=== PATIENT | female | born 1950 | race Caucasian/White ===

== ENCOUNTER 2016-02-28 09:53 | Outpatient (RCR) | payer MEDICARE, OTHER ==
--- OUTSIDE RECORDS SUMMARY | 2015-12-10 14:38 | XMS REPORT | Continuity of Care Document ---
Author Author [facility] Organization [facility] Address Unknown Phone Unavailable Care Team Providers Care Director Of Medical Services Name Role Phone Emile Fleming III PCP [phone] Source Comments Some departments are not documenting in the electronic medical record. If you do not see the information that you expected, contact Release of Information in the Health Information Management department at [phone] for further assistance in locating additional records.[facility] Active Allergies and Adverse Reactions Allergen Noted Date Severity Reactions Comments Flagyl 10/05/2013 EDEMA Pcn 04/13/2012 RASH Sulfa (Sulfonamide 10/05/2013 RASH Antibiotics) Current Medications Prescription Sig. Disp. Refills Start End Date Status Date cyanocobalamin(DIL) Inject 100 mcg to area(s) Active (VITAMIN B-12) 100 mcg/mL as directed every 30 days. The of each month loperamide (IMODIUM) 2 mg Take 8 mg by mouth daily. Active capsule allopurinol (ZYLOPRIM) Take 300 mg by mouth Active 300 mg tablet daily. esomeprazole DR(+) Take 40 mg by mouth every Active (NEXIUM) 40 mg capsule morning. diphenoxylate/atropine Take 2 Tabs by mouth Active (LOMOTIL) 2.5/0.025 mg daily as needed. tablet potassium chloride (KDUR) Take 1 Tab by mouth 90 Cap 3 12/29/19 Active 10 mEq tablet daily. 14 albuterol (VENTOLIN HFA, Inhale 2 Puffs by mouth Active PROAIR HFA) 90 every 6 hours as needed. mcg/actuation inhaler Cholecalciferol (Vitamin Take 1 Cap by mouth Active D3) 5,000 unit cap daily. LACTOBACILLUS ACIDOPHILUS Take 1 Cap by mouth Active (PROBIOTIC PO) daily. cholecalciferol (vitamin Take 1 Tab by mouth every Active D3) 50,000 unit tab 7 days. Calcium-Cholecalciferol Take 1 Tab by mouth twice Active (D3) (CALCIUM 500+D) 500 daily. mg(1,250mg) -400 unit chew Active Problems Problem Noted Date Spinal cord tumor 06/01/2014 Lesion of lung 12/28/2013 Last Assessment & Plan: This needs to be followed with imaging studies. Fatigue 11/28/2013 Last Assessment & Plan: This is probably from the underlying disease and therapy. This has improved. Renal insufficiency 11/21/2013 Overview: Decreased oral intake, because it hurt to urinate. L ast Assessment & Plan: Pt refused to go to treatment for IVF. She said she would increase her oral water intake. will call tomorrow if she is not drinking and urinating more. 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 L ast Assessment & Plan: More pain. Encourage use of hydrocodone, khanh bottle for washing and snuff drier to keep area dry. Continue aquafore and lidocaine per radiation. No s/s of infection at this time. Diarrhea 11/10/2013 Last Assessment & Plan: This is better. She is getting used to her colostomy bag. Encounter for antineoplastic chemotherapy 10/27/2013 Overview: Radiation and Xeloda for neoadjuvant treatment for adenocarcinoma of rectum. L ast Assessment & Plan: Pt educated on chemotherapy agents: capecitabine. Side effects include but limited to: N/V, fatigue, cytopenias, hair thinning, mucositis, rash, PPE, diarrhea. Discussed with pt and spouse when to call the Cancer Center: fevers, diarrhea, constipation, N/V, pain, rash, mucositis or with any other questions or concerns. Pt and verbalized understanding and that all questions had been answered. Informed consent obtained for chemotherapy treatment. Addressed blood transfusions and obtained consent for any necessary blood transfusions. Pt given phone numbers for clinic and after hours contact. Rectal pain 10/27/2013 Overview: This appears to be postsurgical. L ast Assessment & Plan: She will continue her pain meds as needed. Rectal bleeding 10/27/2013 Overview: From large low rectal tumor. L ast Assessment & Plan: Very minimal, after BM. Improved with radiation. Crohn's disease (HCC) 10/27/2013 Overview: Diagnosed about 40 years ago. S/p bowel resection in 1968. Most recently on Sara for this. Last dose in September. L ast Assessment & Plan: She will continue her medications. Rectal cancer (HCC) 10/06/2013 Overview: Pt had a 45 year history of Crohn's diease with her first bowel resection at [facility] in 1968. She has had multiple abdominal surgeries since this time. For the past 6 months she has had intermittent rectal bleeding for which she thought was related to her Crohn's disease but the regular interventions were not helping. She then developed rectal discomfort and a bump in her rectum that was firm. Dr. Mckenna did a colonoscopy 09/08/13 which revealed a stricture and low rectal vs anal mass. Pathology reviewed adenocarcinoma. Her CEA in September was 33.6. She then has a CT scan 09/16/13 which showed soft tissue thickening along th anal canal, presumably related to provided history of anorectal cancer. No regional adenopathy, 2 short segments luminal narrowing in the sigmoid colon and no evidence of metastatic disease in the abdomen or pelvis. She then has a PET scan 09/20/13 and this showed marked hypermetabolic activity associated with thickening in the anal canal and distal rectum, nonspecific mild increased FDG uptake in the right hilum with no definitive underlying mass or lymph node enlargement. Pt was seen by Dr. Smith and Dr. Dickens, whom recommended alex-adjuvant chemo/radiation, but due to her history of Crohn's Disease, they were concerned with possible significant side effects from the radiation. She was referred to for evaluation. She started Xeloda and radiation therapy on 10/26/13. L ast Assessment & Plan: She has completed capecitabine and XRT and underwent APR on 01/16/14. The tumor stage was Stage I [id number]. She tolerated hte procedure fairly well. Discussed prognosis. I would recommend that she received 4-6 months of FOLFOX. Discussed modifiable factors and surveillance. We will continue all supportive measures. She will continue care with Dr. Gil. RTC prn. Renal calculi 11/10/2012 Urolithiasis 04/13/2012 Overview: Hx of Crohn's disease and small bowel resection x4. Hx of urolithiasis since early s. R laser lithotripsy in 07/2009. Lithotripsy 08/2010 stone analysis: calcium oxalate monohydrate and calcium phosphate. She is on allopurinol, calcium and urocit K. 24 hour urine in 2011, showed very low citrate and elevated uric acid and high oxalate prior to current treatment. Poor compliance 03/24/12 presented to ER with R flank pain. CT showed R hydronephrosis. R renal pelvis stone, 11mm. R distal ureter stone 9mm. Left UPJ stone 15mm, no hydro on left. R ureteral stent was placed on 03/25/12 after attempted lithotripsy but laser was not operational. 06/03/12: Cystoscopy, right ureteroscopy with laser lithotripsy and right ureteral stent exchange. Stent Removal 06/15/12. Patient did not follow up for her consult for left PCNL until 11/05/12 CT 11/05/12 - small right renal stones without hydro with large left UPJ stone and multiple lower, mid and upper pole stones. Largest at the UPJ. No hydro. Small intrarenal pelvis. Kidney lies high under 12th rib 11/10/12 Left PCNL. Second look 11/18/12. One persistent left renal stone could not be removed. 01/10/13 metabolic w/u initiated. She is already on Ca Citrate, HCTZ and kCitrate. She has small right renal stones. Stone Ca oxalate monohydrate 03/17/13 24 hour urine: low volume (1.2 L), low citrate, low pH, low calcium, increased oxalate 04/11/13 KUB no change in residual left stone (peripheral upper 1.5 cm) and small right renal stones (punctate-2mm). She did not see nephrology Ca/Mg/PO4 normal. PTH slightly elevated at 71. Low Vit D: 22.4 12/15/13: KUB stable. Still not desiring intervention. 12/21 - MRI of back - showed right hydro. 01/21 - CT - large 6+ mm right UVJ stone - severe hydroureteronephrosis. Right renal pelvis stone. Significant non obstructing left renal stone burden 04/24 - KUB no new right renal or ureteral stones. Left renal stone burden significant based on CT from 01/21 more than KUB today 1.6 x1.6cm 10/[address] 01/21 - looks similar stone burden on the left. More than after her PCNL. Assymtomatic, but she did have an EColi UTI recently. PVR zero. L ast Assessment & Plan: Stable. Patient is aware of her left stone burden and asymptomatic. REcent E Coli UTI - unlikely related to this stone. Her stone has ja calcium oxalate monohydrate and not urea splitting. E Coli can be urea splitting but not common. No change in stone since 04/24. At this time, continued monitoring. She is frail. No repeat PCNL Will see her back in 3 months with KUB. Hold off repeating 24 hour urine at this time. Most Recent Encounters Date Type Specialty Providers Description 10/22/2015 Office Visit Urology Milind Corona MBBS Calculus of kidney (Primary Dx) 10/22/2015 Hospital Radiology Milind Corona MBBS Encounter 09/26/2015 Office Visit Oncology Yuval Gaviria MD Rectal cancer (HCC) (Primary Dx) Social History Tobacco Use Types Packs/Day Years Used Date Never Smoker Smokeless Tobacco: Never Used Alcohol Use Drinks/Week oz/Week Comments Yes 0 Standard 0.0 rare drinks or equivalent Last Filed Vital Signs Vital Sign Reading Time Taken Blood Pressure 137/72 10/22/2015 10:20 AM CDT Pulse 76 10/22/2015 10:20 AM CDT Temperature 36.7 C (98.1 F) 09/26/2015 11:16 AM CDT Respiratory Rate 16 09/26/2015 11:16 AM CDT Height 1.575 m (5' 2") 10/22/2015 10:20 AM CDT Weight 44.271 kg (97 lb 9.6 oz) 10/22/2015 10:20 AM CDT Body Mass Index 17.85 10/22/2015 10:20 AM CDT Oxygen Saturation 98% 09/26/2015 11:16 AM CDT Plan of Care Date Type Specialty Providers Description 12/14/2015 Appointment Urology Milind Corona MBBS [address] [place] [address] [phone] (Fax) 03/26/2016 Appointment Oncology Yuval Gaviria MD [address] [place] [address] [phone] (Fax) 08/13/2016 Appointment Radiology Nick Mueller MD [address] [place] [address] [phone] (Fax) 08/13/2016 Appointment Neurosurgery Nick Mueller MD [address] [place] [address] [phone] (Fax) Health Maintenance Due Date Last Done Comments Hepatitis C Screening 1950 Physical (Comprehensive) 05/11/1955 Exam Pertussis Vaccine 05/11/1959 Tetanus Vaccine 1965 Breast Cancer Screening 1988 Shingles Vaccine 2008 Osteoporosis Screening 2013 Prevnar/Pneumovax (#1) 2013 Influenza Vaccine 11/08/2015 Colorectal Cancer 04/16/2025 04/16/2015, 04/16/2015 Screening Results from Last [address] ABD/PELV WO CONTRAST (10/22/2015 10:05 AM) Impressions 1. Resolution of right hydronephrosis since 01/15/2015 with nonvisualization of right renal pelvis and distal ureteral calculi. 2. Slight decrease in stone burden in both kidneys with persistent nonobstructive calculi, worse on the left. 3. Previous abdominoperineal resection with unchanged presacral soft tissue thickening and pelvic scarring, which are likely post therapeutic. 4. 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 5. Multiple right lung base subcentimeter pulmonary opacities, the majority of which have remained stable in size, likely representing scarring or noncalcified granulomas. Tiny 2 mm nodular opacity not definitively seen on prior exam, although likely additional scarring or noncalcified granuloma. Attention on follow-up recommended. 6. Slight increase in size of mildly enlarged mesenteric lymph nodes are indeterminant and could be reactive. Follow-up in 2-3 months is recommended to evaluate for stability or resolution. Approved by John Paul Marks MD on 10/22/2015 1:31 PM By my electronic signature, I attest that I have personally reviewed the images for this examination and formulated the interpretations and opinions expressed in this report Finalized by JUHI GROSS M.D. on 10/22/2015 1:37 PM. Dictated by John Paul Marks MD on 10/22/2015 11:[address] ABDOMEN AND PELVIS Clinical Indication:Female, 65 years old. Nephrolithiasis Technique: Multiple contiguous axial CT images were obtained through the abdomen and pelvis without IV contrast. Post processing coronal and sagittal reconstruction images were made from the axial images. IV contrast: None. Bowel contrast:None Comparison: MRI L-spine from August 15, [address] abdomen/pelvis from January. FINDINGS: Limited evaluation without the use of IV contrast which includes the viscera and vasculature. Lower Thorax: The heart is normal in size. Mitral annular calcification noted. Several subcentimeter nodular opacities in the right lung base are noted ( series 4, images 1, 7, 23, and 38). Several nodules are unchanged since at least 09/16/2013. An additional more cephalad lesion is unchanged since 2013. A tiny 2-3 mm opacity is not definitively seen on prior exam (series 4, image 7). Liver and Biliary system: Unremarkable. Spleen: Unremarkable. Adrenal Glands and Kidneys: Adrenal glands are unremarkable. Interval resolution of right hydronephrosis and nonvisualization of previously seen right UVJ calculus and a calculus in the right renal pelvis. Decreased stone burden in the right kidney with several residual punctate calculi. The dominant calculus measures 2 mm the right interpolar region. Slight improvement in stone burden in the left kidney with nonvisualization of several upper pole calculi. Multiple large stones persist with the largest up to 1.7 cm (series 3, image 30 ) in the left interpolar region. Scattered minute areas of renal cortical scarring are unchanged. No hydronephrosis or distal ureteral calculi identified. Pancreas and Retroperitoneum: Unremarkable. Aorta and Major Vessels: Abdominal aorta is normal in caliber with mild atherosclerotic calcification of the aortoiliac vessels. Bowel, Mesentery and Peritoneal space: Previous abdominoperineal resection noted with unchanged mild presacral soft tissue thickening, which is most likely post therapeutic. Left lower quadrant colostomy with parastomal hernia containing nonobstructed loops of small bowel. Mild retained stool throughout the colon. Large and small loops of bowel are otherwise normal in caliber. Slight increase in size of prominent mesenteric lymph nodes (series 3, images 40 , 42, and 44), with the largest measuring 1.5 x 1.1 cm (series 3, image 44). No ascites. Pelvis: Previous hysterectomy noted. Unchanged abnormal contour of urinary bladder with elongation of the AP dimension and associated bladder wall thickening. No pelvic lymphadenopathy or ascites identified. Abdominal wall and Osseous Structures: Previous ventral pelvic mass or hernia repair with unchanged soft tissue thickening and dystrophic calcification in the lower anterior abdominal wall. Unchanged appearance of chronic displaced nonunited fractures left anterior pubic bone fracture deformities. Persistent sclerosis of the sacral alae bilaterally, worse on the left compatible with old insufficiency fractures. Diffuse demineralization is noted. Mild thoracal lumbar spondylosis. The lower thoracic syrinx is incompletely characterized on CT, please see recent MRI L-spine 08/15/2015. Procedure Note Interface, Radiant Results - Mon Oct 22, 2015 1:[address] ABDOMEN AND PELVIS Clinical Indication: Female, 65 years old. Nephrolithiasis Technique: Multiple contiguous axial CT images were obtained through the abdomen and pelvis without IV contrast. Post processing coronal and sagittal reconstruction images were made from the axial images. IV contrast: None. Bowel contrast: None Comparison: MRI L-spine from August 15, [address] abdomen/pelvis from January. FINDINGS: Limited evaluation without the use of IV contrast which includes the viscera and vasculature. Lower Thorax: The heart is normal in size. Mitral annular calcification noted. Several subcentimeter nodular opacities in the right lung base are noted ( series 4, images 1, 7, 23, and 38). Several nodules are unchanged since at least 09/16/2013. An additional more cephalad lesion is unchanged since 2013. A tiny 2-3 mm opacity is not definitively seen on prior exam (series 4, image 7). Liver and Biliary system: Unremarkable. Spleen: Unremarkable. Adrenal Glands and Kidneys: Adrenal glands are unremarkable. Interval resolution of right hydronephrosis and nonvisualization of previously seen right UVJ calculus and a calculus in the right renal pelvis. Decreased stone burden in the right kidney with several residual punctate calculi. The dominant calculus measures 2 mm the right interpolar region. Slight improvement in stone burden in the left kidney with nonvisualization of several upper pole calculi. Multiple large stones persist with the largest up to 1.7 cm (series 3, image 30 ) in the left interpolar region. Scattered minute areas of renal cortical scarring are unchanged. No hydronephrosis or distal ureteral calculi identified. Pancreas and Retroperitoneum: Unremarkable. Aorta and Major Vessels: Abdominal aorta is normal in caliber with mild atherosclerotic calcification of the aortoiliac vessels. Bowel, Mesentery and Peritoneal space: Previous abdominoperineal resection noted with unchanged mild presacral soft tissue thickening, which is most likely post therapeutic. Left lower quadrant colostomy with parastomal hernia containing nonobstructed loops of small bowel. Mild retained stool throughout the colon. Large and small loops of bowel are otherwise normal in caliber. Slight increase in size of prominent mesenteric lymph nodes (series 3, images 40 , 42, and 44), with the largest measuring 1.5 x 1.1 cm (series 3, image 44). No ascites. Pelvis: Previous hysterectomy noted. Unchanged abnormal contour of urinary bladder with elongation of the AP dimension and associated bladder wall thickening. No pelvic lymphadenopathy or ascites identified. Abdominal wall and Osseous Structures: Previous ventral pelvic mass or hernia repair with unchanged soft tissue thickening and dystrophic calcification in the lower anterior abdominal wall. Unchanged appearance of chronic displaced nonunited fractures left anterior pubic bone fracture deformities. Persistent sclerosis of the sacral alae bilaterally, worse on the left compatible with old insufficiency fractures. Diffuse demineralization is noted. Mild thoracal lumbar spondylosis. The lower thoracic syrinx is incompletely characterized on CT, please see recent MRI L-spine 08/15/2015. IMPRESSION 1. Resolution of right hydronephrosis since 01/15/2015 with nonvisualization of right renal pelvis and distal ureteral calculi. 2. Slight decrease in stone burden in both kidneys with persistent nonobstructive calculi, worse on the left. 3. Previous abdominoperineal resection with unchanged presacral soft tissue thickening and pelvic scarring, which are likely post therapeutic. 4. 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 5. Multiple right lung base subcentimeter pulmonary opacities, the majority of which have remained stable in size, likely representing scarring or noncalcified granulomas. Tiny 2 mm nodular opacity not definitively seen on prior exam, although likely additional scarring or noncalcified granuloma. Attention on follow-up recommended. 6. Slight increase in size of mildly enlarged mesenteric lymph nodes are indeterminant and could be reactive. Follow-up in 2-3 months is recommended to evaluate for stability or resolution. Approved by John Paul Marks MD on 10/22/2015 1:31 PM By my electronic signature, I attest that I have personally reviewed the images for this examination and formulated the interpretations and opinions expressed in this report Finalized by JUHI GROSS M.D. on 10/22/2015 1:37 PM. Dictated by John Paul Marks MD on 10/22/2015 11:16 AM.
[2016-02-21 11:14] LABS: BASOPHILS % (AUTO) 0 % (0-10); EOSINOPHILS # (AUTO) 0.2 10^3/uL (0.0-0.3); EOSINOPHILS % (AUTO) 3 % (0-10); LYMPHOCYTES # (AUTO) 2.2 X 10^3 (1.0-4.0); LYMPHOCYTES % (AUTO) 29 % (12-44); MEAN CORPUSCULAR HEMOGLOBIN 30 PG (25-34); MEAN CORPUSCULAR HGB CONC 33 G/DL (32-36); MEAN CORPUSCULAR VOLUME 91 FL (80-99); MEAN PLATELET VOLUME 9.5 FL (7.4-10.4); MONOCYTES # (AUTO) 0.5 X 10^3 (0.0-1.0); MONOCYTES % (AUTO) 6 % (0-12); NEUTROPHILS # (AUTO) 4.6 X 10^3 (1.8-7.8); NEUTROPHILS % (AUTO) 62 % (42-75); PLATELET COUNT 150 10^3/uL (130-400); RED BLOOD COUNT 3.95 10^6/uL (4.35-5.85); RED CELL DISTRIBUTION WIDTH 15.8 % (10.0-14.5); WHITE BLOOD COUNT 7.5 10^3/uL (4.3-11.0)
[2016-02-21 11:45] LABS: ALBUMIN 3.7 G/DL (3.2-4.5); BILIRUBIN,TOTAL 0.4 MG/DL (0.1-1.0); CALCIUM 8.6 MG/DL (8.5-10.1); CREATININE SERUM 1.03 MG/DL (0.60-1.30); POTASSIUM 3.9 MMOL/L (3.6-5.0); TOTAL PROTEIN 6.5 G/DL (6.4-8.2)
[~2016-02-28 09:53] MED LIST: ALLO300T2 PO; ALLP300T PO; AZIT-21 PO; AZIT500T2 PO; CALC-787 PO; CHOL4PAC19 PO; CHOL4PAC2 PO; CPR500T PO; CYAN100021 IM; CYAN100053 IJ; CYCL10TA9 PO; DIPH1TAB25 PO; DIPH1TAB45 PO; FERR-57 PO; FERR27TA PO; HUMIRA SC; HYDR-3720 PO; HYDR1TAB66 PO; LACT1CAP62 PO; LEVO500T69 PO; LOPE2CAP PO; LOPE2CAP29 PO; MAGN400T26 PO; MAGN400T6 PO; MEGA D PO; MULT-264; Metronidazole PO; NF-ESOM40C PO; NF-URO10 PO; NITR50CA28 PO; ONDAN4ODT PO; POTA10TA17 PO; PRD20T PO; TMSL.4C PO; TRIA1CAP4 PO; TRIA1TAB3 PO; TRM50T PO; VANC125C2 PO
== END 2016-03-09 | disposition home or self-care (01) ==
LOC: ONC 09:53
PROVIDERS: ATTEND Internal Medicine Hematology & Oncology
DX: C21.8 Malignant neoplasm of overlapping sites of rectum, anus and anal canal (principal); M81.0 Age-related osteoporosis without current pathological fracture; G95.89 Other specified diseases of spinal cord; Z93.3 Colostomy status; Z79.899 Other long term (current) drug therapy; Z45.2 Encounter for adjustment and management of vascular access device
CPT/HCPCS: 36591; 80053; 82306; 82378; 85025; 99213

== ENCOUNTER 2016-04-12 09:43 | Inpatient (IN) | payer MEDICARE, OTHER ==
[~2016-04-12] VITALS: Ht 157.5 cm; Wt 41.8 kg
--- OUTSIDE RECORDS SUMMARY | 2016-04-12 09:49 | XMS REPORT | Continuity of Care Document ---
Author Author [facility] Organization [facility] Address Unknown Phone Unavailable Care Team Providers Care Hollow Core Door Frame Assembler Name Role Phone Emile Fleming III PCP [phone] Source Comments Some departments are not documenting in the electronic medical record. If you do not see the information that you expected, contact Release of Information in the Health Information Management department at [phone] for further assistance in locating additional records.[facility] Active Allergies and Adverse Reactions Allergen [...] mouth every 28 Cap 0 04/01/19 04/08/19 macrocrystal 6 hours for 7 days. Take [...] of hydrocodone, khanh bottle for washing and grain drier operator to keep area dry. Continue aquafore and [...] diease with her first bowel resection at [facility] in 1968. She has had multiple abdominal [...] 01/16/14. The tumor stage was Stage I [id number]. She tolerated hte procedure fairly well. 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 03/25 Left flank pain and urgency end of Feb. CT locally in [place] 03/06/16 - left ureteral stones. Known left [...] Radiologist Diagnosis unknown Orders (Primary Dx) 03/28/2016 [facility] Milind Corona MBBS Calculus of ureter Encounter 03/28/2016 [facility] Milind Corona MBBS Calculus of ureter Encounter 03/28/2016 Hospital Radiology Milind Corona MBBS Encounter 03/28/2016 Office Visit Urology Milind Corona MBBS Calculus of ureter (Primary Dx) 03/06/2016 Hospital Radiology Encounter Social History Tobacco Use Types Packs/Day Years Used Date Never Smoker Smokeless Tobacco: Never Used Alcohol Use Drinks/Week oz/Week Comments Yes 0 Standard 0.0 rare drinks or equivalent Last Filed Vital Signs Vital Sign Reading Time Taken Blood Pressure 138/65 04/02/2016 3:57 PM GLUE MOUNTER OPERATOR Pulse 87 04/02/2016 3:57 PM GLUE MOUNTER OPERATOR Temperature 36.6 C (97.9 F) 04/02/2016 3:57 PM GLUE MOUNTER OPERATOR Respiratory Rate 14 04/02/2016 3:57 PM GLUE MOUNTER OPERATOR Height 1.575 m (5' 2.01") 04/02/2016 3:57 PM GLUE MOUNTER OPERATOR Weight 45.088 kg (99 lb 6.4 oz) 04/02/2016 3:57 PM GLUE MOUNTER OPERATOR Body Mass Index 18.18 04/02/2016 3:57 PM GLUE MOUNTER OPERATOR Oxygen Saturation 100% 04/02/2016 3:57 PM GLUE MOUNTER OPERATOR Plan of Care Date Type Specialty Providers Description 04/14/2016 Appointment Urology Milind Corona MBBS [address] [place] [address] [phone] (Fax) 06/13/2016 Appointment Urology Milind Corona MBBS [address] [place] [address] [phone] (Fax) 08/13/2016 Appointment Radiology Nick Mueller MD [address] [place] [address] [phone] (Fax) 08/13/2016 Appointment Neurosurgery Nick Mueller MD [address] [place] [address] [phone] (Fax) 10/01/2016 Appointment Oncology Yuval Gaviria MD [address] [place] [address] [phone] (Fax) Health Maintenance Due Date Last Done [...] prior exam are not included on the [id number]. Approved by Susan Ascencio M.D. on 03/28/2016 5:05 PM By my electronic signature, I attest that I have personally reviewed the images for this examination and formulated the interpretations and opinions expressed in this report Finalized by JUHI GROSS M.D. on 03/28/2016 5:40 PM. Dictated by Susan Ascencio M.D. on 03/28/2016 4:[address] [...] view. No enlarging pulmonary nodule in the [id number]. Liver and Biliary system: Normal sized liver. [...] Results - ThuMar 28, 2016 5:43 PM GLUE MOUNTER OPERATOR CT ABDOMEN AND PELVIS Clinical Indication: Evaluate [...] view. No enlarging pulmonary nodule in the [id number]. Liver and Biliary system: Normal sized liver. [...] prior exam are not included on the [id number]. Approved by Susan Ascencio M.D. on 03/28/2016 [...]
[2016-04-12] MEDS ORDERED: IBUPROFEN 600 MG (MOTRIN) TAB PO ONE (10:00)
[2016-04-12] MEDS ORDERED: morphine INJ 5 MG/ML 1 ML VIAL IVP ONE (10:00)
[2016-04-12] MEDS ORDERED: ONDANSETRON 4 MG/2 ML (SDV) Z0FRAN IVP ONE (10:00)
--- NOTE | 2016-04-12 10:14 | ED Back Pain ---
General Chief Complaint: Back Problems Stated Complaint: KIDNEY STONE/NAUSEA/FEVER Source of Information: Patient History of Present Illness Time Seen by Provider: 10:04 Initial Comments 65 yo wf w left flank pain which began yesterday. She knows she has a left kidney stone and is scheduled Thursday to go to for it. She has been on Macrobid and Floxax. S/P colon cancer and has colostomy. Long standing Chron's disease. Allergies and Home Medications Allergies Coded Allergies: Penicillins (Unverified Allergy, Intermediate, HIVES, 05/01/14) metronidazole (Verified Allergy, Unknown, FACIAL EDEMA, 05/04/14) Sulfa (Sulfonamide Antibiotics) (Unverified Adverse Reaction, Unknown, ) Home Medications 1 TAB PO DAILY (Reported) Allopurinol 300 Mg Tablet 300 MG PO DAILY (Reported) Calcium Citrate/Vitamin D3 1 Each Tablet 1 TAB PO DAILY (Reported) Esomeprazole Mag Trihydrate 40 Mg Capsule.dr 40 MG PO DAILY (Reported) Lactobacillus Acidophilus 1 Each Capsule 1 CAP PO DAILY (Reported) Magnesium Oxide 400 Mg Tablet 400 MG PO TID (Reported) Nitrofurantoin Macrocrystals 50 Mg Capsule 7Days 1 EACH PO BID Prescribed by: ROBI ALLEN on 05/08/14 1646 Prednisone 20 Mg Tab #20 20 MG PO DAILY@0700 Prescribed by: ANNMARIE DE LA TORRE on 05/08/14 0801 Constitutional: fever EENTM: No blurred vision Respiratory: No cough Cardiovascular: No chest pain Gastrointestinal: No abdominal pain, No diarrhea, No vomiting Genitourinary: see HPI : No Musculoskeletal: back pain (left flank pain) Skin: rash Psychiatric/Neurological: No Symptoms Reported Past Bdmogne-Vdvptq-Slilns Hx Patient Social History Alcohol Use: Denies Use Recreational Drug Use: No Smoking Status: Never a Smoker Recent Foreign Travel: No Contact w/Someone Who Travel: No Recent Hopitalizations: Yes (MAR 2005 FOR DEHYDRATION) Immunizations Up To Date Date of Pneumonia Vaccine: Dec 08, 2011 Date of Influenza Vaccine: Dec 07, 2013 Seasonal Allergies Seasonal Allergies: Yes Surgeries HX Surgeries: Yes (CYSTOSCOPIES AND KIDNEY STONE REMOVALS. BOWEL RESECTION) Surgeries: Abdominal, Hysterectomy, Rectal Respiratory Hx Respiratory Disorders: Yes (asthma allergy induced) Respiratory Disorders: Asthma Cardiovascular Hx Cardiac Disorders: No Neurological Hx Neurological Disorders: No 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 System Hx 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 Disorders: No Sexually Transmitted Disease: No Genitourinary Hx Genitourinary Disorders: Yes Genitourinary Disorders: Kidney Stones, UTI-Chronic Gastrointestinal Hx Gastrointestinal Disorders: Yes Gastrointestinal Disorders: Crohns Disease Musculoskeletal Hx Musculoskeletal Disorders: Yes Musculoskeletal Disorders: Osteoporosis Endocrine Hx Endocrine Disorders: No HEENT HX ENT Disorders: No Loss of Vision: Denies Hearing Impairment: Denies Cancer Hx Cancer: Yes Cancer: Rectal, Colon Psychosocial Hx Psychiatric Problems: No Integumentary HX Skin/Integumentary Disorder: No Blood Transfusions Hx Blood Disorders: Yes (anemia) Adverse Reaction to a Blood Tr: No Reviewed Nursing Assessment Reviewed/Agree w Nursing PMH: Yes Family Medical History Family Medial History: Hypertension 19 MOTHER Prostate cancer G8 BROTHER Physical Exam Vital Signs Vital Sign - Last 12Hours 04/12/16 09:47 Temp 102.0 Pulse 131 Resp 20 B/P 136/76 Pulse Ox 94 O2 Delivery Room Air Capillary Refill : General Appearance: No Apparent Distress WD/WN HEENT: Normal ENT Inspection Neck: Normal Inspection Cardiovascular: Regular Rate, Rhythm No Murmur Respiratory: Lungs Clear Gastrointestinal: Normal Bowel Sounds Non Tender Soft Back: Normal InspectionNo CVA Tenderness (L) Extremity: Normal Range of Motion Neurologic/Psychiatric: Alert Oriented x3 No Motor/Sensory Deficits Skin: Normal Color Warm/Dry Progress/Results/Core Measures Results/Orders Lab Results Laboratory Tests Test 04/12/16 09:55 04/12/16 10:20 Range/Units Urine Bacteria MODERATE H /HPF Urine Bilirubin NEGATIVE NEGATIVE Urine Casts NONE /LPF Urine Clarity VERY CLOUDY H Urine Color YELLOW Urine Crystals NONE /LPF Urine Culture Indicated YES Urine Glucose (UA) NEGATIVE NEGATIVE Urine Ketones 1+ H NEGATIVE Urine Leukocyte Esterase 3+ H NEGATIVE Urine Mucus NEGATIVE /LPF Urine Nitrite POSITIVE H NEGATIVE Urine Protein 3+ H NEGATIVE Urine RBC >100 H /HPF Urine RBC (Auto) 4+ H NEGATIVE Urine Specific [place] 1.010 L 1.016-1.022 Urine Urobilinogen NORMAL NORMAL MG/DL Urine WBC TNTC H /HPF Urine pH 5 5-9 Alanine Aminotransferase (ALT/SGPT) 8 0-55 U/L Albumin 3.4 3.2-4.5 G/DL Alkaline Phosphatase 116 40-136 U/L Anion Gap 13 5-14 MMOL/L Aspartate Amino Transf (AST/SGOT) 18 5-34 U/L BUN/Creatinine Ratio 17 Band Neutrophils 11 % Basophils # (Auto) 0.0 0.0-0.1 10^3/uL Basophils (%) (Auto) 0 0-10 % Blood Morphology Comment NORMAL Blood Urea Nitrogen 21 H 7-18 MG/DL Calcium Level 8.2 L 8.5-10.1 MG/DL Carbon Dioxide Level 17 L 21-32 MMOL/L Chloride Level 107 98-107 MMOL/L Creatinine 1.22 0.60-1.30 MG/DL Eosinophils # (Auto) 0.0 0.0-0.3 10^3/uL Eosinophils (%) (Auto) 0 0-10 % Estimat Glomerular Filtration Rate 44 Glucose Level 84 70-105 MG/DL Hematocrit 39 35-52 % Hemoglobin 13.1 11.5-16.0 G/DL Lactic Acid Level 1.5 0.5-2.0 MMOL/L Lymphocytes # (Auto) 1.0 1.0-4.0 X 10^3 Lymphocytes % (Manual) 4 % Lymphocytes (%) (Auto) 5 L 12-44 % Mean Corpuscular Hemoglobin 30 25-34 PG Mean Corpuscular Hemoglobin Concent 34 32-36 G/DL Mean Corpuscular Volume 89 80-99 FL Mean Platelet Volume 9.5 7.4-10.4 FL Monocytes # (Auto) 0.7 0.0-1.0 X 10^3 Monocytes % (Manual) 1 % Monocytes (%) (Auto) 3 0-12 % Neutrophils # (Auto) 18.9 H 1.8-7.8 X 10^3 Neutrophils % (Manual) 84 % Neutrophils (%) (Auto) 92 H 42-75 % Platelet Count 143 130-400 10^3/uL Potassium Level 3.4 L 3.6-5.0 MMOL/L Red Blood Count 4.36 4.35-5.85 10^6/uL Red Cell Distribution Width 14.3 10.0-14.5 % Sodium Level 137 135-145 MMOL/L Total Bilirubin 1.1 H 0.1-1.0 MG/DL Total Protein 6.4 6.4-8.2 G/DL White Blood Count 20.7 H 4.3-11.0 10^3/uL My Orders Orders-ARTURO SAM MD Ct Abdomen/Pelvis Wo (04/12/16 09:59) Ua Culture If Indicated (04/12/16 09:59) Cbc With Automated Diff (04/12/16 09:59) Comprehensive Metabolic Panel (04/12/16 09:59) Blood Culture (04/12/16 09:59) Lactic Acid Analyzer (04/12/16 09:59) Ibuprofen Tablet (Motrin Tablet) (04/12/16 10:00) Ns Iv 1000 Ml (Sodium Chloride 0.9%) (04/12/16 10:00) Ondansetron Injection (Zofran Injectio (04/12/16 10:00) Morphine Injection (Morphine Injection (04/12/16 10:00) Morphine Injection (Morphine Injection (04/12/16 10:26) Manual Differential (04/12/16 10:20) Morphine Injection (Morphine Injection (04/12/16 10:45) Urine Culture (04/12/16 09:55) Ceftriaxone Injection (Rocephin Injectio (04/12/16 11:30) Levofloxacin 500 Mg/100 Ml Iv (Levaquin (04/12/16 11:45) Medications Given in ED Current Medications Medications Dose Ordered Sig/Abad Route Start Time Stop Time Status Last Admin Dose Admin Ceftriaxone Sodium/Sodium Chloride 50 ml @ 100 mls/hr ONCE ONCE IV 04/12/16 11:30 04/12/16 11:59 04/12/16 11:42 100 MLS/HR Ibuprofen 600 mg ONCE ONCE PO 04/12/16 10:00 04/12/16 10:04 DC 04/12/16 10:29 600 MG Morphine Sulfate 5 mg 5 mg ONCE ONCE IVP 04/12/16 10:45 04/12/16 10:46 DC 04/12/16 10:29 5 MG Ondansetron HCl 4 mg ONCE ONCE IVP 04/12/16 10:00 04/12/16 10:04 DC 04/12/16 10:29 4 MG Vital Signs/I&O Vital Sign - Last 12Hours 04/12/16 09:47 Temp 102.0 Pulse 131 Resp 20 B/P 136/76 Pulse Ox 94 O2 Delivery Room Air Progress Note : Time: 11:[address] of the abdomen and pelvis demonstrated a left high go but no evidence of stone. The patient's white count was elevated at 20,000. Blood cultures 2 and a urine culture were obtained. After telephone consultation with the patient's [facility] urologist, Dr. Milind Corona, ([phone]), the patient was treated with 2 g of Rocephin and 1 g of Levaquin IV. Total consultation was undertaken with Dr. Vela, who is kind enough to admit the patient. Departure Communication Time/Spoke to Admitting Phy: 11:[address] Vela Time/Spoke to Consulting Physi: 11:49 Communication/Consulting Dr. Milind Castellanos at [phone]. Impression Impression: Primary Impression: Hydronephrosis Qualified Code: N13.30 - Unspecified hydronephrosis Additional Impression: Pyelonephritis Disposition: ADMITTED INPATIENT Condition: Unchanged Departure-Patient Inst. Referrals: RIOS ELLER DO (PCP/Family) Primary Care Physician ARTURO SAM MD Apr 12, 2016 10:14
[2016-04-12] MEDS ORDERED: morphine INJ 10 MG/ML 1ML (SYR OR VIAL) ONE (10:26)
[2016-04-12] MEDS: NS IV 1000 ML 1,000 ML IV SCH ×5 (10:29→22:12)
[2016-04-12 10:33] LABS: BASOPHILS % (AUTO) 0 % (0-10); EOSINOPHILS % (AUTO) 0 % (0-10); LYMPHOCYTES % (AUTO) 5 % (12-44); MEAN CORPUSCULAR HEMOGLOBIN 30 PG (25-34); MEAN CORPUSCULAR HGB CONC 34 G/DL (32-36); MEAN CORPUSCULAR VOLUME 89 FL (80-99); MEAN PLATELET VOLUME 9.5 FL (7.4-10.4); MONOCYTES # (AUTO) 0.7 X 10^3 (0.0-1.0); MONOCYTES % (AUTO) 3 % (0-12); NEUTROPHILS # (AUTO) 18.9 X 10^3 (1.8-7.8); NEUTROPHILS % (AUTO) 92 % (42-75); PLATELET COUNT 143 10^3/uL (130-400); RED BLOOD COUNT 4.36 10^6/uL (4.35-5.85); RED CELL DISTRIBUTION WIDTH 14.3 % (10.0-14.5); WHITE BLOOD COUNT 20.7 10^3/uL (4.3-11.0)
[2016-04-12 10:43] LABS: BILIRUBIN,URINE NEGATIVE (NEGATIVE); KETONES,URINE 1+ (NEGATIVE); LEUKOCYTE ESTERASE ,URINE 3+ (NEGATIVE); NITRITE,URINE POSITIVE (NEGATIVE); PH,URINE 5 (5-9); PROTEIN,URINE 3+ (NEGATIVE); UROBILINOGEN,URINE NORMAL (NORMAL)
[2016-04-12] MEDS ORDERED: morphine INJ 10 MG/ML 1ML (SYR OR VIAL) IVP ONE (10:45)
[2016-04-12 10:52] LABS: ALBUMIN 3.4 G/DL (3.2-4.5); BILIRUBIN,TOTAL 1.1 MG/DL (0.1-1.0); CALCIUM 8.2 MG/DL (8.5-10.1); CREATININE SERUM 1.22 MG/DL (0.60-1.30); POTASSIUM 3.4 MMOL/L (3.6-5.0); TOTAL PROTEIN 6.4 G/DL (6.4-8.2)
--- NOTE | 2016-04-12 10:53 | Diagnostic Imaging Report ---
PROCEDURE: CT abdomen and pelvis without contrast. TECHNIQUE: Multiple contiguous axial images were obtained through the abdomen and pelvis without the use of intravenous contrast. INDICATION: History of kidney stones, left flank pain. COMPARISON: 03/06/2016. FINDINGS: New left-sided hydronephrosis and hydroureter is present. However, no calculi are seen within the course of the ureter or within the urinary bladder. It is conceivable the patient may have passed a kidney stone. Nonobstructive stones are seen in the left kidney. The largest measures approximately 17 mm. The right kidney is stable. The lung bases are clear. The remainder of the solid organs and bowel are unchanged. Left lower quadrant colostomy is present. There is some thickening of the urinary bladder which is nondistended. Prior anterior abdominal wall repair is noted. The rectum is surgically absent. Osseous structures stable. IMPRESSION: 1. Left-sided hydronephrosis and hydroureter without obvious obstructing stone. 2. Stable nonobstructive calculi left kidney. 3. Postoperative changes as described above. 4. No inflammatory process or abscess identified. Dictated by: Dictated on workstation # [id number]
[2016-04-12 10:55] LABS: WBC,URINE TNTC /HPF
[2016-04-12 10:56] LABS: BAND NEUTROPHILS 11 %; LYMPHOCYTES % (MANUAL) 4 %; NEUTROPHILS % (MANUAL) 84 %
[2016-04-12] MEDS ORDERED: cefTRIAXone INJECTION 2,000 MG in NS (IVPB) 50 ML IV ONE (11:30)
[2016-04-12] MEDS ORDERED: LEVOFLOXACIN 500 MG/100 ML (LEVAQUIN) BAG IV ONE (11:45)
[2016-04-12] MEDS ORDERED: LEVOFLOXACIN 750 MG/150 ML IV 150 ML IV ONE (12:15)
[2016-04-12 12:45] VITALS: BP 96/56
[2016-04-12] MEDS ORDERED: LOPE2CAP PO (13:15)
[2016-04-12] MEDS ORDERED: DIPH1TAB PO (13:15)
[2016-04-12] MEDS ORDERED: oxyCODONE/APAP 5/325MG (PERCOCET 5) TABLET PO PRN (13:15)
[2016-04-12] MEDS ORDERED: POTA10TA6 PO (13:15)
[2016-04-12] MEDS ORDERED: morphine INJ 10 MG/ML 1ML (SYR OR VIAL) IV PRN (13:15)
[2016-04-12] MEDS ORDERED: CHOL5000 PO (13:15)
[2016-04-12] MEDS ORDERED: L.AC1CAP6 PO (13:15)
[2016-04-12] MEDS ORDERED: CHOL500026 PO ×2 (13:15→13:19)
[2016-04-12] MEDS ORDERED: CA C1TAB75 PO (13:15)
[2016-04-12] MEDS ORDERED: NF-ESOM40C PO (13:15)
[2016-04-12] MEDS ORDERED: B 12 INJECTION IM (13:25)
[2016-04-12] MEDS ORDERED: RECLAST IVP (13:25)
[2016-04-12] MEDS ORDERED: CALC-308 PO (13:27)
[2016-04-12] MEDS: ONDANSETRON 4 MG/2 ML (SDV) Z0FRAN IV PRN (15:39)
[2016-04-12 16:00] VITALS: BP 103/62
[2016-04-12 19:30] VITALS: BP 96/55
[2016-04-13] VITALS: BP 94/50
[2016-04-13] MEDS: ACETAMINOPHEN 325 MG TABLET/CAPLET (TYLENOL) PO PRN ×2 (02:17→17:38)
[2016-04-13 04:51] VITALS: BP 92/53
[2016-04-13 05:14] LABS: BASOPHILS % (AUTO) 0 % (0-10); EOSINOPHILS % (AUTO) 0 % (0-10); LYMPHOCYTES # (AUTO) 0.6 X 10^3 (1.0-4.0); LYMPHOCYTES % (AUTO) 4 % (12-44); MEAN CORPUSCULAR HEMOGLOBIN 29 PG (25-34); MEAN CORPUSCULAR HGB CONC 33 G/DL (32-36); MEAN CORPUSCULAR VOLUME 90 FL (80-99); MEAN PLATELET VOLUME 9.8 FL (7.4-10.4); MONOCYTES # (AUTO) 0.5 X 10^3 (0.0-1.0); MONOCYTES % (AUTO) 3 % (0-12); NEUTROPHILS # (AUTO) 13.6 X 10^3 (1.8-7.8); NEUTROPHILS % (AUTO) 92 % (42-75); PLATELET COUNT 86 10^3/uL (130-400); RED BLOOD COUNT 3.48 10^6/uL (4.35-5.85); RED CELL DISTRIBUTION WIDTH 14.5 % (10.0-14.5); WHITE BLOOD COUNT 14.7 10^3/uL (4.3-11.0)
[2016-04-13 05:35] LABS: ALBUMIN 2.5 G/DL (3.2-4.5); ANISOCYTOSIS SLIGHT; BAND NEUTROPHILS 15 %; BASOPHILS % (MANUAL) 0 %; BILIRUBIN,TOTAL 0.4 MG/DL (0.1-1.0); CALCIUM 6.8 MG/DL (8.5-10.1); CREATININE SERUM 1.29 MG/DL (0.60-1.30); CRENATED RBC SLIGHT; EOSINOPHILS % (MANUAL) 0 %; LYMPHOCYTES % (MANUAL) 3 %; NEUTROPHILS % (MANUAL) 78 %; POTASSIUM 3.6 MMOL/L (3.6-5.0); TOTAL PROTEIN 4.7 G/DL (6.4-8.2)
[2016-04-13] MEDS: NS IV 1000 ML 1,000 ML IV SCH ×2 (05:42→05:43)
[2016-04-13 08:00] VITALS: BP 102/55
[2016-04-13] MEDS: cefTRIAXone 1 GM/NS 50 ML IVPB IV SCH ×2 (08:10)
[2016-04-13] MEDS: ONDANSETRON 4 MG/2 ML (SDV) Z0FRAN IV PRN ×2 (08:25→18:27)
[2016-04-13 09:42] LABS: BILIRUBIN,URINE NEGATIVE (NEGATIVE); KETONES,URINE 1+ (NEGATIVE); LEUKOCYTE ESTERASE ,URINE 3+ (NEGATIVE); NITRITE,URINE NEGATIVE (NEGATIVE); PH,URINE 5 (5-9); PROTEIN,URINE 3+ (NEGATIVE); UROBILINOGEN,URINE NORMAL (NORMAL)
[2016-04-13 09:49] LABS: WBC,URINE TNTC /HPF
--- NOTE | 2016-04-13 10:26 | History & Physical-Hospitalist ---
HPI History of Present Illness: HPI/Chief Complaint The patient is a 65-year-old white female admitted from the emergency room after she presented with a complaint of fever and generalized illness and malaise. She was found to have a temperature of 102. Her story begins in February when she had a follow-up CT scan at [facility] for colon cancer which was resected 2 years ago. No evidence of the carcinoma was seen however a stone in her distal ureter was noted. She saw her urologist there and was placed on antibiotics with the hopes that the stone would go ahead and passed. She did not continue to have any pain but had been on 2 rounds of Macrobid. She was to have seen her urologist on 04/14 at the [facility]. Workup in the ER showed a white count of 20,000. CT scan showed no evidence of stone however the ureter showed mild hydro-ureter. After discussion with the ER staff to her urologist at [facility] was elected to keep her here for IV antibiotics. Today it is reported that she is growing a gram-negative rods from both blood and urine. Source: patient Exam Limitations: no limitations Date Seen 04/13/16 Attending Physician Harjinder Lowe MD PCP Richard Fleming DO Referring Physician Date of Admission Apr 12, 2016 at 12:15 Home Medications & Allergies Home Medications Reviewed patient Home Medication Reconciliation Form Allergies Coded Allergies: Penicillins (Unverified Allergy, Intermediate, HIVES, 05/01/14) metronidazole (Verified Allergy, Unknown, FACIAL EDEMA, 05/04/14) Sulfa (Sulfonamide Antibiotics) (Unverified Adverse Reaction, Unknown, ) Past Wntjewg-Bathyq-Qjxjpz Hx Patient Social History Alcohol Use: Denies Use Recreational Drug Use: No Smoking Status: Never a Smoker Physical Abuse Screen: No Sexual Abuse: No Recent Foreign Travel: No Contact w/other who traveled: No Recent Hopitalizations: Yes (2014) Recent Infectious Disease Expo: No Immunizations Up To Date Date of Pneumonia Vaccine: Dec 08, 2011 Date of Influenza Vaccine: Mar 08, 2016 Seasonal Allergies Seasonal Allergies: Yes Surgeries HX Surgeries: Yes (CYSTOSCOPIES AND KIDNEY STONE REMOVALS. BOWEL RESECTION) Surgeries: Abdominal, Hysterectomy, Rectal Respiratory Hx Respiratory Disorders: Yes (asthma allergy induced) Cardiovascular Hx Cardiovascular Disorders: No Neurological Hx Neurological Disorders: No 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 System Hx 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 Disorders: No Sexually Transmitted Disease: No Genitourinary Hx Genitourinary Disorders: Yes Genitourinary Disorders: UTI-Chronic Gastrointestinal Hx Gastrointestinal Disorders: Yes Gastrointestinal Disorders: Crohns Disease Musculoskeletal Hx Musculoskeletal Disorders: Yes Musculoskeletal Disorders: Osteoporosis Endocrine Hx Endocrine Disorders: No HEENT HX ENT Disorders: No Loss of Vision: Denies Hearing Impairment: Denies Cancer Hx Cancer: Yes Cancer: Rectal, Colon Psychosocial Hx Psychiatric Problems: No Integumentary HX Skin/Integumentary Disorder: No Blood Transfusions Hx Blood Disorders: Yes (anemia) Adverse Reaction to a Blood Tr: No Reviewed Nursing Assessment Reviewed/Agree w Nursing PMH: Yes Family Medical History Family Hx: Hypertension 19 MOTHER Prostate cancer G8 BROTHER Review of Systems Constitutional: see HPI chills fever malaise EENTM: no symptoms reported Respiratory: no symptoms reported Cardiovascular: no symptoms reported Gastrointestinal: loss of appetite Genitourinary: see HPI Musculoskeletal: muscle pain Skin: no symptoms reported Psychiatric/Neurological: No Symptoms Reported Physical Exam Physical Exam Vital Signs Vital Sign - Last 12Hours 04/12/16 04/12/16 09:47 12:37 Temp 102.0 Pulse 131 Resp 20 B/P 136/76 Pulse Ox 94 O2 Delivery Room Air O2 Flow Rate 2 Capillary Refill : Less Than 3 Seconds General Appearance: No Apparent Distress WD/WN Other Eyes: Bilateral Eye Normal Inspection HEENT: Normal ENT Inspection Neck: Normal Inspection Respiratory: Chest Non Tender Lungs Clear Normal Breath Sounds No Accessory Muscle Use No Respiratory Distress Cardiovascular: Regular Rate, Rhythm No Edema No Gallop No JVD No Murmur Normal Peripheral Pulses Gastrointestinal: Normal Bowel Sounds No Organomegaly No Pulsatile Mass Non Tender Soft Back: Normal Inspection No CVA Tenderness No Vertebral Tenderness Extremity: Normal Capillary Refill Normal Inspection Normal Range of Motion Non Tender No Calf Tenderness No Pedal Edema Neurologic/Psychiatric: Alert Oriented x3 No Motor/Sensory Deficits Normal Mood/Affect Results Results/Procedures Lab Laboratory Tests 04/12/16 10:20 04/13/16 05:00 Assessment/Plan Admission Diagnosis 1.sepsis with apparent urinary tract origin. 2.recent distal ureteral stone now absent. 3.past history of adenocarcinoma of the colon with resection and colostomy; no evidence of recurrence. Assessment and Plan IV fluids and antibiotics as at present. Adjust depending on culture and sensitivity reports Clinical Quality Measures DVT/VTE Risk/Contraindication: Risk Factor Score Per Nursin RFS Level Per Nursing on Admit: 1=Low/No VTE PPX HARJINDER LOWE MD Apr 13, 2016 10:26
[2016-04-13 12:00] VITALS: BP 106/59
[2016-04-13] MEDS: PANTOPRAZOLE 40 MG (PROTONIX) TAB PO SCH (15:23)
[2016-04-13] MEDS: ALLOPURINOL 300 MG (ZYLOPRIM) TAB PO SCH (15:23)
[2016-04-13] MEDS: KCL 10 MEQ TAB (MICRO K) PO SCH (15:23)
[2016-04-13] MEDS: LACTOBACILLUS Acidoph/Bulgar (LACTINEX/FLORANEX) TAB PO SCH (15:23)
[2016-04-13] MEDS: DIPHENOXYLATE/ATROPINE 2.5MG/0.025MG (LOMOTIL) TAB PO SCH (15:23)
[2016-04-13] MEDS: LOPERAMIDE 2 MG (IMODIUM) CAP PO SCH (15:24)
[2016-04-13 16:00] VITALS: BP 121/58
[2016-04-13 20:06] VITALS: BP 102/56
[2016-04-14 00:10] VITALS: BP 105/56
[2016-04-14 04:00] VITALS: BP 126/59
[2016-04-14] MEDS: ACETAMINOPHEN 325 MG TABLET/CAPLET (TYLENOL) PO PRN (04:24)
[2016-04-14] MEDS: PANTOPRAZOLE 40 MG (PROTONIX) TAB PO SCH (07:49)
[2016-04-14] MEDS ORDERED: cefTRIAXone 1 GM (ROCEPHIN) VIAL ONE (07:59)
[2016-04-14 08:00] VITALS: BP 143/77
[2016-04-14] MEDS: DIPHENOXYLATE/ATROPINE 2.5MG/0.025MG (LOMOTIL) TAB PO SCH (08:05)
[2016-04-14] MEDS: KCL 10 MEQ TAB (MICRO K) PO SCH (08:05)
[2016-04-14] MEDS: LOPERAMIDE 2 MG (IMODIUM) CAP PO SCH (08:05)
[2016-04-14] MEDS: LACTOBACILLUS Acidoph/Bulgar (LACTINEX/FLORANEX) TAB PO SCH (08:05)
[2016-04-14] MEDS: cefTRIAXone 1 GM/NS 50 ML IVPB IV SCH ×2 (08:05)
[2016-04-14] MEDS: ALLOPURINOL 300 MG (ZYLOPRIM) TAB PO SCH (08:05)
--- NOTE | 2016-04-14 10:27 | Discharge Summary-Hospitalist ---
Diagnosis/Chief Complaint Date of Admission Apr 12, 2016 at 12:15 Date of Discharge Admission Diagnosis 1.sepsis with apparent urinary tract origin. 2.recent distal ureteral stone now absent. 3.past history of adenocarcinoma of the colon with resection and colostomy; no evidence of recurrence. Discharge Diagnosis 1.sepsis with apparent urinary tract origin with Escherichia coli 2.recent distal ureteral stone now absent. 3.past history of adenocarcinoma of the colon with resection and colostomy; no evidence of recurrence. Reason Hospital Visit/Course The patient is a 65-year-old white female admitted from the emergency room after she presented with a complaint of fever and generalized illness and malaise. She was found to have a temperature of 102. Her story begins in February when she had a follow-up CT scan at [facility] for colon cancer which was resected 2 years ago. No evidence of the carcinoma was seen however a stone in her distal ureter was noted. She saw her urologist there and was placed on antibiotics with the hopes that the stone would go ahead and passed. She did not continue to have any pain but had been on 2 rounds of Macrobid. She was to have seen her urologist on 04/14 at the [facility]. Workup in the ER showed a white count of 20,000. CT scan showed no evidence of stone however the ureter showed mild hydro-ureter. After discussion with the ER staff to her urologist at [facility] was elected to keep her here for IV antibiotics. Today it is reported that she is growing a gram-negative rods from both blood and urine. Notes from 04/14/2016: Chart Review: Remains febrile at 102.9 - vitals stable otherwise E. coli in urine and blood FQ-resistant but pt maintained on Rocephin since admission Patient Interview: Pt reports that she feels much better than she did prior to admission. Pt would like to DC soon. Dr. Lance discusses pt's current fever. Pt reports that she is starting to eat more, but still has less appetite than normal with occasional nausea. Physical exam was stable. Pt was schedule for a Ua at this morning, which was cancelled. Dr. Lance encourages pt to reschedule a follow-up with . Pt's PCP is Dr. Fleming. Pt uses [facility] pharmacy. Pt requests meds for pain and nausea. Max fever 102.9, pleasant, oriented 3, much improved, walking in halls briskly with Regular rate and rhythm, clear to auscultation bilaterally No edema Plan: DC with close follow-up at Send notes to Dr. Fleming. Scribed by Royce Almaraz under the direct supervision of Dr. Lance. Even given fever last night she looks remarkably well and much clinically improved and really was to go home and will have close follow-up with urology and primary care provider and she is a very reliable patient so will send home on a full 14 pills of Omnicef to take twice a day to complete 10 days of antibiotics. Discharge Summary Discharge Physical Examination Allergies: Coded Allergies: Penicillins (Unverified Allergy, Intermediate, HIVES, 05/01/14) metronidazole (Verified Allergy, Unknown, FACIAL EDEMA, 05/04/14) Sulfa (Sulfonamide Antibiotics) (Unverified Adverse Reaction, Unknown, ) Vitals & I&Os Vital Signs Date Time Temp Pulse Resp B/P Pulse Ox O2 Delivery O2 Flow Rate FiO2 04/14/16 08:00 98.8 99 20 143/77 100 Room Air 04/12/16 12:37 2 Hospital Course Labs (last 24 hrs) Microbiology 04/12/16 Blood Culture - Preliminary, Resulted Escherichia Coli 04/13/16 Urine Culture - Preliminary, Resulted NO GROWTH Discharge Home Medications: Active Scripts Active Cefdinir 300 Mg Capsule 300 Mg PO BID Zofran Odt (Ondansetron) 8 Mg Tab.rapdis 8 Mg PO Q6H Oxycodone-Acetaminophen 5-325 (Oxycodone HCl/Acetaminophen) 1 Each Tablet 1-2 Tab PO Q4H PRN Calcium (Calcium Carbonate) 500 Mg Tab.chew 500 Mg PO DAILY [Reclast] IVP RECLAST INJECTION ANNUALLY IN SEPTEMBER [B 12 Injection] 1 Each IM UD B12 INJECTION 1CC IM MONTHLY Dialyvite Vitamin D3 Max (Cholecalciferol (Vitamin D3)) 50,000 Unit Tablet 50, 000 Unit PO WEEK TAKES ON THURSDAY Vitamin D3 (Cholecalciferol (Vitamin D3)) 5,000 Unit Capsule 5,000 Unit PO DAILY ON THURSDAY Klor-Con 10 (Potassium Chloride) 10 Meq Tablet.er 10 Meq PO DAILY Nexium (Esomeprazole Magnesium) 40 Mg Cap 40 Mg PO DAILY Lomotil 2.5-0.025 mg Tablet (Diphenoxylate HCl/Atropine) 1 Each Tablet 1 Each PO DAILY Loperamide (Loperamide HCl) 2 Mg Capsule 8 Mg PO DAILY TAKES FOUR 2 MG TABLETS DAILY Reported Probiotic (Lactobacillus Acidophilus) 1 Each Capsule 1 Cap PO DAILY Allopurinol 300 Mg Tablet 300 Mg PO DAILY Instructions to patient/family Please see electonic discharge instructions given to patient. Clinical Quality Measures DVT/VTE Risk/Contraindication: Risk Factor Score Per Nursin RFS Level Per Nursing on Admit: 1=Low/No VTE PPX Contraindications-Mechi: Pt at low risk Other: AMBULATE TID ABDIAZIZ LANCE DO Apr 14, 2016 10:27
[2016-04-14] MEDS ORDERED: ONDA8TAB9 PO (11:12)
[2016-04-14] MEDS ORDERED: CEFD300C3 PO (11:12)
[2016-04-14] MEDS ORDERED: OXYC-471 PO (11:12)
--- NOTE | 2016-04-14 11:13 | Discharge Instructions ---
Discharge Instructions Discharge Medications New, Converted or Re-Newed RX: RX on Chart New Medications: Cefdinir (Cefdinir) 300 Mg Capsule 300 MG PO BID #14 CAP Ondansetron (Zofran Odt) 8 Mg Tab.rapdis 8 MG PO Q6H #30 TAB Oxycodone HCl/Acetaminophen (Oxycodone-Acetaminophen 5-325) 1 Each Tablet 1-2 TAB PO Q4H PRN PAIN #30 TAB Continued Medications: Allopurinol (Allopurinol) 300 Mg Tablet 300 MG PO DAILY Calcium Carbonate (Calcium) 500 Mg Tab.chew 500 MG PO DAILY #1 TAB Cholecalciferol (Vitamin D3) (Vitamin D3) 5,000 Unit Capsule 5000 UNIT PO DAILY ON THURSDAY #1 CAP Cholecalciferol (Vitamin D3) (Dialyvite Vitamin D3 Max) 50,000 Unit Tablet 07597 UNIT PO WEEK TAKES ON THURSDAY #1 TAB Diphenoxylate HCl/Atropine (Lomotil 2.5-0.025 mg Tablet) 1 Each Tablet 1 EACH PO DAILY #1 TAB Esomeprazole Magnesium (Nexium) 40 Mg Cap 40 MG PO DAILY #1 CAP Lactobacillus Acidophilus (Probiotic) 1 Each Capsule 1 CAP PO DAILY Loperamide HCl (Loperamide) 2 Mg Capsule 8 MG PO DAILY TAKES FOUR 2 MG TABLETS DAILY #1 CAP Potassium Chloride (Klor-Con 10) 10 Meq Tablet.er 10 MEQ PO DAILY #1 TAB ([B 12 Injection]) 1 EACH IM UD B12 INJECTION 1CC IM MONTHLY ([Reclast]) IVP RECLAST INJECTION ANNUALLY IN SEPTEMBER Patient Instructions Goal/Follow Up Appt: Dr Fleming in 1 week Urology at [facility] this week Activity & Diet Discharge Diet: No Restrictions Activity as Tolerated: Yes ABDIAZIZ SLATER DO Apr 14, 2016 11:13
[2016-04-14 11:45] VITALS: BP 143/77
[2016-04-14] MEDS ORDERED: LEVOFLOXACIN 750 MG/150 ML IV 150 ML IV SCH (12:00)
== END 2016-04-14 11:45 | disposition home or self-care (01) | DRG 872 ==
LOC: EDUNIT# 09:43 → ER 09:45 → 4TH 12:15
PROVIDERS: ADMIT Internal Medicine; ATTEND Internal Medicine
DX: A41.51 Sepsis due to Escherichia coli [E. coli] (principal); N12 Tubulo-interstitial nephritis, not specified as acute or chronic; N13.6 Pyonephrosis; K50.90 Crohn's disease, unspecified, without complications; J45.909 Unspecified asthma, uncomplicated; M81.0 Age-related osteoporosis without current pathological fracture; Z85.038 Personal history of other malignant neoplasm of large intestine; Z93.3 Colostomy status
CPT/HCPCS: 36415; 74176; 80053; 81000; 83605; 85007; 85027; 87040; 87077; 87088; 87186; 96361; 96365; 96375

== ENCOUNTER → 2016-05-01 | Outpatient (CLI) | payer MEDICARE, OTHER ==
[~2016-05-01] MED LIST changes: +B 12 INJECTION IM; +CA C1TAB75 PO; +CALC-308 PO; +CEFD300C3 PO; +CHOL5000 PO; +CHOL500026 PO; +DIPH1TAB PO; +L.AC1CAP6 PO; +ONDA8TAB9 PO; +OXYC-471 PO; +POTA10TA6 PO; +RECLAST IVP
--- OUTSIDE RECORDS SUMMARY | 2016-05-01 10:26 | XMS REPORT | Continuity of Care Document ---
Author Author [facility] Organization [facility] Address Unknown Phone Unavailable Care Team Providers Care Business Partner Name Role Phone Emile Fleming III PCP [phone] Source Comments Some departments are not documenting in the electronic medical record. If you do not see the information that you expected, contact Release of Information in the Health Information Management department at [phone] for further assistance in locating additional records.[facility] Active Allergies and Adverse Reactions Allergen [...] same meal. Do not cut/ crush/ chew. cefdinir (OMNICEF) 300 mg Take 300 mg by mouth Active capsule every 12 hours. cefdinir (OMNICEF) 300 mg Take 1 Cap by mouth every 14 Cap 0 04/18/19 Active capsule 12 hours. 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 Continue [...] diease with her first bowel resection at [facility] in 1968. She has had [...] 01/16/14. 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 She tolerated hte procedure fairly well. Discussed prognosis. I would recommend that she received 4-6 months of FOLFOX. Discussed modifiable factors and surveillance. We will continue all supportive measures. She will continue care with Dr. Gil. C prn. Renal calculi 11/10/2012 Urolithiasis 04/13/2012 Overview: Hx of Crohn's disease and small bowel resection x4. Hx of urolithiasis since early . R laser lithotripsy in 07/2009. 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 03/25 Left flank pain and urgency end of Feb. CT locally in [place] 03/06/16 - left ureteral stones. Known left renal stones. She has not passed anything and has new urgency. Repeat CT 03/28/16 shows 2 left distal ureteral stones at [facility]. Relatively asymptomatic. On macrobid for UTI. 04/25 - onset of left flank pain and fever. Went to local ER - left distal ureteral stone passed but still hydro. Admitted. Films reviewed. No notes on cultures. On cefdinir. L ast Assessment & Plan: Formatting of this note may be different from the original. Post left distal stone passage. F/u renal u/s to eval for hydro improvement. Urine culture Continue cefdinir for 1 more week Otherwise f/u in 3 months. Other renal stones on the left - needs a PCNL - held off due to other issues, but might need to address. Orders Placed This Encounter CULTURE-URINE W/SENSITIVITY US RENAL BLADDER LTD POC URINE DIPSTICK cefdinir (OMNICEF) 300 mg capsule Most Recent Encounters Date Type Specialty Providers Description 04/21/2016 Telephone Urology Milind Corona MBBS Imaging 04/18/2016 Hospital Radiology Milind Corona MBBS Encounter 04/18/2016 [facility] Milind Corona MBBS Calculus of kidney Encounter 04/18/2016 Office Visit Urology Milind Corona MBBS Renal calculi ( Primary Dx); Calculus of kidney 04/18/2016 Ancillary Radiology Outpatient, Radiologist Diagnosis unknown Orders (Primary Dx) 04/12/2016 Hospital Radiology Encounter 04/02/2016 Office Visit Oncology Yuval Gaviria MD Rectal cancer (HCC) (Primary Dx) 04/01/2016 Telephone Urology Milind Corona MBBS Results 04/01/2016 Orders Only Urology Milind Corona MBBS 03/29/2016 Ancillary Radiology Outpatient, Radiologist Diagnosis unknown Orders (Primary Dx) 03/28/2016 [facility] Milind Corona MBBS Calculus of ureter Encounter 03/28/2016 Hospital Milind Corona MBBS Calculus of ureter [...] Vital Sign Reading Time Taken Blood Pressure 153/61 04/18/2016 9:47 AM [employer] Pulse 79 04/18/2016 9:47 AM [employer] Temperature 36.6 C (97.9 F) 04/02/2016 3:57 PM [employer] Respiratory Rate 14 04/02/2016 3:57 PM [employer] Height 1.575 m (5' 2") 04/18/2016 9:47 AM [employer]ING [employer] Weight 45.36 kg (100 lb) 04/18/2016 9:47 AM [employer] Body Mass Index 18.29 04/18/2016 9:47 AM [employer] Oxygen Saturation 100% 04/02/2016 3:57 PM [employer] Plan of Care Date Type Specialty Providers Description 08/13/2016 Appointment Radiology Nick Mueller MD [address] [place] [address] [phone] (Fax) 08/13/2016 Appointment Neurosurgery Nick Mueller MD [address] [place] [address] [phone] (Fax) 10/01/2016 Appointment Oncology Yuval Gaviria MD [address] [place] [address] [phone]) Health Maintenance Due Date Last Done Comments Hepatitis C Screening 1950 Physical (Comprehensive) 05/11/1955 Exam Pertussis Vaccine 05/11/1959 Tetanus Vaccine 1965 Breast Cancer Screening 1988 Shingles Vaccine 2008 Osteoporosis Screening 2013 Prevnar/Pneumovax (#1) 2013 Influenza Vaccine 11/08/2015 Colorectal Cancer 04/16/2025 04/16/2015, 04/16/2015 Screening Results from Last 3 Months US RENAL BLADDER LTD (04/18/2016 11:06 AM) Impressions Continued findings of extensive left and minimal right renal calculi Somewhat small kidneys bilaterally Decreased dilatation of the left renal collecting system with persistent mild pelviectasis and upper pole caliectasis Small bilateral renal cysts Finalized by Aldair Hammond M.D. on 04/18/2016 11:55 AM. Dictated by Aldair Hammond M.D. on 04/18/2016 11:42 AM. Narrative No sonogram Clinical indication: Renal calculi. Possible resolution of hydronephrosis Technique: Ultrasound images were performed over the kidneys and bladder Findings: Comparison is made with a CT scan of the abdomen dated 03/28/2016. The right kidney is small with no evidence of hydronephrosis or masses. The right kidney measures 6.9 x 4.1 cm. A minute nonobstructing calculus is identified in the midportion of the right kidney. There is a simple cyst in the upper pole of the right kidney measuring 0.7 x 0.5 x 0 0.9 cm. No blood flow seen within the cyst. Left kidney is slightly small measuring 8.8 x 4.5 cm. There is mild residual dilatation of the left renal pelvis and upper pole collecting system but resolution of generalized hydronephrosis. Multiple left renal calculi, the largest measuring up to 2 cm in the midportion of the left kidney are again noted. There is a cyst in the mid to lower pole of the left kidney measuring 1.0 x 0.8 cm. The bladder is decompressed following recent voiding. Procedure Note Interface, Radiant Results - ThuApr 18, 2016 11:58 AM [employer]PERING KILN T[employer] No sonogram Clinical indication: Renal calculi. Possible resolution of hydronephrosis Technique: Ultrasound images were performed over the kidneys and bladder Findings: Comparison is made with a CT scan of the abdomen dated 03/28/2016. The right kidney is small with no evidence of hydronephrosis or masses. The right kidney measures 6.9 x 4.1 cm. A minute nonobstructing calculus is identified in the midportion of the right kidney. There is a simple cyst in the upper pole of the right kidney measuring 0.7 x 0.5 x 0 0.9 cm. No blood flow seen within the cyst. Left kidney is slightly small measuring 8.8 x 4.5 cm. There is mild residual dilatation of the left renal pelvis and upper pole collecting system but resolution of generalized hydronephrosis. Multiple left renal calculi, the largest measuring up to 2 cm in the midportion of the left kidney are again noted. There is a cyst in the mid to lower pole of the left kidney measuring 1.0 x 0.8 cm. The bladder is decompressed following recent voiding. IMPRESSION Continued findings of extensive left and minimal right renal calculi Somewhat small kidneys bilaterally Decreased dilatation of the left renal collecting system with persistent mild pelviectasis and upper pole caliectasis Small bilateral renal cysts Finalized by Aldair Hammond M.D. on 04/18/2016 11:55 AM. Dictated by Aldair Hammond M.D. on 04/18/2016 11:42 AM. CULTURE-URINE W/SENSITIVITY (04/18/2016 10:00 AM)Only the most recent of 2 results within the time period is included. Component Value Range Battery Name URINE CULTURE Specimen Description URINE, CLEAN CATCH Special Requests NONE Culture NO GROWTH Report Status FINAL 04/19/2016 Specimen Urine - Urine,Clean Catch POC URINE DIPSTICK MANUAL READ (04/18/2016) Component Value Range Urine Glucose POC neg Urine Bilirubin POC neg Urine Ketone POC neg Urine Specific Marcus 1.015 POC Urine Blood POC mod Urine PH POC 6.0 Urine Protein POC trace Urine Urobilinogen POC 0.2 Urine Nitrite POC neg Urine Leukocytes POC neg Color,UA yellow Turbidity,UA clear Specimen Urine CT ABD/PEL EXTERNAL IMAGING (04/12/2016) Narrative This order has been auto finalized and does not contain a result. CT ABD/PELV WO CONTRAST (03/28/2016 3:27 PM) [...] prior exam are not included on the [id number]. Approved by Susan Ascencio M.D. on 03/28/2016 [...] view. No enlarging pulmonary nodule in the [id number]. Liver and Biliary system: Normal sized liver. [...] Results - ThuMar 28, 2016 5:[address] [address] ABDOMEN AND PELVIS Clinical Indication: Evaluate [...] view. No enlarging pulmonary nodule in the [id number]. Liver and Biliary system: Normal sized liver. [...] prior exam are not included on the [id number]. Approved by Susan Ascencio M.D. on 03/28/2016 [...]
--- NOTE | 2016-05-01 19:25 | Diagnostic Imaging Report ---
Digital mammogram bilateral screening This study was compared to the prior exams of 04/30/15, 04/19/2014, 04/19/2013 and 05/19/12. At this time, there are no current complaints. The current study was also evaluated with a Computer Aided Detection (CAD) system. FINDINGS: The fibroglandular tissue in both breasts is dense. This does limit the sensitivity of this exam. Overall, there does not appear to have been any significant change when compared to the prior study. No primary or secondary sign of malignancy is noted. The metallic density overlying the pectoralis muscle on the left seen previously is again evident and no different IMPRESSION: There is no radiographic evidence for malignancy. ACR BI-RADS Category 1: Negative. Result letter will be mailed to the patient. Note: At least 10% of breast cancer is not imaged by mammography. Dictated by: Dictated on workstation # [id number]
== END ==
LOC: RAD 10:22
PROVIDERS: ATTEND Nurse Practitioner Adult Health
DX: Z12.31 Encounter for screening mammogram for malignant neoplasm of breast (principal)
CPT/HCPCS: 77067

== ENCOUNTER 2016-06-26 09:32 | Outpatient (RCR) | payer MEDICARE, OTHER ==
--- OUTSIDE RECORDS SUMMARY | 2016-04-03 11:26 | XMS REPORT | Continuity of Care Document ---
Author Author [facility] Organization [facility] Address Unknown Phone Unavailable Care Team Providers Care Assistant Winemaker Name Role Phone Emile Fleming III PCP [phone] Source Comments Some departments are not documenting in the electronic medical record. If you do not see the information that you expected, contact Release of Information in the Health Information Management department at [phone] for further assistance in locating additional records.[facility] Active Allergies and Adverse Reactions Allergen [...] 500+D) 500 daily. mg(1,250mg) -400 unit chew tamsulosin (FLOMAX) 0.4 Take 1 Cap by mouth 14 Cap 0 03/28/19 Active mg capsule daily. Take 30 min after 17 same meal. Do not cut/ crush/ chew. nitrofurantoin Take 1 Cap by mouth every 28 Cap 0 04/01/19 04/08/19 Active macrocrystal 6 hours for 7 days. Take 17 17 (MACRODANTIN) 100 mg with food. capsule Active Problems Problem Noted Date Spinal cord [...] of hydrocodone, khanh bottle for washing and glue bone drier to keep area dry. Continue aquafore [...] diease with her first bowel resection at [facility] in 1968. She has had multiple abdominal [...] 01/16/14. The tumor stage was Stage I [id number]. She tolerated hte procedure fairly well. Discussed [...] have an EColi UTI recently. PVR zero. 12/22 - Left renal stones no change. No further UTI. 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 03/25 Left flank pain and urgency end of Feb. CT locally in [place] 03/06/16 - left ureteral stones. Known left renal stones. She has not passed anything and has new urgency. Repeat CT 03/28/16 shows 2 left distal ureteral stones at [facility]J. Relatively asymptomatic. On macrobid for UTI. L ast Assessment & Plan: Formatting of this note may be different from the original. Asymptomatic Will try to have pt pass ureteral stones - start flomax and given strainer. If not passed by next week - role of urteroscopy. No hydro on current CT. Await urine culture. Question of left renal stones - role of extensive ureteroscopy if OR for distal stone. Renal stone is 1.8cm Await to see if ureteral stone passed. Orders Placed This Encounter CULTURE-URINE W/SENSITIVITY (Clinic Collect) CT ABD/PELV WO CONTRAST (Stone Protocol) tamsulosin (FLOMAX) 0.4 mg capsule Most Recent Encounters Date Type Specialty Providers Description 04/02/2016 Office Visit Oncology Micah-Yuval Schrader MD Rectal cancer (HCC) (Primary Dx) 04/01/2016 Telephone Urology Milind Corona MBBS Results 04/01/2016 Orders Only Urology Milind Corona MBBS 03/29/2016 Ancillary Radiology Outpatient, Radiologist Diagnosis unknown Orders (Primary Dx) 03/28/2016 [facility] Milind Corona MBBS Calculus of ureter Encounter 03/28/2016 [facility] Milind Corona MBBS Calculus of ureter Encounter 03/28/2016 Hospital Radiology Milind Corona MBBS Arrived Encounter 03/28/2016 Office Visit Urology Milind Corona MBBS Calculus of ureter (Primary Dx) 03/06/2016 Hospital Radiology Encounter Social History Tobacco Use Types Packs/Day Years Used Date Never Smoker Smokeless Tobacco: Never Used Alcohol Use Drinks/Week oz/Week Comments Yes 0 Standard 0.0 rare drinks or equivalent Last Filed Vital Signs Vital Sign Reading Time Taken Blood Pressure 138/65 04/02/2016 3:57 PM DISTRIBUTION SYSTEMS SUPERINTENDENT Pulse 87 04/02/2016 3:57 PM DISTRIBUTION SYSTEMS SUPERINTENDENT Temperature 36.6 C (97.9 F) 04/02/2016 3:57 PM DISTRIBUTION SYSTEMS SUPERINTENDENT Respiratory Rate 14 04/02/2016 3:57 PM DISTRIBUTION SYSTEMS SUPERINTENDENT Height 1.575 m (5' 2.01") 04/02/2016 3:57 PM DISTRIBUTION SYSTEMS SUPERINTENDENT Weight 45.088 kg (99 lb 6.4 oz) 04/02/2016 3:57 PM DISTRIBUTION SYSTEMS SUPERINTENDENT Body Mass Index 18.18 04/02/2016 3:57 PM DISTRIBUTION SYSTEMS SUPERINTENDENT Oxygen Saturation 100% 04/02/2016 3:57 PM DISTRIBUTION SYSTEMS SUPERINTENDENT Plan of Care Date Type Specialty Providers Description 04/14/2016 Appointment Urology Milind Corona MBBS [address] [place] [address] [phone] (Fax) 06/13/2016 Appointment Urology Milind Corona MBBS [address] [place] [address] [phone] (Fax) 08/13/2016 Appointment Radiology Nick Mueller MD [address] [place] [address] [phone] (Fax) 08/13/2016 Appointment Neurosurgery Nick Mueller MD [address] [place] [address] [phone] (Fax) 10/01/2016 Appointment Oncology Yuval Gaviria MD [address] [place] [address] [phone] (Fax) Health Maintenance Due Date Last Done Comments Hepatitis C Screening 1950 Physical (Comprehensive) 05/11/1955 Exam Pertussis Vaccine 05/11/1959 Tetanus Vaccine 1965 Breast Cancer Screening 1988 Shingles Vaccine 2008 Osteoporosis Screening 2013 Prevnar/Pneumovax (#1) 2013 Influenza Vaccine 11/08/2015 Colorectal Cancer 04/16/2025 04/16/2015, 04/16/2015 Screening Results from Last 3 Months CULTURE-URINE W/SENSITIVITY (03/28/2016 3:30 PM) Component Value Range Battery Name URINE CULTURE Specimen Description URINE Special Requests NONE Culture >100,000 organisms/ml ESCHERICHIA COLI (A) Report Status FINAL 04/01/2016 Organism ID >100,000 organisms/ml ESCHERICHIA COLI Specimen Urine, Outpatient Organism Antibiotic Method Susceptibility >100,000 organisms/ml escherichia coli Ertapenem BEJARANO SUSCEPTIBLE: Susceptible HEREDIA >100,000 organisms/ml escherichia coli Gentamicin BEJARANO SUSCEPTIBLE: Susceptible HEREDIA >100,000 organisms/ml escherichia coli Ampicillin BEJARANO INTERMEDIATE: HEREDIA Intermediate >100,000 organisms/ml escherichia coli Cefazolin BEJARANO INTERMEDIATE: HEREDIA Intermediate >100,000 organisms/ml escherichia coli Nitrofurantoin BEJARANO SUSCEPTIBLE : Susceptible HEREDIA >100,000 organisms/ml escherichia coli Trimethsulfa BEJARANO SUSCEPTIBLE: Susceptible HEREDIA >100,000 organisms/ml escherichia coli Piperacil/Tazobactam BEJARANO SUSCEPTIBLE: Susceptible HEREDIA >100,000 organisms/ml escherichia coli Tetracycline BEJARANO SUSCEPTIBLE: Susceptible HEREDIA >100,000 organisms/ml escherichia coli Cefepime BEJARANO SUSCEPTIBLE: Susceptible HEREDIA >100,000 organisms/ml escherichia coli Ceftriaxone BEJARANO SUSCEPTIBLE: Susceptible HEREDIA >100,000 organisms/ml escherichia coli Amoxicil/Clav Acid BEJARANO SUSCEPTIBLE: Susceptible HEREDIA >100,000 organisms/ml escherichia coli Method BEJARANO BEJARANO HEREDIA HEREDIA CT ABD/PELV WO CONTRAST (03/28/2016 3:27 PM) Impressions 1. Left renal and distal ureteral calculi at the left UVJ with mild hydronephrosis. 2. Punctate nonobstructing right renal calculus. 3. Moderate bladder wall thickening with perivesical and periureteral stranding may be infectious or inflammatory. Please correlate with urinalysis. 4. Improvement in previously noted mesenteric lymphadenopathy. 5. Tiny 2 to 3 mm pulmonary nodules are stable. Several nodules seen on prior exam are not included on the [id number]. Approved by Susan Ascencio M.D. on 03/28/2016 5:05 PM By my electronic signature, I attest that I have personally reviewed the images for this examination and formulated the interpretations and opinions expressed in this report Finalized by JUHI GROSS M.D. on 03/28/2016 5:40 PM. Dictated by Susan Asecncio M.D. on 03/28/2016 4:[address] ABDOMEN AND PELVIS Clinical Indication: Evaluate left ureteral stone Technique: Multiple contiguous axial CT images were obtained through the abdomen and pelvis without IV contrast. Post processing coronal and sagittal reconstruction images were made from the axial images. IV contrast: None. Bowel contrast:None Comparison: CT abdomen/pelvis 10/22/2015 FINDINGS: Limited evaluation of the viscera and vasculature in the absence of IV contrast. Lower Thorax: Linear scarring or atelectasis in the lingula. Mitral annular calcification again noted. Several tiny 2 to 3 mm pulmonary nodules are stable. Several additional right lower lobe nodules are not included on the field-of- view. No enlarging pulmonary nodule in the [id number]. Liver and Biliary system: Normal sized liver. No radiopaque gallbladder calculi. Spleen: Unremarkable. Adrenal Glands and Kidneys: Numerous left renal calculi. The largest cluster of calculi in the mid left kidney measures 1.8 cm. There is another small cluster of calcifications at the left ureterovesical junction. The largest single ureteral calculus in this cluster measures 0.6 cm. Mild left hydronephrosis. A punctate right renal calculus is unchanged. No right hydronephrosis. The ureters are nondilated. There is moderate right and mild left periureteral stranding. Moderate circumferential mural thickening of the urinary bladder and mild perivesical stranding. Pancreas and Retroperitoneum: The pancreas is mildly atrophic. No retroperitoneal lymphadenopathy or fluid collection. Aorta and Major Vessels: Mild aortoiliac atherosclerotic calcification without aneurysm. There is mild focal soft tissue stranding surrounding the AJITH adjacent to surgical clips. Bowel, Mesentery, and Peritoneal space: Previous abdominoperineal resection and left lower quadrant ostomy. Moderate-sized parastomal hernia containing mesentery and nonobstructed bowel. Bowel loops are normal caliber. No ascites or intraperitoneal fluid collection. Mesenteric lymph nodes have decreased in size. A cluster of small lymph nodes in the central mesentery measures 1 x 0.7 cm (series 3 image 40), previously 1.5 x 1.1 cm. Pelvis: Previous hysterectomy. Urinary bladder wall thickening and calculi as above. Stable presacral scarring. Abdominal wall and Osseous Structures: Previous mesh repair of the ventral abdominal wall. Diffuse osteopenia. 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 Stable subtle sclerosis in the bilateral sacral ala compatible with old insufficiency fractures. Lower thoracic syrinx seen on prior MRI is incompletely characterized by CT. Procedure Note Interface, Radiant Results - ThuMar 28, 2016 5:43 PM DISTRIBUTION SYSTEMS SUPERINTENDENT CT ABDOMEN AND PELVIS Clinical Indication: Evaluate left ureteral stone Technique: Multiple contiguous axial CT images were obtained through the abdomen and pelvis without IV contrast. Post processing coronal and sagittal reconstruction images were made from the axial images. IV contrast: None. Bowel contrast: None Comparison: CT abdomen/pelvis 10/22/2015 FINDINGS: Limited evaluation of the viscera and vasculature in the absence of IV contrast. Lower Thorax: Linear scarring or atelectasis in the lingula. Mitral annular calcification again noted. Several tiny 2 to 3 mm pulmonary nodules are stable. Several additional right lower lobe nodules are not included on the field-of- view. No enlarging pulmonary nodule in the [id number]-[id number]. Liver and Biliary system: Normal sized liver. No radiopaque gallbladder calculi. Spleen: Unremarkable. Adrenal Glands and Kidneys: Numerous left renal calculi. The largest cluster of calculi in the mid left kidney measures 1.8 cm. There is another small cluster of calcifications at the left ureterovesical junction. The largest single ureteral calculus in this cluster measures 0.6 cm. Mild left hydronephrosis. A punctate right renal calculus is unchanged. No right hydronephrosis. The ureters are nondilated. There is moderate right and mild left periureteral stranding. Moderate circumferential mural thickening of the urinary bladder and mild perivesical stranding. Pancreas and Retroperitoneum: The pancreas is mildly atrophic. No retroperitoneal lymphadenopathy or fluid collection. Aorta and Major Vessels: Mild aortoiliac atherosclerotic calcification without aneurysm. There is mild focal soft tissue stranding surrounding the AJITH adjacent to surgical clips. Bowel, Mesentery, and Peritoneal space: Previous abdominoperineal resection and left lower quadrant ostomy. Moderate-sized parastomal hernia containing mesentery and nonobstructed bowel. Bowel loops are normal caliber. No ascites or intraperitoneal fluid collection. Mesenteric lymph nodes have decreased in size. A cluster of small lymph nodes in the central mesentery measures 1 x 0.7 cm (series 3 image 40), previously 1.5 x 1.1 cm. Pelvis: Previous hysterectomy. Urinary bladder wall thickening and calculi as above. Stable presacral scarring. Abdominal wall and Osseous Structures: Previous mesh repair of the ventral abdominal wall. Diffuse osteopenia. 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 Stable subtle sclerosis in the bilateral sacral ala compatible with old insufficiency fractures. Lower thoracic syrinx seen on prior MRI is incompletely characterized by CT. IMPRESSION 1. Left renal and distal ureteral calculi at the left UVJ with mild hydronephrosis. 2. Punctate nonobstructing right renal calculus. 3. Moderate bladder wall thickening with perivesical and periureteral stranding may be infectious or inflammatory. Please correlate with urinalysis. 4. Improvement in previously noted mesenteric lymphadenopathy. 5. Tiny 2 to 3 mm pulmonary nodules are stable. Several nodules seen on prior exam are not included on the [id number]. Approved by Susan Ascencio M.D. on 03/28/2016 5:05 PM By my electronic signature, I attest that I have personally reviewed the images for this examination and formulated the interpretations and opinions expressed in this report Finalized by JUHI GROSS M.D. on 03/28/2016 5:40 PM. Dictated by Susan Ascencio M.D. on 03/28/2016 4:[address] CHEST/ABD/PEL EXTERNAL IMAGING (03/06/2016 11:05 AM) Narrative This order has been auto finalized and does not contain a result.
[2016-05-15 11:26] LABS: BASOPHILS # (AUTO) 0.1 10^3/uL (0.0-0.1); BASOPHILS % (AUTO) 1 % (0-10); EOSINOPHILS # (AUTO) 0.2 10^3/uL (0.0-0.3); EOSINOPHILS % (AUTO) 2 % (0-10); LYMPHOCYTES # (AUTO) 2.6 X 10^3 (1.0-4.0); LYMPHOCYTES % (AUTO) 28 % (12-44); MEAN CORPUSCULAR HEMOGLOBIN 29 PG (25-34); MEAN CORPUSCULAR HGB CONC 33 G/DL (32-36); MEAN CORPUSCULAR VOLUME 89 FL (80-99); MEAN PLATELET VOLUME 9.1 FL (7.4-10.4); MONOCYTES # (AUTO) 0.6 X 10^3 (0.0-1.0); MONOCYTES % (AUTO) 6 % (0-12); NEUTROPHILS # (AUTO) 6.1 X 10^3 (1.8-7.8); NEUTROPHILS % (AUTO) 64 % (42-75); PLATELET COUNT 220 10^3/uL (130-400); RED BLOOD COUNT 4.42 10^6/uL (4.35-5.85); WHITE BLOOD COUNT 9.6 10^3/uL (4.3-11.0)
[2016-05-15 12:12] LABS: ALBUMIN 3.6 G/DL (3.2-4.5); BILIRUBIN,TOTAL 0.4 MG/DL (0.1-1.0); CALCIUM 8.8 MG/DL (8.5-10.1); CREATININE SERUM 1.29 MG/DL (0.60-1.30); TOTAL PROTEIN 7.2 G/DL (6.4-8.2)
== END 2016-07-02 | disposition home or self-care (01) ==
LOC: ONC 09:32
PROVIDERS: ATTEND Internal Medicine Hematology & Oncology
DX: C21.8 Malignant neoplasm of overlapping sites of rectum, anus and anal canal (principal); M81.0 Age-related osteoporosis without current pathological fracture; G95.89 Other specified diseases of spinal cord; Z93.3 Colostomy status; Z79.899 Other long term (current) drug therapy; Z45.2 Encounter for adjustment and management of vascular access device
CPT/HCPCS: 36591; 80053; 82306; 82378; 85025; 96523; 99213

== ENCOUNTER 2016-09-23 13:54 | Outpatient (CLI) | payer MEDICARE, OTHER ==
[~2016-09-23] VITALS: Ht 157.5 cm; Wt 41.8 kg
[2016-09-23] MEDS ORDERED: ZOLEDRONATE 5 MG/100 ML (RECLAST) BTL IV ONE (14:15)
[2016-09-23 16:29] VITALS: BP 137/66
== END 2016-09-23 15:00 | disposition home or self-care (01) ==
LOC: SDC 13:54
PROVIDERS: ATTEND Internal Medicine
DX: M81.0 Age-related osteoporosis without current pathological fracture (principal)
CPT/HCPCS: 96365

== ENCOUNTER 2016-10-30 10:43 | Outpatient (RCR) | payer MEDICARE, OTHER ==
[2016-08-07 10:43] LABS: BASOPHILS % (AUTO) 1 % (0-10); EOSINOPHILS # (AUTO) 0.2 10^3/uL (0.0-0.3); EOSINOPHILS % (AUTO) 3 % (0-10); LYMPHOCYTES # (AUTO) 2.4 X 10^3 (1.0-4.0); LYMPHOCYTES % (AUTO) 32 % (12-44); MEAN CORPUSCULAR HGB CONC 32 G/DL (32-36); MEAN CORPUSCULAR VOLUME 92 FL (80-99); MEAN PLATELET VOLUME 9.5 FL (7.4-10.4); MONOCYTES # (AUTO) 0.4 X 10^3 (0.0-1.0); MONOCYTES % (AUTO) 5 % (0-12); NEUTROPHILS # (AUTO) 4.6 X 10^3 (1.8-7.8); NEUTROPHILS % (AUTO) 60 % (42-75); PLATELET COUNT 174 10^3/uL (130-400); RED CELL DISTRIBUTION WIDTH 15.9 % (10.0-14.5); WHITE BLOOD COUNT 7.6 10^3/uL (4.3-11.0)
[2016-08-07 10:46] LABS: MEAN CORPUSCULAR HEMOGLOBIN 29 PG (25-34)
[2016-08-07 11:09] LABS: ALBUMIN 3.1 G/DL (3.2-4.5); BILIRUBIN,TOTAL 0.3 MG/DL (0.1-1.0); CALCIUM 8.4 MG/DL (8.5-10.1); CREATININE SERUM 1.01 MG/DL (0.60-1.30); POTASSIUM 3.9 MMOL/L (3.6-5.0); TOTAL PROTEIN 6.3 G/DL (6.4-8.2)
[2016-10-30 11:02] LABS: BASOPHILS # (AUTO) 0.1 10^3/uL (0.0-0.1); BASOPHILS % (AUTO) 1 % (0-10); EOSINOPHILS # (AUTO) 0.3 10^3/uL (0.0-0.3); EOSINOPHILS % (AUTO) 4 % (0-10); LYMPHOCYTES # (AUTO) 2.4 X 10^3 (1.0-4.0); LYMPHOCYTES % (AUTO) 30 % (12-44); MEAN CORPUSCULAR HEMOGLOBIN 30 PG (25-34); MEAN CORPUSCULAR HGB CONC 33 G/DL (32-36); MEAN CORPUSCULAR VOLUME 91 FL (80-99); MEAN PLATELET VOLUME 9.3 FL (7.4-10.4); MONOCYTES # (AUTO) 0.4 X 10^3 (0.0-1.0); MONOCYTES % (AUTO) 5 % (0-12); NEUTROPHILS # (AUTO) 4.7 X 10^3 (1.8-7.8); NEUTROPHILS % (AUTO) 60 % (42-75); PLATELET COUNT 173 10^3/uL (130-400); RED BLOOD COUNT 4.09 10^6/uL (4.35-5.85); RED CELL DISTRIBUTION WIDTH 15.3 % (10.0-14.5); WHITE BLOOD COUNT 7.8 10^3/uL (4.3-11.0)
[2016-10-30 11:38] LABS: ALANINE AMINOTRANSFERASE 16 U/L (0-55); ALBUMIN 3.6 GM/DL (3.2-4.5); ANION GAP 8 MMOL/L (5-14); ASPARTATE AMINO TRANSFERASE 30 U/L (5-34); BILIRUBIN,TOTAL 0.4 MG/DL (0.1-1.0); BLOOD UREA NITROGEN 17 MG/DL (7-18); BUN/CREATININE RATIO 19; CARBON DIOXIDE 22 MMOL/L (21-32); CHLORIDE 110 MMOL/L (98-107); GFR ESTIMATED > 60; GLUCOSE 96 MG/DL (70-105); SODIUM 140 MMOL/L (135-145); TOTAL PROTEIN 6.8 GM/DL (6.4-8.2)
== END 2016-11-05 | disposition home or self-care (01) ==
LOC: ONC 10:43
PROVIDERS: ATTEND Internal Medicine Hematology & Oncology
DX: C21.8 Malignant neoplasm of overlapping sites of rectum, anus and anal canal (principal); M81.0 Age-related osteoporosis without current pathological fracture; G95.89 Other specified diseases of spinal cord; Z93.3 Colostomy status; Z79.899 Other long term (current) drug therapy
CPT/HCPCS: 36591; 80053; 82306; 82378; 85025; 96523

== ENCOUNTER → 2016-11-07 | Outpatient (CLI) | payer MEDICARE, OTHER ==
[~2016-11-07] VITALS: Ht 157.5 cm; Wt 45.4 kg
[~2016-11-07] MED LIST changes: +CATHETER FLUSH 10 ML SYR IV PRN
[2016-11-07 09:08] VITALS: BP 155/66
== END ==
LOC: CARD 08:14
PROVIDERS: ATTEND Internal Medicine
DX: R07.9 Chest pain, unspecified (principal)
CPT/HCPCS: 78452; 93017

== ENCOUNTER 2016-12-04 11:06 | Outpatient (RCR) | payer MEDICARE, OTHER ==
[2016-11-06 11:16] LABS: BILIRUBIN,URINE NEGATIVE (NEGATIVE); KETONES,URINE NEGATIVE (NEGATIVE); LEUKOCYTE ESTERASE ,URINE 2+ (NEGATIVE); NITRITE,URINE NEGATIVE (NEGATIVE); PH,URINE 5 (5-9); PROTEIN,URINE NEGATIVE (NEGATIVE); UROBILINOGEN,URINE NORMAL (NORMAL)
[2016-11-06 11:23] LABS: SQUAMOUS EPITHELIAL CELL,UR 0-2 /HPF
[~2016-12-04 11:06] MED LIST changes: -CATHETER FLUSH 10 ML SYR IV PRN
== END 2016-12-06 | disposition home or self-care (01) ==
LOC: ONC 11:06
PROVIDERS: ATTEND Internal Medicine Hematology & Oncology
DX: C21.8 Malignant neoplasm of overlapping sites of rectum, anus and anal canal (principal); M81.0 Age-related osteoporosis without current pathological fracture; G95.89 Other specified diseases of spinal cord; R82.99 Other abnormal findings in urine; Z93.3 Colostomy status; Z79.899 Other long term (current) drug therapy; Z45.2 Encounter for adjustment and management of vascular access device
CPT/HCPCS: 81000; 87077; 87088; 87186; 96523; 99213

== ENCOUNTER 2017-01-09 09:08 | Outpatient (RCR) | payer MEDICARE, OTHER ==
[2017-01-09 09:18] LABS: BASOPHILS % (AUTO) 1 % (0-10); EOSINOPHILS # (AUTO) 0.3 10^3/uL (0.0-0.3); EOSINOPHILS % (AUTO) 4 % (0-10); LYMPHOCYTES # (AUTO) 2.9 X 10^3 (1.0-4.0); LYMPHOCYTES % (AUTO) 36 % (12-44); MEAN CORPUSCULAR HEMOGLOBIN 30 PG (25-34); MEAN CORPUSCULAR HGB CONC 33 G/DL (32-36); MEAN CORPUSCULAR VOLUME 89 FL (80-99); MEAN PLATELET VOLUME 9.6 FL (7.4-10.4); MONOCYTES # (AUTO) 0.4 X 10^3 (0.0-1.0); MONOCYTES % (AUTO) 5 % (0-12); NEUTROPHILS # (AUTO) 4.4 X 10^3 (1.8-7.8); NEUTROPHILS % (AUTO) 55 % (42-75); PLATELET COUNT 156 10^3/uL (130-400); RED BLOOD COUNT 4.24 10^6/uL (4.35-5.85); RED CELL DISTRIBUTION WIDTH 15.4 % (10.0-14.5); WHITE BLOOD COUNT 8.1 10^3/uL (4.3-11.0)
[2017-01-09 09:35] LABS: ALBUMIN 3.7 GM/DL (3.2-4.5); BILIRUBIN,TOTAL 0.4 MG/DL (0.1-1.0); CALCIUM 8.9 MG/DL (8.5-10.1); CREATININE SERUM 1.11 MG/DL (0.60-1.30); POTASSIUM 3.5 MMOL/L (3.6-5.0)
[2017-01-30] MEDS ORDERED: LEVO500T80 PO (12:20)
[2017-01-30] MEDS ORDERED: CEFD300C3 PO (12:20)
[2017-01-30] MEDS ORDERED: PHEN-640 PO (12:20)
[2017-01-30] MEDS ORDERED: HYDR-3812 PO (12:40)
[2017-01-30] MEDS ORDERED: ONDA4TAB11 PO (12:40)
== END 2017-02-04 11:24 | disposition home or self-care (01) ==
LOC: ONC 09:08
PROVIDERS: ATTEND Internal Medicine Hematology & Oncology
DX: C21.8 Malignant neoplasm of overlapping sites of rectum, anus and anal canal (principal); M81.0 Age-related osteoporosis without current pathological fracture; G95.89 Other specified diseases of spinal cord; Z93.3 Colostomy status; Z79.899 Other long term (current) drug therapy
CPT/HCPCS: 80053; 82306; 82378; 85025

== ENCOUNTER 2017-01-30 10:01 | Emergency (ER) | payer MEDICARE, OTHER ==
[~2017-01-30] VITALS: Ht 157.5 cm; Wt 44.9 kg
[2017-01-30] MEDS ORDERED: KETOROLAC 30 MG/ML VIAL IVP STA (11:29)
[2017-01-30] MEDS ORDERED: ONDANSETRON 4 MG/2 ML (SDV) Z0FRAN IVP ONE (11:30)
[2017-01-30] MEDS ORDERED: ACETAMINOPHEN 500 MG TAB (TYLENOL) PO PRN (11:30)
[2017-01-30] MEDS ORDERED: LEVOFLOXACIN IV 750 MG/150 ML (LEVAQUIN) BAG IV ONE (11:30)
[2017-01-30] MEDS ORDERED: NS IV PRN (11:30)
[2017-01-30 11:31] LABS: BASOPHILS % (AUTO) 0 % (0-10); EOSINOPHILS % (AUTO) 0 % (0-10); LYMPHOCYTES # (AUTO) 2.9 X 10^3 (1.0-4.0); LYMPHOCYTES % (AUTO) 27 % (12-44); MEAN CORPUSCULAR HEMOGLOBIN 30 PG (25-34); MEAN CORPUSCULAR HGB CONC 33 G/DL (32-36); MEAN CORPUSCULAR VOLUME 89 FL (80-99); MEAN PLATELET VOLUME 9.7 FL (7.4-10.4); MONOCYTES % (AUTO) 10 % (0-12); NEUTROPHILS # (AUTO) 6.7 X 10^3 (1.8-7.8); NEUTROPHILS % (AUTO) 63 % (42-75); PLATELET COUNT 148 10^3/uL (130-400); RED BLOOD COUNT 4.19 10^6/uL (4.35-5.85); RED CELL DISTRIBUTION WIDTH 14.8 % (10.0-14.5); WHITE BLOOD COUNT 10.7 10^3/uL (4.3-11.0)
[2017-01-30 11:37] LABS: INR 1.2 (0.8-1.4); PROTHROMBIN TIME PATIENT 14.9 SEC (12.2-14.7)
--- NOTE | 2017-01-30 11:37 | ED GU-Female ---
General Chief Complaint: Back Problems Stated Complaint: KIDNEY PAIN,POSS STONE Nursing Triage Note: pt reports hx of kidney stones. she reports left flank pain starting 2 weeks ago. passed a stone last week, but pain returned this week. pt reports fever et nausea x 1 week. she reports she took antibiotic originally. Nursing Sepsis Screen: Possible Sepsis Risk Source: patient, spouse Exam Limitations: no limitations History of Present Illness Time seen by provider: 11:20 Initial Comments 66-year-old female patient presents to the emergency department for complaints of left flank pain beginning 2 weeks ago. Patient was started on Macrobid by Dr. Fleming and had mild improvement in symptoms. Reports passing the stone approximately one week after starting the antibiotics. States over the last 4- 5 days after finishing the antibiotics she has noted increased left flank discomfort, dark urine, urgency, frequency, and fevers. Does have a history of sepsis secondary to kidney stones one year ago. Patient does have a history of colorectal cancer with resection and colostomy placement [address] Patient sees Dr[address] Smith for follow-up care. Timing/Duration: getting worse, other (2 weeks onset) Severity/Quality: aching Location: left flank Radiation: LLQ, back (left back) Activities at Onset: none Prior Genitourinary Problems: similar symptoms Modifying Factors: Worsens With Movement, Worsens With Palpation Allergies and Home Medications Allergies Coded Allergies: Penicillins (Unverified Allergy, Intermediate, HIVES, 05/01/14) metronidazole (Verified Allergy, Unknown, FACIAL EDEMA, 05/04/14) Sulfa (Sulfonamide Antibiotics) (Unverified Adverse Reaction, Unknown, ) Home Medications Allopurinol 300 Mg Tablet, 300 MG PO DAILY, (Reported) Calcium Carbonate 500 Mg Tab.chew, 500 MG PO DAILY, #1 Prescribed by: TEA NAIDU on 04/12/16 1327 Cefdinir 300 Mg Capsule, 300 MG PO BID, #14 Prescribed by: ABDIAZIZ SLATER on 04/14/16 1112 Cefdinir 300 Mg Capsule, 300 MG PO BID, #14 Ref 0 Prescribed by: ASH ALBRECHT on 01/30/17 1220 Cholecalciferol (Vitamin D3) 5,000 Unit Capsule, 5,000 UNIT PO DAILY, #1 ON THURSDAY Prescribed by: TEA NAIDU on 04/12/16 1315 Cholecalciferol (Vitamin D3) 50,000 Unit Tablet, 50,000 UNIT PO WEEK, #1 TAKES ON THURSDAY Prescribed by: TEA NAIDU on 04/12/16 1319 Diphenoxylate HCl/Atropine 1 Each Tablet, 1 EACH PO DAILY, #1 Prescribed by: TEA NAIDU on 04/12/16 1315 Esomeprazole Magnesium 40 Mg Cap, 40 MG PO DAILY, #1 Prescribed by: TEA NAIDU on 04/12/16 1315 Hydrocodone/Acetaminophen 1 Each Tablet, 1 EACH PO Q4H PRN for PAIN, #14 Ref 0 Prescribed by: ASH ALBRECHT on 01/30/17 1240 Lactobacillus Acidophilus 1 Each Capsule, 1 CAP PO DAILY, (Reported) Levofloxacin 500 Mg Tablet, 500 MG PO DAILY, #6 Ref 0 Prescribed by: ASH ALBRECHT on 01/30/17 1220 Loperamide HCl 2 Mg Capsule, 8 MG PO DAILY, #1 TAKES FOUR 2 MG TABLETS DAILY Prescribed by: TEA NAIDU on 04/12/16 1315 Ondansetron 8 Mg Tab.rapdis, 8 MG PO Q6H, #30 Prescribed by: ABDIAZIZ SLATER on 04/14/16 1112 Ondansetron 4 Mg Tab.rapdis, 4 MG PO Q6H PRN for NAUSEA/VOMITING-1ST LINE, #10 Ref 0 Prescribed by: ASH ALBRECHT on 01/30/17 1240 Oxycodone HCl/Acetaminophen 1 Each Tablet, 1-2 TAB PO Q4H PRN for PAIN, #30 Prescribed by: ABDIAZIZ SLATER on 04/14/16 1112 Phenazopyridine HCl 200 Mg Tablet, 1 TAB PO Q8H PRN for SPASMS, #30 Ref 0 Prescribed by: ASH ALBRECHT on 01/30/17 1220 Potassium Chloride 10 Meq Tablet.er, 10 MEQ PO DAILY, #1 Prescribed by: TEA NAIDU on 04/12/16 131 [B 12 Injection] , 1 EACH IM UD B12 INJECTION 1CC IM MONTHLY Prescribed by: TEA NAIDU on 04/12/161324 [Reclast] , IVP RECLAST INJECTION ANNUALLY IN SEPTEMBER Prescribed by: TEA NAIDU on 04/12/165 Constitutional: chills, No dizziness, fever, malaise, weakness EENTM: no symptoms reported Respiratory: No cough, No dyspnea on exertion, No phlegm, No short of breath Cardiovascular: No chest pain, No palpitations, No syncope Gastrointestinal: see HPI, abdominal pain, No constipation, No diarrhea, loss of appetite, No melena, nausea, No vomiting Genitourinary: denies burning, denies dysuria, frequency, flank pain, denies hematuria, pain, urgency Musculoskeletal: see HPI, back pain (left low back pain.) Skin: no symptoms reported Psychiatric/Neurological: No Symptoms Reported All Other Systemes Reviewed Negative Unless Noted: Yes (Negative excepted noted.) Past Eljkvpl-Sxqezl-Wptpif Hx Patient Social History Recent Foreign Travel: No Contact w/Someone Who Travel: No Recent Infectious Disease Expo: No Recent Hopitalizations: Yes (2014) Immunizations Up To Date Date of Pneumonia Vaccine: Dec 08, 2011 Date of Influenza Vaccine: Mar 08, 2016 Seasonal Allergies Seasonal Allergies: Yes Surgeries History of Surgeries: Yes (CYSTOSCOPIES AND KIDNEY STONE REMOVALS. BOWEL RESECTION, colostomy. groshong placement.) Surgeries: Abdominal, Hysterectomy, Rectal Respiratory History of Respiratory Disorde: Yes (asthma allergy induced) Respiratory Disorders: Asthma Currently Using CPAP: No Currently Using BIPAP: No Cardiovascular History of Cardiac Disorders: No Neurological History of Neurological Disord: No 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 System Hx 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 Disorders: No Sexually Transmitted Disease: No Genitourinary Genitourinary Disorders: UTI-Chronic Gastrointestinal History of Gastrointestinal Di: Yes Gastrointestinal Disorders: Crohns Disease Musculoskeletal History of Musculoskeletal Dis: Yes Musculoskeletal Disorders: Osteoporosis Endocrine History of Endocrine Disorders: No HEENT History of HEENT Disorders: No Loss of Vision: Denies Hearing Impairment: Denies Cancer History of Cancer: Yes Cancer: Rectal, Colon Did You Recieve Any Treatments: Yes Type of Tx Receive: Chemotherapy Psychosocial History of Psychiatric Problem: No Integumentary History of Skin or Integumenta: No Blood Transfusions History of Blood Disorders: Yes (anemia) Adverse Reaction to a Blood Tr: No Reviewed Nursing Assessment Reviewed/Agree w Nursing PMH: Yes Family Medical History Significant Family History: No Pertinent Family Hx Family Medial History: Hypertension 19 MOTHER Prostate cancer G8 BROTHER Physical Exam Vital Signs Vital Sign - Last 12Hours 01/30/17 01/30/17 10:45 13:43 Temp 100.5 Pulse 105 Resp 18 B/P (MAP) 173/81 Pulse Ox 100 Capillary Refill : Less Than 3 Seconds General Appearance: WD/WN, no apparent distress HEENT: PERRL/EOMI, pharynx normal Neck: supple, normal inspection Cardiovascular: normal peripheral pulses, no edema, no murmur, tachycardia Respiratory: lungs clear, normal breath sounds, no respiratory distress, no accessory muscle use Gastrointestinal: normal bowel sounds, soft, no organomegaly, No guarding, No rebound, tenderness (mild left flank tenderness.), other (colostomy noted in the left lower abdomen with stool and flatus noted in the bag. stoma pink.) Back: normal inspection, No CVA tenderness (R), CVA tenderness (L) Extremities: no pedal edema, normal capillary refill Neurologic/Psychiatric: alert, normal mood/affect, oriented x 3 Skin: normal color, warm/dry Focused Exam Evaluation Lactate Level Laboratory Tests 01/30/17 11:10: Lactic Acid Level 0.81 Lactic Acid Level Progress/Results/Core Measures Suspected Sepsis Recent Fever Within 48 Hours: Yes Infection Criteria Present: Suspected New Infection New/Unexplained Altered Menta: No Sepsis Screen: Possible Sepsis Risk Sepsis Diagnosis: SIRS Temperature:100.5 Pulse: 105 Respiratory Rate: 18 Laboratory Tests 01/30/17 11:10: White Blood Count 10.7 Blood Pressure 173 /81 Mean: 111 Laboratory Tests 01/30/17 11:10: Lactic Acid Level 0.81 Laboratory Tests 01/30/17 11:10: Creatinine 1.14, INR Comment 1.2, Platelet Count 148, Total Bilirubin 0.6 Results/Orders Lab Results Laboratory Tests Test 01/30/17 11:00 01/30/17 11:10 Range/Units Urine Color YELLOW Urine Clarity VERY CLOUDY H Urine pH 6 5-9 Urine Specific [place] 1.010 L 1.016-1.022 Urine Protein 2+ H NEGATIVE Urine Glucose (UA) NEGATIVE NEGATIVE Urine Ketones NEGATIVE NEGATIVE Urine Nitrite POSITIVE H NEGATIVE Urine Bilirubin NEGATIVE NEGATIVE Urine Urobilinogen NORMAL NORMAL MG/DL Urine Leukocyte Esterase 3+ H NEGATIVE Urine RBC (Auto) 4+ H NEGATIVE Urine RBC RARE /HPF Urine WBC TNTC H /HPF Urine Squamous Epithelial Cells 2-5 /HPF Urine Renal Epithelial Cells NONE /HPF Urine Crystals NONE /LPF Urine Bacteria FEW H /HPF Urine Casts NONE /LPF Urine Mucus NEGATIVE /LPF Urine Culture Indicated YES White Blood Count 10.7 4.3-11.0 10^3/uL Red Blood Count 4.19 L 4.35-5.85 10^6/uL Hemoglobin 12.4 11.5-16.0 G/DL Hematocrit 37 35-52 % Mean Corpuscular Volume 89 80-99 FL Mean Corpuscular Hemoglobin 30 25-34 PG Mean Corpuscular Hemoglobin Concent 33 32-36 G/DL Red Cell Distribution Width 14.8 H 10.0-14.5 % Platelet Count 148 130-400 10^3/uL Mean Platelet Volume 9.7 7.4-10.4 FL Neutrophils (%) (Auto) 63 42-75 % Lymphocytes (%) (Auto) 27 12-44 % Monocytes (%) (Auto) 10 0-12 % Eosinophils (%) (Auto) 0 0-10 % Basophils (%) (Auto) 0 0-10 % Neutrophils # (Auto) 6.7 1.8-7.8 X 10^3 Lymphocytes # (Auto) 2.9 1.0-4.0 X 10^3 Monocytes # (Auto) 1.0 0.0-1.0 X 10^3 Eosinophils # (Auto) 0.0 0.0-0.3 10^3/uL Basophils # (Auto) 0.0 0.0-0.1 10^3/uL Prothrombin Time 14.9 H 12.2-14.7 SEC INR Comment 1.2 0.8-1.4 Activated Partial Thromboplast Time 41 H 24-35 SEC Sodium Level 137 135-145 MMOL/L Potassium Level 3.4 L 3.6-5.0 MMOL/L Chloride Level 104 98-107 MMOL/L Carbon Dioxide Level 22 21-32 MMOL/L Anion Gap 11 5-14 MMOL/L Blood Urea Nitrogen 19 H 7-18 MG/DL Creatinine 1.14 0.60-1.30 MG/DL Estimat Glomerular Filtration Rate 47 BUN/Creatinine Ratio 17 Glucose Level 93 70-105 MG/DL Lactic Acid Level 0.81 0.50-2.00 MMOL/L Calcium Level 8.4 L 8.5-10.1 MG/DL Total Bilirubin 0.6 0.1-1.0 MG/DL Aspartate Amino Transf (AST/SGOT) 17 5-34 U/L Alanine Aminotransferase (ALT/SGPT) 10 0-55 U/L Alkaline Phosphatase 119 40-136 U/L Total Protein 7.3 6.4-8.2 GM/DL Albumin 3.4 3.2-4.5 GM/DL Micro Results Microbiology 01/30/17 Blood Culture - Preliminary, Resulted No growth 01/30/17 Urine Culture - Preliminary, Resulted Gram Negative Gilberto My Orders Orders - ASH ALBRECHT PA Cbc With Automated Diff (01/30/17 11:18) Comprehensive Metabolic Panel (01/30/17 11:18) Lactic Acid Analyzer (01/30/17 11:18) Blood Culture (01/30/17 11:18) Ua Culture If Indicated (01/30/17 11:18) Protime With Inr (01/30/17 11:18) Partial Thromboplastin Time (01/30/17 11:18) O2 (01/30/17 11:18) Acetaminophen Tablet (Tylenol Tablet) (01/30/17 11:30) Saline Lock/Iv-Start (01/30/17 11:18) Saline Lock/Iv-Start (01/30/17 11:18) Ns Iv 1000 Ml (Sodium Chloride 0.9%) (01/30/17 11:30) Levofloxacin 750 Mg/150 Ml Iv (Levaquin (01/30/17 11:30) Vital Signs Adult Sepsis Patie Q1H (01/30/17 11:18) Remove Rings In Anticipation O (01/30/17 11:18) Ondansetron Injection (Zofran Injectio (01/30/17 11:30) Ketorolac Injection (Toradol Injection) (01/30/17 11:29) Urine Culture (01/30/17 11:00) Ns Iv 1000 Ml (Sodium Chloride 0.9%) (01/30/17 12:04) Acute Abd Series (01/30/17 11:32) Medications Given in ED Vital Signs/I&O Capillary Refill : Less Than 3 Seconds Blood Pressure Mean: 111 Diagnostic Imaging Diagonstic Imaging: Xray Plain Films/CT/US/NM/MRI: abdomen Comments ACUTE ABD SERIES INDICATION: Vomiting, fever. EXAMINATION: PA chest, supine and upright abdominal images were obtained. FINDINGS: There are calcifications projecting over the left kidney which are likely renal calculi. There are multiple sutures and scarlet in the abdomen from previous surgeries. Bowel gas pattern is normal. There is no free air. Lungs are clear. IMPRESSION: Postsurgical changes in the abdomen. Left nephrolithiasis. Dictated by: Dictated on workstation # [id number] Reviewed: Reviewed by Me (radiology report reviewed by me) Departure Communication (Admissions) Progress Notes Patient seen and evaluated. Baseline labs drawn. I discussed having a CT scan with the patient to rule out kidney stone; however, patient states she was told by her physicians at [facility] that she should think twice before having another CAT scan. She is only to have CT scans if extremely necessary due to her history of having numerous CT scans for the colon cancer. Patient refuses CT scan at this time and to have an x-ray of the abdomen instead. Will proceed with abdominal x-ray and chest x-ray at this time. 1210 all laboratory and diagnostic findings discussed with the patient. Patient reports feeling much better with medications and IV fluids given. Patient is noted to have nitrite positive and to numerous to count white cells in her urine. We'll plan for treatment of the urinary tract infection as an outpatient with follow-up in Dr. Fleming's office Thursday or Thursday. I Have instructed patient to return immediately to the emergency department if symptoms worsen for further evaluation and possible need for CT scan. Patient verbalizes understanding and agrees with the treatment plan. Impression Impression: Primary Impression: Urinary tract infection Qualified Codes: N30.00 - Acute cystitis without hematuria Disposition: HOME, SELF-CARE Condition: Improved Departure-Patient Inst. Decision time for Depature: 12:16 Referrals: RIOS FLEMING DO (PCP/Family) Primary Care Physician Patient Instructions: Urinary Tract Infections in Adults Add. Discharge Instructions: All discharge instructions reviewed with patient and/or family. Voiced understanding. Medications as instructed. Usual medications. Tylenol extra strength [id number] as directed for pain or fever. Ibuprofen 800 mg by mouth every 8 hours as needed for pain or fever. Push fluids. Follow-up with Dr. Fleming as an outpatient for recheck Thursday or Thursday. Call Thursday for appointment time. Return to the emergency department for worsened pain, fever, vomiting, blood in the urine, inability to urinate, or any other concerns. Scripts Ondansetron (Ondansetron Odt) 4 Mg Tab.rapdis 4 MG PO Q6H Y for NAUSEA/VOMITING-1ST LINE, #10 TAB 0 Refills Prov: ASH ALBRECHT 01/30/17 Hydrocodone/Acetaminophen (Hydrocodon -Acetaminophen 5-325) 1 Each Tablet 1 EACH PO Q4H Y for PAIN, #14 TAB 0 Refills Prov: ASH ALBRECHT 01/30/17 Cefdinir (Cefdinir) 300 Mg Capsule 300 MG PO BID, #14 CAP 0 Refills Prov: ASH ALBRECHT 01/30/17 Levofloxacin (Levofloxacin) 500 Mg Tablet 500 MG PO DAILY, #6 TAB 0 Refills Prov: ASH ALBRECHT 01/30/17 Phenazopyridine HCl (Pyridium) 200 Mg Tablet 1 TAB PO Q8H Y for SPASMS, #30 TAB 0 Refills Prov: ASH ALBRECHT 01/30/17 ASH ALBRECHT Jan 30, 2017 11:37
[2017-01-30 11:39] LABS: BILIRUBIN,URINE NEGATIVE (NEGATIVE); KETONES,URINE NEGATIVE (NEGATIVE); LEUKOCYTE ESTERASE ,URINE 3+ (NEGATIVE); NITRITE,URINE POSITIVE (NEGATIVE); PH,URINE 6 (5-9); PROTEIN,URINE 2+ (NEGATIVE); UROBILINOGEN,URINE NORMAL (NORMAL)
[2017-01-30 11:48] LABS: ALBUMIN 3.4 GM/DL (3.2-4.5); BILIRUBIN,TOTAL 0.6 MG/DL (0.1-1.0); CALCIUM 8.4 MG/DL (8.5-10.1); CREATININE SERUM 1.14 MG/DL (0.60-1.30); POTASSIUM 3.4 MMOL/L (3.6-5.0); TOTAL PROTEIN 7.3 GM/DL (6.4-8.2)
[2017-01-30 11:54] LABS: WBC,URINE TNTC /HPF
[2017-01-30] MEDS ORDERED: NS IV 1000 ML 1,000 ML IV ONE (12:04)
[2017-01-30] MEDS ORDERED: CEFD300C3 PO (12:20)
[2017-01-30] MEDS ORDERED: LEVO500T80 PO (12:20)
[2017-01-30] MEDS ORDERED: PHEN-640 PO (12:20)
--- NOTE | 2017-01-30 12:28 | Diagnostic Imaging Report ---
INDICATION: Vomiting, fever. EXAMINATION: PA chest, supine and upright abdominal images were obtained. FINDINGS: There are calcifications projecting over the left kidney which are likely renal calculi. There are multiple sutures and scarlet in the abdomen from previous surgeries. Bowel gas pattern is normal. There is no free air. Lungs are clear. IMPRESSION: Postsurgical changes in the abdomen. Left nephrolithiasis. Dictated by: Dictated on workstation # [id number]
[2017-01-30] MEDS ORDERED: HYDR-3812 PO (12:40)
[2017-01-30] MEDS ORDERED: ONDA4TAB11 PO (12:40)
[2017-01-30 13:43] VITALS: BP 128/59
== END 2017-01-30 13:47 | disposition home or self-care (01) ==
LOC: EDUNIT# 10:01 → ER 10:03
DX: N39.0 Urinary tract infection, site not specified (principal); J45.909 Unspecified asthma, uncomplicated; M81.0 Age-related osteoporosis without current pathological fracture; Z90.710 Acquired absence of both cervix and uterus; Z87.19 Personal history of other diseases of the digestive system; Z87.442 Personal history of urinary calculi; Z85.038 Personal history of other malignant neoplasm of large intestine; Z92.21 Personal history of antineoplastic chemotherapy
CPT/HCPCS: 36415; 74022; 80053; 81000; 83605; 85025; 85610; 85730; 87040; 87077; 87088; 87186; 99284

== ENCOUNTER → 2017-02-05 | Outpatient (CLI) | payer MEDICARE, OTHER ==
[~2017-02-05] MED LIST changes: +HYDR-3812 PO; +LEVO500T80 PO; +ONDA4TAB11 PO; +PHEN-640 PO
== END ==
LOC: LAB 08:26
PROVIDERS: ATTEND Internal Medicine
DX: R19.7 Diarrhea, unspecified (principal)
CPT/HCPCS: 87324; 87449

== ENCOUNTER 2017-04-21 15:39 | Outpatient (RCR) | payer MEDICARE, OTHER ==
[2017-04-29] MEDS ORDERED: CALC-654 PO (15:42)
[2017-04-29] MEDS ORDERED: CHOL5000 PO (15:42)
[2017-04-29] MEDS ORDERED: B-12 INJECTION INJ (15:42)
[2017-04-29] MEDS ORDERED: ONDA8TAB6 PO (15:42)
[2017-04-29] MEDS ORDERED: NF-ESOM40C PO (15:42)
[2017-04-29] MEDS ORDERED: CHOL500049 PO (15:42)
[2017-04-29] MEDS ORDERED: ALLO300T2 PO (15:42)
[2017-04-29] MEDS ORDERED: RT-ALBUINH IH (15:42)
[2017-04-29] MEDS ORDERED: DIPH1TAB PO (15:42)
[2017-04-29] MEDS ORDERED: ACET325T38 PO (15:42)
[2017-04-29] MEDS ORDERED: LACT1CAP74 PO (15:42)
[2017-04-29] MEDS ORDERED: HYOS-19 SL (15:46)
== END 2017-05-06 | disposition home or self-care (01) ==
LOC: ONC 15:39
PROVIDERS: ATTEND Internal Medicine Hematology & Oncology
DX: C21.8 Malignant neoplasm of overlapping sites of rectum, anus and anal canal (principal); M81.0 Age-related osteoporosis without current pathological fracture; G95.89 Other specified diseases of spinal cord; Z93.3 Colostomy status; Z79.899 Other long term (current) drug therapy
CPT/HCPCS: 36591; 99213

== ENCOUNTER → 2017-04-21 | Outpatient (CLI) | payer MEDICARE, OTHER ==
[~2017-04-21] MED LIST changes: +ACHD5005 PO; -HYDR-3812 PO
[2017-04-21 12:06] LABS: BASOPHILS # (AUTO) 0.1 10^3/uL (0.0-0.1); BASOPHILS % (AUTO) 1 % (0-10); EOSINOPHILS # (AUTO) 0.3 10^3/uL (0.0-0.3); EOSINOPHILS % (AUTO) 3 % (0-10); HEMATOCRIT 37 % (35-52); HEMOGLOBIN 12.1 G/DL (11.5-16.0); LYMPHOCYTES # (AUTO) 3.3 X 10^3 (1.0-4.0); LYMPHOCYTES % (AUTO) 40 % (12-44); MEAN CORPUSCULAR HEMOGLOBIN 30 PG (25-34); MEAN CORPUSCULAR HGB CONC 33 G/DL (32-36); MEAN CORPUSCULAR VOLUME 90 FL (80-99); MEAN PLATELET VOLUME 9.6 FL (7.4-10.4); MONOCYTES # (AUTO) 0.5 X 10^3 (0.0-1.0); MONOCYTES % (AUTO) 6 % (0-12); NEUTROPHILS # (AUTO) 4.1 X 10^3 (1.8-7.8); NEUTROPHILS % (AUTO) 51 % (42-75); PLATELET COUNT 197 10^3/uL (130-400); RED CELL DISTRIBUTION WIDTH 15.2 % (10.0-14.5); WHITE BLOOD COUNT 8.2 10^3/uL (4.3-11.0)
[2017-04-21 12:30] LABS: ALBUMIN 3.4 GM/DL (3.2-4.5); BILIRUBIN,TOTAL 0.3 MG/DL (0.1-1.0); CALCIUM 8.7 MG/DL (8.5-10.1); CREATININE SERUM 1.06 MG/DL (0.60-1.30); MAGNESIUM 1.6 MG/DL (1.8-2.4); TOTAL PROTEIN 7.2 GM/DL (6.4-8.2)
== END ==
LOC: LAB 11:39
PROVIDERS: ATTEND Internal Medicine
DX: R53.83 Other fatigue (principal)
CPT/HCPCS: 36415; 80053; 83735; 85025

== ENCOUNTER 2017-04-29 10:41 | Inpatient (IN) | payer MEDICARE, OTHER ==
[~2017-04-29] VITALS: Ht 157.5 cm; Wt 40.9 kg
[2017-04-29 14:05] VITALS: BP 163/86
[2017-04-29 14:09] VITALS: BP 170/84
--- OUTSIDE RECORDS SUMMARY | 2017-04-29 14:16 | XMS REPORT | Continuity of Care Document ---
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 Phone [employer] Unavailable Unavailable Problems Medications Allergies, Adverse Reactions, Alerts Immunizations Results Vital Signs Encounters Location Location Details Encounter Type Encounter Number Reason For Visit Attending Provider ADM Date DC Date Status Source OUTPATIENT [id number] [facility] 10/27/2016 10/27/2016 Active [facility] EMERGENCY [id number] 02/16/2017 Active [facility] SPECIMEN [id number] [place] [place] 03/13/2017 03/13/2017 Active [facility] CA SERIES [id number] BENITA FRANKLIN 04/01/20172017 Active [facility] INPATIENT [id number] CHICO T[place]LORFIELD 04/24/20172017 Active [facility] O 05/15/2017 Active [facility] OP SURGERY [id number] OFELIA MUNGUIA Active [facility] Procedures Plan of Care Social History Assessment and Plan Family History Advance Directives Functional Status
--- OUTSIDE RECORDS SUMMARY | 2017-04-29 14:17 | XMS REPORT | Encounter Summary ---
Author Author [facility] Organization [facility] Address Unknown Phone Unavailable Care Team Providers Care Credit Risk Review Officer Name Role Phone Nick Levine MD Unavailable Milind Corona MD Unavailable Latonia Pink RN Unavailable Unavailable Michelle Pablo RN Unavailable Unavailable Efrain Roberson RN Unavailable Unavailable Homa Ward RN Unavailable Unavailable Key Alejo RN Unavailable Unavailable Yuval Gaviria MD Unavailable Robin Kirk MD Unavailable Sanjuanita Cordoba MD Unavailable Geovanna Mann APRN Unavailable Sherley Diamond RD Unavailable Ang Tam RN Unavailable Unavailable Nick Mueller MD Unavailable Timothy Jacobs MD Unavailable Patt Davidson FIELD ADVISOR-NIGHT CUSTODIAN Unavailable Enedelia Rebolledo Unavailable Unavailable Fide Leung MD Unavailable Alec Cordon MD Unavailable George Jordan MD Unavailable Francy Soriano RN Unavailable Unavailable Ama Diallo RN Unavailable Unavailable Kasandra Chacon RN Unavailable Unavailable Scottie Nunez MD Unavailable Unavailable Bharat Love CRNA Unavailable Sharita Padilla MD Unavailable Richard Fleming MD PCP Encounter Details Date Type Department Care Team Description 04/27/2017 Procedure Pass [facility] - Urology [address]ND FLOOR POD [address] [facility] [place] [address] Social History Tobacco Use Types Packs/Day Years Used Date Never Smoker Smokeless Tobacco: Never Used Alcohol Use Drinks/Week oz/Week Comments Yes 0 Standard 0.0 rare drinks or equivalent Sex Assigned at Date Recorded Not on file as of this encounter Functional Status Functional Status Response Date of Assessment Does the patient have a hearing impairment: No 04/24/2017 Does the patient have a visual impairment: Yes 03/14/2015 Does the patient have impaired ambulation: No 03/14/2015 Does the patient have an activity of daily living No 03/14/2015 (ADL) impairment: Does the patient have an instrumental activity of No 03/14/2015 daily living (IADL) impairment: Cognitive Status Response Date of Assessment Does the patient have a cognitive impairment: No 03/14/2015 as of this encounter Plan of Treatment Date Type Specialty Care Team Description 04/27/2017 Procedure Pass Urology as of this encounter Visit Diagnoses Not on filein this encounter
--- OUTSIDE RECORDS SUMMARY | 2017-04-29 14:17 | XMS REPORT | Clinical Summary ---
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 chest same day. FINDINGS: Single portable supine AP chest radiograph was obtained. Left subclavian chest port with tip overlying the low SVC. Cardiac silhouette is normal in size without pulmonary vascular congestion. No pneumothorax or pleural effusion. IMPRESSION No acute cardiopulmonary abnormality. Approved by Miguel A Garcia M.D. on 04/24/2017 2:12 PM By my electronic signature, I attest that I have personally reviewed the images for this examination and formulated the interpretations and opinions expressed in this report Finalized by GARRETT RODRIGUEZ M.D. on 04/24/2017 4:01 PM. Dictated by Miguel A Garcia M.D. on 04/24/2017 1:41 PM. * ECG-SCAN (04/18/2017 11:28 AM) Narrative Ordered by an unspecified provider. * FLUORO MOBILE IN OR (04/10/2017 8:30 AM) Specimen Performing Laboratory [facility] Narrative This order has been auto finalized and does not contain a result. * ECG-SCAN (02/25/2017 8:46 AM) Narrative Ordered by an unspecified provider. * CT ABD/PELV WO CONTRAST (02/16/2017 12:35 PM) Specimen Performing Laboratory [facility] RESULTS Impressions 1. INTERVAL DEVELOPMENT OF MODERATE SEVERE LEFT HYDRONEPHROSIS AND PROXIMAL LEFT HYDROURETER UP TO THE LEVEL OF THE LEFT ILIAC VESSELS, WITH IMPROVEMENT IN STONE BURDEN ABOUT THE INFERIOR POLE OF THE LEFT KIDNEY, LIKELY REPRESENT SEQUELAE OF RECENT PASSAGE OF STONE. 2. PERSISTENT LEFT NEPHROLITHIASIS. 3. PRIOR ABDOMINAL PERINEAL RESECTION AND LEFT LOWER QUADRANT COLOSTOMY WITH STABLE PARASTOMAL HERNIA CONTAINING NONOBSTRUCTED SMALL BOWEL LOOPS. 4. NO ABDOMINAL/PELVIC METASTATIC DISEASE. Finalized by Julio César Gamino M.D. on 02/16/2017 1:06 PM. Dictated by Julio César Gamino M.D. on 02/16/2017 12:[address] Abdomen and Pelvis Clinical Indication: L flank pain, hydro on bedside ultrasound. Technique: Multiple contiguous axial CT images were obtained through the abdomen and pelvis without IV contrast. Post processing coronal and sagittal reconstruction images were made from the axial images. IV contrast: None. Bowel contrast:None Comparison: Prior CT of the abdomen and pelvis dated 10/27/2016. FINDINGS: Limited evaluation without the use of IV contrast which includes the viscera and vasculature. Lower Thorax: There is mild hypodensity of the blood pool in relation to the myocardium, reflective of anemia. Liver and Biliary system: Unremarkable. Spleen: Unremarkable. Adrenal Glands and Kidneys: The unopacified bilateral adrenal glands appear unremarkable. Previously noted right renal cyst not well demonstrated on this study. Multiple left renal calculi are again noted with decrease in stone burden of the lower pole renal calculus (series 2 image 30) when compared to prior examination. There is development of moderate to severe left hydronephrosis and proximal hydroureter up to the level of the iliac vessels which comes normal in caliber distally. No evidence of ureterolithiasis is identified. Stable areas of cortical scarring are noted most pronounced about the left lower pole. Pancreas and Retroperitoneum: Pancreatic atrophy again identified. There is stable mild soft tissue thickening and nodularity adjacent to the AJITH and the area of adjacent linear radiopaque material (series 2 image 42), which has been stable since multiple prior examinations likely postprocedural. No significant retroperitoneal adenopathy. Aorta and Major Vessels: The abdominal aorta remains to be of normal caliber with mild calcified atherosclerotic plaques. Bowel: Prior abdominal perineal resection and left lower quadrant colostomy again identified. Unchanged long segment of mural thickening involving the distal: The pelvis is seen likely posterior pubic in nature. The small large bowel loops are normal in caliber. Mesentery and Peritoneal space: Small central mesenteric nodes are again identified which are stable over multiple prior examinations. No significant mesenteric adenopathy is noted. No abdominal ascites. Pelvis: No free pelvic fluid. Unchanged postoperative appearance of the urinary bladder in the pelvis with adjacent soft tissue stranding. No urinary bladder calculi are identified. No significant iliac or inguinal adenopathy. There is unchanged presacral soft tissue thickening and stranding. Abdominal wall and Osseous Structures: Stable chronic ununited fracture deformity of the symphysis pubis is noted. Chronic appearing bilateral sacral insufficiency fractures are also unchanged. No new osseous lesions are noted. Mild lumbar spondylosis. Prior ventral abdominal incision and hernia repair with adjacent soft tissue thickening and stranding. Left lower quadrant parastomal hernia containing nonobstructed loops of small bowel again noted. 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 Technique: Multiple contiguous axial CT images were obtained through the abdomen and pelvis without IV contrast. Post processing coronal and sagittal reconstruction images were made from the axial images. IV contrast: None. Bowel contrast: None Comparison: Prior CT of the abdomen and pelvis dated 10/27/2016. FINDINGS: Limited evaluation without the use of IV contrast which includes the viscera and vasculature. Lower Thorax: There is mild hypodensity of the blood pool in relation to the myocardium, reflective of anemia. Liver and Biliary system: Unremarkable. Spleen: Unremarkable. Adrenal Glands and Kidneys: The unopacified bilateral adrenal glands appear unremarkable. Previously noted right renal cyst not well demonstrated on this study. Multiple left renal calculi are again noted with decrease in stone burden of the lower pole renal calculus (series 2 image 30) when compared to prior examination. There is development of moderate to severe left hydronephrosis and proximal hydroureter up to the level of the iliac vessels which comes normal in caliber distally. No evidence of ureterolithiasis is identified. Stable areas of cortical scarring are noted most pronounced about the left lower pole. Pancreas and Retroperitoneum: Pancreatic atrophy again identified. There is stable mild soft tissue thickening and nodularity adjacent to the AJITH and the area of adjacent linear radiopaque material (series 2 image 42), which has been stable since multiple prior examinations likely postprocedural. No significant retroperitoneal adenopathy. Aorta and Major Vessels: The abdominal aorta remains to be of normal caliber with mild calcified atherosclerotic plaques. Bowel: Prior abdominal perineal resection and left lower quadrant colostomy again identified. Unchanged long segment of mural thickening involving the distal: The pelvis is seen likely posterior pubic in nature. The small large bowel loops are normal in caliber. Mesentery and Peritoneal space: Small central mesenteric nodes are again identified which are stable over multiple prior examinations. No significant mesenteric adenopathy is noted. No abdominal ascites. Pelvis: No free pelvic fluid. Unchanged postoperative appearance of the urinary bladder in the pelvis with adjacent soft tissue stranding. No urinary bladder calculi are identified. No significant iliac or inguinal adenopathy. There is unchanged presacral soft tissue thickening and stranding. Abdominal wall and Osseous Structures: Stable chronic ununited fracture deformity of the symphysis pubis is noted. Chronic appearing bilateral sacral insufficiency fractures are also unchanged. No new osseous lesions are noted. Mild lumbar spondylosis. Prior ventral abdominal incision and hernia repair with adjacent soft tissue thickening and stranding. Left lower quadrant parastomal hernia containing nonobstructed loops of small bowel again noted. IMPRESSION 1. INTERVAL DEVELOPMENT OF MODERATE SEVERE LEFT HYDRONEPHROSIS AND PROXIMAL LEFT HYDROURETER UP TO THE LEVEL OF THE LEFT ILIAC VESSELS, WITH IMPROVEMENT IN STONE BURDEN ABOUT THE INFERIOR POLE OF THE LEFT KIDNEY, LIKELY REPRESENT SEQUELAE OF RECENT PASSAGE OF STONE. 2. PERSISTENT LEFT NEPHROLITHIASIS. 3. PRIOR ABDOMINAL PERINEAL RESECTION AND LEFT LOWER QUADRANT COLOSTOMY WITH STABLE PARASTOMAL HERNIA CONTAINING NONOBSTRUCTED SMALL BOWEL LOOPS. 4. NO ABDOMINAL/PELVIC METASTATIC DISEASE. Finalized by Julio César Gamino M.D. on 02/16/2017 1:06 PM. Dictated by Julio César Gamino M.D. on 02/16/2017 12:41 PM. * URINALYSIS, MICROSCOPIC (02/16/2017 12:14 PM) Component Value Ref Range WBCs,UA PACKED 0 - 2 /HPF RBCs,UA 20-50 0 - 3 /HPF Bacteria,UA MANY (A) NEG-NEG WBC Clumps PRESENT Squamous Epithelial Cells 0-2 0 - 5 Specimen Performing Laboratory [facility] [address] [place] [address] * URINALYSIS DIPSTICK (02/16/2017 12:14 PM) Component Value Ref Range Color,UA LUKE Turbidity,UA 2+ (A) CLEAR-CLEAR Specific [place]-Urine 1.011 1.003 - 1.035 pH,UA 6.0 5.0 - 8.0 Protein,UA 1+ (A) NEG-NEG Glucose,UA NEG NEG-NEG Ketones,UA 1+ (A) NEG-NEG Bilirubin,UA NEG NEG-NEG Blood,UA 1+ (A) NEG-NEG Urobilinogen,UA NORMAL NORM-NORMAL Nitrite,UA POS (A) NEG-NEG Leukocytes,UA 3+ (A) NEG-NEG Urine Ascorbic Acid, UA NEG NEG-NEG Specimen Performing Laboratory U[facility] [address] [place] [address] * POC ED US RENAL/BLADDER (02/16/2017 11:24 AM) Specimen Performing Laboratory [facility] RESULTS Impressions [id number] Ul[facility] Exam Date: 02/16/2017 Exam Type: POC ED US RENAL/BLADDER [employer]: Derik Cote Attending: Marielos Hines Worksheet: ED-Renal & Bladder Clinical Indication(s) for Exam: Flank Pain Other: L Views: Right Kidney Long [place]: Adequate Right Kidney [place]: Adequate Left Kidney [place]: Adequate Left Kidney [place]: Adequate Bladder [place]: Not obtained Bladder Short [place]: Adequate Findings: Right Kidney Hydronephrosis: Absent Left Kidney Hydronephrosis: Severe Interpretation: Hydronephrosis: Left, Severe Bladder Size: Normal Physician Approval: Resident/Fellow Signature: Not signed Credentialed Physician: Signed by Marielos Hines on Thursday, February 16, 2017 at 11:57:29 AM Procedure Note Interface, Radiant Results - 02/16/2017 11:58 AM 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 IMPRESSION [id number] Ultrasound Exam Date: 02/16/2017 Exam Type: POC ED US RENAL/BLADDER [employer]: Derik Cote Attending: Marielos Hines Worksheet: ED-Renal & Bladder Clinical Indication(s) for Exam: Flank Pain Other: L Views: Right Kidney Long [place]: Adequate Right Kidney [place]: Adequate Left Kidney Long [place]: Adequate Left Kidney [place]: Adequate Bladder Long [place]: Not obtained Bladder Short [place]: Adequate Findings: Right Kidney Hydronephrosis: Absent Left Kidney Hydronephrosis: Severe Interpretation: Hydronephrosis: Left, Severe Bladder Size: Normal Physician Approval: Resident/Fellow Signature: Not signed Credentialed Physician: Signed by Marielos Hines on Thursday, February 16, 2017 at 11:57:29 AM * POC LACTATE (02/16/2017 11:04 AM) Component Value Ref Range LACTIC ACID POC 0.8 0.5 - 2.0 MMOL/L Specimen Performing Laboratory [facility] [address] [place] [id number] * CULTURE-BLOOD W/SENSITIVITY (02/16/2017 10:50 AM) Component Value Ref Range Battery Name BLOOD CULTURE Specimen Description BLOOD LEFT CHEST Special Requests NONE Culture NO GROWTH 5 DAYS Report Status FINAL 02/22/2017 Specimen Performing Laboratory [facility] [address] [place] [id number] * CBC AND DIFF (02/16/2017 10:50 AM) Component Value Ref Range White Blood Cells 11.5 (H) 4.5 - 11.0 K/UL RBC 3.92 (L) 4.0 - 5.0 M/UL Hemoglobin 11.6 (L) 12.0 - 15.0 GM/DL Hematocrit 35.1 (L) 36 - 45 % MCV 89.5 80 - 100 FL MCH 29.7 26 - 34 PG MCHC 33.2 32.0 - 36.0 G/DL RDW 15.8 (H) 11 - 15 % Platelet Count 156 150 - 400 K/UL MPV 8.1 7 - 11 FL Neutrophils 67 41 - 77 % Lymphocytes 24 24 - 44 % Monocytes 8 4 - 12 % Eosinophils 0 0 - 5 % Basophils 1 0 - 2 % Absolute Neutrophil Count 7.70 (H) 1.8 - 7.0 K/UL Absolute Lymph Count 2.80 1.0 - 4.8 K/UL Absolute Monocyte Count 0.90 (H) 0 - 0.80 K/UL Absolute Eosinophil Count 0.00 0 - 0.45 K/UL Absolute Basophil Count 0.10 0 - 0.20 K/UL Specimen Performing Laboratory [facility] [address] [place] [id number] * LIPASE (02/16/2017 10:50 AM) Component Value Ref Range Lipase 7 (L) 11 - 82 U/L Specimen Performing Laboratory [facility] [address] [place] [id number] * COMPREHENSIVE METABOLIC PANEL (02/16/2017 10:50 AM) Component Value Ref Range Sodium 135 (L) 137 - 147 MMOL/L Potassium 3.9 3.5 - 5.1 MMOL/L Chloride 99 98 - 110 MMOL/L Glucose 66 (L) 70 - 100 MG/DL Blood Urea Nitrogen 18 7 - 25 MG/DL Creatinine 1.28 (H) 0.4 - 1.00 MG/DL Calcium 8.6 8.5 - 10.6 MG/DL Total Protein 7.4 6.0 - 8.0 G/DL Total Bilirubin 0.8 0.3 - 1.2 MG/DL Albumin 3.3 (L) 3.5 - 5.0 G/DL Alk Phosphatase 101 25 - 110 U/L AST (SGOT) 15 7 - 40 U/L CO2 22 21 - 30 MMOL/L ALT (SGPT) <3 (L) 7 - 56 U/L Anion Gap 14 (H) 3 - 12 eGFR Non 41 (L) >60 mL/min Comment: The eGFR is not validated for use in drug dosing adjustments. Continue to use estimated creatinine clearance per dosing reference text. Please contact the Clinical Pharmacist for questions. eGFR 50 (L) >60 mL/min Comment: The eGFR is not validated for use in drug dosing adjustments. Continue to use estimated creatinine clearance per dosing reference text. Please contact the Clinical Pharmacist for questions. Specimen Performing Laboratory [facility] [address] [place] [address] from Last 3 Months
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
--- OUTSIDE RECORDS SUMMARY | 2017-04-29 14:19 | XMS REPORT | Encounter Summary ---
Author Author [facility] Organization [facility] Address Unknown Phone Unavailable Care Team Providers Care Gold Reclaimer Name Role Phone Nick Levine MD Unavailable [...] Unavailable Timothy Jacobs MD Unavailable Patt Davidson LINK TRAINER TEACHER-MANAGEMENT ASSOCIATE Unavailable Enedelia Rebolledo Unavailable Unavailable Fide Leung MD Unavailable Alec Cordon MD Unavailable George Jordan MD Unavailable Francy Soriano RN Unavailable Unavailable Ama Diallo RN Unavailable Unavailable Kasandra Chacon RN Unavailable Unavailable Scottie Nunez MD Unavailable Unavailable Bharat Love CRNA Unavailable Sharita Padilla MD Unavailable Richard Fleming MD PCP Reason for Referral * Radiology Services Status Reason Specialty Diagnoses / Referred By Referred To Procedures Contact Contact New Request Radiology Diagnoses Milind Corona Other MD hydronephrosis [address] rocedures [place] [address] [place] RENAL [place], [place] FUNCTION [place] [address] Encounter Details Date Type Department Care Team Description 04/27/2017 Orders Only [facility] Parul Akins MD Other hydronephrosis Physicians - Urology [address] (Primary Dx) 2ND [place] [address] MED [phone] [place] [address] Social History Tobacco Use Types [...] Procedure Pass Urology Name Priority Associated Diagnoses Order Schedule NM RENAL FUNCTION W LASIX Routine Other hydronephrosis Expected: 2017 (Approximate), Expires: 04/27/2018 as of this encounter Visit Diagnoses Diagnosis Other hydronephrosis - Primary
--- OUTSIDE RECORDS SUMMARY | 2017-04-29 14:19 | XMS REPORT | Encounter Summary ---
Author Author [facility] Organization [facility] Address Unknown Phone Unavailable Care Team Providers Care Toll Settlement Clerk Name Role Phone Nick Levine MD Unavailable [...] RN Unavailable Unavailable Nick Mueller MD Unavailable Timohty Jacobs MD Unavailable Patt Davidson DIAMOND FINISHING SUPERVISOR-AGRICULTURAL RESEARCH TECHNOLOGIST Unavailable Enedelia Rebolledo Unavailable Unavailable Fide Leung MD Unavailable Alec Cordon MD Unavailable George Jordan MD Unavailable Francy Soriano RN Unavailable Unavailable Ama Diallo RN Unavailable Unavailable Kasandra Chacon RN Unavailable Unavailable Scottie Nunez MD Unavailable Unavailable Bharat Love CRNA Unavailable Sharita Padilla MD Unavailable Richard Fleming MD PCP Encounter Details Date Type Department Care Team Description 04/24/2017 Procedure Pass Gen/Vasc/Plst/Trm [address] [place] [address] Social History Tobacco Use Types Packs/Day Years [...]
--- OUTSIDE RECORDS SUMMARY | 2017-04-29 14:19 | XMS REPORT | Encounter Summary ---
Author Author [facility] Organization [facility] Address Unknown Phone Unavailable Care Team Providers Care Gas Prover Name Role Phone Nick Levine MD Unavailable [...] Unavailable Timothy Jacobs MD Unavailable Patt Davidson BUILDING SPECIALIST-MANUFACTURERS REPRESENTATIVE Unavailable Enedelia Rebolledo Unavailable Unavailable Fide Leung MD Unavailable Alec Cordon MD Unavailable George Jordan MD Unavailable Francy Soriano RN Unavailable Unavailable Ama Diallo RN Unavailable Unavailable Kasandra Chacon RN Unavailable Unavailable Scottie Nunez MD Unavailable Unavailable Bharat Love CRNA Unavailable Sharita Padilla MD Unavailable Richard Fleming MD PCP Encounter Details Date Type Department Care Team Description 04/24/2017 Procedure Pass Gen/Vasc/Plst/Trm [address] [place] [address] Social History Tobacco Use Types Packs/Day Years [...]
--- OUTSIDE RECORDS SUMMARY | 2017-04-29 14:19 | XMS REPORT | Encounter Summary ---
Author Author [facility] Organization [facility] Address Unknown Phone Unavailable Care Team Providers Care Shuttle Hand Name Role Phone Nick Levine MD Unavailable [...] Unavailable Timothy Jacobs MD Unavailable Patt Davidson CHIEF INNOVATION OFFICER-GASOLINE ENGINE ASSEMBLER Unavailable Enedelia Rebolledo Unavailable Unavailable Fide Leung MD Unavailable Alec Cordon MD Unavailable George Jordan MD Unavailable Francy Soriano RN Unavailable Unavailable Ama Diallo RN Unavailable Unavailable Kasandra Chacon RN Unavailable Unavailable Scottie Nunez MD Unavailable Unavailable Bharat Love CRNA Unavailable Sharita Padilla MD Unavailable Richard Fleming MD PCP Encounter Details Date Type Department Care Team Description 04/10/2017 Procedure Pass Main Operating Room [address] [place] [id number] Social History Tobacco Use Types Packs/Day Years Used Date Never Smoker Smokeless Tobacco: Never Used Alcohol Use Drinks/Week oz/Week Comments Yes 0 Standard 0.0 rare drinks or equivalent Sex Assigned at Date Recorded Not on file as of this encounter Functional Status Functional Status Response Date of Assessment Does the patient have a hearing impairment: No 02/16/2017 Does the patient have a visual impairment: [...]
--- OUTSIDE RECORDS SUMMARY | 2017-04-29 14:19 | XMS REPORT | Encounter Summary ---
Author Author [facility] Organization [facility] Address Unknown Phone Unavailable Care Team Providers Care University Internship Name Role Phone Nick Levine MD Unavailable [...] Unavailable Timothy Jacobs MD Unavailable Patt Davidson SENIOR SUSTAINABILITY ADVISOR-SHIP PURSER Unavailable Enedelia Rebolledo Unavailable Unavailable Fide Leung MD Unavailable Alec Cordon MD Unavailable George Jordan MD Unavailable Francy Soriano RN Unavailable Unavailable Ama Diallo RN Unavailable Unavailable Kasandra Chacon RN Unavailable Unavailable Scottie Nunez MD Unavailable Unavailable Bharat Love CRNA Unavailable Sharita Padilla MD Unavailable Richard Fleming MD PCP Encounter Details Date Type Department Care Team Description 04/24/2017 Procedure Pass Gen/Vasc/Plst/Trm [address] [place] [address] Social History Tobacco Use Types Packs/Day Years [...]
--- OUTSIDE RECORDS SUMMARY | 2017-04-29 14:19 | XMS REPORT | Encounter Summary ---
Author Author [facility] Organization [facility] Address Unknown Phone Unavailable Care Team Providers Care Gem Setter Name Role Phone Nick Levine MD Unavailable [...] Unavailable Timothy Jacobs MD Unavailable Patt Davidson POLE MAKER-MATTRESS SPECIALIST Unavailable Enedelia Rebolledo Unavailable Unavailable Fide Leung MD Unavailable Alec Cordon MD Unavailable George Jordan MD Unavailable Francy Soriano RN Unavailable Unavailable Ama Diallo RN Unavailable Unavailable Kasandra Chacon RN Unavailable Unavailable Scottie Nunez MD Unavailable Unavailable Bharat Love CRNA Unavailable Sharita Padilla MD Unavailable Richard Fleming MD PCP Encounter Details Date Type Department Care Team Description 04/24/2017 Procedure Pass Gen/Vasc/Plst/Trm [address] [place] [address] Social History Tobacco Use Types Packs/Day Years [...]
--- OUTSIDE RECORDS SUMMARY | 2017-04-29 14:19 | XMS REPORT | Encounter Summary ---
Author Author [facility] Organization [facility] Address Unknown Phone Unavailable Care Team Providers Care Insurance Loss Control Surveyor Name Role Phone Nick Levine MD Unavailable [...] Unavailable Timothy Jacobs MD Unavailable Patt Davidson JUDGE'S CLERK-STOCK BROKER Unavailable Enedelia Rebolledo Unavailable Unavailable Fide Leung MD Unavailable Alec Cordon MD Unavailable George Jordan MD Unavailable Francy Soriano RN Unavailable Unavailable Ama Diallo RN Unavailable Unavailable Kasandra Chacon RN Unavailable Unavailable Scottie Nunez MD Unavailable Unavailable Bharat Love CRNA Unavailable Sharita Padilla MD Unavailable Richard Fleming MD PCP Encounter Details Date Type Department Care Team Description 04/25/2017 Procedure Pass Gen/Vasc/Plst/Trm [address] [place] [address] Social History Tobacco Use Types Packs/Day Years [...]
--- OUTSIDE RECORDS SUMMARY | 2017-04-29 14:19 | XMS REPORT | Encounter Summary ---
Author Author [facility] Organization [facility] Address Unknown Phone Unavailable Care Team Providers Care Climbing Guide Name Role Phone Nick Levine MD Unavailable [...] Unavailable Timothy Jacobs MD Unavailable Patt Davidson KEELER POLYGRAPH OPERATOR-INDUSTRIAL ECONOMIST Unavailable Enedelia Rebolledo Unavailable Unavailable Fide Leung [...] By Referred To Procedures Contact Contact Diagnoses Kidney stone UNKNOWN P rocedures URETEROSCOPY Encounter Details Date Type Department Care Team Description 04/10/2017 Surgery Main Operating Room Milind Corona MD cystoscopy diagnostic [address] [place] [address] [address] exchange [phone] [place], [place] [id number] Social History Tobacco Use Types Packs/Day Years Used Date Never Smoker Smokeless Tobacco: Never Used Alcohol Use Drinks/Week oz/Week Comments Yes 0 Standard 0.0 rare drinks or equivalent Sex Assigned at Date Recorded Not on file as of this encounter Last Filed Vital Signs Vital Sign Reading Time Taken Blood Pressure 131/64 04/10/2017 9:30 AM HEALTH AND WELLNESS MANAGER Pulse 87 04/10/2017 9:30 AM HEALTH AND WELLNESS MANAGER Temperature 36.4 C (97.5 F) 04/10/2017 9:30 AM HEALTH AND WELLNESS MANAGER Respiratory Rate - - Oxygen Saturation 97% 04/10/2017 9:30 AM HEALTH AND WELLNESS MANAGER Inhaled Oxygen - - Concentration Weight 44.8 kg (98 lb 12.3 oz) 04/10/2017 6:31 AM HEALTH AND WELLNESS MANAGER Height 157.5 cm (5' 2") 04/10/2017 6:31 AM HEALTH AND WELLNESS MANAGER Body Mass Index 18.06 04/10/2017 6:31 AM HEALTH AND WELLNESS MANAGER in this encounter Functional Status Functional Status [...] impairment: No 03/14/2015 as of this encounter Medications at Time of Discharge Medication Sig. Disp. Refills Start Date End Date acetaminophen (TYLENOL) Take 650 mg by mouth 325 mg tablet every 4 hours as needed for Pain. albuterol (VENTOLIN HFA, Inhale 2 Puffs by mouth PROAIR HFA) 90 every 6 hours as needed. mcg/actuation inhaler allopurinol (ZYLOPRIM) Take 300 mg by mouth 300 mg tablet daily. Calcium-Cholecalciferol Take 1 Tab by mouth twice [...] 1 Cap by mouth (PROBIOTIC PO) daily. ondansetron (ZOFRAN) 8 mg Take 8 mg by mouth every tablet 8 hours as needed for Nausea or Vomiting. hyoscyamine sulfate Take 1 tablet by mouth 30 tablet 0 04/10/2017 (LEVSIN) 0.125 mg tablet every 4 hours as needed for Cramps. loperamide (IMODIUM) 2 mg Take 8 mg by mouth daily. 04/29/2017 capsule nitrofurantoin Take 1 capsule by mouth 32 capsule 0 04/10/201704/29 monohyd/m-cryst every 12 hours. Take with (MACROBID) 100 mg capsule food. oxyCODONE (ROXICODONE, Take 1-2 tablets by mouth 20 tablet 0 201704/29/2017 OXY-IR) 5 mg tablet every 4 hours as needed for Pain as of this encounter Progress Notes * Homa Mayberry RN - 04/10/2017 9:59 AM HEALTH AND WELLNESS MANAGER Discharge instructions given to pt and : verbalized understanding. Pt VSS , denies any pain. Voided 2x. All questions answered at this time. in this encounter H&P Notes * Heron Dumont MD - 04/10/2017 6:02 AM HEALTH AND WELLNESS MANAGER History and Physical Update Note Allergies: Flagyl [metronidazole]; Pcn [penicillins]; and Sulfa (sulfonamide antibiotics) Lab/Radiology/Other Diagnostic Tests: 24-hour labs: No results found for this visit on 04/10/17 (from the past 24 hour(s)). Point of Care Testing: (Last 24 hours): I have examined the patient, and the following changes are noted from the previous H&P performed on 03/13/17. She has had two urine cultures positive for E. Coli. She is currently on Macrobid for this. Heron Dumont MD Pager [phone] Associated attestation - Milind Corona MD - 04/10/2017 5:10 PM HEALTH AND WELLNESS MANAGER Formatting of this note may be different from the original. ATTESTATION I personally observed the resident performing the E/M, discussed case with resident, and concur with resident documentation of history, physical assessment and treatment plan unless otherwise noted. Staff name: Milind Corona MD Date: 04/10/2017 * Milind Corona MD - 03/13/2017 1:30 PM HEALTH AND WELLNESS MANAGER Formatting of this note may be different from the original. Date of Service: 03/13/2017 Subjective: Gayle Camejo is a 66 y.o. female here in f/u for left flank pain, hydro and left renal stones. History of Present Illness 02/22 Left flank pain and fever. CT showed left hydronephrosis and hydroureter to mid ureter but no ureteral stone. Left renal stones no obstructing. Question of 1-2 weeks of recent flank pain and passed stone. Stent placed. Urine culture + for EColi Blood culture neg Sent home on Levaquin. Everett better. 03/26 - urine cloudy again. No pain. Review of Systems Constitutional: Negative for activity change, appetite change, chills, diaphoresis, fatigue, fever and unexpected weight change. HENT: Negative for congestion, hearing loss, mouth sores and sinus pressure. Eyes: Negative for visual disturbance. Respiratory: Negative for apnea, cough, chest tightness and shortness of breath. Cardiovascular: Negative for chest pain, palpitations and leg swelling. Gastrointestinal: Negative for abdominal pain, blood in stool, constipation, diarrhea, nausea, rectal pain and vomiting. Genitourinary: Negative for decreased urine volume, difficulty urinating, discharge, + dysuria, enuresis, +flank pain, frequency, genital sores, + hematuria and urgency. Musculoskeletal: Negative for arthralgias, back pain, gait problem and myalgias. Skin: Negative for rash and wound. Neurological: Negative for dizziness, tremors, seizures, syncope, weakness, light-headedness, numbness and headaches. Hematological: Negative for adenopathy. Does not bruise/bleed easily. Psychiatric/Behavioral: Negative for decreased concentration and dysphoric mood. The patient is not nervous/anxious. Objective: acetaminophen (TYLENOL) 325 mg tablet Take 650 mg by mouth every 4 hours as needed for Pain. albuterol (VENTOLIN HFA, PROAIR HFA) 90 mcg/actuation inhaler Inhale 2 Puffs by mouth every 6 hours as needed. allopurinol (ZYLOPRIM) 300 mg tablet Take 300 mg by mouth daily. Calcium-Cholecalciferol (D3) (CALCIUM 500+D) 500 mg(1,250mg) -400 unit chew Take 1 Tab by mouth twice daily. Cholecalciferol (Vitamin D3) 5,000 unit cap Take 1 Cap by mouth daily. cholecalciferol (vitamin D3) 50,000 unit tab Take 1 Tab by mouth every 7 days. cyanocobalamin(DIL) (VITAMIN B-12) 100 mcg/mL Inject 100 mcg to area(s) as directed every 30 days. The 10th of each month diphenoxylate/atropine (LOMOTIL) 2.5/0.025 mg tablet Take 1 tablet by mouth daily as needed. esomeprazole DR(+) (NEXIUM) 40 mg capsule Take 40 mg by mouth every morning. hyoscyamine sulfate (LEVSIN/SL) 0.[address] 1 tablet under tongue every 4 hours as needed for Cramps. Stent pain LACTOBACILLUS ACIDOPHILUS (PROBIOTIC PO) Take 1 Cap by mouth daily. loperamide (IMODIUM) 2 mg capsule Take 8 mg by mouth daily. ondansetron (ZOFRAN) 8 mg tablet Take 8 mg by mouth every 8 hours as needed for Nausea or Vomiting. oxyCODONE (ROXICODONE, OXY-IR) 5 mg tablet Take 1-3 tablets by mouth every 4 hours as needed (severe pain (8-10)) Indications: PAIN Earliest Fill Date: potassium chloride (KDUR) 10 mEq tablet Take 1 Tab by mouth daily. Vitals: 03/13/17 1337 BP: 143/59 Pulse: 89 Weight: 45.4 kg (100 lb) Height: 157.5 cm (62") Body mass index is 18.29 kg/(m^2). Physical Exam Constitutional: He is oriented to person, place, and time. He appears well- developed and well-nourished. HENT: Head: Normocephalic and atraumatic. Eyes: Conjunctivae and EOM are normal. Neck: Normal range of motion. Neck supple. Cardiovascular: Normal rate and regular rhythm. Pulmonary/Chest: Effort normal. No stridor. No respiratory distress. Abdominal: Soft. He exhibits no distension. Musculoskeletal: Normal range of motion. Neurological: He is alert and oriented to person, place, and time. Skin: Skin is warm. Psychiatric: He has a normal mood and affect. His behavior is normal. Judgment and thought content normal. Assessment and Plan: Problem Urolithiasis Hx of Crohn's disease and small bowel [...] the premarin cream previously prescribed by her ice cream man. 03/25 Left flank pain and urgency end of Feb. CT locally in [place] 03/06/16 - left ureteral stones. Known left [...] Blood culture neg Sent home on Levaquin. Everett better. 03/26 - urine cloudy again. No pain. Urolithiasis Await repeat urine culture today and plan for ureteroscopy over PCNL in this frail lady for 1.8cm stone and smaller left renal stones. 120W laser in view of monohydrate stone Orders Placed This Encounter CULTURE-URINE W/SENSITIVITY in this encounter Miscellaneous Notes * Procedures (Immed Post or Bedside) - Dmitriy Craig MD - 04/10/2017 8:44 AM HEALTH AND WELLNESS MANAGER Brief Operative Note Name: Gayle Camejo is a 66 y.o. female : 1950 DATE OF OPERATION: 04/10/2017 Date: 04/10/2017 Preoperative Dx: Kidney stone [N20.0] Post-op Diagnosis * Kidney stone [N20.0] Procedure(s) (LRB): cystoscopy diagnostic procedure and stent exchange (Left) Anesthesia Type: General Surgeon(s) and Role: * Milind Corona MD - Primary * Dmitriy Craig MD - Resident - Assisting Findings: - Left distal ureteral stricture vs narrowing ~1 cm in length preventing passage of ureteroscope - Small distal ureteral perforation - Placement of 6x24 double J ureteral stent on left Estimated Blood Loss: No blood loss documented. Specimen(s) Removed/Disposition: * No specimens in log * Complications: Ureteral perforation Implants: 6 x 24 double J ureteral stent on LEFT Drains: None Disposition: PACU - stable Dmitriy Craig MD Pager [phone] Associated attestation - Milind Corona MD - 04/10/2017 5:09 PM HEALTH AND WELLNESS MANAGER Formatting of this note may be different from the original. ATTESTATION I performed this procedure with a resident. Staff name: Milind Corona MD Date: 04/10/2017 * Operative Report (Direct Entry) - Milind Corona MD - 04/10/2017 8:04 AM HEALTH AND WELLNESS MANAGER Formatting of this note may be different from the original. OPERATIVE REPORT Name: Gayle Camejo is a 66 y.o. female : 1950 DATE OF OPERATION: 04/10/2017 Surgeon(s) and Role: * Milind Corona MD - Primary * Dmitriy Craig MD - Resident - Assisting Preoperative Diagnosis: Kidney stone [N20.0] Post-op Diagnosis * Kidney stone [N20.0] Procedure(s) (LRB): cystoscopy diagnostic procedure and stent exchange (Left) Diagnostic ureteroscopy Fluoroscopy Anesthesia Type: General Indications: 66 yo F with history of Crohn's disease with recurrent urolithiasis recently admitted with concern for urinary infection and hydronephrosis in setting of large left sided renal stone burden, underwent left ureteral stent placement on 02/22/17 and now returns today for definitive stone treatment. Description and Findings of Operative Procedure: The patient was identified in the preoperative holding area where informed consent was reviewed and signed. She was transported the operating suite per anesthesia and placed in the operating table in the supine position where general anesthesia and intubation were performed without issue. A brief timeout was performed identifying correct patient procedure and laterality. She was placed in the dorsolithotomy position were genitals were prepped and draped in usual sterile fashion. A 22 Latvian cystoscope was used to cannulate the patient's urethra and enter into the bladder burleson cystoscopy was performed demonstrating left ureteral stent emanating from the left ureteral orifice with moderate encrustation. A stent grasper was used to pulled a stent back to the urethral orifice, due to encrustation a sensor wire was unable to be placed through this. The stent was then removed by hand. The cystoscope was reinserted and sensor wire was advanced into the left renal pelvis on fluoroscopy. This would serve as our safety wire. A dual-lumen catheter was advanced over the safety wire and to the level of the UPJ on fluoroscopy and a second sensor wire was advanced into the renal pelvis on fluoroscopy which served of the working wire. The semirigid ureteroscope was then advanced over the working wire and up into the distal portion of the ureter which demonstrated a fairly significant narrowing versus ureteral stricture, attempts to pass this obstruction were very difficult, during these attempts it was noted the patient had a small ureteral perforation with mild bleeding a 6 x 24 double-J ureteral stent was advanced over the working wire and fluoroscopy. Due to stricture and presence of Mucosal tear, decision was made to abort the case in place a left ureteral stent. In the wire was removed demonstrating a good proximal and distal curl, urine was seen emanating through the stent. Moderate hematuria and clot burden in the bladder were evacuated with a catheter syringe. Lidocaine jelly was then inserted into the patient's urethra for analgesia. This concluded the procedure, the patient was awoken from anesthesia and transported to the postoperative suite in stable condition. Dr. Corona was scrubbed and present for the entirety of the procedure. Estimated Blood Loss: 10 cc Specimen(s) Removed/Disposition: * No specimens in log * Implants: 6 x 24 double J ureteral stent on LEFT Drains: NONE Attestation: . Dmitriy Craig MD Pager [phone] ATTESTATION I performed this procedure with a resident. Staff name: Milind Corona MD Date: 04/12/2017 in this encounter Plan of Treatment Date Type Specialty Care Team Description 04/27/2017 Procedure Pass Urology as of this encounter Procedures Procedure Name Priority Date/Time Associated Diagnosis Comments ECG-SCAN 04/18/2017 Results for this 11:28 AM HEALTH AND WELLNESS MANAGER procedure are in the results section. cystoscopy diagnostic 04/10/2017 Kidney stone procedure and stent 7:45 AM HEALTH AND WELLNESS MANAGER exchange Special Needs 04/07 BOZENA'Noel ANGEL NOTIFYING HER THAT THE 120 WATT LASER IS BEING USED BY DR. GEORGINA SIMMONS ([id number]) in this encounter Results * ECG-SCAN (04/18/2017 11:28 AM) Narrative Ordered by an unspecified provider. * FLUORO MOBILE IN OR (04/10/2017 8:30 AM) Specimen Performing Laboratory [facility] Narrative This order has been auto finalized and does not contain a result. in this encounter Visit Diagnoses Diagnosis Kidney stone Calculus of kidney Admitting Diagnoses Diagnosis Kidney stone - UNKNOWN Calculus of kidney Administered Medications Medication Order MAR Action Action Date Dose Rate Site heparin lock flush PF syringe 500 Units Given 04/10/2017 500 Units 500 Units, Intra-catheter, ONCE PRN, 1 09:39 HEALTH AND WELLNESS MANAGER dose, Starting Thu04/10/17 at 0939, Until Thu04/10/17 at 0939, Catheter flush, When de-accessing a port-a-cath pack with 5 mL heparin (100 units/mL) unless contraindicated. NOTE: This is a HIGH ALERT Medication. HEPARIN, PORCINE (PF) 100 UNIT/ML IV SYRG (Cabinet Override) NOW, 1 dose, Thu04/10/17 at 0945, Created by cabinet override NOTE: This is a HIGH ALERT Medication. lidocaine (XYLOCAINE) 2 % jelly Given 04/10/2017 20 mL INTRA-PROCEDURE MED, Starting Thu04/10/17 08:39 HEALTH AND WELLNESS MANAGER at 0839, Until Thu04/10/17 at 1204, Intra-op sodium chloride 0.9 % infusion Given - New 04/10/2017 1,000 mL 20 mL/ hr 1,000 mL, 1,000 mL, Intravenous, at 20 Bag 06:56 HEALTH AND WELLNESS MANAGER mL/hr, CONTINUOUS, Starting Thu04/10/17 at 0630, Until Thu04/10/17 at 1204, Pre-Op Given - New Bag 04/10/2017 07:49 HEALTH AND WELLNESS MANAGER SODIUM CHLORIDE 0.9 % IV SOLP (Cabinet Override) NOW, 1 dose, Thu04/10/17 at 0545, Created by cabinet override
--- OUTSIDE RECORDS SUMMARY | 2017-04-29 14:20 | XMS REPORT | Encounter Summary ---
Author Author [facility] Address Unknown Phone Unavailable Care Team Providers Care Siebel Administrator Name Role Phone Nick Levine MD Unavailable [...] Unavailable Timothy Jacobs MD Unavailable Patt Davidson FOXING CUTTING MACHINE OPERATOR-JERSEY KNITTER Unavailable Enedelia Rebolledo Unavailable Unavailable Fide Leung MD Unavailable Alec Cordon MD Unavailable George Jordan MD Unavailable Francy Soriano RN Unavailable Unavailable Ama Diallo RN Unavailable Unavailable Kasandra Chacon RN Unavailable Unavailable Scottie Nunez MD Unavailable Unavailable Bharat Love CRNA Unavailable Sharita Padilla MD Unavailable Richard Fleming MD PCP Reason for Visit * Reason Comments Heme/Onc Care rectal cancer Encounter Details Date Type Department Care Team Description 04/01/2017 Office Visit [facility] Yuval Gaviria MD Rectal cancer (HCC) [facility] Exam [address] (Primary Dx) [address] [place] [address] [place] [address] [phone] Social History Tobacco Use Types Packs/Day Years Used Date Never Smoker Smokeless Tobacco: Never Used Alcohol Use Drinks/Week oz/Week Comments Yes 0 Standard 0.0 rare drinks or equivalent Sex Assigned at Date Recorded Not on file as of this encounter Last Filed Vital Signs Vital Sign Reading Time Taken Blood Pressure 154/68 04/01/2017 10:12 AM SUPERVISOR FURNACE PROCESS Pulse 79 04/01/2017 10:12 AM SUPERVISOR FURNACE PROCESS Temperature 36.7 C (98 F) 04/01/2017 10:12 AM SUPERVISOR FURNACE PROCESS Respiratory Rate 14 04/01/2017 10:12 AM SUPERVISOR FURNACE PROCESS Oxygen Saturation 94% 04/01/2017 10:12 AM SUPERVISOR FURNACE PROCESS Inhaled Oxygen - - Concentration Weight 45.4 kg (100 lb) 04/01/2017 10:12 AM SUPERVISOR FURNACE PROCESS Height 157.5 cm (5' 2.01") 04/01/2017 10:12 AM SUPERVISOR FURNACE PROCESS Body Mass Index 18.29 04/01/2017 10:12 AM SUPERVISOR FURNACE PROCESS in this encounter Functional Status Functional Status [...] impairment: No 03/14/2015 as of this encounter Progress Notes * Yuval Gaviria MD - 04/01/2017 10:00 AM SUPERVISOR FURNACE PROCESS Formatting of this note may be different from the original. Date of Service: 04/01/2017 Subjective Reason for Visit: Heme/Onc Care Gayle Camejo is a 66 y.o. female. HPI Comments: Ms. Camejo is a 66 year old female with rectal cancer status post abdominoperineal resection with posterior vaginectomy on 01/16/2014, combined case with Dr. Sanjeev Davidson. Pathology consistent with residual invasive well differentiated adenocarcinoma, invading muscularis propria, associated with mucosal ulcer and a background of treatment effect. No evidence of malignancy in thirteen lymph nodes. Vaginal wall negative for malignancy. She has been following with Dr. Brownlee, Medical Oncologist, who stopped her chemotherapy, after 4 cycles of FOLFOX due to inability to tolerate it. Last chemotherapy treatment was in May 2014. She continues to follow with Dr. 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 Patient has history of Crohns. Her baseline CEA tends to stay elevated. Most recent CEA was 5.3, which is down from 7 and previously 8.3. She is struggling with a left sided kidney stone and is following with urology. Otherwise is feels well without concerns. Review of Systems Constitutional: Negative. Negative for chills and fever. HENT: Negative. Eyes: Negative. Respiratory: Negative. Negative for shortness of breath. Cardiovascular: Negative. Negative for chest pain, palpitations and leg swelling. Gastrointestinal: Negative. Negative for abdominal pain, constipation, diarrhea , nausea and vomiting. Genitourinary: Negative. Musculoskeletal: Negative. Skin: Negative. Negative for rash. Neurological: Negative. Negative for headaches. Hematological: Negative. Negative for adenopathy. Psychiatric/Behavioral: Negative. Negative for confusion. All other systems reviewed and are negative. The remainder of the complete 12-point comprehensive ROS is otherwise entirely negative. Past Medical History: Diagnosis Date Anal cancer (HCC) Asthma Inflammatory bowel disease Kidney stones Unspecified deficiency anemia Urinary tract infection Urolithiasis Past Surgical History: Procedure Laterality Date LITHOTRIPSY 07/10/2009 right HX BOWEL RESECTION 2013 with colostomy IN COLONOSCOPY FLX DX W/COLLJ SPEC WHEN PFRMD N/A 04/16/2015 COLONOSCOPY performed by Alec Cordon MD at [facility]/GI URETER STENT PLACEMENT Left 02/16/2017 CYSTOSCOPY, INSERTION STENT LEFT URETER, LEFT RETROGRADE PYELOGRAM performed by Milind Corona MD at [facility] CYSTOURETHROSCOPY HERNIA REPAIR umbilical HX BOWEL RESECTION 1968, 1978?, 1988? HX HYSTERECTOMY HX SMALL BOWEL RESECTION x4 HX TONSILLECTOMY Family History Problem Relation Age of Onset Hypertension Mother Cancer-Prostate Brother Cancer-Breast Paternal Aunt Hypertension Paternal Aunt Stroke Paternal Aunt Stroke Paternal Grandmother Social History Social History Marital status: Spouse name: N/A Number of children: N/A Years of education: N/A Social History Main Topics Smoking status: Never Smoker Smokeless tobacco: Never Used Alcohol use 0.0 oz/week 0 Standard drinks or equivalent per week Comment: rare Drug use: No Sexual activity: Not Currently Partners: Male Other Topics Concern None Social History Narrative Objective: acetaminophen (TYLENOL) 325 mg tablet Take [...] 30 days. The of each month diphenoxylate/atropine (LOMOTIL) 2.5/0.025 mg [...] capsule Take 8 mg by mouth daily. nitrofurantoin monohyd/m-cryst (MACROBID) 100 mg capsule Take 1 capsule by mouth every 12 hours. Take with food. Indications: BACTERIAL URINARY TRACT INFECTION ondansetron (ZOFRAN) 8 mg tablet Take 8 mg by mouth every 8 hours as needed for Nausea or Vomiting. oxyCODONE (ROXICODONE, OXY-IR) 5 mg tablet Take 1-3 tablets by mouth every 4 hours as needed (severe pain (8-10)) Indications: PAIN Earliest Fill Date: potassium chloride (KDUR) 10 mEq tablet Take 1 Tab by mouth daily. Vitals: 04/01/17 1012 BP: 154/68 Pulse: 79 Resp: 14 Temp: 36.7 C (98 F) TempSrc: Oral SpO2: 94% Weight: 45.4 kg (100 lb) Height: 157.5 cm (62.01") Body mass index is 18.29 kg/(m^2). Pain Score: Zero Pain Ratin Pain Addressed: N/A Patient Evaluated for a Clinical Trial: No treatment clinical trial available for this patient. Eastern Cooperative Oncology Group performance status is 0, Fully active, able to carry on all pre-disease performance without restriction.. Physical Exam Constitutional: She is oriented to person, place, and time. She appears well- developed and well-nourished. No distress. HENT: Head: Normocephalic and atraumatic. Mouth/Throat: Oropharynx is clear and moist. No oropharyngeal exudate. Eyes: Conjunctivae and EOM are normal. Pupils are equal, round, and reactive to light. Right eye exhibits no discharge. Left eye exhibits no discharge. No scleral icterus. Neck: Normal range of motion. Neck supple. No JVD present. No tracheal deviation present. No thyromegaly present. Cardiovascular: Normal rate and regular rhythm. Exam reveals no gallop and no friction rub. No murmur heard. Pulmonary/Chest: Effort normal and breath sounds normal. No stridor. No respiratory distress. She has no wheezes. She has no rales. Abdominal: Soft. Bowel sounds are normal. She exhibits no distension and no mass. There is no tenderness. There is no rebound and no guarding. No hernia. Musculoskeletal: Normal range of motion. She exhibits no edema (no bilateral lower extremity edema) or tenderness (no calf tenderness). Lymphadenopathy: She has no cervical adenopathy. Neurological: She is alert and oriented to person, place, and time. Skin: Skin is warm and dry. No rash noted. She is not diaphoretic. No erythema. No pallor. Psychiatric: She has a normal mood and affect. Her behavior is normal. Judgment and thought content normal. Nursing note and vitals reviewed. Assessment and Plan: HPI Comments: Ms. Camejo is a 66 year old female with rectal cancer status post abdominoperineal resection with posterior vaginectomy on 01/16/2014, combined case with Dr. Sanjeev Davidson. Pathology consistent with residual invasive well differentiated adenocarcinoma, invading muscularis propria, associated with mucosal ulcer and a background of treatment effect. No evidence of malignancy in thirteen lymph nodes. Vaginal wall negative for malignancy. She has been following with Dr. Brownlee, Medical Oncologist, who stopped her chemotherapy, after 4 cycles of FOLFOX due to inability to tolerate it. Last chemotherapy treatment was in May 2014. She continues to follow with Dr. 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 Patient has history of Crohns. Her baseline CEA tends to stay elevated. Most recent CEA was 5.3, which is down from 7 and previously 8.3. She is struggling with a left sided kidney stone and is following with urology. Otherwise is feels well without concerns. - No evidence of recurrent or metastatic disease on exam or imaging - Continue care with urology - Pt prefers to return in 3 months for surveillance - Medical oncology in [place], [place] - Pt was evaluated and plan developed in conjunction with Dr. Yuval Schrader. Lacy Oden PA-C ATTESTATION I personally interviewed and examined the patient. I have reviewed the history , physical, impression and plan outlined by the Physician Hands Assembler. The patient presents with (HPI) a history of rectal cancer s/p APR in January 2014. She continues to do well except for a kidney stone. Her CEA is elevated as well. HPI otherwise reviewed with the patient and the PA, who made the documentation in their note after our discussion and expresses my exact observations and interpretations. On examination there are no findings suggestive of distant metastatic disease. Exam otherwise repeated and reviewed with the PA, who made the documentation in their note after our discussion and expresses my exact findings. My impression is that there is no clear clinical evidence of cancer recurrence. My plan is to have the patient RTC in 3 months for continued surveillance. A/P: Assessment and plan otherwise reviewed with the patient and the PA, who made the documentation in their note after our discussion and expresses my exact impression and plan. Staff name: Yuval Gaviria MD Date: 04/06/2017 in this encounter Plan of Treatment Date Type Specialty Care Team Description 04/27/2017 Procedure Pass Urology as of this encounter Visit Diagnoses Diagnosis Rectal cancer (HCC) - Primary Malignant neoplasm of rectum
--- OUTSIDE RECORDS SUMMARY | 2017-04-29 14:20 | XMS REPORT | Encounter Summary ---
Author Author [facility] Organization [facility] Address Unknown Phone Unavailable Care Team Providers Care Dealmaker Name Role Phone Nick Levine MD Unavailable [...] Unavailable Timothy Jacobs MD Unavailable Patt Davidson BAKERY WORKER CONVEYOR LINE-BOAT HAND Unavailable Enedelia Rebolledo Unavailable Unavailable Fide Leung MD Unavailable Alec Cordon MD Unavailable George Jordan MD Unavailable Francy Soriano RN Unavailable Unavailable Ama Diallo RN Unavailable Unavailable Kasandra Chacon RN Unavailable Unavailable Scottie Nunez MD Unavailable Unavailable Bharat Love CRNA Unavailable Sharita Padilla MD Unavailable Richard Fleming MD PCP Reason for Visit * Reason Comments Other Encounter Details Date Type Department Care Team Description 03/13/[address] [facility] Milind Corona MD Renal calculi (Primary Physicians - Urology [address] [facility] [address]); [address] [facility] [place] [address] OFFICE BLDG [phone] [place] [address] Social History Tobacco Use Types Packs/Day Years Used Date Never Smoker Smokeless Tobacco: Never Used Alcohol Use Drinks/Week oz/Week Comments Yes 0 Standard 0.0 rare drinks or equivalent Sex Assigned at Date Recorded Not on file as of this encounter Last Filed Vital Signs Vital Sign Reading Time Taken Blood Pressure 143/59 03/13/2017 1:37 PM ASSEMBLER CLIP ON SUNGLASSES Pulse 89 03/13/2017 1:37 PM ASSEMBLER CLIP ON SUNGLASSES Temperature - - Respiratory Rate - - Oxygen Saturation - - Inhaled Oxygen - - Concentration Weight 45.4 kg (100 lb) 03/13/2017 1:37 PM ASSEMBLER CLIP ON SUNGLASSES Height 157.5 cm (5' 2") 03/13/2017 1:37 PM ASSEMBLER CLIP ON SUNGLASSES Body Mass Index 18.29 03/13/2017 1:37 PM ASSEMBLER CLIP ON SUNGLASSES in this encounter Functional Status Functional Status [...] as of this encounter Progress Notes * Milind Corona MD - 03/13/2017 1:30 PM ASSEMBLER CLIP ON SUNGLASSES Formatting of this note may be different [...] Blood culture neg Sent home on Levaquin. [place] better. 03/26 - urine cloudy again. No [...] the premarin cream previously prescribed by her testing specialist. 03/25 Left flank pain and urgency end of Feb. CT locally in [place] 03/06/16 - left ureteral stones. Known left [...] Blood culture neg Sent home on Levaquin. [place] better. 03/26 - urine cloudy again. No pain. Urolithiasis Await repeat urine culture today and plan for ureteroscopy over PCNL in this frail lady for 1.8cm stone and smaller left renal stones. 120W laser in view of monohydrate stone Orders Placed This Encounter CULTURE-URINE W/SENSITIVITY in this encounter Miscellaneous Notes * Assessment & Plan Note - Milind Corona MD - 03/15/2017 8:35 AM ASSEMBLER CLIP ON SUNGLASSES Associated Problem(s): Urolithiasis Formatting of this note may be different from the original. Await repeat urine culture today and plan for ureteroscopy over PCNL in this frail lady for 1.8cm stone and smaller left renal stones. 120W laser in view of monohydrate stone Orders Placed This Encounter CULTURE-URINE W/SENSITIVITY in this encounter Plan of Treatment Date Type Specialty Care Team Description 04/27/2017 Procedure Pass Urology Name Priority Associated Diagnoses Order Schedule CULTURE-URINE W/SENSITIVITY Routine Renal calculi Ordered: 03/13/2017 as of this encounter Visit Diagnoses Diagnosis Renal calculi - Primary Calculus of kidney Calculus of kidney
--- OUTSIDE RECORDS SUMMARY | 2017-04-29 14:20 | XMS REPORT | Encounter Summary ---
Author Author [facility] Organization [facility] Address Unknown Phone Unavailable Care Team Providers Care Customer Success Manager Name Role Phone Nick Levine MD Unavailable [...] Unavailable Timothy Jacobs MD Unavailable Patt Davidson ART MUSEUM DOCENT-MAT PACKER Unavailable Enedelia Rebolledo Unavailable Unavailable Fide Leung MD Unavailable Alec Cordon MD Unavailable George Jordan MD Unavailable Francy Soriano RN Unavailable Unavailable Ama Diallo RN Unavailable Unavailable Kasandra Chacon RN Unavailable Unavailable Scottie Nunez MD Unavailable Unavailable Bharat Love FERRULER Unavailable Sharita Padilla MD Unavailable Richard Fleming MD PCP Reason for Visit * Auth/Cert Status Reason Specialty Diagnoses / Referred By Referred To Procedures Contact Contact Diagnoses Kidney stone UNKNOWN P rocedures URETEROSCOPY Encounter Details Date Type Department Care Team Description 04/10/2017 Anesthesia Main Operating Room Miroslava MesaFELICIA [address] [facility] [address] [place] [address] [place] [address] [phone] Anesthesia Record Procedure Name Responsible Anesthesia Start Time Anesthesia Stop Time Anesthesiologist cystoscopy diagnostic Scottie Rosales MD 04/10/17 0741 04/10/17 0846 procedure and stent exchange (Left Ureter) Date Time Event Comment 702 AN Equip Check 2017 0741 Anes Start 0741 An Start Data 0749 An Induction The patient was reevaluated immediately before moderate or deep sedation use and before anesthesia induction. 0752 An Intubation 0758 Anesthesia Ready 0759 Antibiotic Given 0804 Proc Start 0839 An Extubation 0842 an stop data 0846 Handoff to RN I completed my SBAR handoff to the receiving nurse. 0846 An Stop Meds Name Total midazolam (VERSED) 1 mg/mL injection 2 mg fentaNYL PF (SUBLIMAZE) injection 50 mcg propofol (DIPRIVAN) 200 mg/ 20 mL 100 mg injection (VIAL) rocuronium (ZEMURON) injection 30 mg ondansetron (ZOFRAN) injection 4 mg dexamethasone (DECADRON) 4 mg/mL 4 mg injection sugammadex (BRIDION) 100 mg/mL iv soln 90 mg cefepime in (MAXIPIME) 1 g/50 ml 1 g iso-osmotic IVPB gentamicin 112 mg in sodium chloride 112 mg 0.9% (NS) 100 mL IVPB sodium chloride 0.9 % infusion 300 mL * Name O2 N2O Inspired N2O Air Sevoflurane Inspired Sevoflurane * No blood administrations on file. Type Details Placement Removal Mynor 01/16/14; 1106; Lower, Right; Abdomen; 01/16/14 1106 by Ryan Ann #1 Violetta Drain Colostomy 01/16/14; 1106; Left, Upper 01/16/14 1106 by Violetta Ann Wounds 01/16/14; 1230; M; Abdomen; Surgical 01/16/14 1230 by Marissa, (NOT for Incision Violetta Pressure Injuries) Wounds 01/17/14; 0800; Perineum 01/17/14 0800 by Verenice, (NOT for Wilda Cohen RN Pressure Injuries) Wounds 04/10/17; 0839; Left; Vagina; Surgical 04/10/17 0839 by Shira, (NOT for Incision; NO DRESSINGS. MORE Stanton Pressure Injuries) Peripheral 04/16/15; 0955; Prehospital IV; L; Other 04/16/15 0955 by Galindo, 04/24/17 1853 by JAYDA Smith (Comment) (subclavian); 04/24/17; 185 MORE Matthew, MORE Portacath Prehospital IV; 04/26/17; 0635 08/13/16 1236 by 04/26/17 0635 by Sumi Singer, MORE ETT 04/10/17; 0752; Ventilated by mask (1); 04/10/17 0752 by Meas, 04/26 0839 by Moshe, Direct laryngoscopy, Stylet; Cuffed, Miroslava, FERRULER Miroslava, FERRULER Single-Lumen; 7mm; Mac; 3; Oral; 1-Full view of the glottis; 1 insertion attempt; Auscultation, ETCO2 Detector; 21 centimeters; lips and teeth intact; atraumatic; 04/10/17; 0839 in this encounter Social History Tobacco Use Types Packs/Day Years [...] impairment: No 03/14/2015 as of this encounter OR Notes * Anesthesia Postprocedure Evaluation - Marquita Bermudez MD - 04/10/2017 9:44 AM ROLLOFF DRIVER Post-Anesthesia Evaluation Name: Gayle Camejo : 1950 Age: 66 y.o. Sex : female Procedure Date: 04/10/2017 Procedure: Procedure(s) with comments: cystoscopy diagnostic procedure and stent exchange - CASE LENGTH 2 HOURS, REQUEST 120 WATT LASER, REQUEST C-ARM Surgeon: Surgeon(s): MD Dmitriy Ramirez MD Post-Anesthesia Vitals BP: 131/64 (04/10 929) Temp: 36.4 C (97.5 F) (04/10 929) Pulse: 87 (04/10 929) Respirations: 19 PER MINUTE (04/10 929) SpO2: 97 % (04/10 929) O2 Delivery: None (Room Air) (04/10 929) SpO2 Pulse: 86 (04/10 929) Height: 157.5 cm (62") (04/10 630) Post Anesthesia Evaluation Note Evaluation location: Pre/Post Patient participation: recovered; patient participated in evaluation Level of consciousness: alert Pain score: 0 Pain management: adequate Hydration: normovolemia Temperature: 36.0C - 38.4C Airway patency: adequate Perioperative Events Perioperative events: no Post-op nausea and vomiting: no PONV Postoperative Status Cardiovascular status: hemodynamically stable Respiratory status: spontaneous ventilation Additional comments: is driving patient home and staying with her. Perioperative Events Perioperative Event: No Emergency Case Activation: No Associated attestation - Wai Fraga MD - 04/14/2017 12:40 PM ROLLOFF DRIVER Formatting of this note may be different from the original. ATTESTATION Post-Anesthesia Evaluation Attestation: I reviewed and agree the indicated post- anethesia care was provided. Staff name: Wai Fraga MD Date: 04/14/2017 * Anesthesia Preprocedure Evaluation - Scottie Rosales MD - 04/10/2017 6:57 AM ROLLOFF DRIVER Formatting of this note may be different from the original. Anesthesia Pre-Procedure Evaluation Name: Gayle Camejo : 1950 Age: 66 y.o. Sex : female Procedure Date: 04/10/2017 Procedure: Procedure(s) with comments: URETEROSCOPY - CASE LENGTH 2 HOURS, REQUEST 120 WATT LASER, REQUEST C-ARM Physical Assessment Vital Signs (last filed in past 24 hours): BP: 141/64 (04/10 630) Temp: 36.4 C (97.5 F) (04/10 630) Pulse: 90 (04/10 630) Respirations: 12 PER MINUTE (04/10 630) SpO2: 98 % (04/10 630) O2 Delivery: None (Room Air) (04/10 630) Height: 157.5 cm (62") (04/10 630) Weight: 44.8 kg (98 lb 12.3 oz) (04/10 630) Patient History Allergies Allergen Reactions Flagyl [Metronidazole] EDEMA Pcn [Penicillins] RASH Sulfa (Sulfonamide Antibiotics) RASH Current Medications Medication Directions acetaminophen (TYLENOL) 325 mg tablet Take 650 [...] mouth every 12 hours. Take with food. ondansetron (ZOFRAN) 8 mg tablet Take 8 mg by mouth every 8 hours as needed for Nausea or Vomiting. oxyCODONE (ROXICODONE, OXY-IR) 5 mg tablet Take 1-3 tablets by mouth every 4 hours as needed (severe pain (8-10)) Indications: PAIN Earliest Fill Date: 02/18 potassium chloride (KDUR) 10 mEq tablet Take 1 Tab by mouth daily. Review of Systems/Medical History Patient summary reviewed Nursing notes reviewed No history of anesthetic complications Pulmonary Asthma Cardiovascular Exercise tolerance: >4 METS Beta Anabell therapy: No Beta blockers within 24 hours: n/a Hypertension, well controlled No hx of coronary artery disease Gout GI/Hepatic/Renal Inflammatory bowel disease (Crohn's disease) GERD, Renal disease (acute hydronephrosis with leukocytosis concerning for pyelo, urology planning cysto and stent placement) Nausea No vomiting Crohns disease with multiple surgeries Neuro/Psych - negative No seizures No CVA Musculoskeletal - negative Endocrine/Other Anemia Malignancy: rectal cancer, radiation, chemotherapy. Physical Exam Airway Findings Mallampati: II TM distance: >3 FB Neck ROM: full Mouth opening: good Airway patency: adequate Cardiovascular Findings: Rhythm: regular Rate: normal Pulmonary Findings: Breath sounds clear to auscultation. Abdominal Findings: Not obese Comments: deferred Neurological Findings: Normal mental status Comments: A/O Diagnostic Tests Hematology: Lab Results Component Value Date HGB 11.2 02/17/2017 HCT 33.9 02/17/2017 PLTCT 150 02/17/2017 WBC 4.3 02/17/2017 NEUT 67 02/16/2017 ANC 7.70 02/16/2017 ALC 2.80 02/16/2017 TAVARES 8 02/16/2017 AMC 0.90 02/16/2017 EOSA 0 02/16/2017 ABC 0.10 02/16/2017 MCV 89.4 02/17/2017 MCH 29.6 02/17/2017 MCHC 33.1 02/17/2017 MPV 8.3 02/17/2017 RDW 15.8 02/17/2017 General Chemistry: Lab Results Component Value Date NA 137 02/17/2017 K 4.2 02/17/2017 CL 104 02/17/2017 CO2 21 02/17/2017 GAP 12 02/17/2017 BUN 24 02/17/2017 CR 1.13 02/17/2017 GLU 110 02/17/2017 CA 7.9 02/17/2017 ALBUMIN 3.3 02/16/2017 LACTIC 0.7 01/17/2014 OBSCA 1.01 01/16/2014 MG 1.1 06/21/2014 TOTBILI 0.8 02/16/2017 PO4 3.4 01/23/2014 Coagulation: Lab Results Component Value Date PTT 32.1 04/20/2012 INR 1.3 06/21/2014 Anesthesia Plan ASA score: 3 emergent Plan: general Induction method: intravenous NPO status: acceptable Comments: (Risks of GA/GETA explained; AQA; pt wishes to proceed) Informed Consent Anesthetic plan and risks discussed with patient. Use of blood products discussed with patient; consented to blood products. Plan discussed with: FERRULER. in this encounter Plan of Treatment Date Type Specialty Care Team Description 04/27/2017 Procedure Pass Urology as of this encounter Visit Diagnoses Not on filein this encounter Administered Medications Medication Order MAR Action Action Date Dose Rate Site cefepime in (MAXIPIME) 1 g/50 ml Given 04/10/2017 1 g iso-osmotic IVPB 07:59 ROLLOFF DRIVER 1 g, Intravenous, 50 mL, Administer over 30 Minutes, ONCE, 1 dose, Thu04/10/17 at 0700, intra operative dexamethasone (DECADRON) injection Given 04/10/2017 4 mg Intravenous, INTRA-PROCEDURE MED, 07:49 ROLLOFF DRIVER Starting Thu04/10/17 at 0749, Until Thu04/10/17 at 0849, Nausea/Vomiting Injectable, Anesthesia Intra-op fentaNYL citrate PF (SUBLIMAZE) Given 04/10/2017 25 mcg injection 07:48 ROLLOFF DRIVER INTRA-PROCEDURE MED, Starting Thu04/10/17 at 0748, Until Thu04/10/17 at 0849, Pain Injectable, Anesthesia Intra-op Given 04/10/2017 25 mcg 08:19 ROLLOFF DRIVER gentamicin 112 mg in sodium chloride Given - New 04/10/2017 112 mg 0.9% (NS) 100 mL IVPB Bag 07:59 ROLLOFF DRIVER 112 mg (2.5 mg/kg 44.8 kg), Intravenous, 100 mL, Administer over 60 Minutes, ONCE, 1 dose, Thu04/10/17 at 0700, intra operative midazolam (VERSED) injection Given 04/10/2017 2 mg Intravenous, INTRA-PROCEDURE MED, 07:41 ROLLOFF DRIVER Starting Thu04/10/17 at 0741, Until Thu04/10/17 at 0849, Agitation Injectable, Anxiety Injectable, Anesthesia Intra-op ondansetron (ZOFRAN) injection Given 04/10/2017 4 mg Intravenous, INTRA-PROCEDURE MED, 07:49 ROLLOFF DRIVER Starting Thu04/10/17 at 0749, Until Thu04/10/17 at 0849, Nausea/Vomiting Injectable, Anesthesia Intra-op propofol (DIPRIVAN) injection Given 04/10/2017 100 mg INTRA-PROCEDURE MED, Starting Thu04/10/17 07:49 ROLLOFF DRIVER at 0749, Until Thu04/10/17 at 0849, Anesthesia Intra-op rocuronium (ZEMURON) injection Given 04/10/2017 30 mg Intravenous, INTRA-PROCEDURE MED, 07:49 ROLLOFF DRIVER Starting Thu04/10/17 at 0749, Until Thu04/10/17 at 0849, Anesthesia Intra-op sodium chloride 0.9 % infusion Given - New 04/10/2017 1,000 mL 20 mL/ hr 1,000 mL, 1,000 mL, Intravenous, at 20 Bag 06:56 ROLLOFF DRIVER mL/hr, CONTINUOUS, Starting Thu04/10/17 at 0630, Until Thu04/10/17 at 1204, Pre-Op Given - New Bag 04/10/2017 07:49 ROLLOFF DRIVER sugammadex (BRIDION) injection Given 04/10/2017 90 mg Intravenous, INTRA-PROCEDURE MED, 08:34 ROLLOFF DRIVER Starting Thu04/10/17 at 0834, Until Thu04/10/17 at 0849, Anesthesia Intra-op in this encounter
--- OUTSIDE RECORDS SUMMARY | 2017-04-29 14:20 | XMS REPORT | Encounter Summary ---
Author Author [facility] Organization [facility] Address Unknown Phone Unavailable Care Team Providers Care Diabetes Territory Manager Name Role Phone Nick Levine MD [...] Mueller MD Unavailable Timothy Jacobs MD Unavailable Ptat Davidson BUSPERSON-MOTION PICTURE CAMERA LENS TECHNICIAN Unavailable Enedelia Rebolledo Unavailable Unavailable Fide Leung MD Unavailable Alec Cordon MD Unavailable George Jordan MD Unavailable Francy Soriano RN Unavailable Unavailable Ama Diallo RN Unavailable Unavailable Kasandra Chacon RN Unavailable Unavailable Scottie Nunez MD Unavailable Unavailable Bharat Love FELICIA Unavailable Sharita Padilla MD Unavailable Richard Fleming MD PCP Encounter Details Date Type Department Care Team Description 04/07/2017 Orders Only [facility] Milind Corona MD Physicians - Urology [address] [facility] [address] FLOOR POD [address] [place] [address] [facility] [place] [address] OFFICE [address] [phone] [place] [address] Social History Tobacco Use Types [...]
--- OUTSIDE RECORDS SUMMARY | 2017-04-29 14:20 | XMS REPORT | Encounter Summary ---
Author Author [facility] Organization [facility] Address Unknown Phone Unavailable Care Team Providers Care Rotary Soil Stabilizer Operator Name Role Phone Nick Levine MD Unavailable [...] Unavailable Timothy Jacobs MD Unavailable Patt Davidson JOURNEYMAN GLAZIER-MARKETING EDUCATION TEACHER Unavailable Enedelia Rebolledo Unavailable Unavailable Fide Leung [...] Date Type Department Care Team Description 04/10/2017 Hospital Main Operating Room Milind Corona MD Kidney stone Encounter [address] [facility] [address] [place] [address] [place] [address] [place], [place] [id number] Social History Tobacco Use Types Packs/Day Years Used Date Never Smoker Smokeless Tobacco: Never Used Alcohol Use Drinks/Week oz/Week Comments Yes 0 Standard 0.0 rare drinks or equivalent Sex Assigned at Date Recorded Not on file as of this encounter Last Filed Vital Signs Vital Sign Reading Time Taken Blood Pressure 131/64 04/10/2017 9:30 AM CONTINUOUS MINING [employer]ACHINE [employer] MINER Pulse 87 04/10/2017 9:30 AM [employer] MIN[employer] Temperature 36.4 C (97.5 F) 04/10/2017 9:30 AM [employer] MINER Respiratory Rate - - Oxygen Saturation 97% 04/10/2017 9:30 AM [employer] MIN[employer] Inhaled Oxygen - - Concentration Weight 44.8 kg (98 lb 12.3 oz) 04/10/2017 6:31 AM [employer] MIN[employer] Height 157.5 cm (5' 2") 04/10/2017 6:31 AM [employer] MIN[employer] Body Mass Index 18.06 04/10/2017 6:31 AM CONT[employer]UOUS [employer] MINER in this encounter Functional Status Functional Status [...] mcg/mL as directed every 30 days. The 10th of each month diphenoxylate/atropine Take 1 tablet [...] Homa Mayberry RN - 04/10/2017 9:59 AM [employer] MIN[employer] Discharge instructions given to pt and : verbalized understanding. Pt VSS , denies any pain. Voided 2x. All questions answered at this time. in this encounter H&P Notes * Heron Dumont MD - 04/10/2017 6:02 AM [employer] MIN[employer] History and Physical Update Note Allergies: Flagyl [...] Macrobid for this. Heron Dumont MD Pager [phone] Associated attestation - Milind Corona MD - 04/10/2017 5:10 PM [employer] MIN[employer] Formatting of this note may be different from the original. ATTESTATION I personally observed the resident performing the E/M, discussed case with resident, and concur with resident documentation of history, physical assessment and treatment plan unless otherwise noted. Staff name: Milind Corona MD Date: 04/10/2017 * Milind Corona MD - 03/13/2017 1:30 PM [employer] MINER Formatting of this note may be different [...] Blood culture neg Sent home on Levaquin. [place] better. 03/26 - urine cloudy again. No [...] premarin cream previously prescribed by her research subject. 03/25 Left flank pain and urgency end of Feb. CT locally in [place] 03/06/16 - left ureteral stones. Known left [...] Blood culture neg Sent home on Levaquin. [place] better. 03/26 - urine cloudy again. No [...] Dmitriy Craig MD - 04/10/2017 8:44 AM CONT[employer] MINER Brief Operative Note Name: Gayle Camejo is [...] PACU - stable Dmitriy Craig MD Pager [phone] Associated attestation - Milind Corona MD - 04/10/2017 5:09 PM [employer] MIN[employer] Formatting of this note may be different from the original. ATTESTATION I performed this procedure with a resident. Staff name: Milind Corona MD Date: 04/10/2017 * Operative Report (Direct Entry) - Milind Corona MD - 04/10/2017 8:04 AM [employer] MIN[employer] Formatting of this note may be different [...] draped in usual sterile fashion. A 22 German cystoscope was used to cannulate the patient's [...] NONE Attestation: . Dmitriy Craig MD Pager [phone] ATTESTATION I performed this procedure with a resident. Staff name: Milind Corona MD Date: 04/12/2017 in this encounter Plan of Treatment Date Type Specialty Care Team Description 04/27/2017 Procedure Pass Urology as of this encounter Procedures Procedure Name Priority Date/Time Associated Diagnosis Comments ECG-SCAN 04/18/2017 Results for this 11:28 AM [employer] MINER procedure are in the results section. cystoscopy diagnostic 04/10/2017 Kidney stone procedure and stent 7:45 AM [employer] MINER exchange Special Needs 04/07 BOZENA'Noel ANGEL NOTIFYING HER THAT THE 120 WATT LASER IS BEING USED BY DR. GEORGINA SIMMONS ([id number]) in this encounter Results * ECG-SCAN (04/18/2017 11:28 AM) Narrative Ordered by an unspecified provider. * FLUORO MOBILE IN OR (04/10/2017 8:30 AM) Specimen Performing Laboratory [facility] Narrative This order has been auto finalized and does not contain a result. in this encounter Visit Diagnoses Diagnosis Calculus of kidney - Primary Kidney stone Calculus of kidney Admitting Diagnoses Diagnosis Kidney stone - UNKNOWN Calculus of kidney Administered Medications Medication Order MAR Action Action Date Dose Rate Site heparin lock flush PF syringe 500 Units Given 04/10/2017 500 Units 500 Units, Intra-catheter, ONCE PRN, 1 09:39 [employer] MIN[employer] dose, Starting Thu04/10/17 at 0939, Until Thu04/10/17 at 0939, Catheter flush, When de-accessing a port-a-cath pack with 5 mL heparin (100 units/mL) unless contraindicated. NOTE: This is a HIGH ALERT Medication. HEPARIN, PORCINE (PF) 100 UNIT/ML IV SYRG (Cabinet Override) NOW, 1 dose, Thu04/10/17 at 0945, Created by cabinet override NOTE: This is a HIGH ALERT Medication. sodium chloride 0.9 % infusion Given - New 04/10/2017 1,000 mL 20 mL/ hr 1,000 mL, 1,000 mL, Intravenous, at 20 Bag 06:56 CONT[employer] MIN[employer] mL/hr, CONTINUOUS, Starting Thu04/10/17 at 0630, Until Thu04/10/17 at 1204, Pre-Op Given - New Bag 04/10/2017 07:49 CONTINUOUS [employer] MINER SODIUM CHLORIDE 0.9 % IV SOLP (Cabinet Override) NOW, 1 dose, Thu04/10/17 at 0545, Created by cabinet override
--- OUTSIDE RECORDS SUMMARY | 2017-04-29 14:20 | XMS REPORT | Encounter Summary ---
Author Author [facility] Organization [facility] Address Unknown Phone Unavailable Care Team Providers Care Director Of Customer Service Name Role Phone Nick Levine MD Unavailable [...] Unavailable Timothy Jacobs MD Unavailable Patt Davidson LIFE SKILLS COORDINATOR-STEAM DISTRIBUTION SUPERVISOR Unavailable Enedelia Rebolledo Unavailable Unavailable Fide Leung MD Unavailable Alec Cordon MD Unavailable George Jordan MD Unavailable Francy Soriano RN Unavailable Unavailable Ama Diallo RN Unavailable Unavailable Kasandra Chacon RN Unavailable Unavailable Scottie Nunez MD Unavailable Unavailable Bharat Love CRNA Unavailable Sharita Padilla MD Unavailable Richard Fleming MD PCP Encounter Details Date Type Department Care Team Description 04/07/2017 Prep for Case [facility] Milind Corona MD Physicians - Urology [address] [facility] [address] FLOOR [address]OD [address] [place] [address] OFFICE BLDG [phone] [place] [address] Social History Tobacco Use Types [...]
--- OUTSIDE RECORDS SUMMARY | 2017-04-29 14:20 | XMS REPORT | Encounter Summary ---
Author Author [facility] Organization [facility] Address Unknown Phone Unavailable Care Team Providers Care Return Agent Airport Name Role Phone Nick Levine MD Unavailable [...] Unavailable Timothy Jacobs MD Unavailable Patt Davidson WEIGHT ENGINEER-MASON TENDER RESTORATION LABOR Unavailable Enedelia Rebolledo Unavailable Unavailable Fide Leung MD Unavailable Alec Cordon MD Unavailable George Jordan MD Unavailable Francy Soriano RN Unavailable Unavailable Ama Diallo RN Unavailable Unavailable Kasandra Chacon RN Unavailable Unavailable Scottie Nunez MD Unavailable Unavailable Bharat Love CRNA Unavailable Sharita Padilla MD Unavailable Richard Fleming MD PCP Encounter Details Date Type Department Care Team Description 03/13/2017 Hospital Clinlab Milind Corona MD Calculus of kidney Encounter [address] [facility]. [address] [place] [address] [address] [place] [address] [phone] Social History Tobacco Use Types Packs/Day Years [...] hours as needed for Nausea or Vomiting. loperamide (IMODIUM) 2 mg Take 8 mg by mouth daily. 04/29/2017 capsule nitrofurantoin Take 1 capsule by mouth 28 capsule 0 03/15/201704/07 monohyd/m-cryst every 12 hours. Take with (MACROBID) 100 mg food. Indications: capsuleIndications: BACTERIAL URINARY TRACT BACTERIAL URINARY TRACT INFECTION INFECTION oxyCODONE (ROXICODONE, Take 1-3 tablets by mouth 10 tablet 0 201604/10/2017 OXY-IR) 5 mg every 4 hours as needed tabletIndications: PAIN (severe pain (8-10)) Indications: PAIN Earliest Fill Date: 02/18/17 potassium chloride (KDUR) Take 1 Tab by mouth 90 Cap 3 12/28/2013 10 mEq tablet daily. as of this encounter Plan of Treatment Date Type Specialty Care Team Description 04/27/2017 Procedure Pass Urology as of this encounter Results * CULTURE-URINE W/SENSITIVITY (03/13/2017 1:42 PM) Component Value Ref Range Battery Name URINE CULTURE Specimen Description URINE Special Requests NONE Culture >100,000 organisms/ml ESCHERICHIA COLI (A) Report Status FINAL 03/16/2017 Organism ID >100,000 organisms/ml ESCHERICHIA COLI Specimen Performing Laboratory Urine MAIN LAB [address] [place] [address] Organism Antibiotic Method Susceptibility >100,000 organisms/ml Ertapenem BEJARANO HEREDIA SUSCEPTIBLE: Susceptible escherichia coli >100,000 organisms/ml Gentamicin BEJARANO HEREDIA SUSCEPTIBLE: Susceptible escherichia coli >100,000 organisms/ml Ampicillin BEJARANO HEREDIA RESISTANT: Resistant escherichia coli >100,000 organisms/ml Cefazolin BEJARANO HEREDIA INTERMEDIATE: escherichia coli Intermediate >100,000 organisms/ml Nitrofurantoin DARCI HEREDIA SUSCEPTIBLE: Susceptible escherichia coli >100,000 organisms/ml Trimethsulfa DARCI HEREDIA RESISTANT: Resistant escherichia coli >100,000 organisms/ml Piperacil/Tazobactam DARCI HEREDIA SUSCEPTIBLE: Susceptible escherichia coli >100,000 organisms/ml Tetracycline DARCI HEREDIA RESISTANT: Resistant escherichia coli >100,000 organisms/ml Cefepime DARCI HEREDIA SUSCEPTIBLE: Susceptible escherichia coli >100,000 organisms/ml Ceftriaxone DARCI HEREDIA SUSCEPTIBLE: Susceptible escherichia coli >100,000 organisms/ml Amoxicil/Clav Acid DARCI HEREDIA SUSCEPTIBLE: Susceptible escherichia coli >100,000 organisms/ml Method DARCI HEREDIA escherichia coli in this encounter Visit Diagnoses Not on filein this encounter Admitting Diagnoses Diagnosis Calculus of kidney
--- OUTSIDE RECORDS SUMMARY | 2017-04-29 14:21 | XMS REPORT | Encounter Summary ---
Author Author [facility] Address Unknown Phone Unavailable Care Team Providers Care Detective Chief Name Role Phone Nick Levine MD Unavailable Loan Corona MD Unavailable Latonia Pink RN Unavailable Unavailable Michelle Pablo RN Unavailable Unavailable Efrain Roberson RN Unavailable Unavailable Homa Ward RN Unavailable Unavailable Key Alejo RN Unavailable Unavailable Yuval Gaviria MD Unavailable Robin Kirk MD Unavailable Sanjuanita Cordoba MD Unavailable Geovanna Mann APRN Unavailable Sherley Diamond RD Unavailable Ang Tam RN Unavailable Unavailable Nick Mueller MD Unavailable Timothy Jacobs MD Unavailable Patt Davidson BROKE BEATER OPERATOR-APPLICATION ADMINISTRATOR Unavailable Enedelia Rebolledo Unavailable Unavailable Fide Leung MD Unavailable Alec Cordon MD Unavailable George Jordan MD Unavailable Francy Soriano RN Unavailable Unavailable Ama Diallo RN Unavailable Unavailable Kasandra Chacon RN Unavailable Unavailable Scottie Nunez MD Unavailable Unavailable Bharat Love CRNA Unavailable Sharita Padilla MD Unavailable Richard Fleming MD PCP Reason for Visit * Reason Comments Fever Pt states hx of kidney stones. Recently treated with antibiotics around gi. Continues to have fevers and pain. * Auth/Cert Status Reason Specialty Diagnoses / Referred By Referred To Procedures Contact Contact Diagnoses Hydronephrosis Hydronephrosis Encounter Details Date Type Department Care Team Description 02/16/2017 Hospital 8 Marielos Hines MD Hydronephrosis - Encounter [id number] 02/18/2017 [place] [address] [address] [place] [address] [phone] Loan Ying MD [id number] [place] [address] [phone] Social History Tobacco Use Types Packs/Day Years Used Date Never Smoker Smokeless Tobacco: Never Used Alcohol Use Drinks/Week oz/Week Comments Yes 0 Standard 0.0 rare drinks or equivalent Sex Assigned at Date Recorded Not on file as of this encounter Last Filed Vital Signs Vital Sign Reading Time Taken Blood Pressure 133/60 02/18/2017 6:22 AM WOOD HEEL FLAP TRIMMER Pulse 74 02/18/2017 6:22 AM WOOD HEEL FLAP TRIMMER Temperature 36.2 C (97.2 F) 02/18/2017 6:22 AM WOOD HEEL FLAP TRIMMER Respiratory Rate - - Oxygen Saturation 98% 02/18/2017 6:22 AM WOOD HEEL FLAP TRIMMER Inhaled Oxygen - - Concentration Weight 44.5 kg (98 lb) 02/16/2017 4:42 PM WOOD HEEL FLAP TRIMMER Height 157.5 cm (5' 2") 02/16/2017 4:42 PM WOOD HEEL FLAP TRIMMER Body Mass Index 17.92 02/16/2017 4:42 PM WOOD HEEL FLAP TRIMMER in this encounter Functional Status Functional Status [...] impairment: No 03/14/2015 as of this encounter Discharge Summaries * Meseret Ch APRN-NP - 02/18/2017 12:19 PM WOOD HEEL FLAP TRIMMER Formatting of this note may be different from the original. Physician Discharge Summary Name: Henrik Camejo Date Of : 1950 Age: 66 years Admit date: 02/16/2017 Discharge date: 02/18/2017 Attending Physician: Dr. Corona Service: Surgery-Urology Physician Summary completed by: NATHANAEL Lee Reason for hospitalization: Left hydronephrosis and nephrolithiasis, Acute pyelonephritis Significant PMH: Past Medical History: Diagnosis Date Anal cancer (HCC) Asthma Inflammatory bowel disease Kidney stones Unspecified deficiency anemia Urinary tract infection Urolithiasis Allergies: Flagyl [metronidazole]; Pcn [penicillins]; and Sulfa (sulfonamide antibiotics) Admission Physical Exam notable for: Per H&P General: Alert, oriented, cooperative, no distress Head: Normocephalic, without obvious abnormality, atraumatic Eyes: EOMI, no scleral icterus Lungs: Unlabored on RA Heart: Regular rate Abdomen: Soft, non-tender, non-distended. Normoactive bowel sounds : Mild left CVA tenderness Extremity: No clubbing, cyanosis, or edema Neurologic: Grossly intact. Admission Lab/Radiology studies notable for: CT abd/pelv w/o contrast: IMPRESSION 1. INTERVAL DEVELOPMENT OF MODERATE SEVERE [...] BOWEL LOOPS. 4. NO ABDOMINAL/PELVIC METASTATIC DISEASE. Brief Hospital Course: The patient was admitted and the following issues were addressed during this hospitalization: (with pertinent details). Patient was admitted after presenting to the ED with symptoms concerning for UTI/ pyelonephritis, including fevers of 103 at home, and CT with moderate to severe left hydronephrosis and nephrolithiasis. Cultures were obtained, IV antibiotics were initiated. Patient was taken to the OR for the surgery listed below. Patient tolerated the procedure well. Patient began to improve. Initial cultures were positive for E. Coli in the urine, blood cultures showed no growth. Pain was controlled, tolerated a diet, had return of bowel function and all discharge criteria were met. Patient was transitioned to oral Levaquin for discharge until 03/02/2017. Condition at Discharge: Stable Discharge Diagnoses: Hospital Problems Active Problems * (Principal)Hydronephrosis Pyelonephritis E Coli UTI nephrolithiasis Surgical Procedures: Cystoscopy, left retrograde pyelogram, insertion of left ureteral stent Significant Diagnostic Studies and Procedures: noted in brief hospital course Consults: None Patient Disposition: Home Patient instructions/medications: Activity as Tolerated It is important to keep increasing your activity level after you leave the hospital. Moving around can help prevent blood clots, lung infection (pneumonia ) and other problems. Gradually increasing the number of times you are up moving around will help you return to your normal activity level more quickly. Continue to increase the number of times you are up to the chair and walking daily to return to your normal activity level. Begin to work toward your normal activity level at discharge Report These Signs and Symptoms Please notify physician if experiencing any chest pain, shortness of breath, calf tenderness or unilateral leg swelling, uncontrolled pain, incision redness or foul smelling drainage from wound, fevers >101.5, or any other worsening signs/symptoms. Questions About Your Stay For questions or concerns regarding your hospital stay. Call [phone] You may have questions about your hospital stay after you get home. From 8 AM to 4 PM Thursday through Thursday, please call Dr. Corona's litigation legal secretary to have the nurse practitioner paged at . Dr. Corona's litigation legal secretary can also assist with questions regarding your follow up appointment. If calling after hours or with urgent questions, please call and ask for the urology resident wildfire prevention specialist. In case of an emergency, please report to your nearest emergency department and contact us on the way. Discharging attending physician: LOAN CORONA [[id number]] Regular Diet You have no dietary restriction. Please continue with a healthy balanced diet. Return Appointment Provider LOAN CORONA [[id number]] Location Urology Clinic Appointment date: 03/13/2017 Appointment time: 1:30 PM Opioid (Narcotic) Safety Information OPIOID (NARCOTIC) PAIN MEDICATION SAFETY We care about your comfort, and believe you need opioid medications at this time to treat your pain. An opioid is a strong pain medication. It is only available by prescription for moderate to severe pain. Usually these medications are used for only a short time to treat pain, but sometimes will be prescribed for longer. Talk with your doctor or nurse about how long they expect you to need this medication. When used the right way, opioids are safe and effective medications to treat your pain, even when used for a long time. Yet, when used in the wrong way, opioids can be dangerous for you or others. Opioids do not work for everyone. Most patients do not get full relief of their pain from opioid medication; full relief of your pain may not be possible. For your safety, we ask you to follow these instructions: *Only take your opioid medication as prescribed. If your pain is not controlled with the prescribed dose, or the medication is not lasting long enough, call your doctor. *Do not break or crush your opioid medication unless your doctor or pharmacist says you can. With certain medications, this can be dangerous, and may cause . *Never share your medications with others, even if they appear to have a good reason. Never take someone else's pain medication-this is dangerous, and illegal (a crime). Overdoses and deaths have occurred. *Keep your opioid medications safe, as you would with kevni, in a lock box or similar container. *Make sure your opioids are going to be secure, especially if you are around children or teens. *Talk with your doctor or pharmacist before you take other medications. *Avoid driving, operating machinery, or drinking alcohol while taking opioid pain medication. This may be unsafe. Pain medications can cause constipation. Constipation is bowel movements that are less often than normal. Stools often become very hard and difficult to pass. This may lead to stomach pain and bloating. It may also cause pain when trying to use the bathroom. Constipation may be treated with suppositories, laxatives or stool softeners. A diet high in fiber with plenty of fluids helps to maintain regular, soft bowel movements. Current Discharge Medication List START taking these medications Details hyoscyamine sulfate (LEVSIN/SL) 0.[address] 1 tablet under tongue every 4 hours as needed for Cramps. Stent pain Qty: 30 tablet, Refills: 1 PRESCRIPTION TYPE: Print levoFLOXacin (LEVAQUIN) 250 mg tablet Take 1 tablet by mouth daily for 12 days. Start AM 02/19. Take one hour before breakfast. Qty: 12 tablet, Refills: 0 PRESCRIPTION TYPE: Print oxyCODONE (ROXICODONE, OXY-IR) 5 mg tablet Take 1-3 tablets by mouth every 4 hours as needed (severe pain (8-10)) Indications: PAIN Earliest Fill Date: 02/18 Qty: 10 tablet, Refills: 0 PRESCRIPTION TYPE: Print CONTINUE these medications which have NOT CHANGED Details acetaminophen (TYLENOL) 325 mg tablet Take 650 mg by mouth every 4 hours as needed for Pain. PRESCRIPTION TYPE: Historical Med albuterol (VENTOLIN HFA, PROAIR HFA) 90 mcg/actuation inhaler Inhale 2 Puffs by mouth every 6 hours as needed. PRESCRIPTION TYPE: Historical Med allopurinol (ZYLOPRIM) 300 mg tablet Take 300 mg by mouth daily. PRESCRIPTION TYPE: Historical Med Calcium-Cholecalciferol (D3) (CALCIUM 500+D) 500 mg(1,250mg) -400 unit chew Take 1 Tab by mouth twice daily. PRESCRIPTION TYPE: Historical Med Cholecalciferol (Vitamin D3) 5,000 unit cap Take 1 Cap by mouth daily. PRESCRIPTION TYPE: Historical Med cholecalciferol (vitamin D3) 50,000 unit tab Take 1 Tab by mouth every 7 days. PRESCRIPTION TYPE: Historical Med cyanocobalamin(DIL) (VITAMIN B-12) 100 mcg/mL Inject 100 mcg to area(s) as directed every 30 days. The 10th of each month PRESCRIPTION TYPE: Historical Med diphenoxylate/atropine (LOMOTIL) 2.5/0.025 mg tablet Take 1 tablet by mouth daily as needed. PRESCRIPTION TYPE: Historical Med esomeprazole DR(+) (NEXIUM) 40 mg capsule Take 40 mg by mouth every morning. PRESCRIPTION TYPE: Historical Med LACTOBACILLUS ACIDOPHILUS (PROBIOTIC PO) Take 1 Cap by mouth daily. PRESCRIPTION TYPE: Historical Med loperamide (IMODIUM) 2 mg capsule Take 8 mg by mouth daily. PRESCRIPTION TYPE: Historical Med ondansetron (ZOFRAN) 8 mg tablet Take 8 mg by mouth every 8 hours as needed for Nausea or Vomiting. PRESCRIPTION TYPE: Historical Med potassium chloride (KDUR) 10 mEq tablet Take 1 Tab by mouth daily. Qty: 90 Cap, Refills: 3 PRESCRIPTION TYPE: Normal Scheduled appointments: Mar 13, 2017 1:30 PM WOOD HEEL FLAP TRIMMER Post - Op with Loan Corona MD [facility] ([facility] Urology) 2nd Floor Pod [address] [facility] [address] Apr 01, 2017 10:00 AM WOOD HEEL FLAP TRIMMER (Arrive by 9:45 AM) Return Visit with Yuval Gaviria MD The [facility] Exam ([facility] Exam) [address] [facility] [address] Aug 12, 2017 12:30 PM CDT MRI T & L-SPINE (SCHED ONLY) with [facility] The [facility] Radiology ([facility]) [address] [facility] [address] Aug 12, 2017 2:45 PM CDT Return Patient with Nick Mueller MD [facility] - Neurosurgery ([facility] NeuroSurgery) 2nd Floor Pod [address] [facility] [address] Oct 26, 2017 10:15 AM CDT Return Patient with Loan Corona MD [facility] Urology ([facility] Urology) 2nd Floor [address] [facility] [address] Pending items needing follow up: Follow up on susceptibilities, follow up in [address] Corona Signed: NATHANAEL Lee 02/19/2017 cc: Primary Care Physician: Richard Fleming Iii Verified Referring physicians: No ref. provider found Additional provider(s): in this encounter Medications at Time of Discharge [...] hours as needed for Nausea or Vomiting. levoFLOXacin (LEVAQUIN) Take 1 tablet by mouth 12 tablet 0 02/19/2017 03/03/2017 250 mg tablet daily for 12 days. Start AM 02/19. Take one hour before breakfast. loperamide (IMODIUM) 2 mg Take 8 mg by mouth daily. 04/29/2017 capsule oxyCODONE (ROXICODONE, Take 1-3 tablets by mouth 10 tablet 0 201604/10/2017 OXY-IR) 5 mg every 4 hours as needed tabletIndications: PAIN (severe pain (8-10)) Indications: PAIN Earliest Fill Date: 02/18/17 potassium chloride (KDUR) Take 1 Tab by mouth 90 Cap 3 12/28/2013 10 mEq tablet daily. as of this encounter Progress Notes * Opal Quintero - 02/18/2017 12:19 PM WOOD HEEL FLAP TRIMMER D/c paperwork reviewed with pt. Education regarding activity restrictions, diet , S/SX of infection, S/SX to report, opioid narcotic safety, and medications addressed. Pt verbalizes understanding. Hard copy scripts given to pt. Port packed with heparin and deaccessed without complications. Pt ambulated off unit with pt belongings. * Abdiaziz Flood MD - 02/18/2017 5:52 AM WOOD HEEL FLAP TRIMMER Formatting of this note may be different from the original. Urology Progress Note 02/18/2017 ASSESSMENT: Henrik Camejo is a 66 y.o. Female with Crohn's disease s/p SBR x 4 and recurrent nephrolithiasis and rectal adenocarcinoma s/p APR and chemo with left hydronephrosis POD#1 s/p left ureteral stent placement, LOS: 2 days PLAN: will discuss plan with staff surgeon - Dr. Corona - Pain control: PO pain control - Diet/FEN: Regular diet - Wean supplemental oxygen - Heme/ID: afebrile, urine growing GNRs, f/u cultures, continue levaquin - : voiding spontaneously - OOB/Amb - Dispo: Possible discharge today pending susceptibilities Prophylaxis Review: - DVT: Heparin - GI: Yes - Catheter: Yes - Abx: Yes Abdiaziz Flood M.D. Please page urology wildfire prevention specialist with questions SUBJECTIVE: Overnight events: No acute events. Pain controlled. Tolerating regular diet without nausea or emesis. Some ambulation. + flatus, + BM. OBJECTIVE: Vital Signs: Most Recent Vital Signs: Past 24 Hours BP: 118/52 (02/18 2156) Temp: 36.5 C (97.7 F) (02/18 2156) Pulse: 68 (02/18 2156) Respirations: 16 PER MINUTE (02/18 2156) SpO2: 98 % (02/18 2156) O2 Delivery: None (Room Air) (02/18 2156) BP: (118-145)/(52-67) Temp: [36.2 C (97.2 F)-36.7 C (98 F)] Pulse: [68-99] Respirations: [16 PER MINUTE] SpO2: [94 %-98 %] O2 Delivery: None (Room Air) UOP: 1050 mL Colostomy: 1350 mL General: alert, oriented, no acute distress. Pulm: non-labored, equal chest rise CV: regular rate and rhythm Abd: soft, non-distended Extremities: No edema, SCD's in place : no CVA tenderness Labs: Hematology Chemistry Recent Labs 02/17/17 0543 WBC 4.3* HGB 11.2* PLTCT 150 Recent Labs 02/17/17 0543 NA 137 K 4.2 CL 104 CO2 21 BUN 24 CR 1.13* GFR 48* GLU 110* CA 7.9* Associated attestation - Loan Corona MD - 02/18/2017 8:39 AM WOOD HEEL FLAP TRIMMER Formatting of this note may be different from the original. ATTESTATION I personally observed the resident performing the E/M, discussed case with resident, and concur with resident documentation of history, physical assessment and treatment plan unless otherwise noted. Staff name: Loan Corona MD Date: 02/18/2017 * Abdiaziz Flood MD - 02/17/2017 5:29 AM WOOD HEEL FLAP TRIMMER Formatting of this note may be different from the original. Urology Progress Note 02/17/2017 ASSESSMENT: Henrik Camejo is a 66 y.o. Female with Crohn's disease s/p SBR x 4 and recurrent nephrolithiasis and rectal adenocarcinoma s/p APR and chemo with left hydronephrosis POD#1 s/p left ureteral stent placement, LOS: 1 day PLAN: will discuss plan with staff surgeon - Dr. Corona - Pain control: PO pain control - Diet/FEN: Advance to regular diet - Wean supplemental oxygen - Heme/ID: afebrile, WBC 11.5, continue levaquin, f/u cultures - : remove lugo catheter this morning - OOB/Amb - Dispo: Continue inpatient care Prophylaxis Review: - DVT: Heparin - GI: No - Catheter: Yes - Abx: Yes Abdiaziz Flood M.D. Please page urology wildfire prevention specialist with questions SUBJECTIVE: Overnight events: No acute events. Pain controlled. Tolerating NPO without nausea or emesis. Some ambulation. + flatus, - BM. OBJECTIVE: Vital Signs: Most Recent Vital Signs: Past 24 Hours BP: 114/50 (02/17 327) Temp: 36.4 C (97.5 F) (02/17 327) Pulse: 67 (02/17 327) Respirations: 16 PER MINUTE (02/17 327) SpO2: 97 % (02/17 327) O2 Delivery: Nasal Cannula (02/17 327) Height: 157.5 cm (62") (02/16 1642) Weight: 44.5 kg (98 lb) (02/16 1642) BP: (114-150)/(49-96) Temp: [36.4 C (97.5 F)-36.7 C (98.1 F)] Pulse: [67-99] Respirations: [12 PER MINUTE-22 PER MINUTE] SpO2: [91 %-97 %] O2 Delivery: Nasal Cannula UOP: 1175 mL General: alert, oriented, no acute distress. Pulm: non-labored, equal chest rise CV: regular rate and rhythm Abd: soft, non-distended Extremities: No edema, SCD's in place : lugo catheter draining clear yellow urine with sediment Labs: Hematology Chemistry Recent Labs 02/16/17 1050 WBC 11.5* HGB 11.6* PLTCT 156 Recent Labs 02/16/17 1050 NA 135* K 3.9 CL 99 CO2 22 BUN 18 CR 1.28* GFR 41* GLU 66* CA 8.6 * Sanam Grider, RT - 02/16/2017 10:11 PM WOOD HEEL FLAP TRIMMER Formatting of this note may be different from the original. RESPIRATORY THERAPY ADULT PROTOCOL EVALUATION RESPIRATORY PROTOCOL PLAN Medications Albuterol: MDI PRN Note: If indicated by protocol, medication orders will be placed by therapist. Procedures Oxygen/Humidity: O2 to keep SpO2 > 92% Monitoring: Pulse oximetry BID & PRN PATIENT EVALUATION RESULTS Chart Review * Pulmonary Hx: Hx pulmonary disease, hx reactive or obstructive airway disease (PEFR & AM) OR regular home use of bronchodilators (AM) OR inhaled or systemic steroid use for lungs < or equal to 4 times/yr (AM) (allergy induced asthma, PRN alb at home) * Surgical Hx: General surgery (cough & sigh not affected) * Chest X-Ray: Clear OR not available [...] Status: Alert, oriented, cooperative * Activity Level: Ambulatory with assistance Priority Index Total Points: 7 Points * Priority Index: 1+ PRIORITY INDEX GUIDELINES* Priority Points 1 0-9 points 2 9-18 points 3 > 18 points + Pulm Dx or Home Rx *Higher points indicate higher acuity. Therapist: Sanam Grider, RT Date: 02/16/2017 [place] AC=Airway clearance AM=Aerosolized medication BA=[place] aerosol DB&C=Deep breathe & cough FEV1=Forced expiratory volume in first second) IC=Inspiratory capacity LE=Lung expansion MDI=Metered dose inhaler Neb=Nebulizer O2=Oxygen Oxim=Oximetry PEFR=Peak expiratory flow rate HOGSHEAD STRIPPER=Rapid Response Team * Yajaira Malik RN - 02/16/2017 8:00 PM WOOD HEEL FLAP TRIMMER Patient arrived on unit via cart accompanied by transport. Patient transferred to the bed with assistance. Assessment completed, refer to flowsheet for details. Orders released, reviewed, and implemented as appropriate. Oriented to surroundings, call light within reach. Plan of care reviewed. Will continue to monitor and assess. in this encounter H&P Notes * Laon Corona MD - 02/16/2017 5:06 PM WOOD HEEL FLAP TRIMMER No change from ER Consult earlier today. in this encounter Consult Notes * Kervin Yee MD - 02/16/2017 2:55 PM WOOD HEEL FLAP TRIMMER Associated Order(s): CONSULT UROLOGY PHYSICIAN Formatting of this note may be different from the original. [facility] Consult 02/16/2017 Patient: Henrik Camejo Admission Date: 02/16/2017, LOS: 0 days Admission Diagnosis: Hydronephrosis [N13.30] Date of Service: February 16, 2017 Reason for Consult: "[place]/nephrolithiasis Referring Provider: Marielos Hines MD;Loan * Attending Surgeon: Loan Corona MD Consult Performed by: Kervin Yee MD ASSESSMENT: 66 y.o. female with history of Crohn's disease status post small bowel resection 4 and recurrent nephrolithiasis as well as rectal adenocarcinoma status post abdominal perineal resection with posterior vaginectomy 01/16/14 followed by 4 cycles of FOLFOX who presents with symptoms as well as CT scan suggestive of recently passed stone on the left. Her fevers and urinalysis are concerning for a concurrent infection. Given hydronephrosis and infection, we will proceed with left ureteral stent placement. PLAN: - Admit to urology service - To OR this afternoon for left ureteral stent placement - consented/boarded - NPO, IVF prior to procedure - UA/UCx done in ED - IV antibiotics - Ceftriaxone started in ED - Zofran PRN - Oxycodone PRN Will discuss with staff. Thank you for consulting Urology. Kervin Yee MD Urology PGY-1 Please page Urology wildfire prevention specialist with any questions __ HPI: Henrik Camejo is a 66 y.o. female with history of Crohn's disease status post small bowel resection 4 and recurrent nephrolithiasis as well as rectal adenocarcinoma status post abdominal perineal resection with posterior vaginectomy 01/16/14 followed by 4 cycles of FOLFOX who presents for evaluation of fever, left flank pain, and nausea. She reports that prior to she developed fever and decreased energy and a few days later presented to a local ER. She was told that she likely just passed a stone and was treated with Cedinir and Levaquin for urinary tract infection. She reports she felt better for 2-3 days, but then had return of her symptoms. Last 2 days she has had decreased energy, fever to 103, chills, urinary frequency, and nausea with dry heaving. She denies dysuria. She has had some dull flank pain on the left. She endorses mild shortness of breath along with occasional headaches. She is a non-smoker, socially drinks alcohol, denies illicit drug use. Past Medical History: Diagnosis Date Anal cancer (HCC) Asthma Inflammatory bowel disease Kidney stones Unspecified deficiency anemia Urinary tract infection Urolithiasis Past Surgical History: Procedure Laterality Date LITHOTRIPSY 07/10/2009 right HX BOWEL RESECTION 2013 with colostomy [place] COLONOSCOPY FLX DX W/COLLJ SPEC WHEN PFRMD N/A 04/16/2015 COLONOSCOPY performed by Alec Cordon MD at [facility] ENDO/GI CYSTOURETHROSCOPY HERNIA REPAIR umbilical HX BOWEL RESECTION 1968, 1978?, 1988? HX HYSTERECTOMY HX SMALL BOWEL RESECTION x4 HX TONSILLECTOMY Medications: Scheduled Meds: Continuous Infusions: PRN and Respiratory Meds:ondansetron (ZOFRAN) IV Q6H PRN Allergies: Flagyl [metronidazole]; Pcn [penicillins]; and Sulfa (sulfonamide antibiotics) Social History Social History Marital status: Spouse [...] Concern Not on file Social History Narrative Family History Problem Relation Age of Onset Hypertension Mother Cancer-Prostate Brother Cancer-Breast Paternal Aunt Hypertension Paternal Aunt Stroke Paternal Aunt Stroke Paternal Grandmother Vitals: Vital Signs: Last Filed In 24 Hours Vital Signs: 24 Hour Range BP: 134/66 (02/16 1400) Temp: 36.6 C (97.9 F) (02/16 1040) Pulse: 88 (02/16 1400) Respirations: 16 PER MINUTE (12/11 1400) SpO2: 92 % (02/16 1400) O2 Delivery: None (Room Air) (02/16 1040) SpO2 Pulse: 89 (02/16 1400) BP: (123-134)/(62-96) Temp: [36.6 C (97.9 F)] Pulse: [86-95] Respirations: [14 PER MINUTE-20 PER MINUTE] SpO2: [91 %-97 %] O2 Delivery: None (Room Air) Intake/Output: No intake or output data in the 24 hours ending 02/16/17 1456 Physical Exam: General: Alert, oriented, cooperative, no distress Head: Normocephalic, without obvious abnormality, atraumatic Eyes: EOMI, no scleral icterus Lungs: Unlabored on RA Heart: Regular rate Abdomen: Soft, non-tender, non-distended. Normoactive bowel sounds : Mild left CVA tenderness Extremity: No clubbing, cyanosis, or edema Neurologic: Grossly intact. ROS: A complete review of systems was obtained and was negative except for the symptoms reviewed above. Lab/Radiology/Other Diagnostic Tests: Recent Labs 02/16/17 1050 HGB 11.6* HCT 35.1* WBC 11.5* PLTCT 156 NA 135* K 3.9 CL 99 CO2 22 BUN 18 CR 1.28* GLU 66* CA 8.6 ALBUMIN 3.3* TOTPROT 7.4 TOTBILI 0.8 AST 15 ALT <3* ALKPHOS 101 LIPASE 7* Glucose: (!) 66 (02/16/17 1050) UA: Results for HENRIK CAMEJO ( ) as of 02/16/2017 15:16 Ref. Range 02/16/2017 12:14 Color,UA Unknown LUKE Turbidity,UA Latest Ref Range: CLEAR-CLEAR 2+ (A) Specific [place]-Urine Latest Ref Range: 1.003 - 1.035 1.011 pH,UA Latest Ref Range: 5.0 - 8.0 6.0 Glucose,UA Latest Ref Range: NEG-NEG NEG Ketones,UA Latest Ref Range: NEG-NEG 1+ (A) Bilirubin,UA Latest Ref Range: NEG-NEG NEG Protein,UA Latest Ref Range: NEG-NEG 1+ (A) Urobilinogen,UA Latest Ref Range: NORM-NORMAL NORMAL Blood,UA Latest Ref Range: NEG-NEG 1+ (A) Nitrite,UA Latest Ref Range: NEG-NEG POS (A) Leukocytes,UA Latest Ref Range: NEG-NEG 3+ (A) Urine Ascorbic Acid, UA Latest Ref Range: NEG-NEG NEG WBCs,UA Latest Ref Range: 0 - 2 /HPF PACKED RBCs,UA Latest Ref Range: 0 - 3 /HPF 20-50 Bacteria,UA Latest Ref Range: NEG-NEG MANY (A) WBC Clumps Unknown PRESENT Squamous Epithelial Cells Latest Ref Range: 0 - 5 0-2 CT abd/pelv w/o contrast: IMPRESSION 1. INTERVAL DEVELOPMENT OF MODERATE SEVERE [...] BOWEL LOOPS. 4. NO ABDOMINAL/PELVIC METASTATIC DISEASE. Associated attestation - Loan Corona MD - 02/16/2017 3:38 PM WOOD HEEL FLAP TRIMMER Formatting of this note may be different from the original. ATTESTATION I personally observed the resident performing the E/M, discussed case with resident, and concur with resident documentation of history, physical assessment and treatment plan unless otherwise noted. Staff name: Loan Corona MD Date: 02/16/2017 in this encounter Miscellaneous Notes * Care Plan - Opal Quintero - 02/18/2017 11:01 AM WOOD HEEL FLAP TRIMMER Problem: Infection, Risk of, Central Venous Catheter-Associated Bloodstream Infection Goal: Absence of CVC Associated Bloodstream infection Outcome: Goal Achieved Date Met: 02/18/17 Pt absent of CVC associated bloodstream infection this hospital stay. * Care Plan - Yajaira Malik RN - 02/17/2017 11:56 PM WOOD HEEL FLAP TRIMMER Problem: Infection, Risk of, Central Venous Catheter-Associated Bloodstream Infection Goal: Absence of CVC Associated Bloodstream infection Outcome: Goal Ongoing Patient received CHG care on port today * Anesthesia Post Op Day 1 - Marianne Henson SRNA - 02/17/2017 10:08 AM WOOD HEEL FLAP TRIMMER Formatting of this note may be different from the original. Anesthesia Follow-Up Evaluation: Post-Procedure Day One Name: Henrik Camejo : 1950 Age: 66 y.o. Sex : female Procedure Date: 02/16/2017 Procedure: Procedure(s): CYSTOSCOPY, INSERTION STENT LEFT URETER, LEFT RETROGRADE PYELOGRAM Physical Assessment Height: 157.5 cm (62") Weight: 44.5 kg (98 lb) Vital Signs (Last Filed in 24 hours) BP: 145/65 (02/18 828) Temp: 36.3 C (97.3 F) (02/18 828) Pulse: 85 (02/18 828) Respirations: 16 PER MINUTE (02/18 828) SpO2: 97 % (02/18 828) O2 Delivery: None (Room Air) (02/18 828) SpO2 Pulse: 74 (02/16 1845) Height: 157.5 cm (62") (02/16 1642) Patient History Allergies Allergies Allergen Reactions Flagyl [Metronidazole] EDEMA Pcn [Penicillins] RASH Sulfa (Sulfonamide Antibiotics) RASH Medications Scheduled Meds: heparin (porcine) PF syringe 5,000 Units 5,000 Units Subcutaneous Q8H [START ON 02/18/2017] levofloxacin (LEVAQUIN) 500 mg/100 mL IVPB 500 mg Intravenous Q48H* pantoprazole DR (PROTONIX) tablet 40 mg 40 mg Oral QDAY(21) polyethylene glycol 3350 (MIRALAX) packet 17 g 1 packet Oral BID Continuous Infusions: PRN and Respiratory Meds:acetaminophen Q6H PRN, albuterol Q4H PRN, ondansetron ( ZOFRAN) IV Q6H PRN, ondansetron (ZOFRAN) IV Q6H PRN, oxyCODONE Q4H PRN Diagnostic Tests Hematology: Lab Results Component Value [...] Date PTT 32.1 04/20/2012 INR 1.3 06/21/2014 Follow-Up Assessment Patient location during evaluation: floor Anesthetic Complications: Anesthetic complications: The patient did not experience any anesthestic complications. Pain: Management:adequate Level of Consciousness: awake and alert Hydration:acceptable Airway Patency: patent Respiratory Status: acceptable, spontaneous ventilation and room air Cardiovascular Status:acceptable and hemodynamically stable Regional/Neuroaxial: * Case Mgmt DC Plan - Chey Redding - 02/17/2017 9:10 AM WOOD HEEL FLAP TRIMMER Formatting of this note may be different from the original. Case Management Admission Assessment NAME:Henrik Camejo :1950 AGE: 66 y.o. ADMISSION DATE: 02/16/2017 DAYS ADMITTED: LOS: 1 day Todays Date: 02/17/2017 Source of Information: patient NCM reviewed EMR and discussed in interdisciplinary huddle. NCM met with patient at bedside to discuss discharge planning. Pt is POD#1 from ureteral stent placement. Anticipate discharge home later today. No CM needs anticiapted Plan Plan: CM Assessment, No Further Intervention Required, Discharge Planning for Home Anticipated Emergency Contact Extended Emergency Contact Information Primary Emergency Contact: Ozzie Camejo Address: [address] [place] [address] [facility] Relation: Spouse DPOA no Transportation Does the patient need discharge transport arranged?: No Transportation Name, Phone and Availability #1: at bedside Does the patient use Medicaid Transportation?: No Expected Discharge Expected Discharge Date: 02/17/17 Living Situation Prior to Admission ? Living Arrangements Type of Residence: Home, independent Living Arrangements: Spouse/significant other Support Systems: Spouse/Partner Assistance Needed: No Home Care Services: No ? Level of Function Prior level of function: Independent ? Cognitive Abilities Cognitive Abilities: Alert and Oriented, Engages in problem solving and planning , Participates in decision making Financial Resources ? Coverage Primary Insurance: Medicare Secondary Insurance: Commercial insurance Additional Coverage: RX ? Source of Income Source Of Income: Other fdc income ? Financial Assistance Needed? no Current/Previous Services ? PCP Richard Fleming Iii ? DME DME at home: None ? Home Health Receiving home health: In the past Agency name: [facility] Would patient use this agency again?: Yes ? HD or PD Undergoing hemodialysis or peritoneal dialysis: No ? Tube/Enteral Feeds Receive tube/enteral feeds: No ? Infusion Receive infusions: No ? Private Duty Private duty help used: No ? HCBS Home and community based services: No ? Adarsh Marie: N/A ? Hospice Hospice: No ? Outpatient Therapy PT: No OT: No DISABILITY SPECIALIST: No ? SNF/NH SNF: No NH: No ? IPR IPR: No ? LTACH LTACH: No ? Acute Hospital Stay Acute Hospital Stay: In the past Was patient's stay within the last 30 days?: No Psychosocial Needs ? Mental Health Mental Health History: No ? Substance History History Smoking Status Never Smoker Smokeless Tobacco Never Used History Alcohol Use 0.0 oz/week 0 Standard drinks or equivalent per week Comment: rare History Drug Use No ? Abuse/Sexual Assault Are You Alone With The Patient?: No Have You Ever Been Hit, Hurt Or Threatened In Any Way In The Past 5 Years?: No Nurse Suspected Abuse?: No Chey Redding RN, BSN, [facility] [phone] * Operative Report (DICTATED ONLY) - Loan Corona MD - 02/16/2017 6:34 PM WOOD HEEL FLAP TRIMMER Formatting of this note may be different from the original. [facility] [address] [place], [place] [address] PATIENT NAME: HENRIK CAMEJO MR#/PT#: [id number] Page 3 OPERATIVE REPORT DATE OF OPERATION: 02/16/2017 SURGEON: Loan Corona MD ALTERATION WORKROOM SUPERVISOR(S): Willie Baez MD PREOPERATIVE DIAGNOSIS: Left-sided hydronephrosis. POSTOPERATIVE DIAGNOSIS: Same. OPERATIVE PROCEDURE: 1. Cystoscopy. 2. Left retrograde pyelogram. 3. Insertion of left ureteral stent. ANESTHESIA: General. INDICATIONS FOR OPERATIVE PROCEDURE: This is a 66-year-old female with a complex medical history, who presented with fevers, left-sided flank pain, and urinalysis concerning for infection. CT scan indicated some gas in the collecting system concerning for severe infection. The patient was taken back to the operating room for placement of a left ureteral stent. DESCRIPTION AND FINDINGS OF OPERATIVE PROCEDURE: Findings: Left hydronephrosis. Placement of double-J left-sided ureteral stent, 6 x 24 with purulent drainage of urine. A 16-Djiboutian Lugo catheter placement. The patient was identified and informed was obtained. She was brought to the operating room and placed on the table in supine position. She was given 500 mg of IV Levaquin prior to the induction of general anesthesia. She was then moved to the dorsal lithotomy position, prepped and draped in usual sterile fashion. We began the case by inserting a 22-Djiboutian rigid cystoscope into the patient's urethra and advanced towards the bladder. Once inside the bladder, we immediately identified the left ureteral orifice. This was cannulated with a 5-Djiboutian open-ended Victor and this Victor catheter was then advanced to the level of the renal pelvis and gentle retrograde pyelogram was performed to identify anatomy. Once this was performed, we passed a 0.53 tip Sensor wire through the 5-Djiboutian open-ended Victor into the level of the renal pelvis. We then off-loaded the Victor catheter and placed a 6 x 24 double-J left-sided ureteral stent in standard fashion with good curl noted in the renal pelvis as well as in the bladder. Cloudy urine was seen effluxing from the stent, so we elected to place a 16-Djiboutian Lugo catheter in a standard fashion with 10 mL of sterile water in the balloon. The patient tolerated the procedure well. There were no immediate complications. All scopes were in good working order at the end of the case. ESTIMATED BLOOD LOSS: None. SPECIMENS REMOVED: None. COMPLICATIONS: None. IMPLANTS: A 6 x 24 left double-J ureteral stent. DRAINS: Lugo catheter. DISPOSITION: PACU, stable. Loan Corona MD Dictated by: Willie Baez MD / [facility] /[id number] cc: - Loan Corona MD ATTESTATION I performed this procedure with a resident. Staff name: Loan Corona MD Date: 02/18/2017 * Procedures (Immed Post or Bedside) - Willie Baez MD - 02/16/2017 6:07 PM WOOD HEEL FLAP TRIMMER Brief Operative Note Name: Henrik Camejo is a 66 y.o. female : 1950 DATE OF OPERATION: 02/16/2017 Date: 02/16/2017 Preoperative Dx: Hydronephrosis [N13.30] Post-op Diagnosis * Hydronephrosis [N13.30] Procedure(s) (LRB): CYSTOSCOPY, INSERTION STENT LEFT URETER, LEFT RETROGRADE PYELOGRAM (Left) Anesthesia Type: Defer to Anesthesia Surgeon(s) and Role: * Loan Corona MD - Primary * Willie Baez MD - Resident - Assisting Findings: L hydronephrosis. Placement of L JJ ureteral stent (6x24) with purulent urine drainage. 16F lugo catheter Estimated Blood Loss: None Specimen(s) Removed/Disposition: None Complications: None Implants: L JJ ureteral stent (6x24) Drains: Lugo catheter Disposition: PACU - stable Willie Baez MD Pager [phone] Associated attestation - Loan Corona MD - 02/18/2017 8:39 AM WOOD HEEL FLAP TRIMMER Formatting of this note may be different from the original. ATTESTATION I performed this procedure with a resident. Staff name: Loan Croona MD Date: 02/18/2017 * ED Notes - Morgan Lam RN - 02/16/2017 4:12 PM WOOD HEEL FLAP TRIMMER Report to Pre/Post RN. Awaiting transport to get pt * ED Notes - Gretel Hackett RN - 02/16/2017 3:53 PM WOOD HEEL FLAP TRIMMER 1552: Room [id number] (Dirty). Please call MORE Mora @ [phone] for report. * ED Notes - Morgan Lam RN - 02/16/2017 3:25 PM WOOD HEEL FLAP TRIMMER Report received from MORE Mcdaniels. Pt resting comfortably, denies needs at this time. Awaiting room assignment * ED Notes - Meseret Marie RN - 02/16/2017 3:11 PM WOOD HEEL FLAP TRIMMER Report given to MORE Mora. * ED Notes - Meseret Marie RN - 02/16/2017 3:07 PM WOOD HEEL FLAP TRIMMER Pt able to ambulate independently to restroom. Mouth swabs provided. Pt denies nausea. Sitting up in bed. * ED Notes - Morgan Lam RN - 02/16/2017 2:02 PM WOOD HEEL FLAP TRIMMER Urology at bedside * ED Provider Notes - Marielos Hines MD - 02/16/2017 1:28 PM WOOD HEEL FLAP TRIMMER Formatting of this note may be different from the original. Henrik Camejo is a 66 y.o. female. Chief Complaint: Chief Complaint Patient presents with Fever Pt states hx of kidney stones. Recently treated with antibiotics around . Continues to have fevers and pain. History of Present Illness: HPI Comments: Patient is a 66-year-old female with PMH of anal cancer, IBD, nephrolithiasis, UTI, urolithiasis, bowel resection S/P ileostomy presents with fever. The patient has had intermittent fevers since January 30. She presents at this time because the fever has increased over the last 3 days with a high of 103 yesterday. She endorses chills, urinary frequency, cloudy urine , and nausea with dry heaving. She endorses flank pain consistent with her prior nephrolithiasis. She states she has required both lithotripsy and surgical extraction of stones in the past. She states she had previously presented to [facility] but did not want to have a CT for evaluation at that time. She was treated with an antibiotic for possible UTI at that time. She does have a history of rectal adenocarcinoma with history of perineal resection with posterior vaginectomy. She denies any chest pain, shortness of breath, abdominal pain, or any other symptoms not mention at this time. History provided by: Patient Review of Systems: Review of Systems Constitutional: Positive for chills, fatigue and fever. Negative for diaphoresis. HENT: Negative for congestion and sinus pressure. Eyes: Negative for visual disturbance. Respiratory: Negative for chest tightness, shortness of breath and wheezing. Cardiovascular: Negative for chest pain. Gastrointestinal: Positive for nausea. Negative for abdominal distention, abdominal pain, constipation, diarrhea and vomiting. Genitourinary: Positive for dysuria, flank pain, frequency and urgency. Negative for difficulty urinating and hematuria. Musculoskeletal: Negative for back pain, neck pain and neck stiffness. Skin: Negative for rash and wound. Neurological: Negative for dizziness, weakness, light-headedness, numbness and headaches. Psychiatric/Behavioral: Negative for agitation and confusion. All other systems reviewed and are negative. Allergies: Flagyl [metronidazole]; Pcn [penicillins]; and Sulfa (sulfonamide antibiotics) Past Medical History: Past Medical History: Diagnosis Date Anal cancer (HCC) Asthma Inflammatory bowel disease Kidney stones Unspecified deficiency anemia Urinary tract infection Urolithiasis Past Surgical History: Past Surgical History: Procedure Laterality Date LITHOTRIPSY 07/10/2009 right HX BOWEL RESECTION 2013 with colostomy [place] COLONOSCOPY FLX DX W/COLLJ SPEC WHEN PFRMD N/A 04/16/2015 COLONOSCOPY performed by Alec Cordon MD at [facility] ENDO/GI CYSTOURETHROSCOPY HERNIA REPAIR umbilical HX BOWEL RESECTION 1968, 1978?, 1988? HX HYSTERECTOMY HX SMALL BOWEL RESECTION x4 HX TONSILLECTOMY Pertinent medical/surgical history reviewed Social History: Social History Substance Use Topics Smoking status: Never Smoker Smokeless tobacco: Never Used Alcohol use 0.0 oz/week 0 Standard drinks or equivalent per week Comment: rare History Drug Use No Family History: Family History Problem Relation Age of Onset Hypertension Mother Cancer-Prostate Brother Cancer-Breast Paternal Aunt Hypertension Paternal Aunt Stroke Paternal Aunt Stroke Paternal Grandmother Vitals: ED Vitals Date and Time T BP P RR SPO2P SPO2 [facility] 02/16/17 1642 36.5 C (97.7 F) 140/71 99 21 PER MINUTE -- 95 % [place] 02/16/17 1530 -- 117/62 95 22 PER MINUTE 99 93 % SR 02/16/17 1528 -- 115/67 92 19 PER MINUTE 91 93 % SR 02/16/17 1430 -- 134/57 92 18 PER MINUTE 92 92 % KW 02/16/17 1400 -- 134/66 88 16 PER MINUTE 89 92 % SB 02/16/17 1330 -- 117/57 89 19 PER MINUTE 89 95 % KW 02/16/17 1240 -- 123/80 -- -- -- -- KW 02/16/17 1220 -- -- 85 16 PER MINUTE 84 93 % KW 02/16/17 1130 -- 123/62 86 14 PER MINUTE 84 (!) 91 % KW 02/16/17 1040 36.6 C (97.9 F) (!) 129/96 95 20 PER MINUTE -- 97 % KW Physical Exam: Physical Exam Constitutional: She is oriented to person, place, and time. She appears well- developed and well-nourished. HENT: Head: Normocephalic and atraumatic. Mouth/Throat: Oropharynx is clear and moist and mucous membranes are normal. Eyes: EOM are normal. Pupils are equal, round, and reactive to light. Neck: Normal range of motion. Neck supple. Cardiovascular: Normal rate, regular rhythm, normal heart sounds, intact distal pulses and normal pulses. Pulses: Radial pulses are 2+ on the right side, and 2+ on the left side. Dorsalis pedis pulses are 2+ on the right side, and 2+ on the left side. Pulmonary/Chest: Effort normal and breath sounds normal. Abdominal: Soft. She exhibits no distension. There is no tenderness. There is CVA tenderness. There is no rigidity, no rebound and no guarding. Ileosomy appears normal with no skin breakdown or redness. Musculoskeletal: Normal range of motion. Neurological: She is alert and oriented to person, place, and time. Skin: Skin is warm and dry. Psychiatric: She has a normal mood and affect. Nursing note and vitals reviewed. Laboratory Results: Results for orders placed or performed during the hospital encounter of (from the past 24 hour(s)) CBC AND DIFF Result Value Ref Range White Blood Cells 11.5 [...] Basophil Count 0.10 0 - 0.20 K/UL COMPREHENSIVE METABOLIC PANEL Result Value Ref Range Sodium 135 (L) 137 [...] 12 eGFR Non 41 (L) >60 mL/min eGFR 50 (L) >60 mL/min LIPASE Result Value Ref Range Lipase 7 (L) 11 - 82 U/L POC LACTATE Result Value Ref Range LACTIC ACID POC 0.8 0.5 - 2.0 MMOL/L URINALYSIS DIPSTICK Result Value Ref Range Color,UA LUKE Turbidity,UA 2+ (A) CLEAR-CLEAR Specific [place]-Urine 1.011 1.003 - 1.035 pH,UA 6.0 5.0 - 8.0 Protein,UA 1+ (A) NEG-NEG Glucose,UA NEG NEG-NEG Ketones,UA 1+ (A) NEG-NEG Bilirubin,UA NEG NEG-NEG Blood,UA 1+ (A) NEG-NEG Urobilinogen,UA NORMAL NORM-NORMAL Nitrite,UA POS (A) NEG-NEG Leukocytes,UA 3+ (A) NEG-NEG Urine Ascorbic Acid, UA NEG NEG-NEG URINALYSIS, MICROSCOPIC Result Value Ref Range WBCs,UA PACKED 0 - 2 /HPF RBCs,UA 20-50 0 - 3 /HPF Bacteria,UA MANY (A) NEG-NEG WBC Clumps PRESENT Squamous Epithelial Cells 0-2 0 - 5 Radiology Interpretation: CT ABD/PELV WO CONTRAST Final Result 1. INTERVAL DEVELOPMENT OF MODERATE SEVERE LEFT [...] César Gamino M.D. on 02/16/2017 12:41 PM. POC ED US RENAL/BLADDER Final Result [facility] Ultrasound Exam Date: 02/16/2017 Exam Type: POC ED US RENAL/BLADDER Telecasting Engineer: Derik Cote Attending: Marielos Hines Worksheet: ED-Renal & Bladder Clinical Indication(s) for Exam: Flank Pain Other: L Views: Right Kidney Long Peyton: Adequate Right Kidney Short Peyton: Adequate Left Kidney Long Peyton: Adequate Left Kidney Short Peyton: Adequate Bladder Long Peyton: Not obtained Bladder Short Peyton: Adequate Findings: Right Kidney Hydronephrosis: Absent Left Kidney Hydronephrosis: Severe Interpretation: Hydronephrosis: Left, Severe Bladder Size: Normal Physician Approval: Resident/Fellow Signature: Not signed Credentialed Physician: Signed by Marielos Hines on Thursday, February 16, 2017 at 11:57:29 AM EKG: ED Course: Patient is a 66-year-old female with PMH of anal cancer, IBD, nephrolithiasis , UTI, urolithiasis, bowel risk section S/P ileostomy presents with fever. Patient seen and evaluated by resident and attending. Pt presents with BP 129/96, Temp 36.6, 97% oxygenation, Pulse 95. Physical exam significant for 58-year-old female in mild distress, lungs CTA bilaterally, abdomen nontender to palpation with an ostomy in the left lower quadrant, moist mucous membranes, peripheral pulses intact, left flank tenderness. Differential diagnosis includes hydronephrosis, nephrolithiasis, urolithiasis , UTI, gastroenteritis, bacteremia. Labwork significant for CBC with Hgb 11.6, WBC 8.5. CMP sodium 135, potassium 3.9, anion gap 14, creatinine elevated 1.28. LFTs WNL. Lipase 7. Lactic acid 0.8. Blood cultures pending. UA positive for nitrites, 3+ leuks, packed WBCs, 20-50 RBCs. Imaging shows [id number] ultrasound with severe left kidney hydronephrosis. CT demonstrates severe left hydronephrosis and proximal left hydroureter. Improvement of stone burden of the left kidney with persistent nephrolithiasis. Meds given: Rocephin, lactated Ringer's, fentanyl, Zofran. Patient presents with fever, left flank pain, and dysuria. Concern for repeat obstructive nephrolithiasis with pyelonephritis. UA positive with CT showing severe hydronephrosis. Patient treated with Rocephin. Patient given lactated Ringer's, fentanyl, and Zofran for symptoms in the ED. Urology consulted and recommends admission for operative management and left ureteral stent placement. Recommends Zofran and oxycodone as needed. Patient accepted to urology for admission. MDM Reviewed: previous chart, nursing note and vitals Reviewed previous: labs and CT scan Interpretation: labs, ultrasound and CT scan Consults: urology Facility Administered Meds: Facility-Administered Medications as of 02/16/2017 Medication Last Dose ceFAZolin (ANCEF) IVP 2 g [COMPLETED] cefTRIAXone (ROCEPHIN) IVP 1 g 1 g at 02/16/17 1403 [DISCONTINUED] cefTRIAXone (ROCEPHIN) IVP 1 g dexamethasone (DECADRON) injection 4 mg at 02/16/17 1723 dextran 70/hypromellose (NATURAL BALANCE TEARS) 0.1/0.3 % ophthalmic solution 2 drop at 02/16/17 1720 fentaNYL citrate PF (SUBLIMAZE) injection 25 mcg at 02/16/17 1732 lactated ringers infusion 1,000 mL at 02/16/17 1647 levofloxacin (LEVAQUIN) 500 mg/100 mL IVPB 500 mg at 02/16/17 1722 lidocaine (PF) injection 40 mg at 02/16/17 1719 midazolam (VERSED) injection 0.5 mg at 02/16/17 1717 [MAR Hold] ondansetron (ZOFRAN) injection 4 mg Stopped at 02/16/17 1517 phenylephrine in NS Injection 100 mcg at 02/16/17 1734 propofol (DIPRIVAN) injection 100 mg at 02/16/17 1719 sodium chloride 0.9 % irrigation bag 3,000 mL at 02/16/17 1729 succinylcholine (ANECTINE) injection 50 mg at 02/16/17 1719 Clinical Impression: Final diagnoses: Nephrolithiasis Hydronephrosis, unspecified hydronephrosis type Acute pyelonephritis (Primary) Disposition/Follow up Admit No follow-up provider specified. Medications: Current Discharge Medication List Procedure Notes: Procedures Attestation / Supervision: Attestation / Supervision Note concerning Henrik Camejo: I personally performed the mcclain portions of the E/M visit, discussed case with resident and concur with resident documentation of history, physical exam, assessment, and treatment plan unless otherwise noted. MD Derik NGUYEN MD * ED Notes - Meseret Marie RN - 02/16/2017 12:35 PM WOOD HEEL FLAP TRIMMER Pt to CT scan. * ED Notes - Meseret Marie RN - 02/16/2017 12:03 PM WOOD HEEL FLAP TRIMMER Pt able to ambulate to bathroom independently. * ED Notes - Meseret Marie RN - 02/16/2017 11:03 AM WOOD HEEL FLAP TRIMMER Pt presents to the ED with her spouse. Reports hx of kidney stones and flank pain since before . Was seen in [place], [place] and started on antibiotics around that time. Reports finished course of antibiotics. Continues to have flank pain and fevers at home. As high as 102-103 at home. Pt states she just feels "terrible and so crummy". Reports generalized weakness. States nausea and dry heaves. Pt alert and oriented. Able to ambulate back to room. Connected to monitor. Call light within reach. * ED Notes - Meseret Marie RN - 02/16/2017 11:00 AM WOOD HEEL FLAP TRIMMER Pt belongings include: Red purse [place] w/ ID 4 credit cards Cell phone w/ spouse Black pants Longsleeve shirt Alves purse Glasses Belongings in pt belonging bag at bedside with spouse. in this encounter Plan of Treatment Date Type Specialty Care Team Description 04/27/2017 Procedure Pass Urology as of this encounter Procedures Procedure Name Priority Date/Time Associated Diagnosis Comments ECG-SCAN 02/25/2017 Results for this 8:46 AM WOOD HEEL FLAP TRIMMER procedure are in the results section. CYSTOSCOPY, INSERTION 02/16/2017 Hydronephrosis STENT LEFT URETER, LEFT 5:00 PM WOOD HEEL FLAP TRIMMER RETROGRADE PYELOGRAM in this encounter Results * ECG-SCAN (02/25/2017 8:46 AM) Narrative Ordered by an unspecified provider. * BASIC METABOLIC PANEL (02/17/2017 5:43 AM) Component Value Ref Range Sodium 137 137 - 147 MMOL/L Potassium 4.2 3.5 - 5.1 MMOL/L Chloride 104 98 - 110 MMOL/L CO2 21 21 - 30 MMOL/L Anion Gap 12 3 - 12 Glucose 110 (H) 70 - 100 MG/DL Blood Urea Nitrogen 24 7 - 25 MG/DL Creatinine 1.13 (H) 0.4 - 1.00 MG/DL Calcium 7.9 (L) 8.5 - 10.6 MG/DL eGFR Non 48 (L) >60 mL/min Comment: The eGFR is not validated for use in drug dosing adjustments. Continue to use estimated creatinine clearance per dosing reference text. Please contact the Clinical Pharmacist for questions. eGFR 58 (L) >60 mL/min Comment: The eGFR is not validated for use in drug dosing adjustments. Continue to use estimated creatinine clearance per dosing reference text. Please contact the Clinical Pharmacist for questions. Specimen Performing Laboratory [facility] [address] [place] [address] * CBC (02/17/2017 5:43 AM) Component Value Ref Range White Blood Cells 4.3 (L) 4.5 - 11.0 K/UL RBC 3.79 (L) 4.0 - 5.0 M/UL Hemoglobin 11.2 (L) 12.0 - 15.0 GM/DL Hematocrit 33.9 (L) 36 - 45 % MCV 89.4 80 - 100 FL MCH 29.6 26 - 34 PG MCHC 33.1 32.0 - 36.0 G/DL RDW 15.8 (H) 11 - 15 % Platelet Count 150 150 - 400 K/UL MPV 8.3 7 - 11 FL Specimen Performing Laboratory [facility] [address] [place] [address] * CT ABD/PELV WO CONTRAST (02/16/2017 12:35 [...] Interface, Radiant Results - 02/16/2017 1:09 PM WOOD HEEL FLAP TRIMMER CT Abdomen and Pelvis Clinical Indication: L [...] Gamino M.D. on 02/16/2017 12:41 PM. * CULTURE-URINE W/SENSITIVITY (02/16/2017 12:14 PM) Component Value Ref Range Battery Name URINE CULTURE Specimen Description URINE, CLEAN CATCH Special Requests NONE Culture >100,000 organisms/ml ESCHERICHIA COLI (A) Report Status FINAL 02/20/2017 Organism ID >100,000 organisms/ml ESCHERICHIA COLI Specimen Performing Laboratory Urine - Urine,Clean Catch [facility] [address] [place] [address] Organism Antibiotic Method Susceptibility >100,000 organisms/ml Ertapenem BEJARANO HEREDIA SUSCEPTIBLE: Susceptible escherichia coli >100,000 organisms/ml Gentamicin BEJARANO HEREDIA SUSCEPTIBLE: Susceptible escherichia coli >100,000 organisms/ml Ampicillin BEJARANO HEREDIA RESISTANT: Resistant escherichia coli >100,000 organisms/ml Cefazolin BEJARANO HEREDIA RESISTANT: Resistant escherichia coli >100,000 organisms/ml Nitrofurantoin BEJARANO HEREDIA SUSCEPTIBLE: Susceptible escherichia coli >100,000 organisms/ml Trimethsulfa BEJARANO HEREDIA RESISTANT: Resistant escherichia coli >100,000 organisms/ml Piperacil/Tazobactam BEJARANO HEREDIA RESISTANT: Resistant escherichia coli >100,000 organisms/ml Tetracycline BEJARANO HEREDIA RESISTANT: Resistant escherichia coli >100,000 organisms/ml Cefepime BEJARANO HEREDIA SUSCEPTIBLE, DOSE escherichia coli DEPENDENT: Intermediate >100,000 organisms/ml Ceftriaxone BEJARANO HEREDIA SUSCEPTIBLE: Susceptible escherichia coli >100,000 organisms/ml Amoxicil/Clav Acid BEJARANO HEREDIA SUSCEPTIBLE: Susceptible escherichia coli >100,000 organisms/ml Method BEJARANO HEREDIA BEJARANO HEREDIA escherichia coli * URINALYSIS, MICROSCOPIC (02/16/2017 12:14 PM) Component Value Ref Range WBCs,UA PACKED 0 - 2 /HPF RBCs,UA 20-50 0 - 3 /HPF Bacteria,UA MANY (A) NEG-NEG WBC Clumps PRESENT Squamous Epithelial Cells 0-2 0 - 5 Specimen Performing Laboratory U[facility] [address] [place] [address] * URINALYSIS DIPSTICK (02/16/2017 12:14 PM) Component Value Ref Range Color,UA LUKE Turbidity,UA 2+ (A) CLEAR-CLEAR Specific [place]-Urine 1.011 1.003 - 1.035 pH,UA 6.0 5.0 - 8.0 Protein,UA 1+ (A) NEG-NEG Glucose,UA NEG NEG-NEG Ketones,UA 1+ (A) NEG-NEG Bilirubin,UA NEG NEG-NEG Blood,UA 1+ (A) NEG-NEG Urobilinogen,UA NORMAL NORM-NORMAL Nitrite,UA POS (A) NEG-NEG Leukocytes,UA 3+ (A) NEG-NEG Urine Ascorbic Acid, UA NEG NEG-NEG Specimen Performing Laboratory Urine [facility] [address] [place] [address] * POC ED US RENAL/BLADDER (02/16/2017 11:24 AM) Specimen Performing Laboratory [facility] RAD RESULTS Impressions [facility] - Clzmr-gd-[id number] Ultrasound Exam Date: 02/16/2017 Exam Type: POC ED US RENAL/BLADDER Telecasting Engineer: Derik Cote Attending: Marielos Hines Worksheet: ED-Renal & Bladder Clinical Indication(s) for Exam: Flank Pain Other: L Views: Right Kidney Long Peyton: Adequate Right Kidney Short Peyton: Adequate Left Kidney Long Peyton: Adequate Left Kidney Short Peyton: Adequate Bladder Long Peyton: Not obtained Bladder Short Peyton: Adequate Findings: Right Kidney Hydronephrosis: Absent Left Kidney Hydronephrosis: Severe Interpretation: Hydronephrosis: Left, Severe Bladder Size: Normal Physician Approval: Resident/Fellow Signature: Not signed Credentialed Physician: Signed by Marielos Hines on Thursday, February 16, 2017 at 11:57:29 AM Procedure Note Interface, Radiant Results - 02/16/2017 11:58 AM WOOD HEEL FLAP TRIMMER IMPRESSION [facility] - Zbrfh-ca-Qwen Ultrasound Exam Date: 02/16/2017 Exam Type: POC ED US RENAL/BLADDER Telecasting Engineer: Derik Cote Attending: Marielos Hines Worksheet: ED-Renal & Bladder Clinical Indication(s) for Exam: Flank Pain Other: L Views: Right Kidney Long Peyton: Adequate Right Kidney Short Peyton: Adequate Left Kidney Long Peyton: Adequate Left Kidney Short Peyton: Adequate Bladder Long Peyton: Not obtained Bladder Short Peyton: Adequate Findings: Right Kidney Hydronephrosis: Absent Left Kidney Hydronephrosis: Severe Interpretation: Hydronephrosis: Left, Severe Bladder Size: Normal Physician Approval: Resident/Fellow Signature: Not signed Credentialed Physician: Signed by Marielos Hines on Thursday, February 16, 2017 at 11:57:29 AM * POC LACTATE (02/16/2017 11:04 AM) Component Value Ref Range LACTIC ACID POC 0.8 0.5 - 2.0 MMOL/L Specimen Performing Laboratory [facility] [address] [place] [address] * CULTURE-BLOOD W/SENSITIVITY (02/16/2017 10:50 AM) Component Value Ref Range Battery Name BLOOD CULTURE Specimen Description BLOOD LEFT CHEST Special Requests NONE Culture NO GROWTH 5 DAYS Report Status FINAL 02/22/2017 Specimen Performing Laboratory [facility] [address] [place] [address] * LIPASE (02/16/2017 10:50 AM) Component Value Ref Range Lipase 7 (L) 11 - 82 U/L Specimen Performing Laboratory [facility] [address] [place] [address] * COMPREHENSIVE METABOLIC PANEL (02/16/2017 10:50 AM) [...] Performing Laboratory [facility] [address] [place] [address] * CBC AND DIFF (02/16/2017 10:50 AM) [...] - 0.20 K/UL Specimen Performing Laboratory Blood [facility] [address] [place] [address] in this encounter Visit Diagnoses Diagnosis Hydronephrosis, unspecified hydronephrosis type Nephrolithiasis Calculus of kidney Acute pyelonephritis Acute pyelonephritis without lesion of renal medullary necrosis Renal calculi Calculus of kidney Admitting Diagnoses Diagnosis Hydronephrosis - Hydronephrosis Administered Medications Medication Order MAR Action Action Date Dose Rate Site allopurinol (ZYLOPRIM) tablet 300 mg Given 02/18/2017 300 mg 300 mg, Oral, DAILY, First dose on Thu 09:09 WOOD HEEL FLAP TRIMMER 02/18/17 at 0900, Until Discontinued calcium carbonate/vitamin D-3 Given 02/18/2017 1 tablet (OSCAL-500+D) 1250 mg/200 unit tablet 1 09:09 WOOD HEEL FLAP TRIMMER tablet 1 tablet, Oral, DAILY, First dose on Thu02/18/17 at 0900, Until Discontinued cefTRIAXone (ROCEPHIN) IVP 1 g Given 02/16/2017 1 g 1 g, Intravenous, ONCE, 1 dose, Thu 14:03 WOOD HEEL FLAP TRIMMER 02/16/17 at 1400, INSTR: IV PUSH -- RECONSTITUTE EACH 1 GM WITH 10 MLS 0.9% NACL cholecalciferol (VITAMIN D-3) tablet Given 02/18/2017 1,000 Units 1,000 Units 09:09 WOOD HEEL FLAP TRIMMER 1,000 Units, Oral, DAILY, First dose on Thu02/18/17 at 0900, Until Discontinued diphenoxylate/atropine (LOMOTIL) Given 02/17/2017 1 tablet 2.5/0.025 mg tablet 1 tablet 16:28 WOOD HEEL FLAP TRIMMER 1 tablet, Oral, DAILY PRN, Starting Thu02/17/17 at 1446, Until Thu02/18/17 at 1419, Diarrhea, Note: Max 8 tabs/day (20 mg diphenoxylate) heparin (porcine) PF syringe 5,000 Units Given 02/16/2017 5,000 Units Abdominal 5,000 Units, Subcutaneous, EVERY 8 21:16 WOOD HEEL FLAP TRIMMER Tissue HOURS, First dose on Thu02/16/17 at 2200, Until Discontinued, NOTE: This is a HIGH ALERT Medication. Given 02/17/2017 5,000 Units Arm, Left 06:34 WOOD HEEL FLAP TRIMMER heparin lock flush PF syringe 500 Units Given 02/18/2017 500 Units 500 Units, Intra-catheter, ONCE PRN, 1 11:56 WOOD HEEL FLAP TRIMMER dose, Starting Thu02/18/17 at 1029, Until Thu02/18/17 at 2359, Catheter flush, When de-accessing a port-a-cath pack with 5 mL heparin (100 units/mL) unless contraindicated. NOTE: This is a HIGH ALERT Medication. lactated ringers infusion Given - New 02/16/2017 1,000 mL 20 mL/hr 1,000 mL, 1,000 mL, Intravenous, at 20 Bag 16:47 WOOD HEEL FLAP TRIMMER mL/hr, CONTINUOUS, Starting Thu02/16/17 at 1615, Until Thu02/17/17 at 0600 levofloxacin (LEVAQUIN) 500 mg/100 mL Given - New 02/18/2017 500 mg IVPB Bag 09:09 WOOD HEEL FLAP TRIMMER 500 mg, 100 mL, Administer over 60 Minutes, Intravenous, EVERY 48 HOURS, First dose on Thu02/18/17 at 0900, Until Discontinued, Admission/Obs/Extended Recovery loperamide (IMODIUM A-D) capsule 8 mg Given 02/17/2017 8 mg 8 mg, Oral, DAILY, First dose on Thu 16:28 WOOD HEEL FLAP TRIMMER 02/17/17 at 1730, Until Discontinued, GIVE WITH EACH LOOSE STOOL; NOT TO EXCEED 16MG/24HRS pantoprazole DR (PROTONIX) tablet 40 mg Given 02/17/2017 40 mg 40 mg, Oral, DAILY, First dose on Thu 20:33 WOOD HEEL FLAP TRIMMER 02/17/17 at 2100, Until Discontinued, Do not crush or chew tablet. polyethylene glycol 3350 (MIRALAX) Given 02/16/2017 17 g packet 17 g 21:16 WOOD HEEL FLAP TRIMMER 17 g (1 packet), Oral, TWICE DAILY, First dose on Thu02/16/17 at 2100, Until Discontinued, Admission/Obs/Extended Recovery promethazine (PHENERGAN) injection 6.25 Given 02/16/2017 6.25 mg mg 18:17 WOOD HEEL FLAP TRIMMER 6.25 mg, Intravenous, EVERY 10 MIN PRN, Starting Thu02/16/17 at 1747, Until Thu02/16/17 at 1946, Other..., nausea/vomiting, Second line agent, give if first line agent ineffective. Give in freely running IV and dilute in 10mL 0.9% sodium chloride. May repeat to total dose of 25 mg from all routes ordered PRN, if no relief in 15 minutes then notify anesthesia physician. PROTECT FROM LIGHT For IV Administration: a. Admin. each dose slowly over at least 5 min. Use lowest effective dose. b. Admin. through a large-bore vein (central venous site preferably). AVOID HAND OR WRIST VEINS UNLESS NO OTHER ALTERNATIVES ARE AVAILABLE. Do NOT administer intra-arterially. c. Check patency of site before admin. Inspect site around catheter tip and extremity for swelling, blanching, bleb formation, stretched and firm skin or coolness. d. Remain in continual contact with the patient during admin. and for 5 minutes following to observe for adverse reactions and monitor injection site. e. Ask patient to report any burning or discomfort during infusion. If extravasation is suspected, stop infusion immediately, implement Extravasation Management Protocol, and notify physician. sodium chloride 0.9 % infusion Given - New 02/16/2017 100 mL/hr 1,000 mL, Intravenous, at 100 mL/hr, Bag 18:54 WOOD HEEL FLAP TRIMMER CONTINUOUS, Starting Thu02/16/17 at 1900, Until Thu02/17/17 at 0600, Admission/Obs/Extended Recovery SODIUM CHLORIDE 0.9 % IV SOLP (Cabinet Override) NOW, 1 dose, Thu02/16/17 at 1900, Created by cabinet override
--- OUTSIDE RECORDS SUMMARY | 2017-04-29 14:21 | XMS REPORT | Encounter Summary ---
Author Author [facility] Organization [facility] Address Unknown Phone Unavailable Care Team Providers Care Machine Lay Out Worker Name Role Phone Nick Levine MD Unavailable [...] Unavailable Timothy Jacobs MD Unavailable Patt Davidson GAME DESIGNER/CREATIVE DIRECTOR-ICU REGISTERED NURSE Unavailable Enedelia Rebolledo Unavailable Unavailable Fide Leung MD Unavailable Alec Cordon MD Unavailable George Jordan MD Unavailable Francy Soriano RN Unavailable Unavailable Ama Diallo RN Unavailable Unavailable Kasandra Chacon RN Unavailable Unavailable Scottie Nunez MD Unavailable Unavailable Bharat Love CRNA Unavailable Sharita Padilla MD Unavailable Richard Fleming MD PCP Encounter Details Date Type Department Care Team Description 02/16/2017 Procedure Pass Main Operating Room [address] [place] [id number] Social History Tobacco Use Types Packs/Day Years [...]
--- OUTSIDE RECORDS SUMMARY | 2017-04-29 14:21 | XMS REPORT | Encounter Summary ---
Author Author [facility] Organization [facility] Address Unknown Phone Unavailable Care Team Providers Care Pack Worker Supervisor Name Role Phone Nick Levine MD Unavailable [...] Unavailable Timothy Jacobs MD Unavailable Patt Davidson LAP LAYER-HOTEL HOUSEMAN Unavailable Enedelia Rebolledo Unavailable Unavailable Fide Leung MD Unavailable Alec Cordon MD Unavailable George Jordan MD Unavailable Francy Soriano RN Unavailable Unavailable Ama Diallo RN Unavailable Unavailable Kasandra Chacon RN Unavailable Unavailable Scottie Nunez MD Unavailable Unavailable Bharat Love RING PACKER Unavailable Sharita Padilla MD Unavailable Richard Fleming MD PCP Reason for Visit * Auth/Cert Status Reason Specialty Diagnoses / Referred By Referred To Procedures Contact Contact Diagnoses Hydronephrosis Hydronephrosis Encounter Details Date Type Department Care Team Description 02/16/2017 Anesthesia Main Operating Room Adarsh Whiting CRNA [address] [facility] [address] [place] [address] [address] [place], [place] [id number] Anesthesia Record Procedure Name Responsible Anesthesia Start Time Anesthesia Stop Time Anesthesiologist CYSTOSCOPY, INSERTION Valerie Cullen, 02/16/17 1717 02/16/17 1751 STENT LEFT URETER, LEFT RETROGRADE PYELOGRAM (Left Ureter) Date Time Event Comment 1655 AN Equip Check 2016 171 Anes Start 1717 An Start Data 1719 An Induction The patient was reevaluated immediately before moderate or deep sedation use and before anesthesia induction. 1720 An Intubation 1722 Anesthesia Ready 1722 Antibiotic Given 172 Proc Start 1747 An Extubation 1747 an stop data 175 Handoff to RN I completed my SBAR handoff to the receiving nurse. 175 An Stop Meds Name Total midazolam (VERSED) 1 mg/mL injection 0.5 mg fentaNYL PF (SUBLIMAZE) injection 50 mcg lidocaine (2%) 200 mg/10mL Injection 40 mg syringe propofol (DIPRIVAN) 200 mg/ 20 mL 100 mg injection (VIAL) succinylcholine (ANECTINE) injection 50 mg (VIAL) dexamethasone (DECADRON) 4 mg/mL 4 mg injection phenylephrine (GANESH-SYNEPHRINE) 0.1 mg/mL 200 mcg injection (SYRINGE) dextran 70/hypromellose (NATURAL BALANCE 2 drop TEARS) 0.1-0.3% ophthalmic solution levofloxacin (LEVAQUIN) 500 mg/100 mL 500 mg IVPB ondansetron (ZOFRAN) injection 4 mg 4 mg lactated ringers infusion 450 mL * Name O2 N2O Inspired N2O [...] (NOT for Wilda Cohen RN Pressure Injuries) Peripheral 04/16/15; 0955; Prehospital IV; L; Other 04/16/15 0955 by Galindo, 04/24/17 1853 by JAYDA Smith (Comment) (subclavian); 04/24/17; 185 MORE Matthew, RN Portacath Prehospital IV; 04/26/17; 0635 08/13/16 1236 by 04/26/17 0635 by Sumi Singer RN ETT 02/16/17; 1722; Mask ventilation not 02/16/17 1722 by 02/16/17 1747 by attempted (0); Direct laryngoscopy, Walker Carter, Walker Mann SRNA Stylet, Rapid sequence; Single-Lumen, Cuffed; 7mm; Mac; 3; Oral; 2a-Partial view of the glottis; 1 insertion attempt; Auscultation, ETCO2 Detector; 21 centimeters; Atraumatic insertion; 02/16/17; 1747 Indwelling 02/16/17; 1740; Unit (Comment); Urology; 02/16/17 1740 by 02/22 0620 by Urinary 16 FR; Regular (Two-way); 02/17/17; 0620 Opal Zambrano, Yajaira Michel RN Catheter Wounds 02/16/17; 1745; Left; Other (Comment); 02/16/17 1745 by 02/18/17 1219 by Leon, (NOT for Surgical Incision; 02/18/17; 1219; NO Opal Zambrano RN Karen Pressure DRESSINGS Injuries) in this encounter Social History Tobacco Use [...] Postprocedure Evaluation - Marquita Bermudez MD - 02/16/2017 6:45 PM VEST TAILOR Post-Anesthesia Evaluation Name: Gayle Camejo : 1950 Age: 66 y.o. Sex : female Procedure Date: 02/16/2017 Procedure: Procedure(s): CYSTOSCOPY, INSERTION STENT LEFT URETER, LEFT RETROGRADE PYELOGRAM Surgeon: Surgeon(s): MD Willie Ramirez MD Post-Anesthesia Vitals BP: 124/57 (02/16 1830) Temp: 36.6 C (97.9 F) (02/16 1830) Pulse: 74 (02/16 1830) Respirations: 14 PER MINUTE (02/16 1830) SpO2: 97 % (02/16 1830) O2 Delivery: Nasal Cannula (02/16 1830) SpO2 Pulse: 74 (02/16 1830) Height: 157.5 cm (62") (02/16 1642) Post Anesthesia Evaluation Note Evaluation location: Pre/Post Patient participation: recovered; patient participated in evaluation Level of consciousness: alert Pain score: 0 Pain management: adequate Hydration: normovolemia Temperature: 36.0C - 38.4C Airway patency: adequate Perioperative Events Perioperative events: no Post-op nausea and vomiting: nausea; resolved Postoperative Status Cardiovascular status: hemodynamically stable Respiratory status: spontaneous ventilation Additional comments: Patient going to floor. Perioperative Events Perioperative Event: No Emergency Case Activation: No Associated attestation - Alec Hamm MD - 02/17/2017 11:42 AM VEST TAILOR Formatting of this note may be different from the original. ATTESTATION Post-Anesthesia Evaluation Attestation: I reviewed and agree the indicated post- anethesia care was provided. Staff name: Alec Hamm MD Date: 02/17/2017 * Anesthesia Preprocedure Evaluation - Valerie Cullen MD - 02/16/2017 4:25 PM VEST TAILOR Formatting of this note may be different from the original. Anesthesia Pre-Procedure Evaluation Name: Gayle Camejo : 1950 Age: 66 y.o. Sex : female Procedure Date: 02/16/2017 Procedure: Procedure(s): CYSTOSCOPY INSERTION STENT URETER - LEFT Physical Assessment Vital Signs (last filed in past 24 hours): BP: 117/62 (02/16 1530) Temp: 36.6 C (97.9 F) (02/17 1040) Pulse: 95 (02/16 1530) Respirations: 22 PER MINUTE (02/16 1530) SpO2: 93 % (02/16 1530) O2 Delivery: None (Room Air) (02/17 1040) Patient History Allergies Allergen Reactions Flagyl [Metronidazole] [...] Take 40 mg by mouth every morning. LACTOBACILLUS ACIDOPHILUS (PROBIOTIC PO) Take 1 Cap by mouth daily. loperamide (IMODIUM) 2 mg capsule Take 8 mg by mouth daily. ondansetron (ZOFRAN) 8 mg tablet Take 8 mg by mouth every 8 hours as needed for Nausea or Vomiting. potassium chloride (KDUR) 10 mEq tablet Take [...] Findings: Rhythm: regular Rate: normal Pulmonary Findings: Negative Abdominal Findings: Not obese Neurological Findings: Normal mental status Diagnostic Tests Hematology: Lab Results Component Value Date HGB 11.6 02/16/2017 HCT 35.1 02/16/2017 PLTCT 156 02/16/2017 WBC 11.5 02/16/2017 NEUT 67 02/16/2017 ANC 7.70 02/16/2017 ALC 2.80 02/16/2017 TAVARES 8 02/16/2017 AMC 0.90 02/16/2017 EOSA 0 02/16/2017 ABC 0.10 02/16/2017 MCV 89.5 02/16/2017 MCH 29.7 02/16/2017 MCHC 33.2 02/16/2017 MPV 8.1 02/16/2017 RDW 15.8 02/16/2017 General Chemistry: Lab Results Component Value Date NA 135 02/16/2017 K 3.9 02/16/2017 CL 99 02/16/2017 CO2 22 02/16/2017 GAP 14 02/16/2017 BUN 18 02/16/2017 CR 1.28 02/16/2017 GLU 66 02/16/2017 CA 8.6 02/16/2017 ALBUMIN 3.3 02/16/2017 LACTIC 0.7 01/17/2014 OBSCA 1.01 01/16/2014 MG 1.1 06/21/2014 TOTBILI 0.8 02/16/2017 PO4 3.4 01/23/2014 Coagulation: Lab Results Component Value Date PTT 32.1 04/20/2012 INR 1.3 06/21/2014 Anesthesia Plan ASA score: 2 emergent Plan: general Induction method: intravenous NPO status: acceptable Informed Consent Anesthetic plan and risks discussed with patient. Use of blood products discussed with patient; consented to blood products. in this encounter Plan of Treatment Date Type Specialty Care Team Description 04/27/2017 Procedure Pass Urology as of this encounter Visit Diagnoses Not on filein this encounter Administered Medications Medication Order MAR Action Action Date Dose Rate Site dexamethasone (DECADRON) injection Given 02/16/2017 4 mg Intravenous, INTRA-PROCEDURE MED, 17:23 VEST TAILOR Starting Thu02/16/17 at 1723, Until Thu02/16/17 at 1753, Nausea/Vomiting Injectable, Anesthesia Intra-op dextran 70/hypromellose (NATURAL BALANCE Given 02/16/2017 2 drops TEARS) 0.1/0.3 % ophthalmic solution 17:20 VEST TAILOR INTRA-PROCEDURE MED, Starting Thu02/16/17 at 1720, Until Thu02/16/17 at 1753, Dry Eyes, Irritated Eyes, Anesthesia Intra-op fentaNYL citrate PF (SUBLIMAZE) Given 02/16/2017 25 mcg injection 17:18 VEST TAILOR INTRA-PROCEDURE MED, Starting Thu02/16/17 at 1718, Until Thu02/16/17 at 1753, Pain Injectable, Anesthesia Intra-op Given 02/16/2017 25 mcg 17:32 VEST TAILOR levofloxacin (LEVAQUIN) 500 mg/100 mL Given 02/16/2017 500 mg IVPB 17:22 VEST TAILOR Administer over 60 Minutes, INTRA-PROCEDURE MED, Starting Thu02/16/17 at 1722, Until Thu02/16/17 at 1753, Anesthesia Intra-op lidocaine (PF) injection Given 02/16/2017 40 mg INTRA-PROCEDURE MED, Starting Thu 17:19 VEST TAILOR 02/16/17 at 1719, Until Thu02/16/17 at 1753, Anesthesia Intra-op midazolam (VERSED) injection Given 02/16/2017 0.5 mg Intravenous, INTRA-PROCEDURE MED, 17:17 VEST TAILOR Starting Thu02/16/17 at 1717, Until Thu02/16/17 at 1753, Agitation Injectable, Anxiety Injectable, Anesthesia Intra-op ondansetron (ZOFRAN) injection 4 mg Given 02/16/2017 4 mg 4 mg, Intravenous, EVERY 6 HOURS PRN, 17:39 VEST TAILOR Starting Thu02/16/17 at 1207, Until Thu02/18/17 at 1419, Nausea/Vomiting Injectable phenylephrine in NS Injection Given 02/16/2017 100 mcg Intravenous, INTRA-PROCEDURE MED, 17:26 VEST TAILOR Starting Thu02/16/17 at 1726, Until Thu02/16/17 at 1753, Symptomatic Hypotension, Anesthesia Intra-op Given 02/16/2017 100 mcg 17:34 VEST TAILOR propofol (DIPRIVAN) injection Given 02/16/2017 100 mg INTRA-PROCEDURE MED, Starting Thu 17:19 VEST TAILOR 02/16/17 at 1719, Until Thu02/16/17 at 1753, Anesthesia Intra-op succinylcholine (ANECTINE) injection Given 02/16/2017 50 mg Intravenous, INTRA-PROCEDURE MED, 17:19 VEST TAILOR Starting Thu02/16/17 at 1719, Until Thu02/16/17 at 1753, Anesthesia Intra-op in this encounter
--- OUTSIDE RECORDS SUMMARY | 2017-04-29 14:22 | XMS REPORT | Encounter Summary ---
Author Author [facility] Organization [facility] Address Unknown Phone Unavailable Care Team Providers Care Stave Log Ripsaw Operator Name Role Phone Nick Levine MD [...] Unavailable Timothy Jacobs MD Unavailable Patt Davidson SHIP'S SURVEYOR-MEDICAL COLLECTOR Unavailable Enedelia Rebolledo Unavailable Unavailable Fide Leung [...] Date Type Department Care Team Description 02/16/2017 Surgery Main Operating Room Loan Corona MD CYSTOSCOPY, INSERTION [address] STENT LEFT U[place]TER, [place] [address] [address] RETROGRADE PYELOGRAM [phone] [place], [place] [id number] Social History Tobacco Use Types Packs/Day Years Used Date Never Smoker Smokeless Tobacco: Never Used Alcohol Use Drinks/Week oz/Week Comments Yes 0 Standard 0.0 rare drinks or equivalent Sex Assigned at Date Recorded Not on file as of this encounter Last Filed Vital Signs Vital Sign Reading Time Taken Blood Pressure 133/60 02/18/2017 6:22 AM PATTERN KEEPER Pulse 74 02/18/2017 6:22 AM PATTERN KEEPER Temperature 36.2 C (97.2 F) 02/18/2017 6:22 AM PATTERN KEEPER Respiratory Rate - - Oxygen Saturation 98% 02/18/2017 6:22 AM PATTERN KEEPER Inhaled Oxygen - - Concentration Weight 44.5 kg (98 lb) 02/16/2017 4:42 PM PATTERN KEEPER Height 157.5 cm (5' 2") 02/16/2017 4:42 PM PATTERN KEEPER Body Mass Index 17.92 02/16/2017 4:42 PM PATTERN KEEPER in this encounter Functional Status Functional Status [...] Meseret Ch APRN-NP - 02/18/2017 12:19 PM PATTERN KEEPER Formatting of this note may be different [...] or concerns regarding your hospital stay. Call [phone] You may have questions about your hospital stay after you get home. From 8 AM to 4 PM Thursday through Thursday, please call Dr. Corona's office secretary to have the nurse practitioner paged at . Dr. Corona's office secretary can also assist with questions regarding your follow up appointment. If calling after hours or with urgent questions, please call and ask for the urology resident confidential secretary. In case of an emergency, please report to your nearest emergency department and contact us on the way. Discharging attending physician: LOAN CORONA [[id number]] Regular Diet You have no dietary restriction. Please continue with a healthy balanced diet. Return Appointment Provider LOAN CORONA [[id number]] Location Urology Clinic Appointment date: 03/13/2017 Appointment [...] opioid medications safe, as you would with kevin, in a lock box or similar container. [...] every 30 days. The of each month PRESCRIPTION TYPE: Historical Med [...] Scheduled appointments: Mar 13, 2017 1:30 PM PATTERN KEEPER Post - Op with Loan Corona MD [facility] Urology ([facility] Urology) 2nd Floor Pod A [address] [facility] Med Office [facility] [address] Apr 01, 2017 10:00 AM PATTERN KEEPER (Arrive by 9:45 AM) Return Visit with Yuval Gaviria MD [facility] - [facility] Exam ([facility] Exam) [address] [facility] [address] Aug 12, 2017 12:30 PM CDT MRI T & L-SPINE (SCHED ONLY) with [facility] Radiology ([facility]) [address] [facility] [address] Aug 12, 2017 2:45 PM CDT Return Patient with Nick Mueller MD [facility] - Neurosurgery ([facility] NeuroSurgery) 2nd Floor Pod B [address] [facility] Med Office [facility] [address] Oct 26, 2017 10:15 AM CDT Return Patient with Loan Corona MD [facility] Urology ([facility] Urology) 2nd Floor Pod A [address] [facility] Med Office [facility] [phone] Pending items needing follow up: Follow up [...] * Opal Quintero - 02/18/2017 12:19 PM PATTERN KEEPER D/c paperwork reviewed with pt. Education regarding activity restrictions, diet , S/SX of infection, S/SX to report, opioid narcotic safety, and medications addressed. Pt verbalizes understanding. Hard copy scripts given to pt. Port packed with heparin and deaccessed without complications. Pt ambulated off unit with pt belongings. * Abdiaziz Flood MD - 02/18/2017 5:52 AM PATTERN KEEPER Formatting of this note may be different [...] Yes Abdiaziz Flood M.D. Please page urology confidential secretary with questions SUBJECTIVE: Overnight events: No acute [...] Loan Corona MD - 02/18/2017 8:39 AM PATTERN KEEPER Formatting of this note may be different from the original. ATTESTATION I personally observed the resident performing the E/M, discussed case with resident, and concur with resident documentation of history, physical assessment and treatment plan unless otherwise noted. Staff name: Loan Corona MD Date: 02/18/2017 * Abdiaziz Flood MD - 02/17/2017 5:29 AM PATTERN KEEPER Formatting of this note may be different [...] Yes Abdiaziz Flood M.D. Please page urology confidential secretary with questions SUBJECTIVE: Overnight events: No acute [...] Sanam Grider, RT - 02/16/2017 10:11 PM PATTERN KEEPER Formatting of this note may be different [...] Date: 02/16/2017 [place] AC=Airway clearance AM=Aerosolized medication BA=[place] aerosol DB&C=Deep breathe & cough FEV1=Forced expiratory volume in first second) IC=Inspiratory capacity LE=Lung expansion MDI=Metered dose inhaler Neb=Nebulizer O2=Oxygen Oxim=Oximetry PEFR=Peak expiratory flow rate LEGAL MANAGER=Rapid Response Team * Yajaira Malik RN - 02/16/2017 8:00 PM PATTERN KEEPER Patient arrived on unit via cart accompanied by transport. Patient transferred to the bed with assistance. Assessment completed, refer to flowsheet for details. Orders released, reviewed, and implemented as appropriate. Oriented to surroundings, call light within reach. Plan of care reviewed. Will continue to monitor and assess. in this encounter H&P Notes * Loan Corona MD - 02/16/2017 5:06 PM PATTERN KEEPER No change from ER Consult earlier today. in this encounter Consult Notes * Kervin Yee MD - 02/16/2017 2:55 PM PATTERN KEEPER Associated Order(s): CONSULT UROLOGY PHYSICIAN Formatting of this note may be different from the original. Urology Consult 02/16/2017 Patient: Henrik Camejo Admission Date: 02/16/2017, LOS: 0 days Admission Diagnosis: Hydronephrosis [N13.30] Date of Service: February 16, 2017 Reason for Consult: "Ward/nephrolithiasis Referring Provider: Marielos Hines MD;Loan * Attending [...] Yee MD Urology PGY-1 Please page Urology confidential secretary with any questions __ HPI: Henrik Camejo is a 66 y.o. female with history of Crohn's disease status post small bowel resection 4 and recurrent nephrolithiasis as well as rectal adenocarcinoma status post abdominal perineal resection with posterior vaginectomy 01/16/14 followed by 4 cycles of FOLFOX who presents for evaluation of fever, left flank pain, and nausea. She reports that prior to Thanksgiving she developed fever and decreased energy and [...] COLONOSCOPY performed by Alec Cordon MD at [facility] ENDO/GI CYSTOURETHROSCOPY HERNIA REPAIR umbilical HX [...] 88 (02/16 1400) Respirations: 16 PER MINUTE (02/16 1400) SpO2: 92 % (02/16 1400) O2 [...] Latest Ref Range: CLEAR-CLEAR 2+ (A) Specific Burgess-Urine Latest Ref Range: 1.003 - 1.035 1.011 [...] Loan Corona MD - 02/16/2017 3:38 PM PATTERN KEEPER Formatting of this note may be different from the original. ATTESTATION I personally observed the resident performing the E/M, discussed case with resident, and concur with resident documentation of history, physical assessment and treatment plan unless otherwise noted. Staff name: Loan Corona MD Date: 02/16/2017 in this encounter Miscellaneous Notes * Care Plan - Opal Quintero - 02/18/2017 11:01 AM PATTERN KEEPER Problem: Infection, Risk of, Central Venous Catheter-Associated Bloodstream Infection Goal: Absence of CVC Associated Bloodstream infection Outcome: Goal Achieved Date Met: 02/18/17 Pt absent of CVC associated bloodstream infection this hospital stay. * Care Plan - Yajaira Malik RN - 02/17/2017 11:56 PM PATTERN KEEPER Problem: Infection, Risk of, Central Venous Catheter-Associated Bloodstream Infection Goal: Absence of CVC Associated Bloodstream infection Outcome: Goal Ongoing Patient received CHG care on port today * Anesthesia Post Op Day 1 - Marianne Henson SRNA - 02/17/2017 10:08 AM PATTERN KEEPER Formatting of this note may be different [...] - Chey Redding - 02/17/2017 9:10 AM PATTERN KEEPER Formatting of this note may be different [...] Primary Emergency Contact: Ozzie Camejo Address: [address] [place] [address] [facility] [place] Relation: Spouse DPOA no [...] Source of Income 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 Financial Assistance Needed? no Current/Previous Services ? PCP Richard Felming Iii ? DME DME at home: None ? Home Health Receiving home health: In the past Agency name: [facility] Would patient use this agency again?: Yes ? HD or PD Undergoing hemodialysis or peritoneal dialysis: No ? Tube/Enteral Feeds Receive tube/enteral feeds: No ? Infusion Receive infusions: No ? Private Duty Private duty help used: No ? HCBS Home and community based services: No ? Adarsh White Adarsh White: N/A ? Hospice Hospice: No ? Outpatient Therapy PT: No OT: No PRODUCTION CLERKS SUPERVISOR: No ? SNF/NH SNF: No NH: No [...] Suspected Abuse?: No Chey Redding RN, BSN, [facility] [phone] * Operative Report (DICTATED ONLY) - Loan Corona MD - 02/16/2017 6:34 PM PATTERN KEEPER Formatting of this note may be different from the original. [address] [place], [place] [address] PATIENT NAME: HENRIK CAMEJO MR#/PT#: [id number] Page 3 OPERATIVE REPORT DATE OF OPERATION: 02/16/2017 SURGEON: Loan Corona MD BOILERMAKER PIPE FITTER(S): Willie Baez MD PREOPERATIVE DIAGNOSIS: Left-sided hydronephrosis. [...] 24 with purulent drainage of urine. A 16-Syrian Lugo catheter placement. The patient was identified [...] We began the case by inserting a 22-Syrian rigid cystoscope into the patient's urethra and advanced towards the bladder. Once inside the bladder, we immediately identified the left ureteral orifice. This was cannulated with a 5-Syrian open-ended [place] and this [place] catheter was then advanced to the level of the renal pelvis and gentle retrograde pyelogram was performed to identify anatomy. Once this was performed, we passed a 0.53 tip Sensor wire through the 5-Syrian open-ended [place] into the level of the renal pelvis. We then off-loaded the [place] catheter and placed a 6 x 24 double-J left-sided ureteral stent in standard fashion with good curl noted in the renal pelvis as well as in the bladder. Cloudy urine was seen effluxing from the stent, so we elected to place a 16-Syrian Lugo catheter in a standard fashion with [...] MD Dictated by: Willie Baez MD / MED /[id number] cc: - Loan Corona MD ATTESTATION I performed this procedure with a resident. Staff name: Loan Corona MD Date: 02/18/2017 * Procedures (Immed Post or Bedside) - Willie Baez MD - 02/16/2017 6:07 PM PATTERN KEEPER Brief Operative Note Name: Henrik Camejo is [...] PACU - stable Willie Baez MD Pager [phone] Associated attestation - Loan Corona MD - 02/18/2017 8:39 AM PATTERN KEEPER Formatting of this note may be different from the original. ATTESTATION I performed this procedure with a resident. Staff name: Loan Corona MD Date: 02/18/2017 * ED Notes - Morgan Lam RN - 02/16/2017 4:12 PM PATTERN KEEPER Report to Pre/Post RN. Awaiting transport to get pt * ED Notes - Gretel Hackett RN - 02/16/2017 3:53 PM PATTERN KEEPER 1552: Room [place] [address] (Dirty). Please call MORE Mora @ [phone] for report. * ED Notes - Morgan Lam RN - 02/16/2017 3:25 PM PATTERN KEEPER Report received from MORE Mcdaniels. Pt resting comfortably, denies needs at this time. Awaiting room assignment * ED Notes - Meseret Marie RN - 02/16/2017 3:11 PM PATTERN KEEPER Report given to MORE Mora. * ED Notes - Meseret Marie RN - 02/16/2017 3:07 PM PATTERN KEEPER Pt able to ambulate independently to restroom. Mouth swabs provided. Pt denies nausea. Sitting up in bed. * ED Notes - Morgan Lam RN - 02/16/2017 2:02 PM PATTERN KEEPER Urology at bedside * ED Provider Notes - Marielos Hines MD - 02/16/2017 1:28 PM PATTERN KEEPER Formatting of this note may be different [...] She states she had previously presented to [facility] but did not want to have a [...] COLONOSCOPY performed by Alec Cordon MD at [facility] ENDO/GI CYSTOURETHROSCOPY HERNIA REPAIR umbilical HX [...] Time T BP P RR SPO2P SPO2 [facility] 02/16/17 1642 36.5 C (97.7 F) [...] Color,UA LUKE Turbidity,UA 2+ (A) CLEAR-CLEAR Specific Burgess-Urine 1.011 1.003 - 1.035 pH,UA 6.0 5.0 [...] PM. POC ED US RENAL/BLADDER Final Result [facility] - Jopuj-bq-Yrec Ultrasound Exam Date: 02/16/2017 Exam Type: POC ED US RENAL/BLADDER Transmission Rebuilder: Derik Cote Attending: Marielos Hines Worksheet: ED-Renal & Bladder Clinical Indication(s) for Exam: Flank Pain Other: L Views: Right Kidney Long [place]: Adequate Right Kidney Short [place]: Adequate Left Kidney Long [place]: Adequate Left Kidney Short [place]: Adequate Bladder Long [place]: Not obtained Bladder Short Lebanon: Adequate Findings: Right Kidney Hydronephrosis: Absent Left [...] leuks, packed WBCs, 20-50 RBCs. Imaging shows [id number]-[id number] ultrasound with severe left kidney hydronephrosis. CT [...] Meseret Marie RN - 02/16/2017 12:35 PM PATTERN KEEPER Pt to CT scan. * ED Notes - Meseret Marie RN - 02/16/2017 12:03 PM PATTERN KEEPER Pt able to ambulate to bathroom independently. * ED Notes - Meseret Marie RN - 02/16/2017 11:03 AM PATTERN KEEPER Pt presents to the ED with her spouse. Reports hx of kidney stones and flank pain since before . Was seen in [place], [place] and started on antibiotics around that [...] Meseret Marie RN - 02/16/2017 11:00 AM PATTERN KEEPER Pt belongings include: Red purse [place] w/ [...] ECG-SCAN 02/25/2017 Results for this 8:46 AM PATTERN KEEPER procedure are in the results section. CYSTOSCOPY, INSERTION 02/16/2017 Hydronephrosis STENT LEFT URETER, LEFT 5:00 PM PATTERN KEEPER RETROGRADE PYELOGRAM in this encounter Results * [...] Specimen Performing Laboratory [facility] [address] [place] [address] * CBC (02/17/2017 5:43 AM) Component Value [...] Specimen Performing Laboratory [facility] [address] [place] [address] * CT ABD/PELV WO CONTRAST (02/16/2017 12:35 [...] Interface, Radiant Results - 02/16/2017 1:[address] Abdomen and Pelvis Clinical Indication: L [...] Specimen Performing Laboratory Urine - Urine,Clean Catch [facility] [address] [place] [address] Organism Antibiotic Method Susceptibility >100,000 organisms/ml Ertapenem [...] 5 Specimen Performing Laboratory U[facility] [address] [place] [address] * URINALYSIS DIPSTICK (02/16/2017 12:14 PM) Component Value Ref Range Color,UA LUKE Turbidity,UA 2+ (A) CLEAR-CLEAR Specific Burgess-Urine 1.011 1.003 - 1.035 pH,UA 6.0 5.0 - 8.0 Protein,UA 1+ (A) NEG-NEG Glucose,UA NEG NEG-NEG Ketones,UA 1+ (A) NEG-NEG Bilirubin,UA NEG NEG-NEG Blood,UA 1+ (A) NEG-NEG Urobilinogen,UA NORMAL NORM-NORMAL Nitrite,UA POS (A) NEG-NEG Leukocytes,UA 3+ (A) NEG-NEG Urine Ascorbic Acid, UA NEG NEG-NEG Specimen Performing Laboratory Urine [facility] [address] [place] [address] * POC ED US RENAL/BLADDER (02/16/2017 11:24 AM) Specimen Performing Laboratory [facility] RAD RESULTS Impressions [facility] - Aecsy-wy-Oxzf Ultrasound Exam Date: 02/16/2017 Exam Type: POC ED US RENAL/BLADDER Transmission Rebuilder: Derik Cote Attending: Marielos Hines Worksheet: ED-Renal & Bladder Clinical Indication(s) for Exam: Flank Pain Other: L Views: Right Kidney Long [place]: Adequate Right Kidney Short [place]: Adequate Left Kidney Long [place]: Adequate Left Kidney Short [place]: Adequate Bladder Long [place]: Not obtained Bladder Short [place]: Adequate Findings: Right Kidney Hydronephrosis: Absent Left Kidney Hydronephrosis: Severe Interpretation: Hydronephrosis: Left, Severe Bladder Size: Normal Physician Approval: Resident/Fellow Signature: Not signed Credentialed Physician: Signed by Marielos Hines on Thursday, February 16, 2017 at 11:57:29 AM Procedure Note Interface, Radiant Results - 02/16/2017 11:58 AM PATTERN KEEPER IMPRESSION [facility] - Lczzl-me-Zxnd Ultrasound Exam Date: 02/16/2017 Exam Type: POC ED US RENAL/BLADDER Transmission Rebuilder: Derik Cote Attending: Marielos Hines Worksheet: ED-Renal & Bladder Clinical Indication(s) for Exam: Flank Pain Other: L Views: Right Kidney Long [place]: Adequate Right Kidney Short [place]: Adequate Left Kidney Long [place]: Adequate Left Kidney Short [place]: Adequate Bladder Long [place]: Not obtained Bladder Short [place]: Adequate Findings: Right Kidney Hydronephrosis: Absent Left Kidney Hydronephrosis: Severe Interpretation: Hydronephrosis: Left, Severe Bladder Size: Normal Physician Approval: Resident/Fellow Signature: Not signed Credentialed Physician: Signed by Marielos Hines on Thursday, February 16, 2017 at 11:57:29 AM * POC LACTATE (02/16/2017 11:04 AM) Component Value Ref Range LACTIC ACID POC 0.8 0.5 - 2.0 MMOL/L Specimen Performing Laboratory [facility] [address] [place] [address] * CULTURE-BLOOD W/SENSITIVITY (02/16/2017 10:50 AM) Component Value Ref Range Battery Name BLOOD CULTURE Specimen Description BLOOD LEFT CHEST Special Requests NONE Culture NO GROWTH 5 DAYS Report Status FINAL 02/22/2017 Specimen Performing Laboratory [facility] [address] [place], [place] [id number] * LIPASE (02/16/2017 10:50 AM) Component Value Ref Range Lipase 7 (L) 11 - 82 U/L Specimen Performing Laboratory [facility] [address] [place] [address] * COMPREHENSIVE METABOLIC PANEL (02/16/2017 10:50 AM) [...] questions. Specimen Performing Laboratory [facility] [address] [place] [address] * CBC AND DIFF (02/16/2017 10:50 AM) [...] Performing Laboratory [facility] [address] [place] [address] in this encounter Visit Diagnoses Diagnosis Hydronephrosis Admitting Diagnoses Diagnosis Hydronephrosis - Hydronephrosis Administered Medications Medication Order MAR Action Action Date Dose Rate Site iopamidol 300 (ISOVUE-300) 61 % Given 02/16/2017 10 mL injection 17:29 PATTERN KEEPER INTRA-PROCEDURE MED, Starting 02/16/17 at 1729, Until Thu02/16/17 at 1946, Intra-op sodium chloride 0.9 % irrigation bag Given 02/16/2017 3,000 mL INTRA-PROCEDURE MED, Starting Mon 17:29 PATTERN KEEPER 02/16/17 at 1729, Until 02/16/17 at 1946, Intra-op in this encounter
--- OUTSIDE RECORDS SUMMARY | 2017-04-29 14:22 | XMS REPORT | Encounter Summary ---
Author Author [facility] Organization [facility] Address Unknown Phone Unavailable Care Team Providers Care Director Of Acquisition Marketing Name Role Phone Nick Levine MD Unavailable [...] Unavailable Timothy Jacobs MD Unavailable Patt Davidson SOLE BLACKER-VERTICAL BORER Unavailable Enedelia Rebolledo Unavailable Unavailable Fide Leung MD Unavailable Alec Cordon MD Unavailable George Jordan MD Unavailable Francy Soriano RN Unavailable Unavailable Ama Diallo RN Unavailable Unavailable Kasandra Chacon RN Unavailable Unavailable Scottie Nunez MD Unavailable Unavailable Bharat Love CRNA Unavailable Sharita Padilla MD Unavailable Richard Fleming MD PCP Encounter Details Date Type Department Care Team Description 02/16/2017 Procedure Pass HC[address] [place] [address] Social History Tobacco Use Types Packs/Day Years [...]
--- OUTSIDE RECORDS SUMMARY | 2017-04-29 14:22 | XMS REPORT | Encounter Summary ---
Author Author [facility] Organization [facility] Address Unknown Phone Unavailable Care Team Providers Care Delivery Crew Member Name Role Phone Nick Levine MD Unavailable [...] Unavailable Timothy Jacobs MD Unavailable Patt Davidson ONLINE MERCHANT-GAS PRODUCER Unavailable Enedelia Rebolledo Unavailable Unavailable Fide Leung MD Unavailable Alec Cordon MD Unavailable George Jordan MD Unavailable Francy Soriano RN Unavailable Unavailable Ama Diallo RN Unavailable Unavailable Kasandra Chacon RN Unavailable Unavailable Scottie Nunez MD Unavailable Unavailable Bharat Love CRNA Unavailable Sharita Padilla MD Unavailable Richard Fleming MD PCP Encounter Details Date Type Department Care Team Description 02/16/2017 Prep for Case ADMITTING Becca Pascal MD [address] [facility]. [address] [place] [address] [place] [address] [phone] Social History Tobacco Use Types Packs/Day Years [...]
--- OUTSIDE RECORDS SUMMARY | 2017-04-29 14:28 | XMS REPORT | Continuity of Care Document ---
Author Author [facility] Organization [facility] Address Unknown Phone Unavailable Allergies Active Description Code Type Severity Reaction Onset Reported/Identified Relationship to Patient Clinical Status Yes Penicillins [id number] Drug Allergy Moderate HIVES 05/01/2014 Yes metronidazole [id number] Drug Allergy Unknown N/A 05/01/2014 Yes Sulfa (Sulfonamide Antibiotics) [id number] Drug Allergy Unknown N/A 2014 Yes metronidazole [id number] Drug Allergy Unknown FACIAL EDEMA 05/04/2014 Medications There is no data. 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, 02/05/1114 CASA LAU Ot G95.89 OTHER SPECIFIED DISEASES OF SPINAL CORD 02/05/1114 CASA LAU Ot M81.0 AGE-RELATED OSTEOPOROSIS W/O CURRENT PAT 02/05/1114 CASA LAU Ot Z45.2 ENCOUNTER FOR ADJUSTMENT AND MANAGEMENT 02/05/1114 CASA LAU Ot Z79.899 OTHER TECHNICAL WRITER (CURRENT) DRUG THERAPY 02/05/1114 CASA LAU Ot Z93.3 COLOSTOMY STATUS 03/24/2012 Ot 592.0 CALCULUS OF KIDNEY 03/24/2012 Ot 592.1 CALCULUS OF URETER 03/24/2012 Ot 599.0 URIN TRACT INFECTION NOS 03/24/2012 Ot 789.09 ABDOMINAL PAIN, OTHER SPECIFIED SITE 09/05/2012 THOMAS INGRAM DO Ot 599.0 URIN TRACT INFECTION NOS 09/05/2012 THOMAS INGRAM DO Ot 786.05 SHORTNESS OF BREATH 09/05/2012 THOMAS INGRAM DO Ot 920 CONTUSION FACE/SCALP/NCK 09/05/2012 THOMAS INGRAM DO Ot 922.1 CONTUSION OF CHEST WALL 09/05/2012 THOMAS INGRAM DO Ot 959.01 HEAD INJURY, NOS 09/05/2012 THOMAS INGRAM DO Ot E000.8 OTHER EXTERNAL CAUSE STATUS 09/05/2012 THOMAS INGRAM DO Ot E849.0 ACCIDENT IN HOME 09/05/2012 THOMAS INGRAM DO Ot E888.1 FALL STRIKING OBJECT NEC 12/03/2012 CHRISSY CARLTON, SANDRA Kristian Ot 786.59 CHEST PAIN NEC 12/20/2013 CASA LAU Ot 154.1 MALIGNANT NEOPL RECTUM 12/20/2013 CASA LAU Ot 555.9 REGIONAL ENTERITIS NOS 01/08/2014 AVILA CARLTON, JOSEPH Pryor Ot 486 PNEUMONIA, ORGANISM NOS 01/08/2014 AVILA CARLTON, JOSEPH Pryor Ot 780.60 FEVER, UNSPECIFIED 01/30/2014 CASA LAU Ot 154.1 01/30/2014 CASA LAU Ot 555.9 01/30/2014 Ot 592.0 01/30/2014 Ot V76.12 01/30/2014 WIL CARLTON, ANNMARIE Perez Ot V76.12 01/30/2014 ANNMARIE DE LA TORRE MD Ot 793.80 01/30/2014 ANNMARIE DE LA TORRE MD Ot 555.9 01/30/2014 ANNMARIE DE LA TORRE MD Ot 592.0 01/30/2014 ANNMARIE DE LA TORRE MD Ot 787.99 01/30/2014 ANNMARIE DE LA TORRE MD Ot 793.4 01/30/2014 ANNMARIE DE LA TORRE MD Ot V10.06 01/30/2014 JANNETTE KELLEY Ot 154.1 01/30/2014 CASA LAU Ot 154.1 01/30/2014 JUDICASA FITCH Ot 555.9 01/30/2014 JUDICASA FITCH N Ot 154.1 01/30/2014 CASA LAU N Ot 555.9 01/31/2014 ANNMARIE DE LA TORRE MD Ot 276.51 DEHYDRATION 01/31/2014 ANNMARIE DE LA TORRE MD Ot 285.1 AC POSTHEMORRHAG ANEMIA 01/31/2014 ANNMARIE DE LA TORRE MD Ot 493.00 EXTRINSIC ASTHMA, NOS 01/31/2014 ANNMARIE DE LA TORRE MD Ot 555.9 REGIONAL ENTERITIS NOS 01/31/2014 ANNMARIE DE LA TORRE MD Ot 599.0 URIN TRACT INFECTION NOS 01/31/2014 ANNMARIE DE LA TORRE MD Ot 733.00 OSTEOPOROSIS NOS 01/31/2014 ANNMARIE DE LA TORRE MD Ot 785.0 TACHYCARDIA NOS 01/31/2014 ANNMARIE DE LA TORRE MD Ot V10.05 HX OF COLONIC MALIGNANCY 01/31/2014 ANNMARIE DE LA TORRE MD Ot V10.06 HX-RECTAL ANAL MALIGN 01/31/2014 ANNMARIE DE LA TORRE MD Ot V44.3 COLOSTOMY STATUS 01/31/2014 ANNMARIE DE LA TORRE MD Ot V45.72 ACQRD ABSENCE INTESTINE - LARGE/SMALL 01/31/2014 ANNMARIE DE LA TORRE MD Ot V45.82 PERCUTANEOUS TRANSLUM CORON ANGIOPLASTY 01/31/2014 ANNMARIE DE LA TORRE MD Ot V45.89 POSTSURGICAL STATES NEC 02/09/2014 JUDICASA FITCH N Ot 154.1 02/09/2014 JUDI, BOBAN N Ot 555.9 02/17/2014 JUDI, BOBAN N Ot 154.1 02/17/2014 JUDI, BOBAN N Ot 555.9 02/20/2014 JUDI, BOBAN N Ot 154.1 02/20/2014 JUDI, BOBAN N Ot 555.9 03/22/2014 JUDI, BOBAN N Ot 154.1 03/22/2014 JUDI, BOBAN N Ot 555.9 03/23/2014 ARAMIS CEJA DO Ot 154.1 MALIGNANT NEOPL RECTUM 04/06/2014 JUDI, BOBAN N Ot 154.1 04/06/2014 JUDI, BOBAN N Ot 555.9 04/08/2014 ANNMARIE DE LA TORRE MD Ot 790.29 04/08/2014 JANNETTE KELLEY AGRICULTURAL EQUIPMENT SALESPERSON Ot 154.1 04/08/2014 JANNETTE KELLEY AGRICULTURAL EQUIPMENT SALESPERSON Ot 555.9 04/08/2014 JANNETTE KELLEY AGRICULTURAL EQUIPMENT SALESPERSON Ot V15.3 04/08/2014 JANNETTE KELLEY AGRICULTURAL EQUIPMENT SALESPERSON Ot V44.3 04/08/2014 JANNETTE KELLEY AGRICULTURAL EQUIPMENT SALESPERSON Ot V87.41 04/20/2014 ANNMARIE DE LA TORRE MD Ot 793.80 04/24/2014 WIL CARLTON, ANNMARIE Perez Ot 793.80 05/01/2014 JUDICASA FITCH N Ot 154.1 05/01/2014 JUDI ZANEALEJANDRA N Ot 555.9 05/02/2014 Ot 008.45 05/02/2014 Ot 198.82 05/02/2014 Ot 276.51 05/02/2014 Ot 285.9 05/02/2014 Ot 338.3 05/02/2014 Ot 555.9 05/02/2014 Ot 593.9 05/02/2014 Ot 783.21 05/02/2014 Ot V10.06 05/02/2014 Ot V15.3 05/02/2014 Ot V44.3 05/02/2014 Ot V45.72 05/02/2014 Ot V87.41 05/03/2014 Ot 008.45 05/03/2014 Ot 198.82 05/03/2014 Ot 276.51 05/03/2014 Ot 285.9 05/03/2014 Ot 338.3 05/03/2014 Ot 555.9 05/03/2014 Ot 593.9 05/03/2014 Ot 783.21 05/03/2014 Ot V10.06 05/03/2014 Ot V15.3 05/03/2014 Ot V44.3 05/03/2014 Ot V45.72 05/03/2014 Ot V87.41 05/04/2014 Ot 008.45 05/04/2014 Ot 198.82 05/04/2014 Ot 276.51 05/04/2014 Ot 285.9 05/04/2014 Ot 338.3 05/04/2014 Ot 555.9 05/04/2014 Ot 593.9 05/04/2014 Ot 783.21 05/04/2014 Ot V10.06 05/04/2014 Ot V15.3 05/04/2014 Ot V44.3 05/04/2014 Ot V45.72 05/04/2014 Ot V87.41 05/04/2014 Ot 008.45 05/04/2014 Ot 198.82 05/04/2014 Ot 276.51 05/04/2014 Ot 285.9 05/04/2014 Ot 338.3 05/04/2014 Ot 555.9 05/04/2014 Ot 593.9 05/04/2014 Ot 783.21 05/04/2014 Ot V10.06 05/04/2014 Ot V15.3 05/04/2014 Ot V44.3 05/04/2014 Ot V45.72 05/04/2014 Ot V87.41 05/04/2014 Ot 008.45 INTESTINAL INFECTION DUE TO CLOSTRIDIUM 05/04/2014 Ot 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 05/04/2014 Ot 275.2 DIS MAGNESIUM METABOLISM 05/04/2014 Ot 276.51 DEHYDRATION 05/04/2014 Ot 284.19 OTHER PANCYTOPENIA 05/04/2014 Ot 285.9 05/04/2014 Ot 288.00 NEUTROPENIA , UNSPECIFIED 05/04/2014 Ot 338.3 NEOPLASM RELATED PAIN (ACUTE)(CHRONIC) 05/04/2014 Ot 555.9 REGIONAL ENTERITIS NOS 05/04/2014 Ot 592.0 CALCULUS OF KIDNEY 05/04/2014 Ot 593.9 RENAL URETERAL DIS NOS 05/04/2014 Ot 722.52 LUMB/ LUMBOSAC DISC DEGEN 05/04/2014 Ot 780.61 FEVER PRESENTING WITH CONDITIONS CLASSIF 05/04/2014 Ot 783.21 LOSS OF WEIGHT 05/04/2014 Ot V10.06 HX-RECTAL ANAL MALIGN 05/04/2014 Ot V15.3 HX OF IRRADIATION 05/04/2014 Ot V44.3 COLOSTOMY STATUS 05/04/2014 Ot V45.72 ACQRD ABSENCE INTESTINE - LARGE/SMALL 05/04/2014 Ot V87.41 PERSONAL HISTORY OF ANTINEOPLASTIC CHEMO 05/08/2014 Ot 008.45 INTESTINAL INFECTION DUE TO CLOSTRIDIUM 05/08/2014 Ot 041.49 OTHER AND UNSPECIFIED ESCHERICHIA COLI [ 05/08/2014 Ot 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 05/08/2014 Ot 275.2 DIS MAGNESIUM METABOLISM 05/08/2014 Ot 276.51 DEHYDRATION 05/08/2014 Ot 276.8 HYPOPOTASSEMIA 05/08/2014 Ot 285.29 ANEMIA OF OTHER CHRONIC DISEASE 05/08/2014 Ot 555.9 REGIONAL ENTERITIS NOS 05/08/2014 Ot 599.0 URIN TRACT INFECTION NOS 05/08/2014 Ot V10.06 HX-RECTAL ANAL MALIGN 05/08/2014 Ot V15.3 HX OF IRRADIATION 05/08/2014 Ot V44.3 COLOSTOMY STATUS 05/08/2014 Ot V87.41 PERSONAL HISTORY OF ANTINEOPLASTIC CHEMO 05/18/2014 JUDI, BOBAN N Ot 154.1 MALIGNANT NEOPL RECTUM 05/18/2014 CASA LAU Ot 555.9 REGIONAL ENTERITIS NOS 05/18/2014 CASA LAU Ot V58.11 ENCOUNTER FOR ANTINEOPLASTIC CHEMOTHERAP 06/06/2014 CASA LAU Ot 154.1 06/06/2014 CASA LAU Ot 275.2 06/06/2014 CASA LAU Ot 555.9 06/06/2014 CASA LAU Ot V15.3 06/06/2014 CASA LAU Ot V44.3 06/06/2014 CASA LAU Ot V58.69 06/06/2014 CASA LAU Ot V87.41 06/08/2014 Ot 112.0 06/08/2014 Ot 154.1 06/08/2014 Ot 275.2 06/08/2014 Ot 276.8 06/08/2014 Ot 555.9 06/08/2014 Ot 724.2 06/08/2014 Ot V15.3 06/08/2014 Ot V44.3 06/08/2014 Ot V58.69 06/15/2014 Ot 154.1 06/15/2014 Ot 592.0 06/15/2014 Ot 782.3 06/15/2014 Ot V10.06 06/19/2014 Ot 154.1 06/19/2014 Ot 722.0 06/19/2014 Ot 724.5 06/19/2014 Ot 793.7 06/22/2014 WIL CARLTON, ANNMARIE Perez Ot 041.49 06/23/2014 ANNMARIE DE LA TORRE MD Ot 041.49 06/24/2014 ANNMARIE DE LA TORRE MD Ot 041.49 OTHER AND UNSPECIFIED ESCHERICHIA COLI [ 06/24/2014 WIL CARLTON, ANNMARIE Perez Ot 041.49 06/28/2014 ARAMIS CEJA DO Ot 154.1 06/28/2014 ARAMIS CEJA DO Ot V72.84 07/05/2014 JANNETTE KELLEY AGRICULTURAL EQUIPMENT SALESPERSON Ot 154.1 07/05/2014 JANNETTE KELLEY AGRICULTURAL EQUIPMENT SALESPERSON Ot 275.2 07/05/2014 JANNETTE KELLEY AGRICULTURAL EQUIPMENT SALESPERSON Ot 555.9 07/05/2014 JANNETTE KELLEY AGRICULTURAL EQUIPMENT SALESPERSON Ot 795.81 07/05/2014 CHRIS KELLEYAH S AGRICULTURAL EQUIPMENT SALESPERSON Ot V15.3 07/05/2014 WARREN JANNETTE Garcia AGRICULTURAL EQUIPMENT SALESPERSON Ot V44.3 07/05/2014 WARREN JANNETTE Garcia AGRICULTURAL EQUIPMENT SALESPERSON Ot V58.69 07/05/2014 WARRENJANNETTE AGRICULTURAL EQUIPMENT SALESPERSON Ot V87.41 07/05/2014 JUDICASA N Ot 154.1 07/05/2014 JUDICASA N Ot 275.2 07/05/2014 JUDICASA N Ot 555.9 07/05/2014 JUDICASA N Ot V15.3 07/05/2014 JUDICASA N Ot V44.3 07/05/2014 JUDICASA N Ot V58.69 07/05/2014 JUDICASA N Ot V87.41 08/05/2014 OTHER, UNLISTED Ot 555.9 08/07/2014 JUDICASA N Ot 782.0 08/18/2014 JUDICASA N Ot 780.96 08/18/2014 JUDICASA N Ot 782.3 08/21/2014 KAITLYNN CARLTON, ROHAN Ot 154.1 08/21/2014 KAITLYNN CARLTON, ROHAN Ot 275.2 08/21/2014 KAITLYNN CARLTON, ROHAN Ot 555.9 08/21/2014 KAITLYNN CARLTON, ROHNA Ot 795.81 08/21/2014 KAITLYNN CARLTON, ROHAN Ot V15.3 08/21/2014 KAITLYNN CARLTON, ROHAN Ot V44.3 08/21/2014 KAITLYNN CARLTON, ROHAN Ot V58.69 08/21/2014 KAITLYNN CARLTON, ROHAN Ot V87.41 08/23/2014 CASA LAU N Ot 154.1 MALIGNANT NEOPL RECTUM 08/23/2014 CASA LAU N Ot 275.2 DIS MAGNESIUM METABOLISM 08/23/2014 CASA LAU N Ot 555.9 REGIONAL ENTERITIS NOS 08/23/2014 CASA LAU Ot V15.3 HX OF IRRADIATION 08/23/2014 CASA LAU N Ot V44.3 COLOSTOMY STATUS 08/23/2014 CASA LAU N Ot V58.11 ENCOUNTER FOR ANTINEOPLASTIC CHEMOTHERAP 08/23/2014 JUDI, BOBAN N Ot V58.69 OTH MED,LT,CURRENT USE 08/23/2014 JUDI, ZANEAN N Ot V87.41 PERSONAL HISTORY OF ANTINEOPLASTIC CHEMO 08/24/2014 JUDI, BOBAN N Ot 154.1 08/24/2014 JUDI, BOBAN N Ot 275.2 08/24/2014 JUDI, BOBAN N Ot 555.9 08/24/2014 JUDI, BOBAN N Ot V15.3 08/24/2014 JUDI, BOBAN N Ot V44.3 08/24/2014 JUDI, BOBAN N Ot V58.69 08/24/2014 JUDI, BOBAN N Ot V87.41 08/28/2014 JUDI, BOBAN N Ot 154.1 08/28/2014 JUDI, BOBAN N Ot 275.2 08/28/2014 JUDI, BOBAN N Ot 555.9 08/28/2014 JUDI, BOBAN N Ot V15.3 08/28/2014 JUDI, BOBAN N Ot V44.3 08/28/2014 JUDI, BOBAN N Ot V58.69 08/28/2014 JUDI, BOBAN N Ot V87.41 08/29/2014 JUDI, BOBAN N Ot 154.1 08/29/2014 JUDI, BOBAN N Ot 275.2 08/29/2014 JUDI, BOBAN N Ot 555.9 08/29/2014 JUDI, BOBAN N Ot V15.3 08/29/2014 JUDI, BOBAN N Ot V44.3 08/29/2014 JUDI, BOBAN N Ot V58.69 08/29/2014 JUDI, BOBAN N Ot V87.41 08/30/2014 JUDI, BOBAN N Ot 782.0 09/13/2014 WIL CARLTON, ANNMARIE Perez Ot 041.49 09/27/2014 NADYA CARLTON, ISAIAH Baptiste Ot 154.1 09/28/2014 JUDI, BOBAN N Ot 627.9 09/28/2014 JUDI, BOBAN N Ot 724.6 09/28/2014 JUDI, BOBAN N Ot V49.81 10/12/2014 RIOS ELLER DO Ot 599.0 10/12/2014 RIOS ELLER DO Ot 788.20 10/24/2014 RIOS ELLER DO Ot 733.00 11/06/2014 JUDICASA FITCH N Ot 154.1 11/06/2014 JUDI, CASA N Ot 275.2 11/06/2014 JUDI, CASA N Ot 555.9 11/06/2014 JUDI, CASA N Ot 791.9 11/06/2014 JUDICASA FITCH N Ot V15.3 11/06/2014 JUDICASA FITCH N Ot V44.3 11/06/2014 JUDI, CASA N Ot V58.69 11/06/2014 JUDICASA FITCH N Ot V87.41 11/16/2014 Ot 592.0 11/16/2014 Ot V76.12 11/16/2014 WIL CARLTON, ANNMARIE Perez Ot V76.12 11/16/2014 WIL CARLTON, ANNMARIE M Ot 793.80 11/16/2014 WIL CARLTON, ANNMARIE M Ot 555.9 11/16/2014 WIL CARLTON, ANNMARIE M Ot 592.0 11/16/2014 WIL CARLTON, ANNMARIE M Ot 787.99 11/16/2014 WIL CARLTON, ANNMARIE M Ot 793.4 11/16/2014 WIL CARLTON, ANNMARIE M Ot V10.06 11/16/2014 JANNETTE KELLEY AGRICULTURAL EQUIPMENT SALESPERSON Ot 154.1 11/16/2014 [facility]1 11/16/2014 [facility] V72.84 11/16/2014 JANNETTE KELLEY AGRICULTURAL EQUIPMENT SALESPERSON Ot 154.1 11/16/2014 JANNETTE KELLEY AGRICULTURAL EQUIPMENT SALESPERSON Ot 555.9 11/16/2014 JANNETTE KELLEY AGRICULTURAL EQUIPMENT SALESPERSON Ot V15.3 11/16/2014 JANNETTE KELLEY AGRICULTURAL EQUIPMENT SALESPERSON Ot V44.3 11/16/2014 JANNETTE KELLEY AGRICULTURAL EQUIPMENT SALESPERSON Ot V87.41 11/16/2014 WIL CARLTON, ANNMARIE M Ot 790.29 11/16/2014 JANNETTE KELLEY S AGRICULTURAL EQUIPMENT SALESPERSON Ot 154.1 11/16/2014 JANNETTE KELLEY AGRICULTURAL EQUIPMENT SALESPERSON Ot 275.2 11/16/2014 JANNETTE KELLEY AGRICULTURAL EQUIPMENT SALESPERSON Ot 555.9 11/16/2014 JANNETTE KELLEY AGRICULTURAL EQUIPMENT SALESPERSON Ot V15.3 11/16/2014 JANNETTE KELLEY AGRICULTURAL EQUIPMENT SALESPERSON Ot V44.3 11/16/2014 KELLEYJANNETTE Garcia AGRICULTURAL EQUIPMENT SALESPERSON Ot V58.11 11/16/2014 KELLEYJANNETTE Garcia AGRICULTURAL EQUIPMENT SALESPERSON Ot V58.69 11/16/2014 WIL CARLTON ANNMARIE Ana Ot 793.80 11/16/2014 Ot 112.0 11/16/2014 Ot 154.1 11/16/2014 Ot 275.2 11/16/2014 Ot 276.8 11/16/2014 Ot 555.9 11/16/2014 Ot 724.2 11/16/2014 Ot V15.3 11/16/2014 Ot V44.3 11/16/2014 Ot V58.69 11/16/2014 Ot 154.1 11/16/2014 Ot 592.0 11/16/2014 Ot 154.1 11/16/2014 Ot 276.8 11/16/2014 Ot 555.9 11/16/2014 Ot 724.2 11/16/2014 Ot 787.91 11/16/2014 Ot 793.7 11/16/2014 Ot 795.81 11/16/2014 Ot V15.3 11/16/2014 Ot V44.3 11/16/2014 Ot V58.69 11/16/2014 Ot V87.41 11/16/2014 Ot 782.3 11/16/2014 Ot V10.06 11/16/2014 Ot 154.1 11/16/2014 Ot 729.1 11/16/2014 Ot 154.1 11/16/2014 Ot 722.0 11/16/2014 Ot 724.5 11/16/2014 Ot 793.7 11/16/2014 JANNETTE KELLEY AGRICULTURAL EQUIPMENT SALESPERSON Ot 154.1 11/16/2014 KELLEYJANNETTE Garcia AGRICULTURAL EQUIPMENT SALESPERSON Ot 275.2 11/16/2014 KELLEYJANNETTE Garcia AGRICULTURAL EQUIPMENT SALESPERSON Ot 555.9 11/16/2014 WARRENJANNETTE AGRICULTURAL EQUIPMENT SALESPERSON Ot 795.81 11/16/2014 KELLEYJANNETTE Garcia AGRICULTURAL EQUIPMENT SALESPERSON Ot V15.3 11/16/2014 WARRENJANNETTE AGRICULTURAL EQUIPMENT SALESPERSON Ot V44.3 11/16/2014 WARRENJANNETTE AGRICULTURAL EQUIPMENT SALESPERSON Ot V58.69 11/16/2014 WARRENJANNETTE AGRICULTURAL EQUIPMENT SALESPERSON Ot V87.41 11/16/2014 KAITLYNN CARLTON, [facility] Ot 154.1 11/16/2014 KAITLYNN CARLTON, [facility] Ot 275.2 11/16/2014 KAITLYNN CARLTON, [facility] Ot 555.9 11/16/2014 KAITLYNN CARLTON, [facility] Ot 795.81 11/16/2014 KAITLYNN CARLTON, [facility] Ot V15.3 11/16/2014 KAITLYNN CARLTON, [facility] Ot V44.3 11/16/2014 KAITLYNN CARLTON, [facility] Ot V58.69 11/16/2014 KAITLYNN CARLTON, [facility] Ot V87.41 11/16/2014 OTHER, UNLISTED Ot 555.9 11/16/2014 JUDI, BOBAN N Ot 782.0 11/16/2014 JUDI, BOBAN N Ot 780.96 11/16/2014 JUDI, BOBAN N Ot 782.3 11/16/2014 JUDI, BOBAN N Ot 154.1 11/16/2014 JUDI, BOBAN N Ot 275.2 11/16/2014 JUDI, BOBAN N Ot 555.9 11/16/2014 JUDI, BOBAN N Ot 791.9 11/16/2014 JUDI, BOBAN N Ot V15.3 11/16/2014 JUDI, BOBAN N Ot V44.3 11/16/2014 JUDI, BOBAN N Ot V58.69 11/16/2014 JUDI, BOBAN N Ot V87.41 11/16/2014 ISAIAH COVINGTON MD Ot 154.1 11/16/2014 JUDI, BOBAN N Ot 627.9 11/16/2014 JUDI, BOBAN N Ot 724.6 11/16/2014 JUDI, BOBAN N Ot V49.81 11/16/2014 ANNMARIE DE LA TORRE MD Ot 041.49 11/16/2014 ELLERRIOS PATRICK DO Ot 599.0 11/16/2014 ELLERRIOS PATRICK DO Ot 788.20 11/16/2014 ELLERRIOS PATRICK DO Ot 733.00 11/16/2014 ELLERRIOS PATRICK DO Ot 728.87 11/16/2014 ELLERRIOS PATRICK DO Ot V10.05 11/16/2014 ELLERRIOS PATRICK DO Ot V57.1 11/26/2014 JUDICASA N Ot 154.1 MALIGNANT NEOPL RECTUM 11/26/2014 JUDICASA FITCH N Ot 275.2 DIS MAGNESIUM METABOLISM 11/26/2014 CASA LAU N Ot 555.9 REGIONAL ENTERITIS NOS 11/26/2014 CASA LAU Ot 791.9 ABN URINE FINDINGS NEC 11/26/2014 CASA LAU Ot C20 MALIGNANT NEOPLASM OF RECTUM 11/26/2014 CASA LAU Ot K50.90 CROHN'S DISEASE, UNSPECIFIED, WITHOUT CO 11/26/2014 CASA LAU Ot V15.3 HX OF IRRADIATION 11/26/2014 CASA LAU Ot V44.3 COLOSTOMY STATUS 11/26/2014 CASA LAU Ot V58.69 OTH MED,LT,CURRENT USE 11/26/2014 CASA LAU Ot V87.41 PERSONAL HISTORY OF ANTINEOPLASTIC CHEMO 11/26/2014 CASA LAU Ot Z92.21 PERSONAL HISTORY OF ANTINEOPLASTIC CHEMO 11/26/2014 CASA LAU N Ot Z92.3 PERSONAL HISTORY OF IRRADIATION 11/26/2014 CASA LAU N Ot Z93.3 COLOSTOMY STATUS 11/28/2014 JUDICASA FITCH N Ot 154.1 11/28/2014 JUDICASA N Ot 275.2 11/28/2014 JUDICASA N Ot 555.9 11/28/2014 JUDICASA N Ot 791.9 11/28/2014 JUDICASA N Ot V15.3 11/28/2014 JUDICASA N Ot V44.3 11/28/2014 JUDICASA N Ot V58.69 11/28/2014 JUDICASA N Ot V87.41 11/29/2014 JUDICASA N Ot 154.1 11/29/2014 JUDICASA N Ot 275.2 11/29/2014 JUDICASA N Ot 555.9 11/29/2014 JUDICASA N Ot 791.9 11/29/2014 JUDICASA N Ot V15.3 11/29/2014 JUDICASA N Ot V44.3 11/29/2014 JUDI, BOBAN N Ot V58.69 11/29/2014 CASA LAU Ot V87.41 12/06/2014 RIOS ELLER DO Ot 728.87 MUSCLE WEAKNESS (GENERALIZED) 12/06/2014 RIOS ELLER DO Ot V10.05 HX OF COLONIC MALIGNANCY 12/06/2014 RIOS ELLER DO Ot V57.1 PHYSICAL THERAPY NEC 12/06/2014 CASA LAU Ot 154.1 MALIGNANT NEOPL RECTUM 12/06/2014 CASA LAU Ot 275.2 DIS MAGNESIUM METABOLISM 12/06/2014 CASA LAU Ot 555.9 REGIONAL ENTERITIS NOS 12/06/2014 CASA LAU Ot 791.9 ABN URINE FINDINGS NEC 12/06/2014 CASA LAU Ot V15.3 HX OF IRRADIATION 12/06/2014 CASA LAU Ot V44.3 COLOSTOMY STATUS 12/06/2014 CASA LAU Ot V58.69 OTH MED,LT,CURRENT USE 12/06/2014 CASA LAU Ot V58.81 FIT/ADJ VASCULAR CATHETER 12/06/2014 CASA LAU Ot V87.41 PERSONAL HISTORY OF ANTINEOPLASTIC CHEMO 12/08/2014 RIOS ELLER DO Ot 728.87 12/08/2014 RIOS ELLER DO Ot V10.05 12/08/2014 RIOS ELLER DO Ot V57.1 12/18/2014 RIOS ELLER DO Ot M62.81 MUSCLE WEAKNESS (GENERALIZED) 12/18/2014 RIOS ELLER DO Ot Z85.038 PERSONAL HISTORY OF MALIGNANT NEOPLASM O 12/18/2014 RIOS ELLER DO Ot 728.87 12/18/2014 RIOS ELLER DO Ot V10.05 12/18/2014 RIOS ELLER DO Ot V57.1 12/25/2014 CASA LAU Ot 154.1 12/25/2014 CASA LAU Ot 275.2 12/25/2014 CASA LAU Ot 555.9 12/25/2014 CASA LAU Ot 791.9 12/25/2014 CASA LAU Ot V15.3 12/25/2014 CASA LAU Ot V44.3 12/25/2014 JUDI, ZANEAN N Ot V58.69 12/25/2014 JUDI, BOBAN N Ot V58.81 12/25/2014 JUDI, BOBAN N Ot V87.41 01/23/2015 KELLEY JANNETTE S AGRICULTURAL EQUIPMENT SALESPERSON Ot C21.8 01/23/2015 CHRIS KELLEYSATHYA S AGRICULTURAL EQUIPMENT SALESPERSON Ot G95.89 01/23/2015 CHRIS KELLEYSATHYA S AGRICULTURAL EQUIPMENT SALESPERSON Ot M81.0 01/23/2015 WARREN JANNETTE S AGRICULTURAL EQUIPMENT SALESPERSON Ot Z79.899 01/23/2015 WARREN JANNETTE S AGRICULTURAL EQUIPMENT SALESPERSON Ot Z93.3 02/23/2015 JUDIZANE FITCHALEJANDRA N Ot 154.1 02/23/2015 JUDI, CASA N Ot 275.2 02/23/2015 JUDI, CASA N Ot 555.9 02/23/2015 JUDI, CASA N Ot 791.9 02/23/2015 JUDI, CASA N Ot V15.3 02/23/2015 JUDIZANE FITCHALEJANDRA N Ot V44.3 02/23/2015 JUDI BOBAN N Ot V58.69 02/23/2015 JUDI, BOBAN N Ot V58.81 02/23/2015 JUDI, BOBALEJANDRA N Ot V87.41 03/23/2015 JUDICASA N Ot C21.8 03/23/2015 JUDI, BOBAN N Ot G95.89 03/23/2015 JUDI, CASA N Ot M81.0 03/23/2015 JUDICASA N Ot Z45.2 03/23/2015 JUDICASA FITCH N Ot Z79.899 03/23/2015 JUDI ZANEAN N Ot Z93.3 03/25/2015 JUDICASA N Ot 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, 03/25/2015 JUDI, BOBALEJANDRA N Ot G95.89 OTHER SPECIFIED DISEASES OF SPINAL CORD 03/25/2015 JUDICASA FITCH N Ot M81.0 AGE-RELATED OSTEOPOROSIS W/O CURRENT PAT 03/25/2015 JUDICASA FITCH N Ot Z45.2 ENCOUNTER FOR ADJUSTMENT AND MANAGEMENT 03/25/2015 JUDICASA FITCH N Ot Z79.899 OTHER TECHNICAL WRITER (CURRENT) DRUG THERAPY 03/25/2015 CASA LAU Ot Z93.3 COLOSTOMY STATUS 03/27/2015 CASA LAU Ot C21.8 03/27/2015 CASA LAU Ot G95.89 03/27/2015 CASA LAU Ot M81.0 03/27/2015 CASA LAU Ot Z45.2 03/27/2015 CASA LAU Ot Z79.899 03/27/2015 CASA LAU Ot Z93.3 04/30/2015 Ot 592.0 04/30/2015 Ot V76.12 04/30/2015 WIL CARLTON, ANNMARIE M Ot V76.12 04/30/2015 WIL CARLTON, ANNMARIE M Ot 793.80 04/30/2015 WIL CARLTON, ANNMARIE M Ot 555.9 04/30/2015 WIL CARLTON, ANNMARIE M Ot 592.0 04/30/2015 WIL CARLTON, ANNMARIE M Ot 787.99 04/30/2015 WIL CARLTON, ANNMARIE M Ot 793.4 04/30/2015 WIL CARLTON, ANNMARIE M Ot V10.06 04/30/2015 JANNETTE KELLEY AGRICULTURAL EQUIPMENT SALESPERSON Ot 154.1 04/30/2015 CARVER ARAMIS ARNETT Ot 154.1 04/30/2015 CARVER ARAMIS ARNETT Ot V72.84 04/30/2015 JANNETTE KELLEY AGRICULTURAL EQUIPMENT SALESPERSON Ot 154.1 04/30/2015 JANNETTE KELLEY AGRICULTURAL EQUIPMENT SALESPERSON Ot 555.9 04/30/2015 JANNETTE KELLEY AGRICULTURAL EQUIPMENT SALESPERSON Ot V15.3 04/30/2015 JANNETTE KELLEY AGRICULTURAL EQUIPMENT SALESPERSON Ot V44.3 04/30/2015 JANNETTE KELLEY AGRICULTURAL EQUIPMENT SALESPERSON Ot V87.41 04/30/2015 WIL CARLTON, ANNMARIE M Ot 790.29 04/30/2015 JANNETTE KELLEY AGRICULTURAL EQUIPMENT SALESPERSON Ot 154.1 04/30/2015 JANNETTE KELLEY AGRICULTURAL EQUIPMENT SALESPERSON Ot 275.2 04/30/2015 JANNETTE KELLEY AGRICULTURAL EQUIPMENT SALESPERSON Ot 555.9 04/30/2015 JANNETTE KELLEY AGRICULTURAL EQUIPMENT SALESPERSON Ot V15.3 04/30/2015 JANNETTE KELLEY AGRICULTURAL EQUIPMENT SALESPERSON Ot V44.3 04/30/2015 JANNETTE KELLEY AGRICULTURAL EQUIPMENT SALESPERSON Ot V58.11 04/30/2015 KELLEYJANNETTE AGRICULTURAL EQUIPMENT SALESPERSON Ot V58.69 04/30/2015 WIL CARLTON, ANNMARIE Perez Ot 793.80 04/30/2015 Ot 112.0 04/30/2015 Ot 154.1 04/30/2015 Ot 275.2 04/30/2015 Ot 276.8 04/30/2015 Ot 555.9 04/30/2015 Ot 724.2 04/30/2015 Ot V15.3 04/30/2015 Ot V44.3 04/30/2015 Ot V58.69 04/30/2015 Ot 154.1 04/30/2015 Ot 592.0 04/30/2015 Ot 154.1 04/30/2015 Ot 276.8 04/30/2015 Ot 555.9 04/30/2015 Ot 724.2 04/30/2015 Ot 787.91 04/30/2015 Ot 793.7 04/30/2015 Ot 795.81 04/30/2015 Ot V15.3 04/30/2015 Ot V44.3 04/30/2015 Ot V58.69 04/30/2015 Ot V87.41 04/30/2015 Ot 782.3 04/30/2015 Ot V10.06 04/30/2015 Ot 154.1 04/30/2015 Ot 729.1 04/30/2015 Ot 154.1 04/30/2015 Ot 722.0 04/30/2015 Ot 724.5 04/30/2015 Ot 793.7 04/30/2015 KELLEYJANNETTE Garcia AGRICULTURAL EQUIPMENT SALESPERSON Ot 154.1 04/30/2015 KELLEYJANNETTE Garcia AGRICULTURAL EQUIPMENT SALESPERSON Ot 275.2 04/30/2015 JANNETTE KELLEY AGRICULTURAL EQUIPMENT SALESPERSON Ot 555.9 04/30/2015 KELLEYJANNETTE AGRICULTURAL EQUIPMENT SALESPERSON Ot 795.81 04/30/2015 WARREN JANNETTE Garcia AGRICULTURAL EQUIPMENT SALESPERSON Ot V15.3 04/30/2015 WARRENJANNETTE AGRICULTURAL EQUIPMENT SALESPERSON Ot V44.3 04/30/2015 KELLEYJANNETTE AGRICULTURAL EQUIPMENT SALESPERSON Ot V58.69 04/30/2015 WARREN JANNETTE Garcia AGRICULTURAL EQUIPMENT SALESPERSON Ot V87.41 04/30/2015 KAITLYNN CARLTON, ROHAN Ot 154.1 04/30/2015 KAITLYNN CARLTON, ROHAN Ot 275.2 04/30/2015 KAITLYNN CARLTON, VELEZEDER Ot 555.9 04/30/2015 KAITLYNN CARLTON, ROHAN Ot 795.81 04/30/2015 KAITLYNN CARLTON, ROHAN Ot V15.3 04/30/2015 KAITLYNN CARLTON, ROHAN Ot V44.3 04/30/2015 KAITLYNN CARLTON, ROHAN Ot V58.69 04/30/2015 KAITLYNN CARLTON, ROHAN Ot V87.41 04/30/2015 OTHER, UNLISTED Ot 555.9 04/30/2015 JUDI, BOBAN N Ot 782.0 04/30/2015 JUDI, BOBAN N Ot 780.96 04/30/2015 JUDI, BOBAN N Ot 782.3 04/30/2015 NADYA CARLTON, ISAIAH Baptiste Ot 154.1 04/30/2015 JUDI, BOBAN N Ot 627.9 04/30/2015 JUDI, BOBAN N Ot 724.6 04/30/2015 JUDI, BOBAN N Ot V49.81 04/30/2015 WIL CARLTON, ANNMARIE Perez Ot 041.49 04/30/2015 RIOS ELLER DO Ot 599.0 04/30/2015 RIOS ELLER DO Ot 788.20 04/30/2015 RIOS ELLER DO Ot 733.00 04/30/2015 JANNETTE KELLEY AGRICULTURAL EQUIPMENT SALESPERSON Ot C21.8 04/30/2015 KELLEYJANNETTE Garcia AGRICULTURAL EQUIPMENT SALESPERSON Ot G95.89 04/30/2015 JANNETTE KELLEY AGRICULTURAL EQUIPMENT SALESPERSON Ot M81.0 04/30/2015 JANNETTE KELLEY AGRICULTURAL EQUIPMENT SALESPERSON Ot Z79.899 04/30/2015 JANNETTE KELLEY S AGRICULTURAL EQUIPMENT SALESPERSON Ot Z93.3 04/30/2015 JUDI, BOBAN N Ot C21.8 04/30/2015 JUDI, BOBAN N Ot G95.89 04/30/2015 JUDI, BOBAN N Ot M81.0 04/30/2015 JUDI, BOBAN N Ot Z45.2 04/30/2015 JUDI, BOBAN N Ot Z79.899 04/30/2015 JUDI, BOBAN N Ot Z93.3 05/04/2015 JUDICASA FITCH Wanda Ot C21.8 05/04/2015 JUDICASA FITCH Wanda Ot G95.89 05/04/2015 CASA LAU Wanda Ot M81.0 05/04/2015 JUIDCASA FITCH Wanda Ot Z45.2 05/04/2015 CASA LAU Wanda Ot Z79.899 05/04/2015 CASA LAU Wanda Ot Z93.3 05/24/2015 RIOS ELLER DO Ot Z12.31 06/24/2015 CASA LAU Wanda Ot 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, 06/24/2015 JUDICASA FITCH Wanda Ot G95.89 OTHER SPECIFIED DISEASES OF SPINAL CORD 06/24/2015 CASA LAU Wanda Ot M81.0 AGE-RELATED OSTEOPOROSIS W/O CURRENT PAT 06/24/2015 JUDICASA FITCH Wanda Ot Z45.2 ENCOUNTER FOR ADJUSTMENT AND MANAGEMENT 06/24/2015 JUDICASA FITCH Wanda Ot Z79.899 OTHER TECHNICAL WRITER (CURRENT) DRUG THERAPY 06/24/2015 CASA LAU Wanda Ot Z93.3 COLOSTOMY STATUS 07/11/2015 JANNETTE KELLEY AGRICULTURAL EQUIPMENT SALESPERSON Ot 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, 07/11/2015 JANNETTE KELLEY AGRICULTURAL EQUIPMENT SALESPERSON Ot G95.89 OTHER SPECIFIED DISEASES OF SPINAL CORD 07/11/2015 JANNETTE KELLEY AGRICULTURAL EQUIPMENT SALESPERSON Ot M81.0 AGE-RELATED OSTEOPOROSIS W/O CURRENT PAT 07/11/2015 JANNETTE KELLEYP Ot Z45.2 ENCOUNTER FOR ADJUSTMENT AND MANAGEMENT 07/11/2015 JANNETTE KELLEY AGRICULTURAL EQUIPMENT SALESPERSON Ot Z79.899 OTHER LONGTERM (CURRENT) DRUG THERAPY 07/11/2015 JANNETTE KELLEY AGRICULTURAL EQUIPMENT SALESPERSON Ot Z93.3 COLOSTOMY STATUS 08/01/2015 CASA LAU Wanda Ot 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, 08/01/2015 JUDICASA FITCH N Ot G95.89 OTHER SPECIFIED DISEASES OF SPINAL CORD 08/01/2015 CASA LAU N Ot M81.0 AGE-RELATED OSTEOPOROSIS W/O CURRENT PAT 08/01/2015 JUDICASA FITCH Wanda Ot Z45.2 ENCOUNTER FOR ADJUSTMENT AND MANAGEMENT 08/01/2015 CASA LAU N Ot Z79.899 OTHER TECHNICAL WRITER (CURRENT) DRUG THERAPY 08/01/2015 CASA LAU N Ot Z93.3 COLOSTOMY STATUS 08/30/2015 JUDI ZANEALEJANDRA Wanda Ot 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, 08/30/2015 JUDI ZANEALEJANDRA N Ot G95.89 OTHER SPECIFIED DISEASES OF SPINAL CORD 08/30/2015 JUDI CASA N Ot M81.0 AGE-RELATED OSTEOPOROSIS W/O CURRENT PAT 08/30/2015 JUDI CASA N Ot Z45.2 ENCOUNTER FOR ADJUSTMENT AND MANAGEMENT 08/30/2015 JUDI, CASA N Ot Z79.899 OTHER TECHNICAL WRITER (CURRENT) DRUG THERAPY 08/30/2015 JUDI CASA N Ot Z93.3 COLOSTOMY STATUS 10/04/2015 RIOS ELLER DO Ot M81.0 AGE-RELATED OSTEOPOROSIS W/O CURRENT PAT 10/23/2015 RIOS ELLER DO Ot M81.0 AGE-RELATED OSTEOPOROSIS W/O CURRENT PAT 10/29/2015 JUDI, ZANEALEJANDRA N Ot 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, 10/29/2015 JUDI, CASA N Ot G95.89 OTHER SPECIFIED DISEASES OF SPINAL CORD 10/29/2015 JUDICASA N Ot M81.0 AGE-RELATED OSTEOPOROSIS W/O CURRENT PAT 10/29/2015 JUDI, CASA N Ot Z45.2 ENCOUNTER FOR ADJUSTMENT AND MANAGEMENT 10/29/2015 JUDICASA Ot Z51.11 ENCOUNTER FOR ANTINEOPLASTIC CHEMOTHERAP 10/29/2015 JUDICASA N Ot Z79.899 OTHER LONGTERM (CURRENT) DRUG THERAPY 10/29/2015 JUDI ZANEALEJANDRA N Ot Z93.3 COLOSTOMY STATUS 10/30/2015 JUDI CASA N Ot 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, 10/30/2015 JUDI CASA N Ot G95.89 OTHER SPECIFIED DISEASES OF SPINAL CORD 10/30/2015 JUDICASA N Ot M81.0 AGE-RELATED OSTEOPOROSIS W/O CURRENT PAT 10/30/2015 CASA LAU N Ot Z45.2 ENCOUNTER FOR ADJUSTMENT AND MANAGEMENT 10/30/2015 CASA LAU N Ot Z51.11 ENCOUNTER FOR ANTINEOPLASTIC CHEMOTHERAP 10/30/2015 CASA LAU N Ot Z79.899 OTHER LONGTERM (CURRENT) DRUG THERAPY 10/30/2015 CASA LAU N Ot Z93.3 COLOSTOMY STATUS 11/29/2015 CASA LAU N Ot 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, 11/29/2015 CASA LAU N Ot G95.89 OTHER SPECIFIED DISEASES OF SPINAL CORD 11/29/2015 CASA LAU N Ot M81.0 AGE-RELATED OSTEOPOROSIS W/O CURRENT PAT 11/29/2015 CASA LAU N Ot Z45.2 ENCOUNTER FOR ADJUSTMENT AND MANAGEMENT 11/29/2015 CASA LAU N Ot Z79.899 OTHER LONGTERM (CURRENT) DRUG THERAPY 11/29/2015 CASA LAU N Ot Z93.3 COLOSTOMY STATUS 12/10/2015 CASA LAU N Ot 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, 12/10/2015 CASA LAU N Ot G95.89 OTHER SPECIFIED DISEASES OF SPINAL CORD 12/10/2015 CASA LAU N Ot M81.0 AGE-RELATED OSTEOPOROSIS W/O CURRENT PAT 12/10/2015 JUDICASA FITCH N Ot Z45.2 ENCOUNTER FOR ADJUSTMENT AND MANAGEMENT 12/10/2015 CASA LAU N Ot Z79.899 OTHER LONGTERM (CURRENT) DRUG THERAPY 12/10/2015 CASA LAU N Ot Z93.3 COLOSTOMY STATUS 12/11/2015 CASA LAU Wanda Ot 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, 12/11/2015 CASA LAU N Ot G95.89 OTHER SPECIFIED DISEASES OF SPINAL CORD 12/11/2015 CASA LAU N Ot M81.0 AGE-RELATED OSTEOPOROSIS W/O CURRENT PAT 12/11/2015 CASA LAU N Ot Z45.2 ENCOUNTER FOR ADJUSTMENT AND MANAGEMENT 12/11/2015 CASA LAU N Ot Z79.899 OTHER LONGTERM (CURRENT) DRUG THERAPY 12/11/2015 CASA LAU N Ot Z93.3 COLOSTOMY STATUS 01/29/2016 CASA LAU N Ot 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, 01/29/2016 CASA LAU Ot G95.89 OTHER SPECIFIED DISEASES OF SPINAL CORD 01/29/2016 CASA LAU Ot M81.0 AGE-RELATED OSTEOPOROSIS W/O CURRENT PAT 01/29/2016 CASA LAU Ot Z45.2 ENCOUNTER FOR ADJUSTMENT AND MANAGEMENT 01/29/2016 CASA LAU Ot Z79.899 OTHER LONGTERM (CURRENT) DRUG THERAPY 01/29/2016 CASA LAU Ot Z93.3 COLOSTOMY STATUS 03/06/2016 Ot 592.0 CALCULUS OF KIDNEY 03/06/2016 Ot V76.12 OTH SCREEN MAMMO-MALIGN NEOPLASM OF JOSE ARMANDO 03/06/2016 ANNMARIE DE LA TORRE MD Ot V76.12 OTH SCREEN MAMMO-MALIGN NEOPLASM OF JOSE ARMANDO 03/06/2016 ANNMARIE DE LA TORRE MD Ot 793.80 UNSPEC ABNORMAL MAMMOGRAM 03/06/2016 ANNMARIE DE LA TORRE MD Ot 555.9 REGIONAL ENTERITIS NOS 03/06/2016 ANNMARIE DE LA TORRE MD Ot 592.0 CALCULUS OF KIDNEY 03/06/2016 ANNMARIE DE LA TORRE MD Ot 787.99 OTHER GI SYSTEM SYMPTOMS 03/06/2016 ANNMARIE DE LA TORRE MD Ot 793.4 NOSP (ABN) FINDINGS ON RADIOLOGICAL OT 03/06/2016 ANNMARIE DE LA TORRE MD Ot V10.06 HX-RECTAL ANAL MALIGN 03/06/2016 JANNETTE KELLEY AGRICULTURAL EQUIPMENT SALESPERSON Ot 154.1 MALIGNANT NEOPL RECTUM 03/06/2016 ARAMIS CEJA DO Ot 154.1 MALIGNANT NEOPL RECTUM 03/06/2016 ARAMIS CEJA DO Ot V72.84 EXAM PRE-OPERATIVE NOS 03/06/2016 JANNETTE KELLEY AGRICULTURAL EQUIPMENT SALESPERSON Ot 154.1 MALIGNANT NEOPL RECTUM 03/06/2016 JANNETTE KELLEY AGRICULTURAL EQUIPMENT SALESPERSON Ot 555.9 REGIONAL ENTERITIS NOS 03/06/2016 JANNETTE KELLEY AGRICULTURAL EQUIPMENT SALESPERSON Ot V15.3 HX OF IRRADIATION 03/06/2016 JANNETTE KELLEY AGRICULTURAL EQUIPMENT SALESPERSON Ot V44.3 COLOSTOMY STATUS 03/06/2016 JANNETTE KELLEYP Ot V87.41 PERSONAL HISTORY OF ANTINEOPLASTIC CHEMO 03/06/2016 ANNMARIE DE LA TORRE MD Ot 790.29 OTHER ABNORMAL GLUCOSE 03/06/2016 JANNETTE KELLEY AGRICULTURAL EQUIPMENT SALESPERSON Ot 154.1 MALIGNANT NEOPL RECTUM 03/06/2016 JANNETTE KELLEY AGRICULTURAL EQUIPMENT SALESPERSON Ot 275.2 DIS MAGNESIUM METABOLISM 03/06/2016 JANNETTE KELLEY AGRICULTURAL EQUIPMENT SALESPERSON Ot 555.9 REGIONAL ENTERITIS NOS 03/06/2016 JANNETTE KELLEY AGRICULTURAL EQUIPMENT SALESPERSON Ot V15.3 HX OF IRRADIATION 03/06/2016 JANNETTE KELLEYP Ot V44.3 COLOSTOMY STATUS 03/06/2016 JANNETTE KELLEY AGRICULTURAL EQUIPMENT SALESPERSON Ot V58.11 ENCOUNTER FOR ANTINEOPLASTIC CHEMOTHERAP 03/06/2016 JANNETTE KELLEYP Ot V58.69 OTH MED,LT,CURRENT USE 03/06/2016 WIL CARLTON, ANNMARIE Perez Ot 793.80 UNSPEC ABNORMAL MAMMOGRAM 03/06/2016 Ot 112.0 THRUSH 03/06/2016 Ot 154.1 MALIGNANT NEOPL RECTUM 03/06/2016 Ot 275.2 DIS MAGNESIUM METABOLISM 03/06/2016 Ot 276.8 HYPOPOTASSEMIA 03/06/2016 Ot 555.9 REGIONAL ENTERITIS NOS 03/06/2016 Ot 724.2 LUMBAGO 03/06/2016 Ot V15.3 HX OF IRRADIATION 03/06/2016 Ot V44.3 COLOSTOMY STATUS 03/06/2016 Ot V58.69 OTH MED,LT, CURRENT USE 03/06/2016 Ot 154.1 MALIGNANT NEOPL RECTUM 03/06/2016 Ot 592.0 CALCULUS OF KIDNEY 03/06/2016 Ot 154.1 MALIGNANT NEOPL RECTUM 03/06/2016 Ot 276.8 HYPOPOTASSEMIA 03/06/2016 Ot 555.9 REGIONAL ENTERITIS NOS 03/06/2016 Ot 724.2 LUMBAGO 03/06/2016 Ot 787.91 DIARRHEA 03/06/2016 Ot 793.7 NOSP (ABN) FINDINGS ON RADIOLOGICAL OT 03/06/2016 Ot 795.81 ELEVATED CARCINOEMBRYONIC ANTIGEN [CEA] 03/06/2016 Ot V15.3 HX OF IRRADIATION 03/06/2016 Ot V44.3 COLOSTOMY STATUS 03/06/2016 Ot V58.69 OTH MED,LT, CURRENT USE 03/06/2016 Ot V87.41 PERSONAL HISTORY OF ANTINEOPLASTIC CHEMO 03/06/2016 Ot 782.3 EDEMA 03/06/2016 Ot V10.06 HX-RECTAL ANAL MALIGN 03/06/2016 Ot 154.1 MALIGNANT NEOPL RECTUM 03/06/2016 Ot 729.1 MYALGIA AND MYOSITIS NOS 03/06/2016 Ot 154.1 MALIGNANT NEOPL RECTUM 03/06/2016 Ot 722.0 CERVICAL DISC DISPLACMNT 03/06/2016 Ot 724.5 BACKACHE NOS 03/06/2016 Ot 793.7 NOSP (ABN) FINDINGS ON RADIOLOGICAL OT 03/06/2016 JANNETTE KELLEYP Ot 154.1 MALIGNANT NEOPL RECTUM 03/06/2016 JANNETTE KELLEYP Ot 275.2 DIS MAGNESIUM METABOLISM 03/06/2016 JANNETTE KELLEY AGRICULTURAL EQUIPMENT SALESPERSON Ot 555.9 REGIONAL ENTERITIS NOS 03/06/2016 JANNETTE KELLEYP Ot 795.81 ELEVATED CARCINOEMBRYONIC ANTIGEN [CEA] 03/06/2016 JANNETTE KELLEY Ot V15.3 HX OF IRRADIATION 03/06/2016 JANNETTE KELLEY Ot V44.3 COLOSTOMY STATUS 03/06/2016 JANNETTE KELLEY Ot V58.69 OTH MED,LT,CURRENT USE 03/06/2016 JANNETTE KELLEY Ot V87.41 PERSONAL HISTORY OF ANTINEOPLASTIC CHEMO 03/06/2016 ROHAN CALDERÓN MD Ot 154.1 MALIGNANT NEOPL RECTUM 03/06/2016 ROHAN CALDERÓN MD Ot 275.2 DIS MAGNESIUM METABOLISM 03/06/2016 ROHAN CALDERÓN MD Ot 555.9 REGIONAL ENTERITIS NOS 03/06/2016 ROHAN CALDERÓN MD Ot 795.81 ELEVATED CARCINOEMBRYONIC ANTIGEN [CEA] 03/06/2016 ROHAN CALDERÓN MD Ot V15.3 HX OF IRRADIATION 03/06/2016 ROHAN CALDERÓN MD Ot V44.3 COLOSTOMY STATUS 03/06/2016 ROHAN CALDERÓN MD Ot V58.69 OTH MED,LT,CURRENT USE 03/06/2016 ROHAN CALDERÓN MD Ot V87.41 PERSONAL HISTORY OF ANTINEOPLASTIC CHEMO 03/06/2016 OTHER, UNLISTED Ot 555.9 REGIONAL ENTERITIS NOS 03/06/2016 CASA LAU Ot 782.0 SKIN SENSATION DISTURB 03/06/2016 CASA LAU Wanda Ot 780.96 GENERALIZED PAIN 03/06/2016 JUDICASA FITCH Wanda Ot 782.3 EDEMA 03/06/2016 NADYA CARLTON, ISAIAH Baptiste Ot 154.1 MALIGNANT NEOPL RECTUM 03/06/2016 CASA LAU Wanda Ot 627.9 MENOPAUSAL DISORDER NOS 03/06/2016 CASA LAU Wanda Ot 724.6 DISORDERS OF SACRUM 03/06/2016 CASA LAU Wanda Ot V49.81 ASYMPT POSTMENOPAUSAL STATUS (AGE-RELATE 03/06/2016 WIL CARLTON, ANNMARIE Perez Ot 041.49 OTHER AND UNSPECIFIED ESCHERICHIA COLI [ 03/06/2016 RIOS ELLER DO Ot 599.0 URIN TRACT INFECTION NOS 03/06/2016 RIOS ELLER DO Ot 788.20 RETENTION OF URINE NOS 03/06/2016 RIOS ELLER DO Ot 733.00 OSTEOPOROSIS NOS 03/06/2016 JANNETTE KELLEY Ot 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, 03/06/2016 JANNETTE KELLEYP Ot G95.89 OTHER SPECIFIED DISEASES OF SPINAL CORD 03/06/2016 JANNETTE KELLEY Ot M81.0 AGE-RELATED OSTEOPOROSIS W/O CURRENT PAT 03/06/2016 JANNETTE KELLEY Ot Z79.899 OTHER TECHNICAL WRITER (CURRENT) DRUG THERAPY 03/06/2016 JANNETTE KELLEY Ot Z93.3 COLOSTOMY STATUS 03/06/2016 RIOS ELLER DO Ot Z12.31 ENCNTR SCREEN MAMMOGRAM FOR MALIGNANT NE 03/06/2016 JANNETTE KELLEYP Ot 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, 03/06/2016 JANNETTE KELLEYP Ot G95.89 OTHER SPECIFIED DISEASES OF SPINAL CORD 03/06/2016 JANNETTE KELLEY Ot M81.0 AGE-RELATED OSTEOPOROSIS W/O CURRENT PAT 03/06/2016 JANNETTE KELLEY Ot Z45.2 ENCOUNTER FOR ADJUSTMENT AND MANAGEMENT 03/06/2016 JANNETTE KELLEYP Ot Z79.899 OTHER LONGTERM (CURRENT) DRUG THERAPY 03/06/2016 KELLEY, HILAH S AGRICULTURAL EQUIPMENT SALESPERSON Ot Z93.3 COLOSTOMY STATUS 03/06/2016 RIOS ELLER DO Ot M81.0 AGE-RELATED OSTEOPOROSIS W/O CURRENT PAT 03/06/2016 JUDI, CASA Muñoz Ot 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, 03/06/2016 CASA LAU N Ot G95.89 OTHER SPECIFIED DISEASES OF SPINAL CORD 03/06/2016 JUDI ZANEALEJANDRA N Ot M81.0 AGE-RELATED OSTEOPOROSIS W/O CURRENT PAT 03/06/2016 JUDI, ZANEALEJANDRA Wanda Ot Z45.2 ENCOUNTER FOR ADJUSTMENT AND MANAGEMENT 03/06/2016 JUDI, CASA N Ot Z79.899 OTHER TECHNICAL WRITER (CURRENT) DRUG THERAPY 03/06/2016 JUDI, CASA N Ot Z93.3 COLOSTOMY STATUS 03/06/2016 RIOS ELLER DO Ot Z12.31 ENCNTR SCREEN MAMMOGRAM FOR MALIGNANT NE 03/06/2016 JANNETTE KELLEY Ot 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, 03/06/2016 JANNETTE KELLEY AGRICULTURAL EQUIPMENT SALESPERSON Ot G95.89 OTHER SPECIFIED DISEASES OF SPINAL CORD 03/06/2016 JANNETTE KELLEY AGRICULTURAL EQUIPMENT SALESPERSON Ot M81.0 AGE-RELATED OSTEOPOROSIS W/O CURRENT PAT 03/06/2016 JANNETTE KELLEY AGRICULTURAL EQUIPMENT SALESPERSON Ot Z45.2 ENCOUNTER FOR ADJUSTMENT AND MANAGEMENT 03/06/2016 JANNETTE KELLEY AGRICULTURAL EQUIPMENT SALESPERSON Ot Z79.899 OTHER LONGTERM (CURRENT) DRUG THERAPY 03/06/2016 JANNETTE KELLEYP Ot Z93.3 COLOSTOMY STATUS 03/06/2016 RIOS ELLER DO Ot M81.0 AGE-RELATED OSTEOPOROSIS W/O CURRENT PAT 03/06/2016 JUDI, ZANEALEJANDRA Wanda Ot 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, 03/06/2016 JUDI, CASA Muñoz Ot G95.89 OTHER SPECIFIED DISEASES OF SPINAL CORD 03/06/2016 JUDI, CASA N Ot M81.0 AGE-RELATED OSTEOPOROSIS W/O CURRENT PAT 03/06/2016 JUDI, CASA N Ot Z45.2 ENCOUNTER FOR ADJUSTMENT AND MANAGEMENT 03/06/2016 JUDI, CASA Muñoz Ot Z79.899 OTHER LONGTERM (CURRENT) DRUG THERAPY 03/06/2016 JUDI, CASA Muñoz Ot Z93.3 COLOSTOMY STATUS 03/07/2016 JANNETTE KELLEY AGRICULTURAL EQUIPMENT SALESPERSON Ot C20 MALIGNANT NEOPLASM OF RECTUM 03/07/2016 JANNETTE KELLEY AGRICULTURAL EQUIPMENT SALESPERSON Ot N20.2 CALCULUS OF KIDNEY WITH CALCULUS OF URET 03/07/2016 JANNETTE KELLEY AGRICULTURAL EQUIPMENT SALESPERSON Ot S32.10XA UNSP FRACTURE OF SACRUM, INIT ENCNTR FOR 03/07/2016 JANNETTE KELLEY AGRICULTURAL EQUIPMENT SALESPERSON Ot S32.501A UNSP FRACTURE OF RIGHT PUBIS, INIT FOR C 03/07/2016 JANNETTE KELLEY AGRICULTURAL EQUIPMENT SALESPERSON Ot X58.XXXA EXPOSURE TO OTHER SPECIFIED FACTORS, INI 03/07/2016 JANNETTE KELLEY AGRICULTURAL EQUIPMENT SALESPERSON Ot Y99.8 OTHER EXTERNAL CAUSE STATUS 03/09/2016 CASA LAU Ot 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, 03/09/2016 CASA LAU Ot G95.89 OTHER SPECIFIED DISEASES OF SPINAL CORD 03/09/2016 CASA LAU Ot M81.0 AGE-RELATED OSTEOPOROSIS W/O CURRENT PAT 03/09/2016 CASA LAU Ot Z45.2 ENCOUNTER FOR ADJUSTMENT AND MANAGEMENT 03/09/2016 CASA LAU Ot Z79.899 OTHER TECHNICAL WRITER (CURRENT) DRUG THERAPY 03/09/2016 CASA LAU Ot Z93.3 COLOSTOMY STATUS 03/27/2016 JANNETTE KELLEY AGRICULTURAL EQUIPMENT SALESPERSON Ot C20 MALIGNANT NEOPLASM OF RECTUM 03/27/2016 JANNETTE KELLEYP Ot N20.2 CALCULUS OF KIDNEY WITH CALCULUS OF URET 03/27/2016 JANNETTE KELLEY AGRICULTURAL EQUIPMENT SALESPERSON Ot S32.10XA UNSP FRACTURE OF SACRUM, INIT ENCNTR FOR 03/27/2016 JANNETTE KELLEY AGRICULTURAL EQUIPMENT SALESPERSON Ot S32.501A UNSP FRACTURE OF RIGHT PUBIS, INIT FOR C 03/27/2016 JANNETTE KELLEY AGRICULTURAL EQUIPMENT SALESPERSON Ot X58.XXXA EXPOSURE TO OTHER SPECIFIED FACTORS, INI 03/27/2016 JANNETTE KELLEY S AGRICULTURAL EQUIPMENT SALESPERSON Ot Y99.8 OTHER EXTERNAL CAUSE STATUS 04/04/2016 CASA LAU Ot 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, 04/16/2016 JANNETTE KELLEYP Ot G95.89 OTHER SPECIFIED DISEASES OF SPINAL CORD 04/16/2016 JANNETTE KELLEYP Ot M81.0 AGE-RELATED OSTEOPOROSIS W/O CURRENT PAT 04/16/2016 JANNETTE KELLEY Ot Z45.2 ENCOUNTER FOR ADJUSTMENT AND MANAGEMENT 04/16/2016 JANNETTE KELLEYP Ot Z79.899 OTHER TECHNICAL WRITER (CURRENT) DRUG THERAPY 04/16/2016 JANNETTE KELLEYP Ot Z93.3 COLOSTOMY STATUS 04/16/2016 RIOS ELLER DO Ot M81.0 AGE-RELATED OSTEOPOROSIS W/O CURRENT PAT 04/16/2016 JANNETTE KELLEY AGRICULTURAL EQUIPMENT SALESPERSON Ot C20 MALIGNANT NEOPLASM OF RECTUM 04/16/2016 JANNETTE KELLEY AGRICULTURAL EQUIPMENT SALESPERSON Ot N20.2 CALCULUS OF KIDNEY WITH CALCULUS OF URET 04/16/2016 KELLEYJANNETTE AGRICULTURAL EQUIPMENT SALESPERSON Ot S32.10XA UNSP FRACTURE OF SACRUM, INIT ENCNTR FOR 04/16/2016 JANNETTE KELLEY AGRICULTURAL EQUIPMENT SALESPERSON Ot S32.501A UNSP FRACTURE OF RIGHT PUBIS, INIT FOR C 04/16/2016 KELLEY CHRISSATHYA Radha AGRICULTURAL EQUIPMENT SALESPERSON Ot X58.XXXA EXPOSURE TO OTHER SPECIFIED FACTORS, INI 04/16/2016 WARREN CHRISSATHYA Radha AGRICULTURAL EQUIPMENT SALESPERSON Ot Y99.8 OTHER EXTERNAL CAUSE STATUS 04/16/2016 CASA LAU Ot 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, 04/16/2016 CASA LAU Ot G95.89 OTHER SPECIFIED DISEASES OF SPINAL CORD 04/16/2016 CASA LAU Ot M81.0 AGE-RELATED OSTEOPOROSIS W/O CURRENT PAT 04/16/2016 CASA LAU Ot Z45.2 ENCOUNTER FOR ADJUSTMENT AND MANAGEMENT 04/16/2016 CASA LAU Ot Z79.899 OTHER LONGTERM (CURRENT) DRUG THERAPY 04/16/2016 CASA LAU Ot Z93.3 COLOSTOMY STATUS 05/01/2016 JANNETTE KELLEY AGRICULTURAL EQUIPMENT SALESPERSON Ot Z12.31 ENCNTR SCREEN MAMMOGRAM FOR MALIGNANT NE 05/01/2016 CASA LAU Ot 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, 05/01/2016 CASA LAU Ot G95.89 OTHER SPECIFIED DISEASES OF SPINAL CORD 05/01/2016 CASA LAU Ot M81.0 AGE-RELATED OSTEOPOROSIS W/O CURRENT PAT 05/01/2016 CASA LAU Ot Z45.2 ENCOUNTER FOR ADJUSTMENT AND MANAGEMENT 05/01/2016 CASA LAU Ot Z79.899 OTHER LONGTERM (CURRENT) DRUG THERAPY 05/01/2016 CASA LAU Ot Z93.3 COLOSTOMY STATUS 05/23/2016 JANNETTE KELLEY S AGRICULTURAL EQUIPMENT SALESPERSON Ot Z12.31 ENCNTR SCREEN MAMMOGRAM FOR MALIGNANT NE 07/02/2016 CASA LAU Wanda Ot 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, 07/02/2016 JUDI ZANEALEJANDRA Wanda Ot G95.89 OTHER SPECIFIED DISEASES OF SPINAL CORD 07/02/2016 JUDI ZANEALEJANDRA Wanda Ot M81.0 AGE-RELATED OSTEOPOROSIS W/O CURRENT PAT 07/02/2016 CASA LAU Wanda Ot Z45.2 ENCOUNTER FOR ADJUSTMENT AND MANAGEMENT 07/02/2016 JUDI ZANEALEJANDRA Wanda Ot Z79.899 OTHER LONGTERM (CURRENT) DRUG THERAPY 07/02/2016 JUDI CASA Muñoz Ot Z93.3 COLOSTOMY STATUS 08/08/2016 JUDI ZANEALEJANDRA Wanda Ot 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, 08/08/2016 JUDI, CASA Muñoz Ot G95.89 OTHER SPECIFIED DISEASES OF SPINAL CORD 08/08/2016 JUDI CASA Muñoz Ot M81.0 AGE-RELATED OSTEOPOROSIS W/O CURRENT PAT 08/08/2016 CASA LAU Ot Z79.899 OTHER TECHNICAL WRITER (CURRENT) DRUG THERAPY 08/08/2016 JUDI CASA Muñoz Ot Z93.3 COLOSTOMY STATUS 09/23/2016 RIOS ELLER DO Ot M81.0 AGE-RELATED OSTEOPOROSIS W/O CURRENT PAT 09/25/2016 RIOS ELLER DO Ot M81.0 AGE-RELATED OSTEOPOROSIS W/O CURRENT PAT 10/03/2016 JUDICASA Ot 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, 10/03/2016 JUDICASA Ot G95.89 OTHER SPECIFIED DISEASES OF SPINAL CORD 10/03/2016 JUDI CASA Muñoz Ot M81.0 AGE-RELATED OSTEOPOROSIS W/O CURRENT PAT 10/03/2016 JUDI CASA Muñoz Ot Z79.899 OTHER LONGTERM (CURRENT) DRUG THERAPY 10/03/2016 JUDI CASA Muñoz Ot Z93.3 COLOSTOMY STATUS 11/05/2016 JUDI CASA Muñoz Ot 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, 11/05/2016 JUDI, CASA Muñoz Ot G95.89 OTHER SPECIFIED DISEASES OF SPINAL CORD 11/05/2016 JUDICASA Ot M81.0 AGE-RELATED OSTEOPOROSIS W/O CURRENT PAT 11/05/2016 CASA LAU N Ot Z79.899 OTHER LONGTERM (CURRENT) DRUG THERAPY 11/05/2016 CASA LAU N Ot Z93.3 COLOSTOMY STATUS 11/08/2016 CASA LAU N Ot 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, 11/08/2016 CASA LAU N Ot G95.89 OTHER SPECIFIED DISEASES OF SPINAL CORD 11/08/2016 CASA LAU N Ot M81.0 AGE-RELATED OSTEOPOROSIS W/O CURRENT PAT 11/08/2016 CASA LAU N Ot R82.99 OTHER ABNORMAL FINDINGS IN URINE 11/08/2016 CASA LAU N Ot Z79.899 OTHER TECHNICAL WRITER (CURRENT) DRUG THERAPY 11/08/2016 CASA LAU N Ot Z93.3 COLOSTOMY STATUS 11/11/2016 RIOS ELLER DO Ot R07.9 CHEST PAIN, UNSPECIFIED 11/13/2016 RIOS ELLER DO Ot R07.9 CHEST PAIN, UNSPECIFIED 11/28/2016 CASA LAU N Ot 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, 11/28/2016 CASA LAU N Ot G95.89 OTHER SPECIFIED DISEASES OF SPINAL CORD 11/28/2016 CASA LAU N Ot M81.0 AGE-RELATED OSTEOPOROSIS W/O CURRENT PAT 11/28/2016 CASA LAU N Ot R82.99 OTHER ABNORMAL FINDINGS IN URINE 11/28/2016 CASA LAU N Ot Z79.899 OTHER LONGTERM (CURRENT) DRUG THERAPY 11/28/2016 CASA LAU N Ot Z93.3 COLOSTOMY STATUS 11/28/2016 RIOS ELLER DO Ot R07.9 CHEST PAIN, UNSPECIFIED 12/06/2016 CASA LAU N Ot 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, 12/06/2016 CASA LAU N Ot G95.89 OTHER SPECIFIED DISEASES OF SPINAL CORD 12/06/2016 CASA LAU N Ot M81.0 AGE-RELATED OSTEOPOROSIS W/O CURRENT PAT 12/06/2016 CASA LAU N Ot R82.99 OTHER ABNORMAL FINDINGS IN URINE 12/06/2016 CASA LAU N Ot Z45.2 ENCOUNTER FOR ADJUSTMENT AND MANAGEMENT 12/06/2016 CASA LAU N Ot Z79.899 OTHER LONGTERM (CURRENT) DRUG THERAPY 12/06/2016 CASA LAU N Ot Z93.3 COLOSTOMY STATUS 12/13/2016 CASA LAU N Ot 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, 12/13/2016 CASA LAU N Ot G95.89 OTHER SPECIFIED DISEASES OF SPINAL CORD 12/13/2016 CASA LAU N Ot M81.0 AGE-RELATED OSTEOPOROSIS W/O CURRENT PAT 12/13/2016 CASA LAU N Ot R82.99 OTHER ABNORMAL FINDINGS IN URINE 12/13/2016 CASA LAU N Ot Z45.2 ENCOUNTER FOR ADJUSTMENT AND MANAGEMENT 12/13/2016 CASA LAU N Ot Z79.899 OTHER TECHNICAL WRITER (CURRENT) DRUG THERAPY 12/13/2016 CASA LAU N Ot Z93.3 COLOSTOMY STATUS 01/12/2017 CASA LAU N Ot 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, 01/12/2017 CASA LAU N Ot G95.89 OTHER SPECIFIED DISEASES OF SPINAL CORD 01/12/2017 CASA LAU N Ot M81.0 AGE-RELATED OSTEOPOROSIS W/O CURRENT PAT 01/12/2017 CASA LAU N Ot Z79.899 OTHER TECHNICAL WRITER (CURRENT) DRUG THERAPY 01/12/2017 CASA LAU N Ot Z93.3 COLOSTOMY STATUS 01/16/2017 RIOS ELLER DO Ot N20.0 CALCULUS OF KIDNEY 01/30/2017 ASH ANTUNEZ Ot J45.909 UNSPECIFIED ASTHMA, UNCOMPLICATED 01/30/2017 ASH ANTUNEZ Ot M81.0 AGE-RELATED OSTEOPOROSIS W/O CURRENT PAT 01/30/2017 ASH ANTUNEZ Ot N39.0 URINARY TRACT INFECTION, SITE NOT SPECIF 01/30/2017 ASH ANTUNEZ Ot R10.32 LEFT LOWER QUADRANT PAIN 01/30/2017 ASH ANTUNEZ Ot Z85.038 PERSONAL HISTORY OF MALIGNANT NEOPLASM O 01/30/2017 ASH ANTUNEZ Ot Z87.19 PERSONAL HISTORY OF OTHER DISEASES OF TH 01/30/2017 ASH ANTUNEZ Ot Z87.442 PERSONAL HISTORY OF URINARY CALCULI 01/30/2017 ASH ANTUNEZ Ot Z90.710 ACQUIRED ABSENCE OF BOTH CERVIX AND UTER 01/30/2017 ASH ANTUNEZ Ot Z92.21 PERSONAL HISTORY OF ANTINEOPLASTIC CHEMO 02/04/2017 JUDICASA FITCH Wanda Ot 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, 02/04/2017 CASA LAU Wanda Ot G95.89 OTHER SPECIFIED DISEASES OF SPINAL CORD 02/04/2017 JUDICASA FITCH Wanda Ot M81.0 AGE-RELATED OSTEOPOROSIS W/O CURRENT PAT 02/04/2017 JUDICASA FITCH Wanda Ot Z79.899 OTHER TECHNICAL WRITER (CURRENT) DRUG THERAPY 02/04/2017 JUDICASA FITCH Wanda Ot Z93.3 COLOSTOMY STATUS 02/06/2017 VERONICA STOLL MD, Ot 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, 02/06/2017 VERONICA STOLL MD, Ot G95.89 OTHER SPECIFIED DISEASES OF SPINAL CORD 02/06/2017 VERONICA STOLL MD, Ot M81.0 AGE-RELATED OSTEOPOROSIS W/O CURRENT PAT 02/06/2017 VERONICA STOLL MD, Ot Z79.899 OTHER LONGTERM (CURRENT) DRUG THERAPY 02/06/2017 VERONICA STOLL MD, Ot Z93.3 COLOSTOMY STATUS 02/09/2017 RIOS ELLER DO Ot N20.0 CALCULUS OF KIDNEY 03/03/2017 RIOS ELLER DO Ot R19.7 DIARRHEA, UNSPECIFIED 03/03/2017 VERONICA STOLL MD, Ot 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 Results Test Result Range Complete urinalysis with reflex to culture - 04/12/16 09:55 Urine color determination YELLOW NRG Urine clarity determination VERY CLOUDY NRG Urine pH measurement by test strip 5 5-9 Specific gravity of urine by test strip 1.010 1.016- 1.022 Urine protein assay by test strip, semi-quantitative 3+ NEGATIVE Urine glucose detection by automated test strip NEGATIVE NEGATIVE Erythrocytes detection in urine sediment by light microscopy 4+ NEGATIVE Urine ketones detection by automated test strip 1+ NEGATIVE Urine nitrite detection by test strip POSITIVE NEGATIVE Urine total bilirubin detection by test strip NEGATIVE NEGATIVE Urine urobilinogen measurement by automated test strip (mass/volume) NORMAL NORMAL Urine leukocyte esterase detection by dipstick 3+ NEGATIVE Automated urine sediment erythrocyte count by microscopy (number/high power field) > [HPF] NRG Automated urine sediment leukocyte count by microscopy (number/high power field ) TNTC NRG Bacteria detection in urine sediment by light microscopy MODERATE NRG Crystals detection in urine sediment by light microscopy NONE NRG Casts detection in urine sediment by light microscopy NONE NRG Mucus detection in urine sediment by light microscopy NEGATIVE NRG Complete urinalysis with reflex to culture YES NRG Bacterial urine culture - 04/12/16 09:55 Bacterial urine culture [id number] NRG COLONY COUNT >100,000/ML NRG FTX;REPORTABLE SENSITIVITY SET ON BLOOD CULTURE NRG URINE CULTURE RESULTS PLUS NRG FREE TEXT ENTRY 2 REFER TO M1670 [facility] Complete blood count (CBC) with automated white blood cell (WBC) differential - 04/12/16 10:20 Blood leukocytes automated count (number/volume) 20.7 10*3/uL 4.3-11.0 Blood erythrocytes automated count (number/volume) 4.36 10*6/uL 4.35-5.85 Venous blood hemoglobin measurement (mass/volume) 13.1 g/dL 11.5-16.0 Blood hematocrit (volume fraction) 39 % 35-52 Automated erythrocyte mean corpuscular volume 89 [foz_us] 80-99 Automated erythrocyte mean corpuscular hemoglobin (mass per erythrocyte) 30 pg 25-34 Automated erythrocyte mean corpuscular hemoglobin concentration measurement ( mass/volume) 34 g/dL 32-36 Automated erythrocyte distribution width ratio 14.3 % 10.0-14.5 Automated blood platelet count (count/volume) 143 10*3/uL 130-400 Automated blood platelet mean volume measurement 9.5 [foz_us] 7.4-10.4 Automated blood neutrophils/100 leukocytes 92 % 42-75 Automated blood lymphocytes/100 leukocytes 5 % 12-44 Blood monocytes/100 leukocytes 3 % 0-12 Automated blood eosinophils/100 leukocytes 0 % 0-10 Automated blood basophils/100 leukocytes 0 % 0-10 Blood neutrophils automated count (number/volume) 18.9 10*3 1.8-7.8 Blood lymphocytes automated count (number/volume) 1.0 10*3 1.0-4.0 Blood monocytes automated count (number/volume) 0.7 10*3 0.0-1.0 Automated eosinophil count 0.0 10*3/uL 0.0-0.3 Automated blood basophil count (count/volume) 0.0 10*3/uL 0.0-0.1 Blood lactic acid measurement (moles/volume) - 04/12/16 10:20 Blood lactic acid measurement (moles/volume) 1.5 mmol/L 0.5-2.0 Comprehensive metabolic panel - 04/12/16 10:20 Serum or plasma sodium measurement (moles/volume) 137 mmol/L 135-145 Serum or plasma potassium measurement (moles/volume) 3.4 mmol/L 3.6-5.0 Serum or plasma chloride measurement (moles/volume) 107 mmol/L 98-107 Carbon dioxide 17 mmol/L 21-32 Serum or plasma anion gap determination (moles/volume) 13 mmol/L 5-14 Serum or plasma urea nitrogen measurement (mass/volume) 21 mg/dL 7-18 Serum or plasma creatinine measurement (mass/volume) 1.22 mg/dL 0.60-1.30 Serum or plasma urea nitrogen/creatinine mass ratio 17 NRG Serum or plasma creatinine measurement with calculation of estimated glomerular filtration rate 44 NRG Serum or plasma glucose measurement (mass/volume) 84 mg/dL 70-105 Serum or plasma calcium measurement (mass/volume) 8.2 mg/dL 8.5-10.1 Serum or plasma total bilirubin measurement (mass/volume) 1.1 mg/dL 0.1-1.0 Serum or plasma alkaline phosphatase measurement (enzymatic activity/volume) 116 U/L 40-136 Serum or plasma aspartate aminotransferase measurement (enzymatic activity/ volume) 18 U/L 5-34 Serum or plasma alanine aminotransferase measurement (enzymatic activity/volume ) 8 U/L 0-55 Serum or plasma protein measurement (mass/volume) 6.4 g/dL 6.4-8.2 Serum or plasma albumin measurement (mass/volume) 3.4 g/dL 3.2-4.5 Blood manual differential performed detection - 04/12/16 10:20 Blood monocytes/100 leukocytes 1 % NRG Manual blood segmented neutrophils/100 leukocytes 84 % NRG Blood band neutrophils/100 leukocytes 11 % NRG Manual blood lymphocytes/100 leukocytes 4 % NRG Blood erythrocyte morphology finding identification NORMAL NRG Bacterial blood culture - 04/12/16 10:20 FREE TEXT EXTERNAL SENSITIVITY REPORTED 04/13 15:30 NRG QUANTITY OF GROWTH Isolated NRG Bacterial blood culture [id number] [facility] Bacterial susceptibility panel - 04/12/16 10:20 Gentamicin susceptibility test by minimum inhibitory concentration < = NRG Trimethoprim/sulfamethoxazole susceptibility test by minimum inhibitoryconcentration <= NRG Ampicillin susceptibility test by minimum inhibitory concentration 4 NRG Tobramycin susceptibility test by minimum inhibitory concentration < = NRG Cefazolin susceptibility test by minimum inhibitory concentration < = NRG Ceftriaxone susceptibility test by minimum inhibitory concentration <= NRG Ampicillin/sulbactam susceptibility test by minimum inhibitory concentration 4 NRG Piperacillin/tazobactam susceptibility test by minimum inhibitory concentration <= NRG Ciprofloxacin susceptibility test by minimum inhibitory concentration >= NRG Meropenem susceptibility test by minimum inhibitory concentration < = NRG Aztreonam susceptibility test by minimum inhibitory concentration < = NRG Extended spectrum beta lactamase (ESBL) producing bacteria susceptibility test by minimum inhibitory concentration - [facility] Bacterial blood culture - 04/12/16 11:10 FREE TEXT EXTERNAL SENSITIVITY REPORTED 04/13 ON NRG QUANTITY OF GROWTH Isolated NRG Bacterial blood culture [id number] [facility] FREE TEXT ENTRY 2 BLOOD CULTURE M1670 NRG Blood CBC with ordered manual differential panel - 04/13/16 05:00 Blood leukocytes automated count (number/volume) 14.7 10*3/uL 4.3-11.0 Blood erythrocytes automated count (number/volume) 3.48 10*6/uL 4.35-5.85 Venous blood hemoglobin measurement (mass/volume) 10.2 g/dL 11.5-16.0 Blood hematocrit (volume fraction) 31 % 35-52 Automated erythrocyte mean corpuscular volume 90 [foz_us] 80-99 Automated erythrocyte mean corpuscular hemoglobin (mass per erythrocyte) 29 pg 25-34 Automated erythrocyte mean corpuscular hemoglobin concentration measurement ( mass/volume) 33 g/dL 32-36 Automated erythrocyte distribution width ratio 14.5 % 10.0-14.5 Automated blood platelet count (count/volume) 86 10*3/uL 130-400 Automated blood platelet mean volume measurement 9.8 [foz_us] 7.4-10.4 Automated blood neutrophils/100 leukocytes 92 % 42-75 Automated blood lymphocytes/100 leukocytes 4 % 12-44 Blood monocytes/100 leukocytes 4 % NRG Automated blood eosinophils/100 leukocytes 0 % 0-10 Automated blood basophils/100 leukocytes 0 % 0-10 Blood neutrophils automated count (number/volume) 13.6 10*3 1.8-7.8 Blood lymphocytes automated count (number/volume) 0.6 10*3 1.0-4.0 Blood monocytes automated count (number/volume) 0.5 10*3 0.0-1.0 Automated eosinophil count 0.0 10*3/uL 0.0-0.3 Automated blood basophil count (count/volume) 0.0 10*3/uL 0.0-0.1 Manual blood segmented neutrophils/100 leukocytes 78 % NRG Blood band neutrophils/100 leukocytes 15 % NRG Manual blood lymphocytes/100 leukocytes 3 % NRG Manual eosinophils/100 leukocytes in nose 0 % NRG Manual blood basophils/100 leukocytes 0 % NRG Blood anisocytosis detection by light microscopy SLIGHT NRG Blood toxic granules detection by light microscopy 1+ NRG Blood selwyn cells detection by light microscopy SLIGHT NRG Comprehensive metabolic panel - 04/13/16 05:00 Serum or plasma sodium measurement (moles/volume) 137 mmol/L 135-145 Serum or plasma potassium measurement (moles/volume) 3.6 mmol/L 3.6-5.0 Serum or plasma chloride measurement (moles/volume) 112 mmol/L 98-107 Carbon dioxide 16 mmol/L 21-32 Serum or plasma anion gap determination (moles/volume) 9 mmol/L 5-14 Serum or plasma urea nitrogen measurement (mass/volume) 22 mg/dL 7-18 Serum or plasma creatinine measurement (mass/volume) 1.29 mg/dL 0.60-1.30 Serum or plasma urea nitrogen/creatinine mass ratio 17 NRG Serum or plasma creatinine measurement with calculation of estimated glomerular filtration rate 41 NRG Serum or plasma glucose measurement (mass/volume) 93 mg/dL 70-105 Serum or plasma calcium measurement (mass/volume) 6.8 mg/dL 8.5-10.1 Serum or plasma total bilirubin measurement (mass/volume) 0.4 mg/dL 0.1-1.0 Serum or plasma alkaline phosphatase measurement (enzymatic activity/volume) 70 U/L 40-136 Serum or plasma aspartate aminotransferase measurement (enzymatic activity/ volume) 17 U/L 5-34 Serum or plasma alanine aminotransferase measurement (enzymatic activity/volume ) 8 U/L 0-55 Serum or plasma protein measurement (mass/volume) 4.7 g/dL 6.4-8.2 Serum or plasma albumin measurement (mass/volume) 2.5 g/dL 3.2-4.5 Complete urinalysis with reflex to culture - 04/13/16 09:15 Urine color determination YELLOW NRG Urine clarity determination VERY CLOUDY NRG Urine pH measurement by test strip 5 5-9 Specific gravity of urine by test strip 1.010 1.016- 1.022 Urine protein assay by test strip, semi-quantitative 3+ NEGATIVE Urine glucose detection by automated test strip NEGATIVE NEGATIVE Erythrocytes detection in urine sediment by light microscopy 5+ NEGATIVE Urine ketones detection by automated test strip 1+ NEGATIVE Urine nitrite detection by test strip NEGATIVE NEGATIVE Urine total bilirubin detection by test strip NEGATIVE NEGATIVE Urine urobilinogen measurement by automated test strip (mass/volume) NORMAL NORMAL Urine leukocyte esterase detection by dipstick 3+ NEGATIVE Automated urine sediment erythrocyte count by microscopy (number/high power field) [HPF] NRG Automated urine sediment leukocyte count by microscopy (number/high power field ) TNTC NRG Bacteria detection in urine sediment by light microscopy LARGE NRG Crystals detection in urine sediment by light microscopy NONE NRG Casts detection in urine sediment by light microscopy NONE NRG Mucus detection in urine sediment by light microscopy SMALL NRG Complete urinalysis with reflex to culture YES NRG Bacterial urine culture - 04/13/16 09:15 Bacterial urine culture NG NRG Bacterial urine culture - 11/06/16 10:50 Bacterial urine culture [id number] NRG COLONY COUNT <10,000 NRG FTX;REPORTABLE AND NOT GROUP D STREP NRG Bacterial susceptibility panel - 11/06/16 10:50 Gentamicin susceptibility test by minimum inhibitory concentration < = NRG Trimethoprim/sulfamethoxazole susceptibility test by minimum inhibitoryconcentration >= NRG Ampicillin susceptibility test by minimum inhibitory concentration > = NRG Tobramycin susceptibility test by minimum inhibitory concentration < = NRG Cefazolin susceptibility test by minimum inhibitory concentration < = NRG Ceftriaxone susceptibility test by minimum inhibitory concentration <= NRG Ampicillin/sulbactam susceptibility test by minimum inhibitory concentration 16 NRG Piperacillin/tazobactam susceptibility test by minimum inhibitory concentration <= NRG Ciprofloxacin susceptibility test by minimum inhibitory concentration >= NRG Meropenem susceptibility test by minimum inhibitory concentration < = NRG Nitrofurantoin susceptibility test by minimum inhibitory concentration <= NRG Aztreonam susceptibility test by minimum inhibitory concentration < = NRG Extended spectrum beta lactamase (ESBL) producing bacteria susceptibility test by minimum inhibitory concentration - [facility] Bacterial susceptibility panel - 11/06/16 10:50 Gentamicin susceptibility test by minimum inhibitory concentration S NRG Vancomycin susceptibility test by minimum inhibitory concentration 1 NRG Levofloxacin susceptibility test by minimum inhibitory concentration 0.5 NRG Tetracycline susceptibility test by minimum inhibitory concentration <= NRG Ampicillin susceptibility test by minimum inhibitory concentration < = NRG Nitrofurantoin susceptibility test by minimum inhibitory concentration <= NRG Linezolid susceptibility test by minimum inhibitory concentration 2 NRG Complete urinalysis with reflex to culture - 01/30/17 11:00 Urine color determination YELLOW NRG Urine clarity determination VERY CLOUDY NRG Urine pH measurement by test strip 6 5-9 Specific gravity of urine by test strip 1.010 1.016- 1.022 Urine protein assay by test strip, semi-quantitative 2+ NEGATIVE Urine glucose detection by automated test strip NEGATIVE NEGATIVE Erythrocytes detection in urine sediment by light microscopy 4+ NEGATIVE Urine ketones detection by automated test strip NEGATIVE NEGATIVE Urine nitrite detection by test strip POSITIVE NEGATIVE Urine total bilirubin detection by test strip NEGATIVE NEGATIVE Urine urobilinogen measurement by automated test strip (mass/volume) NORMAL NORMAL Urine leukocyte esterase detection by dipstick 3+ NEGATIVE Automated urine sediment erythrocyte count by microscopy (number/high power field) RARE NRG Automated urine sediment leukocyte count by microscopy (number/high power field ) TNTC NRG Bacteria detection in urine sediment by light microscopy FEW NRG Squamous epithelial cells detection in urine sediment by light microscopy 2-5 NRG Crystals detection in urine sediment by light microscopy NONE NRG Casts detection in urine sediment by light microscopy NONE NRG Mucus detection in urine sediment by light microscopy NEGATIVE NRG Complete urinalysis with reflex to culture YES NRG Renal epithelial cells detection in urine sediment by light microscopy NONE NRG Bacterial urine culture - 01/30/17 11:00 Bacterial urine culture [id number] NRG COLONY COUNT >100,000/ML NRG FTX;REPORTABLE SENSITIVITY REPORTED AT 1128, 02-01-17 NR URINE CULTURE RESULTS PLUS NR Bacterial susceptibility panel - 01/30/17 11:00 Gentamicin susceptibility test by minimum inhibitory concentration < = NRG Trimethoprim/sulfamethoxazole susceptibility test by minimum inhibitoryconcentration R NRG Ampicillin susceptibility test by minimum inhibitory concentration > = NRG Tobramycin susceptibility test by minimum inhibitory concentration < = NRG Cefazolin susceptibility test by minimum inhibitory concentration < = NRG Ceftriaxone susceptibility test by minimum inhibitory concentration <= NRG Ampicillin/sulbactam susceptibility test by minimum inhibitory concentration I NRG Piperacillin/tazobactam susceptibility test by minimum inhibitory concentration <= NRG Ciprofloxacin susceptibility test by minimum inhibitory concentration >= NRG Meropenem susceptibility test by minimum inhibitory concentration < = NRG Nitrofurantoin susceptibility test by minimum inhibitory concentration <= NRG Aztreonam susceptibility test by minimum inhibitory concentration < = NRG Extended spectrum beta lactamase (ESBL) producing bacteria susceptibility test by minimum inhibitory concentration - NRG Complete blood count (CBC) with automated white blood cell (WBC) differential - 01/30/17 11:10 Blood leukocytes automated count (number/volume) 10.7 10*3/uL 4.3-11.0 Blood erythrocytes automated count (number/volume) 4.19 10*6/uL 4.35-5.85 Venous blood hemoglobin measurement (mass/volume) 12.4 g/dL 11.5-16.0 Blood hematocrit (volume fraction) 37 % 35-52 Automated erythrocyte mean corpuscular volume 89 [foz_us] 80-99 Automated erythrocyte mean corpuscular hemoglobin (mass per erythrocyte) 30 pg 25-34 Automated erythrocyte mean corpuscular hemoglobin concentration measurement ( mass/volume) 33 g/dL 32-36 Automated erythrocyte distribution width ratio 14.8 % 10.0-14.5 Automated blood platelet count (count/volume) 148 10*3/uL 130-400 Automated blood platelet mean volume measurement 9.7 [foz_us] 7.4-10.4 Automated blood neutrophils/100 leukocytes 63 % 42-75 Automated blood lymphocytes/100 leukocytes 27 % 12-44 Blood monocytes/100 leukocytes 10 % 0-12 Automated blood eosinophils/100 leukocytes 0 % 0-10 Automated blood basophils/100 leukocytes 0 % 0-10 Blood neutrophils automated count (number/volume) 6.7 10*3 1.8-7.8 Blood lymphocytes automated count (number/volume) 2.9 10*3 1.0-4.0 Blood monocytes automated count (number/volume) 1.0 10*3 0.0-1.0 Automated eosinophil count 0.0 10*3/uL 0.0-0.3 Automated blood basophil count (count/volume) 0.0 10*3/uL 0.0-0.1 PT panel in platelet poor plasma by coagulation assay - 01/30/17 11:10 Prothrombin time (PT) in platelet poor plasma by coagulation assay 14.9 s 12.2-14.7 INR in platelet poor plasma or blood by coagulation assay 1.2 0.8-1.4 Activated partial thromboplastin time (aPTT) in platelet poor plasma bycoagulation assay - 01/30/17 11:10 Activated partial thromboplastin time (aPTT) in platelet poor plasma bycoagulation assay 41 s 24-35 Blood lactic acid measurement (moles/volume) - 01/30/17 11:10 Blood lactic acid measurement (moles/volume) 0.81 mmol/L 0.50-2.00 Comprehensive metabolic panel - 01/30/17 11:10 Serum or plasma sodium measurement (moles/volume) 137 mmol/L 135-145 Serum or plasma potassium measurement (moles/volume) 3.4 mmol/L 3.6-5.0 Serum or plasma chloride measurement (moles/volume) 104 mmol/L 98-107 Carbon dioxide 22 mmol/L 21-32 Serum or plasma anion gap determination (moles/volume) 11 mmol/L 5-14 Serum or plasma urea nitrogen measurement (mass/volume) 19 mg/dL 7-18 Serum or plasma creatinine measurement (mass/volume) 1.14 mg/dL 0.60-1.30 Serum or plasma urea nitrogen/creatinine mass ratio 17 NRG Serum or plasma creatinine measurement with calculation of estimated glomerular filtration rate 47 NRG Serum or plasma glucose measurement (mass/volume) 93 mg/dL 70-105 Serum or plasma calcium measurement (mass/volume) 8.4 mg/dL 8.5-10.1 Serum or plasma total bilirubin measurement (mass/volume) 0.6 mg/dL 0.1-1.0 Serum or plasma alkaline phosphatase measurement (enzymatic activity/volume) 119 U/L 40-136 Serum or plasma aspartate aminotransferase measurement (enzymatic activity/ volume) 17 U/L 5-34 Serum or plasma alanine aminotransferase measurement (enzymatic activity/volume ) 10 U/L 0-55 Serum or plasma protein measurement (mass/volume) 7.3 g/dL 6.4-8.2 Serum or plasma albumin measurement (mass/volume) 3.4 g/dL 3.2-4.5 Bacterial blood culture - 01/30/17 11:10 Bacterial blood culture NG NRG C DIFFICILE AG + TOXIN A/B. - 02/05/17 08:32 RESULTS NEGATIVE FOR ANTIGEN AND TOXIN A/B NRG Encounters ACCT No. Visit Date/Time Discharge Status Pt. Type Provider Facility Loc./Unit Complaint [id number] 02/05/2017 08:40:00 02/05/2017 23:59:59 CLS Outpatient VERONICA STOLL MD [facility] ONC [id number] 02/05/2017 08:26:00 02/05/2017 23:59:59 CLS Outpatient RIOS ELLER DO [facility] LAB R19.7 [id number] 01/09/2017 09:08:00 02/04/2017 11:24:00 DIS Outpatient CASA LAU [facility] ONC [id number] 01/30/2017 10:03:00 01/30/2017 13:47:00 DIS Emergency ASH ANTUNEZ [facility] ER KIDNEY PAIN,POSS STONE [id number] 01/15/2017 11:39:00 01/15/2017 23:59:59 CLS Outpatient RIOS ELLER DO [facility] RAD URETEROLITHIASIS [id number] 12/04/2016 11:06:00 12/06/2016 00:01:00 DIS Outpatient CASA LAU [facility] ONC [id number] 11/07/2016 08:14:00 11/07/2016 23:59:59 CLS Outpatient RIOS ELLER DO [facility] CARD R07.9 [id number] 10/30/2016 10:43:00 11/05/2016 00:01:00 DIS Outpatient CASA LAU [facility] ONC [id number] 09/23/2016 13:54:00 09/23/2016 15:00:00 DIS Outpatient RIOS ELLER DO [facility] M81.0 [id number] 06/26/2016 09:32:00 07/02/2016 00:01:00 DIS Outpatient JUDICASA Wanda [facility] ONC [id number] 05/01/2016 10:22:00 05/01/2016 23:59:59 CLS Outpatient JANNETTE KELLEY [facility] RAD SCREENING [id number] 04/12/2016 12:15:00 04/14/2016 11:45:00 DIS Inpatient SANDRA LOWE MD [facility] 4TH LEFT PYELO AND LEFT HYDRO [id number] 02/28/2016 09:53:00 03/09/2016 00:01:00 DIS Outpatient CASA LAU [facility] ONC [id number] 03/06/2016 10:46:00 03/06/2016 23:59:59 CLS Outpatient JANNTETE KELLEYP [facility] RAD RECTAL CA [id number] 11/29/2015 14:56:00 12/10/2015 11:15:00 DIS Outpatient CASA LAU Wanda [facility] ONC [id number] 10/17/2015 09:49:00 10/29/2015 00:01:00 DIS Outpatient JUDIZANEALEJANDRA Muñoz [facility] ONC [id number] 10/01/2015 12:50:00 10/01/2015 23:59:59 CLS Outpatient RIOS ELLER DO [facility] M81.0 [id number] 06/21/2015 10:17:00 06/24/2015 00:01:00 DIS Outpatient JUDICASA Wanda [facility] ONC [id number] 06/18/2015 10:34:00 06/18/2015 23:59:59 CLS Outpatient JANNETTE KELLEY [employer] [facility] ONC [id number] 04/30/2015 10:01:00 04/30/2015 23:59:59 CLS Outpatient RIOS ELLER DO [facility] RAD SCREENING [id number] 02/19/2015 15:34:00 03/25/2015 00:01:00 DIS Outpatient CASA LAU Wanda [facility] ONC [id number] 12/28/2014 09:29:00 12/28/2014 23:59:59 CLS Outpatient JANNETTE KELLEY [facility] ONC [id number] 12/18/2014 09:25:00 12/18/2014 12:31:00 DIS Outpatient RIOS ELLER DO [facility] REHAB DECONDITIONING [id number] 12/05/2014 08:37:00 12/06/2014 00:01:00 DIS Outpatient RIOS ELLER DO [facility] REHAB DECONDITIONING [id number] 11/28/2014 10:23:00 12/06/2014 00:01:00 DIS Outpatient JUDICASA Wanda [facility] ONC [id number] 11/07/2014 10:14:00 11/26/2014 00:01:00 DIS Outpatient JUDI ZANEALEJANDRA Wanda [facility] ONC [id number] 09/29/2014 11:59:00 09/29/2014 23:59:59 CLS Outpatient RIOS ELLER DO [facility] OSTEOPOROSIS [id number] 09/20/2014 11:02:00 09/20/2014 23:59:59 CLS Outpatient RIOS ELLER DO [facility] RAD RETENTION [id number] 09/14/2014 00:11:00 09/14/2014 23:59:59 CLS Preadmit ANNMARIE DE LA TORRE MD [facility] ECOLI [id number] 09/07/2014 09:15:00 09/07/2014 23:59:59 CLS Outpatient CASA LAU [facility] RAD POST MENOPAUSAL,SACRAL PAIN [id number] 08/28/2014 09:56:00 08/28/2014 23:59:59 CLS Outpatient NADYA CARLTON, ISAIAH Baptiste [facility] RAD RECTAL CA [id number] 08/03/2014 10:23:00 08/23/2014 00:01:00 DIS Outpatient CASA LAU [facility] ONC [id number] 08/03/2014 08:23:00 08/03/2014 23:59:59 CLS Outpatient CASA LAU [facility] RAD NUMBNESS,TINGLING [id number] 07/20/2014 10:43:00 07/20/2014 23:59:59 CLS Outpatient CASA LAU [facility] RAD SWELLING AND PAIN [id number] 06/24/2014 09:22:00 06/24/2014 10:00:00 DIS Outpatient ANNMARIE DE LA TORRE MD [facility] SDC ECOLI [id number] 06/21/2014 11:08:00 06/21/2014 23:59:59 CLS Outpatient KAITLYNN CARLTON, ROHAN [facility] ONC [id number] 06/21/2014 09:15:00 06/21/2014 23:59:59 CLS Outpatient OTHER, UNLISTED [facility] LAB [id number] 06/06/2014 10:43:00 06/06/2014 23:59:59 CLS Outpatient JANNETTE KELLEYP [facility] ONC [id number] 04/24/2014 08:49:00 04/24/2014 23:59:59 CLS Outpatient CASA LAU Wanda [facility] ONC [id number] 04/19/2014 08:47:00 04/19/2014 23:59:59 CLS Outpatient ANNMARIE DE LA TORRE MD [facility] RAD FOLLOW UP [id number] 04/11/2014 09:05:00 04/11/2014 23:59:59 CLS Outpatient JANNETTE KELLEY [employer] [facility] ONC [id number] 03/23/2014 09:12:00 03/23/2014 13:30:00 DIS Outpatient ARAMIS CEJA DO [facility] SDC RECTAL ADENOCARCINOMA [id number] 03/17/2014 13:06:00 03/17/2014 23:59:59 CLS Outpatient ANNMARIE DE LA TORRE MD [facility] LAB [id number] 03/17/2014 12:53:00 03/17/2014 23:59:59 CLS Outpatient JANNETTE KELLEY [employer] [facility] ONC [id number] 03/15/2014 12:45:00 03/15/2014 23:59:59 CLS Outpatient ARAMIS CEJA DO [facility] PREOP RECTAL ADENOCARCINOMA [id number] 01/31/2014 14:15:00 01/31/2014 18:20:00 DIS Inpatient ANNMARIE DE LA TORRE MD [facility] 4TH ANEMIA,TACHYCARDIA [id number] 01/08/2014 01:30:00 01/08/2014 03:41:00 DIS Emergency JOSEPH GRAMAJO MD [facility] ER FEVER [id number] 09/21/2013 13:00:00 12/20/2013 00:01:00 DIS Outpatient CASA LAU N [facility] ONC [id number] 09/20/2013 09:13:00 09/20/2013 23:59:59 CLS Outpatient JANNETTE KELLEY [employer] [facility] RAD RECTAL CA [id number] 09/16/2013 12:09:00 09/16/2013 23:59:59 CLS Outpatient ANNMARIE DE LA TORRE MD [facility] RAD RECTAL MASS, CHRON'S [id number] 05/17/2013 08:14:00 05/17/2013 23:59:59 CLS Outpatient ANNMARIE DE LA TORRE MD [facility] RAD ABNORMAL MAMMO [id number] 05/06/2013 07:43:00 05/06/2013 23:59:59 CLS Outpatient ANNMARIE DE LA TORRE MD [facility] RAD SCREENING [id number] 12/03/2012 13:15:00 12/03/2012 15:40:00 DIS Emergency SANDRA LOWE MD [facility] ER CHEST HEAVINESS [id number] 09/05/2012 07:37:00 09/05/2012 10:38:00 DIS Emergency THOMAS INGRAM DO [facility] ER FALL HIT HEAD AND BACK CANT TAKE DEEP BREATH [id number] 05/04/2017 09:45:00 PEN Preadmit CASA LAU [facility] RAD SCREENING MAMMO [id number] 06/23/2014 20:16:00 Document Registration [id number] 06/08/2014 13:45:00 Document Registration [id number] 05/26/2014 10:42:00 Document Registration [id number] 05/25/2014 12:05:00 Document Registration [id number] 05/25/2014 10:42:00 Document Registration [id number] 05/23/2014 11:34:00 Document Registration [id number] 05/19/2014 14:15:00 Document Registration [id number] 05/01/2014 16:50:00 Document Registration [id number] 05/19/2012 15:04:00 Document Registration [id number] 03/25/2012 08:55:00 Document Registration [id number] 03/24/2012 17:46:00 Document Registration
[2017-04-29] MEDS ORDERED: HYOSCYAMINE 0.125 MG (LEVSIN) TAB PO PRN (14:30)
[2017-04-29] MEDS ORDERED: RT-ALBUTEROL HFA (VENTOLIN) PER PUFF IH PRN (14:30)
[2017-04-29] MEDS ORDERED: ONDANSETRON 8 MG (ZOFRAN) ORAL DISSOLVE TAB PO PRN (14:30)
[2017-04-29] MEDS ORDERED: DIPHENOXYLATE/ATROPINE 2.5MG/0.025MG (LOMOTIL) TAB PO PRN (14:30)
--- NOTE | 2017-04-29 14:55 | PM&R Post Admission Assessment ---
Post Admission Physician Asses The preadmission screen agrees with the post admission assessment that the patient is a good candidate for inpatient rehabilitation. The patient will have a comprehensive program of inpatient rehabilitation with a goal of maximizing level of functional independence prior to discharge home with spouse. The patient will have PT/OT ninety minutes per day, each discipline, five days a week for gait, strengthening, conditioning, balance, ADLs, any patient/family/caregiver training as necessary. Speech therapy to do cognitive assessment and treat as indicated. Rehabilitation nursing to assist with bowel, bladder, skin, wound care, medication administration, pain management. Judicial Assistant to assist with discharge planning, community reentry. SCD's for DVT prophylaxis. She appears to be well motivated to participate in three hours of therapy a day. She should be able to tolerate three hours of therapy a day from a medical standpoint. She should benefit from the three hours of therapy a day. She has a reasonable discharge plan, reasonable discharge rehabilitation goals and a supportive family. She has various comorbidities that need to be closely monitored with medications and treatments adjusted on a daily basis as needed. These include: anal ca s/p colon resection and colostomy,Crohns D Chronic renal insufficiency Barriers to discharge for this patient who had been independent prior to this are for her to be modified independent to supervision for ADLs and mobility skills prior to discharge home with spouse, so as to lessen the burden of the caregivers. Risks for this patient include: 1. Fall 2. Fracture 3. DVT 4. Pulmonary embolism 5. Worsening neurpoathy/left foot drop 6. Skin breakdown 7. Contractures 8. Poorly controlled pain 9. Urinary retention 10. UTI 11. Respiratory infection 12. Aspiration 13. Worsening renal insufficiency Estimated Length of Stay: 18 days Prognosis: Rehab prognosis appears good for goal of discharge home with spouse modified independent to supervision for ADLs and mobility skills taking into consideration need for TLSO to be on when up due to T12-L1 compression fracture. [facility] code 04.230 Etiologic DX Traumatic compression fracture of T 12 Vertebra FADUMO WINN MD Apr 29, 2017 14:55
[2017-04-29] MEDS ORDERED: RT-ALBUTEROL SULF 2.5 MG/3 ML PRE-MIX VIAL IH PRN (15:00)
--- NOTE | 2017-04-29 15:14 | Occ Therapy Progress Note ---
Therapy Progress Note Pt arrived to ARU via ambulance this pm. Attempted OT evaluation at 1445. Pt in bed with family present. Education provided regarding role of OT and rehab process. Pt states understanding of education. Pt requests to start therapy tomorrow secondary to fatigue from transfer and day's events. Will initiate evaluation tomorrow. Pt in bed with needs met and family present. 1, visit. BLANCA SHINE OT Apr 29, 2017 15:14
[2017-04-29] MEDS ORDERED: B-12 INJECTION INJ (15:42)
[2017-04-29] MEDS ORDERED: ALLO300T2 PO (15:42)
[2017-04-29] MEDS ORDERED: CHOL5000 PO (15:42)
[2017-04-29] MEDS ORDERED: ONDA8TAB6 PO (15:42)
[2017-04-29] MEDS ORDERED: DIPH1TAB PO (15:42)
[2017-04-29] MEDS ORDERED: CHOL500049 PO (15:42)
[2017-04-29] MEDS ORDERED: CALC-654 PO (15:42)
[2017-04-29] MEDS ORDERED: RT-ALBUINH IH (15:42)
[2017-04-29] MEDS ORDERED: NF-ESOM40C PO (15:42)
[2017-04-29] MEDS ORDERED: LACT1CAP74 PO (15:42)
[2017-04-29] MEDS ORDERED: ACET325T38 PO (15:42)
[2017-04-29] MEDS ORDERED: HYOS-19 SL (15:46)
--- NOTE | 2017-04-29 15:50 | Physical Therapy Progress Note ---
Therapy Progress Note Attempted PT evaluation. Pt declined this date as she is very tired and having pain. Pt arrived to facility via ambulance. Will complete evaluation tomorrow. JANNETTE MEDEL PT Apr 29, 2017 15:50
[2017-04-29] MEDS: CALCIUM CARB + VIT D 600 MG (CALCARB + D) TAB PO SCH (16:04)
[2017-04-29 19:00] VITALS: BP 145/78
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
[2017-04-29] MEDS: METHOCARBAMOL 750 MG (ROBAXIN) TAB PO SCH (20:16)
[2017-04-29] MEDS: SENNA W/DOCUSATE (SENOKOT S) TABLET PO SCH (20:16)
[2017-04-29] MEDS: POLYETHYLENE GLYCOL 17 GM (MIRALAX) PACK PO SCH (20:16)
[2017-04-29] MEDS: MUPIROCIN 2% OINT 22 GM (BACTROBAN) TUBE TOP SCH (20:20)
[2017-04-29] MEDS ORDERED: NITROFURANTOIN 100 MG (MACROBID) CAPSULE PO SCH (21:00)
[2017-04-30] MEDS: CALCIUM CARB + VIT D 600 MG (CALCARB + D) TAB PO SCH ×2 (05:52→17:28)
[2017-04-30] MEDS: PANTOPRAZOLE 40 MG (PROTONIX) TAB PO SCH (05:52)
[2017-04-30 05:54] VITALS: BP 170/84
[2017-04-30] MEDS: MUPIROCIN 2% OINT 22 GM (BACTROBAN) TUBE TOP SCH ×2 (09:00→19:29)
[2017-04-30] MEDS: VITAMIN D3 5,000 UNITS (CHOLECALCIFEROL ) CAPSULE PO SCH (09:02)
[2017-04-30] MEDS: SENNA W/DOCUSATE (SENOKOT S) TABLET PO SCH ×2 (09:02→20:01)
[2017-04-30] MEDS: ALLOPURINOL 300 MG (ZYLOPRIM) TAB PO SCH (09:02)
[2017-04-30] MEDS: LACTOBACILLUS Acidoph/Bulgar (LACTINEX/FLORANEX) TAB PO SCH (09:02)
[2017-04-30] MEDS: METHOCARBAMOL 750 MG (ROBAXIN) TAB PO SCH ×3 (09:02→20:01)
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
[2017-04-30] MEDS ORDERED: lisINopril 10 MG (PRINIVIL) TABLET ONE (11:17)
[2017-04-30] MEDS: lisINopril 10 MG (PRINIVIL) TABLET PO SCH (11:25)
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
--- NOTE | 2017-04-30 15:32 | Physical Therapy Daily Note ---
PT Daily Note-Current Subjective Pt is laying in bed pre tx with POTUS boot on the RLE with no complaints of pain and agrees to PT. Pain Numeric Pain Scale: 0-No Pain Location: No Pain Reported Appearance Pt is laying in bed post tx with POTUS boot on the L foot with nurse call, phone , and tray within reach. Mental Status Patient Orientation: Normal For Age Attachments: Colostomy/Ileostomy, Oxygen (2 L) POTUS boot on the RLE and switched to LLE to prevent heel sores. Transfers Functional [place] Measure 0=Not Assessed/NA 4=Minimal Assistance 1=Total Assistance 5=Supervision or Setup 2=Maximal Assistance 6=Modified [place] 3=Moderate Assistance 7=Complete IndependenceIRFPAI Quality Coding Scale 6 Independent with activity with or without an assistive device 5 Patient requires set up or clean up by helper. Patient completes activity by themselves 4 Supervision or touching assist (CGA). [place] provide cues , steadying assist 3 The helper provides less than half the effort to complete the activity 2 The helper provides more than half the effort to complete the activity 1 Dependent. The helper does all the effort to complete an activity 7 Patient refused to complete or attempt activity 9 The patient did not perform the activity before the current illness or injury 88 Not attempted due to Medical conditions or safety concerns Transfers (B, C, W/C) (FIM): 2 Rollin Supine to/from Sit: 3 Sit to/from Stand: 3 Bed to/from Chair: 2 Mod A needed for rolling, supine to sit and sit to stand. Max A required for bed to commode transfer. Weight Bearing Right Lower Extremity: Right Weight Bearing/Tolerated Left Lower Extremity: Left Weight Bearing/Tolerated Gait Training Does the Patient Walk?: Yes Gait (FIM): 1 Distance: 5 feet Gait Level of Assist: 4 Gait Persons Needed: 1 Gait Assistive Device: FWW Pt required verbal cues for foot and hand placement. Pt takes a large step with the LLE leading to safety issues during ambulation. Wheelchair Training Does the Pt Use a Wheelchair?: Yes Treatments TLSO was placed on pt in supine and pt sat up at edge of bed. Pt needed to use the commode, so she was transferred there. Pt walked 5 feet towards head to bed and went back to laying in bed. Assessment Current Status: Fair Progress Pt performed rolling activities to don and doff TLSO. Pt performed supine to/ from sit during tx. Pt c/o pain throughout tx. PT Short Term Goals Short Term Goals Time Frame: May 07, 2017 Transfers (B,C,W/C) (FIM): 3 Gait (FIM): 2 Gait Distance Comment: 50 feet Gait Level of Assist: 3 Gait Assistive Device: FWW Wheelchair (FIM): 2 Wheelchair Distance: 100 feet Wheelchair Level of Assist: 5 PT Intranet Support Goals Intranet Support Goals PT Mcc Goals Time Frame: May 21, 2017 Transfers (B,C,W/C) (FIM): 5 Sit to Lying (QC): 5 Lying-Sitting on Side/Bed(QC): 5 Sit to Stand (QC): 5 Rollin Roll Left to Right (QC): 5 Chair/Rdz-sz-Xyiwk Xfer(QC): 5 Car Transfer (QC): 5 Does the Patient Walk: Yes Gait (FIM): 5 Distance: 150 feet Walk 10 feet (QC): 5 Walk 10ft-Uneven Surface(QC): 5 Walk 50ft with 2 Turns (QC): 5 Walk 150 ft (QC): 5 Gait Level of Assist: 5 Gait Assistive Device: FWW Does the Pt use WC or Scooter?: Yes Wheelchair (FIM): 6 Distance: 200 feet Wheelchair Level of Assist: 6 Wheel 50 feet with 2 turns (QC: 6 Stairs (FIM): 2 # of Steps: 4 1 Step (curb) (QC): 5 4 Steps (QC): 5 12 Steps (QC): 5 Stairs Level Of Assist: 5 Picking up an Object (QC): 5 PT Plan Problem List Problem List: Activity Tolerance, Functional Strength, Safety, Balance, Gait, Transfer, Bed Mobility, ROM Treatment/Plan Treatment Plan: Continue Plan of Care Treatment Plan: Bed Mobility, Education, Functional Activity Estiven, Functional Strength, Group Therapy, Gait, Safety, Therapeutic Exercise, Transfers Treatment Duration: May 21, 2017 Frequency: At least 5 of 7 days/Wk (IRF) Estimated Hrs Per Day: 1.5 hours per day Patient and/or Family Agrees t: Yes Safety Risks/Education Patient Education: Transfer Techniques, Correct Positioning, Reviewed Don/Doff Brace, Safety Issues Teaching Recipient: Patient Teaching Methods: Demonstration, Discussion Response to Teaching: Reinforcement Needed Time/GCodes Time In: 1430 Time Out: 1500 Total Billed Treatment Time: 30 Total Billed Treatment 1 visit 30 min FA JANNETTE MEDEL PT Apr 30, 2017 15:32
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
--- NOTE | 2017-04-30 15:44 | Occupational Ther Daily Note ---
OT Current Status-Daily Note Subjective No pain reported. Appearance Pt. in bed. Mental Status/Objective Patient Orientation: Person, Place, Time Functional [place] Measure 0=Not Assessed/NA 4=Minimal Assistance 1=Total Assistance 5=Supervision or Setup 2=Maximal Assistance 6=Modified [place] 3=Moderate Assistance 7=Complete [place] Attachments: IV, Oxygen ADL-Treatment Functional [place] Measure 0=Not Assessed/NA 4=Minimal Assistance 1=Total Assistance 5=Supervision or Setup 2=Maximal Assistance 6=Modified [place] 3=Moderate Assistance 7=Complete IndependenceIRFPAI Quality Coding Scale 6 Independent with activity with or without an assistive device 5 Patient requires set up or clean up by helper. Patient completes activity by themselves 4 Supervision or touching assist (CGA). [place] provide cues , steadying assist 3 The helper provides less than half the effort to complete the activity 2 The helper provides more than half the effort to complete the activity 1 Dependent. The helper does all the effort to complete an activity 7 Patient refused to complete or attempt activity 9 The patient did not perform the activity before the current illness or injury 88 Not attempted due to Medical conditions or safety concerns Other Treatment Pt. eyes closed. Pt. wakes up and is somewhat confused at first. Pt. agrees to brush her hair. OT puts HOB slightly in elevated position. Pt. is able to brush hair with encouragement to do so. Pt. seems fearful to move her arms. Pt. then practices bringing feet up to her while in supine to doff socks. Pt. is able to do this slowly with emphasis to not strain her back. Pt. is able to doff socks but requires mod assist to don them. All needs met back in bed. Education OT Patient Education: Modified ADL techniques, Progress toward Goal/Update tx plan, Purpose of tx/functional activities, Reviewed precautions, Rehab process, Transfer techniques Teaching Recipient: Patient Teaching Methods: Demonstration, Discussion Response to Teaching: Verbalize Understanding, Return Demonstration OT Short Term Goals Short Term Goals Time Frame: May 14, 2017 Eating(FIM): 5 Grooming(FIM): 5 Bathing(FIM): 4 Upper Body Dressing(FIM): 4 Lower Body Dressing(FIM): 4 Toileting(FIM): 4 Transfers (B,C,W/C) (FIM): 3 Toilet/Commode Transfer(FIM): 4 Shower Transfer(FIM): 3 Additional Short Term Goals: 1-Demonstrate ADL Tasks, 2-Verbalize Understanding , 3-ImproveStrength/Estiven 1=Demonstrate adherence to instructed precautions during ADL tasks. 2=Patient will verbalize/demonstrate understanding of assistive devices/ modifications for ADL. 3=Patient will improve strength/tolerance for activity to enable patient to perform ADL's. OT Dairy Husbandman Goals Longterm Goals Time Frame: May 28, 2017 Eating (FIM): 6 Eating (QC): 6 Groomin Oral Hygiene (QC): 6 Bathing(FIM): 5 Shower/Bathe Self (QC): 5 Upper Body Dressing(FIM): 5 Upper Body Dressing (QC): 5 Lower Body Dressing(FIM): 5 Lower Body Dressing (QC): 5 On/Off Footwear (QC): 5 Toileting(FIM): 6 Toileting Hygiene (QC): 6 Transfers (B,C,W/C) (FIM): 6 Toilet/Commode Transfer(FIM): 6 Toilet/Commode Transfer (QC): 6 Shower Transfer(FIM): 5 Additional Goals: 1-Demonstrate ADL Tasks, 2-Verbalize Understanding, 3- ImproveStrength/Estiven 1=Demonstrate adherence to instructed precautions during ADL tasks. 2=Patient will verbalize/demonstrate understanding of assistive devices/ modifications for ADL. 3=Patient will improve strength/tolerance for activity to enable patient to perform ADL's. OT Education/Plan Problem List/Assessment Assessment: Decreased Activ Tolerance, Dependent Transfers, Impaired Bed Mobility, Impaired Funct Balance, Impaired I ADL's, Impaired Self-Care Skills Discharge Recommendations Plan/Recommendations: Continue POC Therapy D/C Recommendations: Home w/ Family Support, Occupational Therapy Home Care Treatment Plan/Plan of Care Treatment,Training & Education: Yes Patient would benefit from OT for education, treatment and training to promote independence in ADL's, mobility, safety and/or upper extremity function for ADL' s. Plan of Care: ADL Retraining, Caregiver Training, Functional Mobility, Group Exercise/Act as Ind, UE Funct Exercise/Act Treatment Duration: May 28, 2017 Frequency: At least 5 of 7 days/Wk (IRF) Estimated Hrs Per Day: 1.5 hours per day Agreement: Yes Rehab Potential: Good Time/GCodes Start Time: 13:00 Stop Time: 13:30 Total Time Billed (hr/min): 30 Billed Treatment Time 1, ADL x 2 MYRON CHAKRABORTY OT Apr 30, 2017 15:44
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
[2017-04-30 18:03] VITALS: BP 136/75
[2017-04-30] MEDS: POLYETHYLENE GLYCOL 17 GM (MIRALAX) PACK PO SCH (20:01)
[2017-05-01] MEDS: PANTOPRAZOLE 40 MG (PROTONIX) TAB PO SCH (06:32)
[2017-05-01] MEDS: CALCIUM CARB + VIT D 600 MG (CALCARB + D) TAB PO SCH ×2 (06:32→17:53)
[2017-05-01 06:34] VITALS: BP 148/82
[2017-05-01] MEDS: ALLOPURINOL 300 MG (ZYLOPRIM) TAB PO SCH (08:43)
[2017-05-01] MEDS: METHOCARBAMOL 750 MG (ROBAXIN) TAB PO SCH ×3 (08:44→19:23)
[2017-05-01] MEDS: SENNA W/DOCUSATE (SENOKOT S) TABLET PO SCH ×2 (08:44→19:23)
[2017-05-01] MEDS: lisINopril 10 MG (PRINIVIL) TABLET PO SCH (08:44)
[2017-05-01] MEDS: LACTOBACILLUS Acidoph/Bulgar (LACTINEX/FLORANEX) TAB PO SCH (08:44)
[2017-05-01] MEDS: VITAMIN D3 5,000 UNITS (CHOLECALCIFEROL ) CAPSULE PO SCH (08:44)
[2017-05-01] MEDS: MUPIROCIN 2% OINT 22 GM (BACTROBAN) TUBE TOP SCH ×2 (08:44→19:33)
--- NOTE | 2017-05-01 09:01 | Physical Therapy Daily Note ---
PT Daily Note-Current Subjective Pt is laying in bed pre tx and has no complaints of pain and agrees to PT. Pain Numeric Pain Scale: 0-No Pain Location: No Pain Reported Appearance Pt is sitting in recliner with TLSO on with nurse call, phone, and tray within reach. Mental Status Patient Orientation: Normal For Age Attachments: Colostomy/Ileostomy, Oxygen (2 L) Transfers Functional [place] Measure 0=Not Assessed/NA 4=Minimal Assistance 1=Total Assistance 5=Supervision or Setup 2=Maximal Assistance 6=Modified [place] 3=Moderate Assistance 7=Complete IndependenceIRFPAI Quality Coding Scale 6 Independent with activity with or without an assistive device 5 Patient requires set up or clean up by helper. Patient completes activity by themselves 4 Supervision or touching assist (CGA). [place] provide cues , steadying assist 3 The helper provides less than half the effort to complete the activity 2 The helper provides more than half the effort to complete the activity 1 Dependent. The helper does all the effort to complete an activity 7 Patient refused to complete or attempt activity 9 The patient did not perform the activity before the current illness or injury 88 Not attempted due to Medical conditions or safety concerns Transfers (B, C, W/C) (FIM): 3 Scootin Rollin Supine to/from Sit: 3 Sit to/from Stand: 4 Bed to/from Chair: 3 Mod A for rolling, supine to sit. Min A needed for sit to stand. Weight Bearing Right Lower Extremity: Right Weight Bearing/Tolerated Left Lower Extremity: Left Weight Bearing/Tolerated Gait Training Does the Patient Walk?: Yes Gait (FIM): 2 Distance: 100 feet Gait Level of Assist: 4 Gait Persons Needed: 1 Gait Assistive Device: FWW Pt is unsteady while ambulating. Pt hyperextends L knee during stance phase. Pt has a lot of trouble keeping left knee extended during stance phase. Wheelchair Training Does the Pt Use a Wheelchair?: Yes Exercises Standing: Marching (10 x1 BLE), Mini squats (20 x1 ) Treatments Patient also had to be dressed and cleaned up and brace donned in bed. She had to be rolled many times to accomplish this and needed cues for positioning and safety. Assessment Current Status: Fair Progress Pt ambulated 100 feet with FWW and CGA. Pt performs bed mobility with mod A. Pt is motivated to get better. PT Short Term Goals Short Term Goals Time Frame: May 07, 2017 Transfers (B,C,W/C) (FIM): 3 Gait (FIM): 2 Gait Distance Comment: 50 feet Gait Level of Assist: 3 Gait Assistive Device: FWW Wheelchair (FIM): 2 Wheelchair Distance: 100 feet Wheelchair Level of Assist: 5 PT Half-Way Goals Rn Radiation Goals PT Half-Way Goals Time Frame: May 21, 2017 Transfers (B,C,W/C) (FIM): 5 Sit to Lying (QC): 5 Lying-Sitting on Side/Bed(QC): 5 Sit to Stand (QC): 5 Rollin Roll Left to Right (QC): 5 Chair/Gfp-hy-Dfvnt Xfer(QC): 5 Car Transfer (QC): 5 Does the Patient Walk: Yes Gait (FIM): 5 Distance: 150 feet Walk 10 feet (QC): 5 Walk 10ft-Uneven Surface(QC): 5 Walk 50ft with 2 Turns (QC): 5 Walk 150 ft (QC): 5 Gait Level of Assist: 5 Gait Assistive Device: FWW Does the Pt use WC or Scooter?: Yes Wheelchair (FIM): 6 Distance: 200 feet Wheelchair Level of Assist: 6 Wheel 50 feet with 2 turns (QC: 6 Stairs (FIM): 2 # of Steps: 4 1 Step (curb) (QC): 5 4 Steps (QC): 5 12 Steps (QC): 5 Stairs Level Of Assist: 5 Picking up an Object (QC): 5 PT Plan Problem List Problem List: Activity Tolerance, Functional Strength, Safety, Balance, Gait, Transfer, Bed Mobility, ROM Treatment/Plan Treatment Plan: Continue Plan of Care Treatment Plan: Bed Mobility, Education, Functional Activity Estiven, Functional Strength, Group Therapy, Gait, Safety, Therapeutic Exercise, Transfers Treatment Duration: May 21, 2017 Frequency: At least 5 of 7 days/Wk (IRF) Estimated Hrs Per Day: 1.5 hours per day Patient and/or Family Agrees t: Yes Safety Risks/Education Patient Education: Gait Training, Transfer Techniques, Reviewed Precautions, Correct Positioning, Reviewed Don/Doff Brace, Safety Issues Teaching Recipient: Patient Teaching Methods: Demonstration, Discussion Response to Teaching: Reinforcement Needed Time/GCodes Time In: 800 Time Out: 900 Total Billed Treatment Time: 60 Total Billed Treatment 1 visit 30 min FA 15 min GT 15 min SURJIT WRIGHTIS PT May 01, 2017 09:01
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
--- NOTE | 2017-05-01 11:23 | Occupational Ther Daily Note ---
OT Current Status-Daily Note Subjective Pt alert, sitting in recliner. Pt agreed to therapy. Pt requested pain pills, nrsg present and stated that it would be 1/2 hour before pt could get pain meds. Mental Status/Objective Patient Orientation: Person, Place, Time, Situation Functional [place] Measure 0=Not Assessed/NA 4=Minimal Assistance 1=Total Assistance 5=Supervision or Setup 2=Maximal Assistance 6=Modified [place] 3=Moderate Assistance 7=Complete [place] Attachments: Other-See Comments (back brace) ADL-Treatment Pt laid back in recliner to doff clothing with max A. Wrapped back brace in plastic for pt to take shower. Mod A for transfer from recliner to rolling shower chair with cutout. Pt was able to reach hair to shampoo then bathed arms and khanh area. Brace covering chest and stomach unable to bath. Assist to bathe LE's and buttocks. Assist to dry areas that required assist to bathe and pt dried the rest. Pt was positioning in front of sink and completed oral care. Mod A to transfer from shower chair to bed and max A to go from EOB to supine. Max A to don pants and foot wear, mod A to don shirt and max A to don TLSO. Pt then transferred back to recliner, family present. Call light/phone in reach. All needs met in room. Functional [place] Measure 0=Not Assessed/NA 4=Minimal Assistance 1=Total Assistance 5=Supervision or Setup 2=Maximal Assistance 6=Modified [place] 3=Moderate Assistance 7=Complete IndependenceIRFPAI Quality Coding Scale 6 Independent with activity with or without an assistive device 5 Patient requires set up or clean up by helper. Patient completes activity by themselves 4 Supervision or touching assist (CGA). [place] provide cues , steadying assist 3 The helper provides less than half the effort to complete the activity 2 The helper provides more than half the effort to complete the activity 1 Dependent. The helper does all the effort to complete an activity 7 Patient refused to complete or attempt activity 9 The patient did not perform the activity before the current illness or injury 88 Not attempted due to Medical conditions or safety concerns Grooming (FIM): 5 Oral Hygiene (QC): 6 Bathing (FIM): 3 (unable to reach upper body area due to TLSO) Bathing Location: L Arm, R Arm, Perineal Area Shower/Bathe Self (QC): 2 Upper Body (FIM): 3 Upper Body Dressing (QC): 3 Lower Body Dressing (FIM): 2 Lower Body Dressing (QC): 2 On/Off Footwear (QC): 1 Shower Transfer(FIM): 1 OT Short Term Goals Short Term Goals Time Frame: May 14, 2017 Eating(FIM): 5 Grooming(FIM): 5 Bathing(FIM): 4 Upper Body Dressing(FIM): 4 Lower Body Dressing(FIM): 4 Toileting(FIM): 4 Transfers (B,C,W/C) (FIM): 3 Toilet/Commode Transfer(FIM): 4 Shower Transfer(FIM): 3 Additional Short Term Goals: 1-Demonstrate ADL Tasks, 2-Verbalize Understanding , 3-ImproveStrength/Estiven 1=Demonstrate adherence to instructed precautions during ADL tasks. 2=Patient will verbalize/demonstrate understanding of assistive devices/ modifications for ADL. 3=Patient will improve strength/tolerance for activity to enable patient to perform ADL's. OT Windows Application Packager Goals Windows Application Packager Goals Time Frame: May 28, 2017 Eating (FIM): 6 Eating (QC): 6 Groomin Oral Hygiene (QC): 6 Bathing(FIM): 5 Shower/Bathe Self (QC): 5 Upper Body Dressing(FIM): 5 Upper Body Dressing (QC): 5 Lower Body Dressing(FIM): 5 Lower Body Dressing (QC): 5 On/Off Footwear (QC): 5 Toileting(FIM): 6 Toileting Hygiene (QC): 6 Transfers (B,C,W/C) (FIM): 6 Toilet/Commode Transfer(FIM): 6 Toilet/Commode Transfer (QC): 6 Shower Transfer(FIM): 5 Additional Goals: 1-Demonstrate ADL Tasks, 2-Verbalize Understanding, 3- ImproveStrength/Estiven 1=Demonstrate adherence to instructed precautions during ADL tasks. 2=Patient will verbalize/demonstrate understanding of assistive devices/ modifications for ADL. 3=Patient will improve strength/tolerance for activity to enable patient to perform ADL's. OT Education/Plan Discharge Recommendations Plan/Recommendations: Continue POC Treatment Plan/Plan of Care Patient would benefit from OT for education, treatment and training to promote independence in ADL's, mobility, safety and/or upper extremity function for ADL' s. Plan of Care: ADL Retraining, Caregiver Training, Functional Mobility, Group Exercise/Act as Ind, UE Funct Exercise/Act Treatment Duration: May 28, 2017 Frequency: At least 5 of 7 days/Wk (IRF) Estimated Hrs Per Day: 1.5 hours per day Agreement: Yes Rehab Potential: Fair Time/GCodes Start Time: 09:30 Stop Time: 11:05 Total Time Billed (hr/min): 95 Billed Treatment Time 1 visit-ADL 6 (95 min) JANNETTE KWAN May 01, 2017 11:23
--- NOTE | 2017-05-01 15:03 | Physical Therapy Daily Note ---
PT Daily Note-Current Subjective Pt is laying in bed pre tx and has no complaints of pain and agrees to PT. Pt PCP present during first 10 minutes of tx. Patient will perform bed exercises and ROM. Pain Numeric Pain Scale: 0-No Pain Location: No Pain Reported Appearance Pt is laying in bed post tx with nurse call, phone, and tray within reach. Mental Status Patient Orientation: Normal For Age Attachments: Colostomy/Ileostomy, Oxygen (2 L) Transfers Functional [place] Measure 0=Not Assessed/NA 4=Minimal Assistance 1=Total Assistance 5=Supervision or Setup 2=Maximal Assistance 6=Modified [place] 3=Moderate Assistance 7=Complete IndependenceIRFPAI Quality Coding Scale 6 Independent with activity with or without an assistive device 5 Patient requires set up or clean up by helper. Patient completes activity by themselves 4 Supervision or touching assist (CGA). [place] provide cues , steadying assist 3 The helper provides less than half the effort to complete the activity 2 The helper provides more than half the effort to complete the activity 1 Dependent. The helper does all the effort to complete an activity 7 Patient refused to complete or attempt activity 9 The patient did not perform the activity before the current illness or injury 88 Not attempted due to Medical conditions or safety concerns No transfers performed due to staying in bed. Weight Bearing Right Lower Extremity: Right Weight Bearing/Tolerated Left Lower Extremity: Left Weight Bearing/Tolerated Gait Training Does the Patient Walk?: No and Walking Goal IS indicated Wheelchair Training Does the Pt Use a Wheelchair?: Yes Exercises Supine Ex: Ankle pumps (10 x1 BLE), Heel Slides (10 x1 BLE), Knee to chest (10 x1 BLE) Stretching: Ankle DF/PF, toe flexion/extension 30 sec x2 Treatments Pt performed LE exercises and LE stretching. Assessment Current Status: Fair Progress Pt is not yet able to actively DF the L ankle. Pt is not yet able to achieve full AROM with knee to chest or heel slides exercises. PT Short Term Goals Short Term Goals Time Frame: May 07, 2017 Transfers (B,C,W/C) (FIM): 3 Gait (FIM): 2 Gait Distance Comment: 50 feet Gait Level of Assist: 3 Gait Assistive Device: FWW Wheelchair (FIM): 2 Wheelchair Distance: 100 feet Wheelchair Level of Assist: 5 PT Chcf Goals Chcf Goals PT Route Sales Delivery Drivers Supervisor Goals Time Frame: May 21, 2017 Transfers (B,C,W/C) (FIM): 4 Sit to Lying (QC): 3 Lying-Sitting on Side/Bed(QC): 3 Sit to Stand (QC): 4 Rollin Roll Left to Right (QC): 4 Chair/Xcn-ad-Twwfn Xfer(QC): 3 Car Transfer (QC): 3 Does the Patient Walk: Yes Gait (FIM): 4 Distance: 150 feet Walk 10 feet (QC): 4 Walk 10ft-Uneven Surface(QC): 4 Walk 50ft with 2 Turns (QC): 4 Walk 150 ft (QC): 4 Gait Level of Assist: 4 Gait Assistive Device: FWW Does the Pt use WC or Scooter?: Yes Wheelchair (FIM): 6 Distance: 200 feet Wheelchair Level of Assist: 6 Wheel 50 feet with 2 turns (QC: 6 Stairs (FIM): 2 # of Steps: 4 1 Step (curb) (QC): 4 4 Steps (QC): 4 Stairs Level Of Assist: 4 PT Plan Problem List Problem List: Activity Tolerance, Functional Strength, Safety, Balance, Gait, Transfer, Bed Mobility, ROM Treatment/Plan Treatment Plan: Continue Plan of Care Treatment Plan: Bed Mobility, Education, Functional Activity Estiven, Functional Strength, Group Therapy, Gait, Safety, Therapeutic Exercise, Transfers Treatment Duration: May 21, 2017 Frequency: At least 5 of 7 days/Wk (IRF) Estimated Hrs Per Day: 1.5 hours per day Patient and/or Family Agrees t: Yes Safety Risks/Education Patient Education: Correct Positioning, Safety Issues Teaching Recipient: Patient Teaching Methods: Demonstration, Discussion Response to Teaching: Unable to Return Demonstration, Reinforcement Needed Time/GCodes Time In: 1430 Time Out: 1500 Total Billed Treatment Time: 30 Total Billed Treatment 1 visit 30 min EX SAKINA MEDELLIN PT May 01, 2017 15:03
[2017-05-01 18:00] VITALS: BP 153/75
[2017-05-01] MEDS: POLYETHYLENE GLYCOL 17 GM (MIRALAX) PACK PO SCH (19:23)
[2017-05-02] MEDS: PANTOPRAZOLE 40 MG (PROTONIX) TAB PO SCH (06:13)
[2017-05-02] MEDS: CALCIUM CARB + VIT D 600 MG (CALCARB + D) TAB PO SCH ×2 (06:13→16:18)
[2017-05-02 06:22] VITALS: BP 154/76
[2017-05-02] MEDS: VITAMIN D3 5,000 UNITS (CHOLECALCIFEROL ) CAPSULE PO SCH (07:55)
[2017-05-02] MEDS: lisINopril 10 MG (PRINIVIL) TABLET PO SCH (07:55)
[2017-05-02] MEDS: ALLOPURINOL 300 MG (ZYLOPRIM) TAB PO SCH (07:55)
[2017-05-02] MEDS: LACTOBACILLUS Acidoph/Bulgar (LACTINEX/FLORANEX) TAB PO SCH (07:55)
[2017-05-02] MEDS: MUPIROCIN 2% OINT 22 GM (BACTROBAN) TUBE TOP SCH ×3 (07:56→19:24)
[2017-05-02] MEDS: METHOCARBAMOL 750 MG (ROBAXIN) TAB PO SCH ×3 (07:57→19:54)
[2017-05-02] MEDS: SENNA W/DOCUSATE (SENOKOT S) TABLET PO SCH ×2 (07:57→19:54)
--- NOTE | 2017-05-02 12:04 | Physical Therapy Daily Note ---
PT Daily Note-Current Subjective Patient in wheelchair pre tx, agrees to PT, has pain of 4/10 in her low back. Appearance Patient in wheelchair post tx with , has nurse call, phone, tray, all needs met. Mental Status Patient Orientation: Normal For Age Attachments: Oxygen Transfers Functional [place] Measure 0=Not Assessed/NA 4=Minimal Assistance 1=Total Assistance 5=Supervision or Setup 2=Maximal Assistance 6=Modified [place] 3=Moderate Assistance 7=Complete IndependenceIRFPAI Quality Coding Scale 6 Independent with activity with or without an assistive device 5 Patient requires set up or clean up by helper. Patient completes activity by themselves 4 Supervision or touching assist (CGA). [place] provide cues , steadying assist 3 The helper provides less than half the effort to complete the activity 2 The helper provides more than half the effort to complete the activity 1 Dependent. The helper does all the effort to complete an activity 7 Patient refused to complete or attempt activity 9 The patient did not perform the activity before the current illness or injury 88 Not attempted due to Medical conditions or safety concerns Transfers (B, C, W/C) (FIM): 4 Sit to/from Stand: 4 Bed to/from Chair: 4 min assist with sit to stand from low surfaces, cues for hand placement and safety Weight Bearing Right Lower Extremity: Right Weight Bearing/Tolerated Left Lower Extremity: Left Weight Bearing/Tolerated Gait Training Gait (FIM): 4 Distance: 150' Gait Level of Assist: 4 Gait Persons Needed: 1 Gait Assistive Device: FWW Patient ambulates slowly and has scissoring of the left leg. Uncoordinated stepping with both legs but worse on the left. Exercises Seated Therapy Exercises: Long arc quads, Hip flexion Seated Reps: 20 Treatments transfers, ambulation, functional strengthening Assessment Current Status: Fair Progress improving endurance. Patient's brought her shoes so we can try an AFO next treatment. PT Short Term Goals Short Term Goals Time Frame: May 07, 2017 Transfers (B,C,W/C) (FIM): 3 Gait (FIM): 2 Gait Distance Comment: 50 feet Gait Level of Assist: 3 Gait Assistive Device: FWW Wheelchair (FIM): 2 Wheelchair Distance: 100 feet Wheelchair Level of Assist: 5 PT Fpc Goals Fpc Goals PT Fpc Goals Time Frame: May 21, 2017 Transfers (B,C,W/C) (FIM): 4 Sit to Lying (QC): 3 Lying-Sitting on Side/Bed(QC): 3 Sit to Stand (QC): 4 Rollin Roll Left to Right (QC): 4 Chair/Kfr-uo-Duoyn Xfer(QC): 3 Car Transfer (QC): 3 Does the Patient Walk: Yes Gait (FIM): 4 Distance: 150 feet Walk 10 feet (QC): 4 Walk 10ft-Uneven Surface(QC): 4 Walk 50ft with 2 Turns (QC): 4 Walk 150 ft (QC): 4 Gait Level of Assist: 4 Gait Assistive Device: FWW Does the Pt use WC or Scooter?: Yes Wheelchair (FIM): 6 Distance: 200 feet Wheelchair Level of Assist: 6 Wheel 50 feet with 2 turns (QC: 6 Stairs (FIM): 2 # of Steps: 4 1 Step (curb) (QC): 4 4 Steps (QC): 4 Stairs Level Of Assist: 4 PT Plan Problem List Problem List: Activity Tolerance, Functional Strength, Safety, Balance, Gait, Transfer, Bed Mobility, ROM Treatment/Plan Treatment Plan: Continue Plan of Care Treatment Plan: Bed Mobility, Education, Functional Activity Estiven, Functional Strength, Group Therapy, Gait, Safety, Therapeutic Exercise, Transfers Treatment Duration: May 21, 2017 Frequency: At least 5 of 7 days/Wk (IRF) Estimated Hrs Per Day: 1.5 hours per day Patient and/or Family Agrees t: Yes Safety Risks/Education Patient Education: Gait Training, Correct Positioning, Safety Issues Teaching Recipient: Patient Teaching Methods: Demonstration, Discussion Response to Teaching: Reinforcement Needed Time/GCodes Time In: 1140 Time Out: 1200 Total Billed Treatment Time: 20 Total Billed Treatment 1 visit GT 15' EX 5' SAKINA MEDELLIN PT May 02, 2017 12:04
[2017-05-02 18:00] VITALS: BP 138/76
[2017-05-02] MEDS: POLYETHYLENE GLYCOL 17 GM (MIRALAX) PACK PO SCH (19:54)
[2017-05-03 05:13] VITALS: BP 149/73
[2017-05-03] MEDS: CALCIUM CARB + VIT D 600 MG (CALCARB + D) TAB PO SCH ×2 (06:09→17:27)
[2017-05-03] MEDS: PANTOPRAZOLE 40 MG (PROTONIX) TAB PO SCH (06:10)
[2017-05-03] MEDS ORDERED: INFLUENZA TRIvalent 2017-2018 0.5 ML/45 MCG SYR IM ONE (07:30)
[2017-05-03] MEDS: VITAMIN D3 5,000 UNITS (CHOLECALCIFEROL ) CAPSULE PO SCH (08:37)
[2017-05-03] MEDS: SENNA W/DOCUSATE (SENOKOT S) TABLET PO SCH ×2 (08:37→20:04)
[2017-05-03] MEDS: METHOCARBAMOL 750 MG (ROBAXIN) TAB PO SCH ×3 (08:37→20:04)
[2017-05-03] MEDS: ALLOPURINOL 300 MG (ZYLOPRIM) TAB PO SCH (08:37)
[2017-05-03] MEDS: lisINopril 10 MG (PRINIVIL) TABLET PO SCH (08:37)
[2017-05-03] MEDS: LACTOBACILLUS Acidoph/Bulgar (LACTINEX/FLORANEX) TAB PO SCH (08:37)
[2017-05-03] MEDS: MUPIROCIN 2% OINT 22 GM (BACTROBAN) TUBE TOP SCH ×2 (08:38→20:06)
[2017-05-03 17:39] VITALS: BP 141/75
[2017-05-03] MEDS: POLYETHYLENE GLYCOL 17 GM (MIRALAX) PACK PO SCH (20:04)
[2017-05-04] MEDS: PANTOPRAZOLE 40 MG (PROTONIX) TAB PO SCH (06:07)
[2017-05-04] MEDS: CALCIUM CARB + VIT D 600 MG (CALCARB + D) TAB PO SCH ×2 (06:07→18:16)
[2017-05-04 06:53] VITALS: BP 155/75
[2017-05-04] MEDS: MUPIROCIN 2% OINT 22 GM (BACTROBAN) TUBE TOP SCH ×2 (09:55→20:11)
[2017-05-04] MEDS: METHOCARBAMOL 750 MG (ROBAXIN) TAB PO SCH ×3 (09:56→20:11)
[2017-05-04] MEDS: ALLOPURINOL 300 MG (ZYLOPRIM) TAB PO SCH (09:56)
[2017-05-04] MEDS: VITAMIN D3 5,000 UNITS (CHOLECALCIFEROL ) CAPSULE PO SCH (09:56)
[2017-05-04] MEDS: SENNA W/DOCUSATE (SENOKOT S) TABLET PO SCH ×2 (09:56→20:12)
[2017-05-04] MEDS: lisINopril 10 MG (PRINIVIL) TABLET PO SCH (09:56)
[2017-05-04] MEDS: LACTOBACILLUS Acidoph/Bulgar (LACTINEX/FLORANEX) TAB PO SCH (09:56)
--- NOTE | 2017-05-04 10:03 | Physical Therapy Daily Note ---
PT Daily Note-Current Subjective Pt is laying bed pre tx with no complaints of pain while laying. Pt agrees to PT. She does have 2/10 pain in her back with activity. Pain Numeric Pain Scale: 0-No Pain Location: No Pain Reported Appearance Pt is laying in bed with potus boot on the R foot. Pt nurse call, phone, and tray within reach. Mental Status Patient Orientation: Normal For Age Potus boot used alternating on each LE while in bed. TLSO donned when sitting up and out of bed. Transfers Functional [place] Measure 0=Not Assessed/NA 4=Minimal Assistance 1=Total Assistance 5=Supervision or Setup 2=Maximal Assistance 6=Modified [place] 3=Moderate Assistance 7=Complete IndependenceIRFPAI Quality Coding Scale 6 Independent with activity with or without an assistive device 5 Patient requires set up or clean up by helper. Patient completes activity by themselves 4 Supervision or touching assist (CGA). [place] provide cues , steadying assist 3 The helper provides less than half the effort to complete the activity 2 The helper provides more than half the effort to complete the activity 1 Dependent. The helper does all the effort to complete an activity 7 Patient refused to complete or attempt activity 9 The patient did not perform the activity before the current illness or injury 88 Not attempted due to Medical conditions or safety concerns Transfers (B, C, W/C) (FIM): 3 Scootin Rollin Supine to/from Sit: 4 Sit to/from Stand: 4 Bed to/from Chair: 4 Pt required mod A for scooting, SBA for rolling to each side, min A for supine to sit, sit to stand, and bed to [place] transfers. Weight Bearing Right Lower Extremity: Right Weight Bearing/Tolerated Left Lower Extremity: Left Weight Bearing/Tolerated Gait Training Does the Patient Walk?: Yes Gait (FIM): 2 Distance (FIM): 5=728-60 ft Distance: 100 feet x2 Gait Level of Assist: 4 Gait Persons Needed: 1 Gait Assistive Device: FWW TLSO donned when out of bed. AFO used on the LLE. Pt out-toes during the swing phase of gait. Pt is beginning to demonstrate reciprocal gait pattern. Minor left knee hyperextension. Wheelchair Training Does the Pt Use a Wheelchair?: Yes Exercises Seated Therapy Exercises: Sit to stand (2 sets of 7) NuStep Minutes: 5 NuStep Workload: 4 Treatments Pt performed bed mobility, gait training, functional activity, and LE exercise. Patient was dressed at the beginning of treatment and her brace was put on in bed. Patient had to roll many times from side to side to accomplish this. Assessment Current Status: Fair Progress Pt rates pain at 2/10 at most when walking and the AFO used on the LLE prevents foot drop leading to a reciprocal gait pattern. Pt bed mobility is becoming more independent. Pt requires verbal cues for proper sit to stand technique. PT Short Term Goals Short Term Goals Time Frame: May 07, 2017 Transfers (B,C,W/C) (FIM): 3 Gait (FIM): 2 Gait Distance Comment: 50 feet Gait Level of Assist: 3 Gait Assistive Device: FWW Wheelchair (FIM): 2 Wheelchair Distance: 100 feet Wheelchair Level of Assist: 5 PT Wellness Instructor Goals Wellness Instructor Goals PT Chcf Goals Time Frame: May 21, 2017 Transfers (B,C,W/C) (FIM): 4 Sit to Lying (QC): 3 Lying-Sitting on Side/Bed(QC): 3 Sit to Stand (QC): 4 Rollin Roll Left to Right (QC): 4 Chair/Yue-oa-Gbwzk Xfer(QC): 3 Car Transfer (QC): 3 Does the Patient Walk: Yes Gait (FIM): 4 Distance: 150 feet Walk 10 feet (QC): 4 Walk 10ft-Uneven Surface(QC): 4 Walk 50ft with 2 Turns (QC): 4 Walk 150 ft (QC): 4 Gait Level of Assist: 4 Gait Assistive Device: FWW Does the Pt use WC or Scooter?: Yes Wheelchair (FIM): 6 Distance: 200 feet Wheelchair Level of Assist: 6 Wheel 50 feet with 2 turns (QC: 6 Stairs (FIM): 2 # of Steps: 4 1 Step (curb) (QC): 4 4 Steps (QC): 4 Stairs Level Of Assist: 4 PT Plan Problem List Problem List: Activity Tolerance, Functional Strength, Safety, Balance, Gait, Transfer, Bed Mobility, ROM Treatment/Plan Treatment Plan: Continue Plan of Care Treatment Plan: Bed Mobility, Education, Functional Activity Estiven, Functional Strength, Group Therapy, Gait, Safety, Therapeutic Exercise, Transfers Treatment Duration: May 21, 2017 Frequency: At least 5 of 7 days/Wk (IRF) Estimated Hrs Per Day: 1.5 hours per day Patient and/or Family Agrees t: Yes Safety Risks/Education Patient Education: Gait Training, Transfer Techniques, Reviewed Precautions, Correct Positioning, Reviewed Don/Doff Brace, Safety Issues Teaching Recipient: Patient Teaching Methods: Demonstration, Discussion Response to Teaching: Reinforcement Needed Time/GCodes Time In: 800 Time Out: 900 Total Billed Treatment Time: 60 Total Billed Treatment 1 visit 15 min GT 30 min FA 15 min EX SAKINA MEDELLIN PT May 04, 2017 10:03
--- NOTE | 2017-05-04 11:52 | Occupational Ther Daily Note ---
OT Current Status-Daily Note Subjective Pt alert, lying in bed. Agreed to therapy. No c/o pain at this time. Mental Status/Objective Patient Orientation: Person, Place, Time, Situation Functional [place] Measure 0=Not Assessed/NA 4=Minimal Assistance 1=Total Assistance 5=Supervision or Setup 2=Maximal Assistance 6=Modified [place] 3=Moderate Assistance 7=Complete [place] ADL-Treatment Functional [place] Measure 0=Not Assessed/NA 4=Minimal Assistance 1=Total Assistance 5=Supervision or Setup 2=Maximal Assistance 6=Modified [place] 3=Moderate Assistance 7=Complete IndependenceIRFPAI Quality Coding Scale 6 Independent with activity with or without an assistive device 5 Patient requires set up or clean up by helper. Patient completes activity by themselves 4 Supervision or touching assist (CGA). [place] provide cues , steadying assist 3 The helper provides less than half the effort to complete the activity 2 The helper provides more than half the effort to complete the activity 1 Dependent. The helper does all the effort to complete an activity 7 Patient refused to complete or attempt activity 9 The patient did not perform the activity before the current illness or injury 88 Not attempted due to Medical conditions or safety concerns Grooming (FIM): 6 (Sitting at sink, pt is able to complete own grooming.) Oral Hygiene (QC): 6 Bathing (FIM): 3 (Using shower bench, hand held shower and grabbar pt is able to complete bathing when sitting. Due to precautions assist needed to complete lower legs and buttocks. Pt able to dry same areas that she bathed.) Bathing Location: L Arm, R Arm, L Upper Leg, R Upper Leg, Chest, Abdomen, Perineal Area Shower/Bathe Self (QC): 2 Upper Body (FIM): 4 (After set up, pt is able to don/doff shirt with min A.) Upper Body Dressing (QC): 3 Lower Body Dressing (FIM): 2 (Max A to don/doff pants. Requires AE for lower body clothing.) Lower Body Dressing (QC): 2 On/Off Footwear (QC): 2 Toileting (FIM): 4 (Min A to manipulate clothing. CGA to cleanse self.) Toileting Hygiene (QC): 3 Toilet/Commode Transfer (FIM): 4 (Min A for transfer using FWW and grabbar.) Toilet Transfer (QC): 3 Shower Transfer(FIM): 4 (Min A using grabbar, FWW and shower bench.) After therapy, pt lying in bed with call light/phone in reach. All needs met in room. Other Treatment Pt given therapy sponge and light resistance theraband and educated on 2 exercises each. Pt demonstrated understanding of exercises. Education OT Patient Education: Exercise program Teaching Recipient: Patient Teaching Methods: Demonstration, Discussion Response to Teaching: Verbalize Understanding, Return Demonstration OT Short Term Goals Short Term Goals Time Frame: May 14, 2017 Eating(FIM): 5 Grooming(FIM): 5 Bathing(FIM): 4 Upper Body Dressing(FIM): 4 Lower Body Dressing(FIM): 4 Toileting(FIM): 4 Transfers (B,C,W/C) (FIM): 3 Toilet/Commode Transfer(FIM): 4 Shower Transfer(FIM): 3 Additional Short Term Goals: 1-Demonstrate ADL Tasks, 2-Verbalize Understanding , 3-ImproveStrength/Estiven 1=Demonstrate adherence to instructed precautions during ADL tasks. 2=Patient will verbalize/demonstrate understanding of assistive devices/ modifications for ADL. 3=Patient will improve strength/tolerance for activity to enable patient to perform ADL's. OT Group Home Goals Group Home Goals Time Frame: May 28, 2017 Eating (FIM): 6 Eating (QC): 6 Groomin Oral Hygiene (QC): 6 Bathing(FIM): 5 Shower/Bathe Self (QC): 5 Upper Body Dressing(FIM): 5 Upper Body Dressing (QC): 5 Lower Body Dressing(FIM): 5 Lower Body Dressing (QC): 5 On/Off Footwear (QC): 5 Toileting(FIM): 6 Toileting Hygiene (QC): 6 Transfers (B,C,W/C) (FIM): 6 Toilet/Commode Transfer(FIM): 6 Toilet/Commode Transfer (QC): 6 Shower Transfer(FIM): 5 Additional Goals: 1-Demonstrate ADL Tasks, 2-Verbalize Understanding, 3- ImproveStrength/Estiven 1=Demonstrate adherence to instructed precautions during ADL tasks. 2=Patient will verbalize/demonstrate understanding of assistive devices/ modifications for ADL. 3=Patient will improve strength/tolerance for activity to enable patient to perform ADL's. OT Education/Plan Discharge Recommendations Plan/Recommendations: Continue POC Treatment Plan/Plan of Care Patient would benefit from OT for education, treatment and training to promote independence in ADL's, mobility, safety and/or upper extremity function for ADL' s. Plan of Care: ADL Retraining, Caregiver Training, Functional Mobility, Group Exercise/Act as Ind, UE Funct Exercise/Act Treatment Duration: May 28, 2017 Frequency: At least 5 of 7 days/Wk (IRF) Estimated Hrs Per Day: 1.5 hours per day Agreement: Yes Rehab Potential: Fair Time/GCodes Start Time: 10:30 Stop Time: 12:00 Total Time Billed (hr/min): 90 Billed Treatment Time 1 visit-ADL 5 (75 min) EX 1 (15 min) JANNETTE KWAN May 04, 2017 11:51
--- NOTE | 2017-05-04 15:39 | Physical Therapy Daily Note ---
PT Daily Note-Current Subjective Pt is laying in bed pre tx and agrees to PT without pain. Pain Numeric Pain Scale: 0-No Pain Location: No Pain Reported Appearance Pt is laying in bed post tx with nurse call, phone, and tray within reach. Mental Status Patient Orientation: Normal For Age Attachments: Colostomy/Ileostomy Potus boot switched to each ankle every few hours. Transfers Functional [place] Measure 0=Not Assessed/NA 4=Minimal Assistance 1=Total Assistance 5=Supervision or Setup 2=Maximal Assistance 6=Modified [place] 3=Moderate Assistance 7=Complete IndependenceIRFPAI Quality Coding Scale 6 Independent with activity with or without an assistive device 5 Patient requires set up or clean up by helper. Patient completes activity by themselves 4 Supervision or touching assist (CGA). [place] provide cues , steadying assist 3 The helper provides less than half the effort to complete the activity 2 The helper provides more than half the effort to complete the activity 1 Dependent. The helper does all the effort to complete an activity 7 Patient refused to complete or attempt activity 9 The patient did not perform the activity before the current illness or injury 88 Not attempted due to Medical conditions or safety concerns No transfers performed due to not leaving. Weight Bearing Right Lower Extremity: Right Weight Bearing/Tolerated Left Lower Extremity: Left Weight Bearing/Tolerated Gait Training Does the Patient Walk?: Yes Wheelchair Training Does the Pt Use a Wheelchair?: No Exercises Supine Ex: Ankle pumps (20 x1 BLE), Heel Slides (20 x1 BLE), Knee to chest (20 x1 BLE) Stretching of LLE for 30 sec x2: Ankle DF, PF and Toe flexion, extension Treatments Pt performed LE exercise and stretching. Assessment Current Status: Good Progress, Fair Progress Pt is not yet able to achieve full AROM during L ankle DF. Weakness exhibited in all LLE exercises. PT Short Term Goals Short Term Goals Time Frame: May 07, 2017 Transfers (B,C,W/C) (FIM): 3 Gait (FIM): 2 Gait Distance Comment: 50 feet Gait Level of Assist: 3 Gait Assistive Device: FWW Wheelchair (FIM): 2 Wheelchair Distance: 100 feet Wheelchair Level of Assist: 5 PT Intermediate Goals Intermediate Goals PT Intermediate Goals Time Frame: May 21, 2017 Transfers (B,C,W/C) (FIM): 4 Sit to Lying (QC): 3 Lying-Sitting on Side/Bed(QC): 3 Sit to Stand (QC): 4 Rollin Roll Left to Right (QC): 4 Chair/Ajb-qj-Iuumu Xfer(QC): 3 Car Transfer (QC): 3 Does the Patient Walk: Yes Gait (FIM): 4 Distance: 150 feet Walk 10 feet (QC): 4 Walk 10ft-Uneven Surface(QC): 4 Walk 50ft with 2 Turns (QC): 4 Walk 150 ft (QC): 4 Gait Level of Assist: 4 Gait Assistive Device: FWW Does the Pt use WC or Scooter?: Yes Wheelchair (FIM): 6 Distance: 200 feet Wheelchair Level of Assist: 6 Wheel 50 feet with 2 turns (QC: 6 Stairs (FIM): 2 # of Steps: 4 1 Step (curb) (QC): 4 4 Steps (QC): 4 Stairs Level Of Assist: 4 PT Plan Problem List Problem List: Activity Tolerance, Functional Strength, Safety, Balance, Gait, Transfer, Bed Mobility, ROM Treatment/Plan Treatment Plan: Continue Plan of Care Treatment Plan: Bed Mobility, Education, Functional Activity Estiven, Functional Strength, Group Therapy, Gait, Safety, Therapeutic Exercise, Transfers Treatment Duration: May 21, 2017 Frequency: At least 5 of 7 days/Wk (IRF) Estimated Hrs Per Day: 1.5 hours per day Patient and/or Family Agrees t: Yes Safety Risks/Education Patient Education: Correct Positioning, Reviewed Don/Doff Brace Teaching Recipient: Patient Teaching Methods: Demonstration, Discussion Response to Teaching: Reinforcement Needed Time/GCodes Time In: 1430 Time Out: 1500 Total Billed Treatment Time: 30 Total Billed Treatment 1 visit 30 min EX JANNETTE MEDEL PT May 04, 2017 15:39
[2017-05-04 17:15] VITALS: BP 142/71
[2017-05-04] MEDS: POLYETHYLENE GLYCOL 17 GM (MIRALAX) PACK PO SCH (20:12)
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
[2017-05-05] MEDS: PANTOPRAZOLE 40 MG (PROTONIX) TAB PO SCH (05:47)
[2017-05-05] MEDS: CALCIUM CARB + VIT D 600 MG (CALCARB + D) TAB PO SCH ×2 (05:47→16:55)
[2017-05-05 06:00] VITALS: BP 135/68
[2017-05-05] MEDS: METHOCARBAMOL 750 MG (ROBAXIN) TAB PO SCH ×3 (08:16→20:12)
[2017-05-05] MEDS: lisINopril 10 MG (PRINIVIL) TABLET PO SCH (08:16)
[2017-05-05] MEDS: ALLOPURINOL 300 MG (ZYLOPRIM) TAB PO SCH (08:16)
[2017-05-05] MEDS: VITAMIN D3 5,000 UNITS (CHOLECALCIFEROL ) CAPSULE PO SCH (08:16)
[2017-05-05] MEDS: LACTOBACILLUS Acidoph/Bulgar (LACTINEX/FLORANEX) TAB PO SCH (08:16)
[2017-05-05] MEDS: MUPIROCIN 2% OINT 22 GM (BACTROBAN) TUBE TOP SCH ×2 (08:17→20:14)
[2017-05-05] MEDS: SENNA W/DOCUSATE (SENOKOT S) TABLET PO SCH ×2 (08:17→20:12)
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
--- NOTE | 2017-05-05 09:56 | Physical Therapy Daily Note ---
PT Daily Note-Current Subjective Pt is sitting in [facility] pre tx with pain rated at 6/10 in right side of low back after reporting pop in back when sitting down to use the bathroom. Nurse notified. Pt agrees to PT. Pt present during tx. Pain Numeric Pain Scale: 6 Location: Right Location Body Site: Back Appearance Pt is laying in bed post tx with potus boot on the RLE and nurse call within reach. in the room. Mental Status Patient Orientation: Normal For Age Attachments: Colostomy/Ileostomy Transfers Functional [place] Measure 0=Not Assessed/NA 4=Minimal Assistance 1=Total Assistance 5=Supervision or Setup 2=Maximal Assistance 6=Modified [place] 3=Moderate Assistance 7=Complete IndependenceIRFPAI Quality Coding Scale 6 Independent with activity with or without an assistive device 5 Patient requires set up or clean up by helper. Patient completes activity by themselves 4 Supervision or touching assist (CGA). [place] provide cues , steadying assist 3 The helper provides less than half the effort to complete the activity 2 The helper provides more than half the effort to complete the activity 1 Dependent. The helper does all the effort to complete an activity 7 Patient refused to complete or attempt activity 9 The patient did not perform the activity before the current illness or injury 88 Not attempted due to Medical conditions or safety concerns Transfers (B, C, W/C) (FIM): 3 Supine to/from Sit: 3 Sit to/from Stand: 4 Bed to/from Chair: 4 Mod A to assist with BLE during sit to supine transfer. Pt requires CGA for sit to stand and bed to chair transfers. Cues for positioning. Weight Bearing Right Lower Extremity: Right Weight Bearing/Tolerated Left Lower Extremity: Left Weight Bearing/Tolerated Gait Training Does the Patient Walk?: Yes Gait (FIM): 2 Distance: 100 feet x2, 20 feet x1 Gait Level of Assist: 4 Gait Persons Needed: 1 Gait Assistive Device: FWW With use of AFO on the LLE, pt is walking more steadily but in more pain today. Wheelchair Training Does the Pt Use a Wheelchair?: Yes Exercises Seated Therapy Exercises: Sit to stand (5 x2) Standing: Hip Abduction (15 x2 BLE), Hamstring curls (15 x2 BLE), Marching (20 x2 BLE), Mini squats (20 x2 BLE) Treatments Pt performed bed mobility, functional activity, gait training, and standing exercises. Assessment Current Status: Fair Progress Pt able to tolerate tx today with increased report of pain today. Pt reported feeling better once walking and preferred to stand during some breaks to relieve pain. Pt drags the LLE during standing hip abduction. Pt tolerates SLS well during exercises. PT Short Term Goals Short Term Goals Time Frame: May 07, 2017 Transfers (B,C,W/C) (FIM): 3 Gait (FIM): 2 Gait Distance Comment: 50 feet Gait Level of Assist: 3 Gait Assistive Device: FWW Wheelchair (FIM): 2 Wheelchair Distance: 100 feet Wheelchair Level of Assist: 5 PT Senior It Architect Goals Senior It Architect Goals PT Detention Goals Time Frame: May 21, 2017 Transfers (B,C,W/C) (FIM): 4 Sit to Lying (QC): 3 Lying-Sitting on Side/Bed(QC): 3 Sit to Stand (QC): 4 Rollin Roll Left to Right (QC): 4 Chair/Muo-ng-Kkqhp Xfer(QC): 3 Car Transfer (QC): 3 Does the Patient Walk: Yes Gait (FIM): 4 Distance: 150 feet Walk 10 feet (QC): 4 Walk 10ft-Uneven Surface(QC): 4 Walk 50ft with 2 Turns (QC): 4 Walk 150 ft (QC): 4 Gait Level of Assist: 4 Gait Assistive Device: FWW Does the Pt use WC or Scooter?: Yes Wheelchair (FIM): 6 Distance: 200 feet Wheelchair Level of Assist: 6 Wheel 50 feet with 2 turns (QC: 6 Stairs (FIM): 2 # of Steps: 4 1 Step (curb) (QC): 4 4 Steps (QC): 4 Stairs Level Of Assist: 4 PT Plan Problem List Problem List: Activity Tolerance, Functional Strength, Safety, Balance, Gait, Transfer, Bed Mobility, ROM Treatment/Plan Treatment Plan: Continue Plan of Care Treatment Plan: Bed Mobility, Education, Functional Activity Estiven, Functional Strength, Group Therapy, Gait, Safety, Therapeutic Exercise, Transfers Treatment Duration: May 21, 2017 Frequency: At least 5 of 7 days/Wk (IRF) Estimated Hrs Per Day: 1.5 hours per day Patient and/or Family Agrees t: Yes Safety Risks/Education Patient Education: Gait Training, Transfer Techniques, Correct Positioning, Reviewed Don/Doff Brace, Safety Issues Teaching Recipient: Patient Teaching Methods: Demonstration, Discussion Response to Teaching: Reinforcement Needed Time/GCodes Time In: 900 Time Out: 1000 Total Billed Treatment Time: 60 Total Billed Treatment 1 visit 15 min GT 20 min FA 25 min EX SAKINA MEDELLIN PT May 05, 2017 09:56
--- NOTE | 2017-05-05 11:55 | Occupational Ther Daily Note ---
OT Current Status-Daily Note Subjective Pt just returned from radiology for x-ray on spine. Pt agreed to therapy though stated that she was hurting and wouldn't be able to do much. Pt was agreeable to complete bed exercises and bathing. Mental Status/Objective Patient Orientation: Person, Place, Time, Situation Functional [place] Measure 0=Not Assessed/NA 4=Minimal Assistance 1=Total Assistance 5=Supervision or Setup 2=Maximal Assistance 6=Modified [place] 3=Moderate Assistance 7=Complete [place] Attachments: Other-See Comments (TSLO brace) ADL-Treatment Pt declined shower and asked to complete bed bath. Pt was able to complete upper body bathing after set up then was able to cleanse khanh area and buttocks. Assist to manipulate clothing to reach areas. Pt was educated on AE for lower body dressing. Was able to verbalize understanding of each. Functional [place] Measure 0=Not Assessed/NA 4=Minimal Assistance 1=Total Assistance 5=Supervision or Setup 2=Maximal Assistance 6=Modified [place] 3=Moderate Assistance 7=Complete IndependenceIRFPAI Quality Coding Scale 6 Independent with activity with or without an assistive device 5 Patient requires set up or clean up by helper. Patient completes activity by themselves 4 Supervision or touching assist (CGA). [place] provide cues , steadying assist 3 The helper provides less than half the effort to complete the activity 2 The helper provides more than half the effort to complete the activity 1 Dependent. The helper does all the effort to complete an activity 7 Patient refused to complete or attempt activity 9 The patient did not perform the activity before the current illness or injury 88 Not attempted due to Medical conditions or safety concerns Other Treatment Pt completed 3 UE dowel rosi exercises without weight, 3 sets 10 reps. Pt required to be repositioned during dowel rosi exercises due to pain in R side, decreased pain after repositioning. Pt then completed 1 shldr exercises with 1 # wt attached to L wrist and no wt on R wrist due to increased pain on R side. Resistive clothespin task to increase strength for shirt turner and pinch for daily functional tasks. Pt took increased time to complete each task due to increased pain and fatigue. After therapy, pt lying in bed with call light/ phone in reach. All needs met in room. Education OT Patient Education: Use of adapted equipment Teaching Recipient: Patient Teaching Methods: Demonstration, Discussion Response to Teaching: Verbalize Understanding OT Short Term Goals Short Term Goals Time Frame: May 14, 2017 Eating(FIM): 5 Grooming(FIM): 5 Bathing(FIM): 4 Upper Body Dressing(FIM): 4 Lower Body Dressing(FIM): 4 Toileting(FIM): 4 Transfers (B,C,W/C) (FIM): 3 Toilet/Commode Transfer(FIM): 4 Shower Transfer(FIM): 3 Additional Short Term Goals: 1-Demonstrate ADL Tasks, 2-Verbalize Understanding , 3-ImproveStrength/Estiven 1=Demonstrate adherence to instructed precautions during ADL tasks. 2=Patient will verbalize/demonstrate understanding of assistive devices/ modifications for ADL. 3=Patient will improve strength/tolerance for activity to enable patient to perform ADL's. OT Talent Sourcer Goals Talent Sourcer Goals Time Frame: May 28, 2017 Eating (FIM): 6 Eating (QC): 6 Groomin Oral Hygiene (QC): 6 Bathing(FIM): 5 Shower/Bathe Self (QC): 5 Upper Body Dressing(FIM): 5 Upper Body Dressing (QC): 5 Lower Body Dressing(FIM): 5 Lower Body Dressing (QC): 5 On/Off Footwear (QC): 5 Toileting(FIM): 6 Toileting Hygiene (QC): 6 Transfers (B,C,W/C) (FIM): 6 Toilet/Commode Transfer(FIM): 6 Toilet/Commode Transfer (QC): 6 Shower Transfer(FIM): 5 Additional Goals: 1-Demonstrate ADL Tasks, 2-Verbalize Understanding, 3- ImproveStrength/Estiven 1=Demonstrate adherence to instructed precautions during ADL tasks. 2=Patient will verbalize/demonstrate understanding of assistive devices/ modifications for ADL. 3=Patient will improve strength/tolerance for activity to enable patient to perform ADL's. OT Education/Plan Discharge Recommendations Plan/Recommendations: Continue POC Treatment Plan/Plan of Care Patient would benefit from OT for education, treatment and training to promote independence in ADL's, mobility, safety and/or upper extremity function for ADL' s. Plan of Care: ADL Retraining, Caregiver Training, Functional Mobility, Group Exercise/Act as Ind, UE Funct Exercise/Act Treatment Duration: May 28, 2017 Frequency: At least 5 of 7 days/Wk (IRF) Estimated Hrs Per Day: 1.5 hours per day Agreement: Yes Rehab Potential: Fair Time/GCodes Start Time: 10:30 Stop Time: 12:00 Total Time Billed (hr/min): 90 Billed Treatment Time 1 visit-ADL 4 (60 min) EX 2 (30 min) JANNETTE KWAN May 05, 2017 11:55
--- NOTE | 2017-05-05 12:54 | Diagnostic Imaging Report ---
INDICATION: Pain. History of T12 and L1 compression fractures. COMPARISON: MR dated 08/03/2014. FINDINGS: Frontal and lateral radiographic views of the thoracic spine were obtained. Compression deformities of the T12 and L1 vertebral bodies are noted. These are age indeterminate, but new when compared to previous MR lumbar spine dated 08/03/2014. Evaluation of the static alignment demonstrates mild S1 scoliotic deformity of the thoracolumbar spine. There is no significant juan pablo or retrolisthesis. There is no evidence of jumped facets. There are mild multilevel degenerative changes. Included portions of the lungs are clear. IMPRESSION: 1. Age-indeterminate compression deformities of T12 and L1. Correlation with MRI is recommended. Dictated by: Dictated on workstation # [id number]
--- NOTE | 2017-05-05 13:51 | Physical Therapy Daily Note ---
PT Daily Note-Current Subjective Pt is laying in bed pre tx with no complaints of pain and agrees to PT. Pain Numeric Pain Scale: 0-No Pain Location: No Pain Reported Appearance Pt is laying in bed with nurse call, phone, tray within reach. Mental Status Patient Orientation: Normal For Age Attachments: Colostomy/Ileostomy Transfers Functional [place] Measure 0=Not Assessed/NA 4=Minimal Assistance 1=Total Assistance 5=Supervision or Setup 2=Maximal Assistance 6=Modified [place] 3=Moderate Assistance 7=Complete IndependenceIRFPAI Quality Coding Scale 6 Independent with activity with or without an assistive device 5 Patient requires set up or clean up by helper. Patient completes activity by themselves 4 Supervision or touching assist (CGA). [place] provide cues , steadying assist 3 The helper provides less than half the effort to complete the activity 2 The helper provides more than half the effort to complete the activity 1 Dependent. The helper does all the effort to complete an activity 7 Patient refused to complete or attempt activity 9 The patient did not perform the activity before the current illness or injury 88 Not attempted due to Medical conditions or safety concerns No transfers performed due to not leaving bed. Weight Bearing Right Lower Extremity: Right Weight Bearing/Tolerated Left Lower Extremity: Left Weight Bearing/Tolerated Gait Training Does the Patient Walk?: Yes Wheelchair Training Does the Pt Use a Wheelchair?: Yes Exercises Supine Ex: Ankle pumps (20 x1 BLE), Glut sets (15 x1), Heel Slides (20 x1 BLE) , Straight leg raise (x20), Hip abd/add (20 x1 BLE) Treatments Pt performed bed mobility and LE exercise. Assessment Current Status: Fair Progress Pt is improving AROM in LLE exercises and has no complaints of pain. PT Short Term Goals Short Term Goals Time Frame: May 07, 2017 Transfers (B,C,W/C) (FIM): 3 Gait (FIM): 2 Gait Distance Comment: 50 feet Gait Level of Assist: 3 Gait Assistive Device: FWW Wheelchair (FIM): 2 Wheelchair Distance: 100 feet Wheelchair Level of Assist: 5 PT Halfway Goals Halfway Goals PT Halfway Goals Time Frame: May 21, 2017 Transfers (B,C,W/C) (FIM): 4 Sit to Lying (QC): 3 Lying-Sitting on Side/Bed(QC): 3 Sit to Stand (QC): 4 Rollin Roll Left to Right (QC): 4 Chair/Rim-iv-Bskmw Xfer(QC): 3 Car Transfer (QC): 3 Does the Patient Walk: Yes Gait (FIM): 4 Distance: 150 feet Walk 10 feet (QC): 4 Walk 10ft-Uneven Surface(QC): 4 Walk 50ft with 2 Turns (QC): 4 Walk 150 ft (QC): 4 Gait Level of Assist: 4 Gait Assistive Device: FWW Does the Pt use WC or Scooter?: Yes Wheelchair (FIM): 6 Distance: 200 feet Wheelchair Level of Assist: 6 Wheel 50 feet with 2 turns (QC: 6 Stairs (FIM): 2 # of Steps: 4 1 Step (curb) (QC): 4 4 Steps (QC): 4 Stairs Level Of Assist: 4 PT Plan Problem List Problem List: Activity Tolerance, Functional Strength, Safety, Balance, Gait, Transfer, Bed Mobility, ROM Treatment/Plan Treatment Plan: Continue Plan of Care Treatment Plan: Bed Mobility, Education, Functional Activity Estiven, Functional Strength, Group Therapy, Gait, Safety, Therapeutic Exercise, Transfers Treatment Duration: May 21, 2017 Frequency: At least 5 of 7 days/Wk (IRF) Estimated Hrs Per Day: 1.5 hours per day Patient and/or Family Agrees t: Yes Safety Risks/Education Patient Education: Correct Positioning, Safety Issues Teaching Recipient: Patient Teaching Methods: Demonstration, Discussion Response to Teaching: Reinforcement Needed Time/GCodes Time In: 1300 Time Out: 1330 Total Billed Treatment Time: 30 Total Billed Treatment 1 visit 30 min EX SAKINA MEDELLIN PT May 05, 2017 13:50
[2017-05-05 17:44] VITALS: BP 148/78
[2017-05-05] MEDS: POLYETHYLENE GLYCOL 17 GM (MIRALAX) PACK PO SCH (20:13)
[2017-05-06] MEDS: PANTOPRAZOLE 40 MG (PROTONIX) TAB PO SCH (06:05)
[2017-05-06] MEDS: CALCIUM CARB + VIT D 600 MG (CALCARB + D) TAB PO SCH ×2 (06:05→17:18)
[2017-05-06 06:24] VITALS: BP 132/73
[2017-05-06] MEDS: lisINopril 10 MG (PRINIVIL) TABLET PO SCH (08:40)
[2017-05-06] MEDS: SENNA W/DOCUSATE (SENOKOT S) TABLET PO SCH ×2 (08:40→21:23)
[2017-05-06] MEDS: METHOCARBAMOL 750 MG (ROBAXIN) TAB PO SCH ×3 (08:40→21:23)
[2017-05-06] MEDS: VITAMIN D3 5,000 UNITS (CHOLECALCIFEROL ) CAPSULE PO SCH (08:40)
[2017-05-06] MEDS: LACTOBACILLUS Acidoph/Bulgar (LACTINEX/FLORANEX) TAB PO SCH (08:40)
[2017-05-06] MEDS: ALLOPURINOL 300 MG (ZYLOPRIM) TAB PO SCH (08:40)
[2017-05-06] MEDS: MUPIROCIN 2% OINT 22 GM (BACTROBAN) TUBE TOP SCH ×2 (08:41→21:24)
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
--- NOTE | 2017-05-06 11:00 | Physical Therapy Daily Note ---
PT Daily Note-Current Subjective Pt is laying in bed pre tx with no complaints of pain. Pt agrees to PT. Patient states that her pain has gotten much better since yesterday. Pain Numeric Pain Scale: 0-No Pain Location: No Pain Reported Appearance Pt is sitting in recliner in room post tx with nurse call, phone, and tray within reach. TLSO is on and AFO is removed. Mental Status Patient Orientation: Normal For Age Attachments: Colostomy/Ileostomy TLSO Transfers Functional [place] Measure 0=Not Assessed/NA 4=Minimal Assistance 1=Total Assistance 5=Supervision or Setup 2=Maximal Assistance 6=Modified [place] 3=Moderate Assistance 7=Complete IndependenceIRFPAI Quality Coding Scale 6 Independent with activity with or without an assistive device 5 Patient requires set up or clean up by helper. Patient completes activity by themselves 4 Supervision or touching assist (CGA). [place] provide cues , steadying assist 3 The helper provides less than half the effort to complete the activity 2 The helper provides more than half the effort to complete the activity 1 Dependent. The helper does all the effort to complete an activity 7 Patient refused to complete or attempt activity 9 The patient did not perform the activity before the current illness or injury 88 Not attempted due to Medical conditions or safety concerns Transfers (B, C, W/C) (FIM): 4 Scootin Rollin Roll Left to Right (QC): 4 Supine to/from Sit: 5 Sit to/from Stand: 4 Bed to/from Chair: 4 SBA for bed mobility and CGA for transfers required. Weight Bearing Right Lower Extremity: Right Weight Bearing/Tolerated Left Lower Extremity: Left Weight Bearing/Tolerated Gait Training Does the Patient Walk?: Yes Gait (FIM): 4 Distance: 150 feetx2 Gait Level of Assist: 4 Gait Persons Needed: 1 Gait Assistive Device: FWW AFO used on the LLE. Pt is walking more steadily with reciprocal gait pattern. Better coordination during stepping with left leg but still some scissoring. Wheelchair Training Does the Pt Use a Wheelchair?: No Stair Training Stair Training: Handrails/: 2 handrails Stairs (FIM): 1 #of Steps: 1 Stairs: Pattern: Step to Level of Assist: 4 Exercises Seated Therapy Exercises: Sit to stand (3 x2 ) Standing: Hip Abduction (15 x1 BLE), Heel/toe raises (15 x1 ), Marching (15 x1 BLE), Mini squats (15 x1 BLE) Treatments Pt performed bed mobility, gait training, functional activity, LE exercise. Assessment Current Status: Good Progress Pt is improving activity tolerance as she is able to walk 150 feet with FWW and AFO on the LLE. Pt demonstrates compensatory strategies during standing exercises due to weakness and tightness in the LLE. L heel raises during mini squats and out-toes during hip abduction. PT Short Term Goals Short Term Goals Time Frame: May 07, 2017 Transfers (B,C,W/C) (FIM): 3 Gait (FIM): 2 Gait Distance Comment: 50 feet Gait Level of Assist: 3 Gait Assistive Device: FWW Wheelchair (FIM): 2 Wheelchair Distance: 100 feet Wheelchair Level of Assist: 5 PT Snf Goals Snf Goals PT Snf Goals Time Frame: May 21, 2017 Transfers (B,C,W/C) (FIM): 4 Sit to Lying (QC): 3 Lying-Sitting on Side/Bed(QC): 3 Sit to Stand (QC): 4 Rollin Roll Left to Right (QC): 4 Chair/Msu-ig-[place] Xfer(QC): 3 Car Transfer (QC): 3 Does the Patient Walk: Yes Gait (FIM): 4 Distance: 150 feet Walk 10 feet (QC): 4 Walk 10ft-Uneven Surface(QC): 4 Walk 50ft with 2 Turns (QC): 4 Walk 150 ft (QC): 4 Gait Level of Assist: 4 Gait Assistive Device: FWW Does the Pt use WC or Scooter?: Yes Wheelchair (FIM): 6 Distance: 200 feet Wheelchair Level of Assist: 6 Wheel 50 feet with 2 turns (QC: 6 Stairs (FIM): 2 # of Steps: 4 1 Step (curb) (QC): 4 4 Steps (QC): 4 Stairs Level Of Assist: 4 PT Plan Problem List Problem List: Activity Tolerance, Functional Strength, Safety, Balance, Gait, Transfer, Bed Mobility, ROM Treatment/Plan Treatment Plan: Continue Plan of Care Treatment Plan: Bed Mobility, Education, Functional Activity Estiven, Functional Strength, Group Therapy, Gait, Safety, Therapeutic Exercise, Transfers Treatment Duration: May 21, 2017 Frequency: At least 5 of 7 days/Wk (IRF) Estimated Hrs Per Day: 1.5 hours per day Patient and/or Family Agrees t: Yes Safety Risks/Education Patient Education: Gait Training, Transfer Techniques, Steps, Reviewed Precautions, Correct Positioning, Reviewed Don/Doff Brace, Safety Issues Teaching Recipient: Patient Teaching Methods: Demonstration, Discussion Response to Teaching: Reinforcement Needed Time/GCodes Time In: 900 Time Out: 1000 Total Billed Treatment Time: 60 Total Billed Treatment 1 visit 15 min GT 15 min FA 30 min SAKINA WRIGHT PT May 06, 2017 11:00
--- NOTE | 2017-05-06 11:43 | Occupational Ther Daily Note ---
OT Current Status-Daily Note Subjective Pt alert, sitting in recliner. Pt agreed to therapy. No c/o pain at this time. Mental Status/Objective Patient Orientation: Person, Place, Time, Situation Functional [place] Measure 0=Not Assessed/NA 4=Minimal Assistance 1=Total Assistance 5=Supervision or Setup 2=Maximal Assistance 6=Modified [place] 3=Moderate Assistance 7=Complete [place] Attachments: Other-See Comments (TSLO) ADL-Treatment Pt agreed to shower today. Pt ambulated to bathroom with CGA using FWW. Pt transferred to toilet using FWW. Pt squats above toilet, per pt's request. Assist needed to manipulate clothing, pt cleanses self. Pt then transferred into shower using FWW, grabbars and shower bench. Pt was able to complete bathing/drying of upper body, khanh area and upper legs, assist for all other areas. Pt sat at sink to complete grooming by self. Pt donned shirt with min A. Max A for lower body dressing. Educated on using AE for lower body dressing. Pt did not want to use AE today due to increased fatigue. Pt then ambulated back to bed and laid down with mod A. After therapy, pt lying in bed with call light/phone in reach. All needs met in room. Functional [place] Measure 0=Not Assessed/NA 4=Minimal Assistance 1=Total Assistance 5=Supervision or Setup 2=Maximal Assistance 6=Modified [place] 3=Moderate Assistance 7=Complete IndependenceIRFPAI Quality Coding Scale 6 Independent with activity with or without an assistive device 5 Patient requires set up or clean up by helper. Patient completes activity by themselves 4 Supervision or touching assist (CGA). [place] provide cues , steadying assist 3 The helper provides less than half the effort to complete the activity 2 The helper provides more than half the effort to complete the activity 1 Dependent. The helper does all the effort to complete an activity 7 Patient refused to complete or attempt activity 9 The patient did not perform the activity before the current illness or injury 88 Not attempted due to Medical conditions or safety concerns Grooming (FIM): 6 Oral Hygiene (QC): 6 Bathing (FIM): 3 Bathing Location: L Arm, R Arm, L Upper Leg, R Upper Leg, Chest, Abdomen, Perineal Area Shower/Bathe Self (QC): 3 Upper Body (FIM): 4 Upper Body Dressing (QC): 3 Lower Body Dressing (FIM): 2 Lower Body Dressing (QC): 2 On/Off Footwear (QC): 2 Toileting (FIM): 3 Toileting Hygiene (QC): 3 Toilet/Commode Transfer (FIM): 4 Toilet Transfer (QC): 4 Shower Transfer(FIM): 4 Max A to don/doff TSLO. OT Short Term Goals Short Term Goals Time Frame: May 14, 2017 Eating(FIM): 5 Grooming(FIM): 5 Bathing(FIM): 4 Upper Body Dressing(FIM): 4 Lower Body Dressing(FIM): 4 Toileting(FIM): 4 Transfers (B,C,W/C) (FIM): 3 Toilet/Commode Transfer(FIM): 4 Shower Transfer(FIM): 3 Additional Short Term Goals: 1-Demonstrate ADL Tasks, 2-Verbalize Understanding , 3-ImproveStrength/Estiven 1=Demonstrate adherence to instructed precautions during ADL tasks. 2=Patient will verbalize/demonstrate understanding of assistive devices/ modifications for ADL. 3=Patient will improve strength/tolerance for activity to enable patient to perform ADL's. OT Detention Goals Patient Safety Sitter Goals Time Frame: May 28, 2017 Eating (FIM): 6 Eating (QC): 6 Groomin Oral Hygiene (QC): 6 Bathing(FIM): 5 Shower/Bathe Self (QC): 5 Upper Body Dressing(FIM): 5 Upper Body Dressing (QC): 5 Lower Body Dressing(FIM): 5 Lower Body Dressing (QC): 5 On/Off Footwear (QC): 5 Toileting(FIM): 6 Toileting Hygiene (QC): 6 Transfers (B,C,W/C) (FIM): 6 Toilet/Commode Transfer(FIM): 6 Toilet/Commode Transfer (QC): 6 Shower Transfer(FIM): 5 Additional Goals: 1-Demonstrate ADL Tasks, 2-Verbalize Understanding, 3- ImproveStrength/Estiven 1=Demonstrate adherence to instructed precautions during ADL tasks. 2=Patient will verbalize/demonstrate understanding of assistive devices/ modifications for ADL. 3=Patient will improve strength/tolerance for activity to enable patient to perform ADL's. OT Education/Plan Discharge Recommendations Plan/Recommendations: Continue POC Treatment Plan/Plan of Care Patient would benefit from OT for education, treatment and training to promote independence in ADL's, mobility, safety and/or upper extremity function for ADL' s. Plan of Care: ADL Retraining, Caregiver Training, Functional Mobility, Group Exercise/Act as Ind, UE Funct Exercise/Act Treatment Duration: May 28, 2017 Frequency: At least 5 of 7 days/Wk (IRF) Estimated Hrs Per Day: 1.5 hours per day Agreement: Yes Rehab Potential: Fair Time/GCodes Start Time: 10:30 Stop Time: 11:40 Total Time Billed (hr/min): 70 Billed Treatment Time 1 visit-ADL 5 (70 min) JANNETTE KWAN May 06, 2017 11:43
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
[2017-05-06 18:17] VITALS: BP 149/78
[2017-05-06] MEDS: POLYETHYLENE GLYCOL 17 GM (MIRALAX) PACK PO SCH (21:23)
[2017-05-07 05:45] VITALS: BP 127/71
[2017-05-07] MEDS: CALCIUM CARB + VIT D 600 MG (CALCARB + D) TAB PO SCH ×2 (06:08→17:22)
[2017-05-07] MEDS: PANTOPRAZOLE 40 MG (PROTONIX) TAB PO SCH (06:08)
--- NOTE | 2017-05-07 08:44 | Physical Therapy Daily Note ---
PT Daily Note-Current Subjective Pt is sitting in [facility] in room pre tx with no complaints of pain and agrees to PT. Pain Numeric Pain Scale: 0-No Pain Location: No Pain Reported Appearance Pt is sitting in recliner in room post tx with nurse call, phone, and tray within reach. Mental Status Patient Orientation: Normal For Age Attachments: Colostomy/Ileostomy Transfers Functional [place] Measure 0=Not Assessed/NA 4=Minimal Assistance 1=Total Assistance 5=Supervision or Setup 2=Maximal Assistance 6=Modified [place] 3=Moderate Assistance 7=Complete IndependenceIRFPAI Quality Coding Scale 6 Independent with activity with or without an assistive device 5 Patient requires set up or clean up by helper. Patient completes activity by themselves 4 Supervision or touching assist (CGA). [place] provide cues , steadying assist 3 The helper provides less than half the effort to complete the activity 2 The helper provides more than half the effort to complete the activity 1 Dependent. The helper does all the effort to complete an activity 7 Patient refused to complete or attempt activity 9 The patient did not perform the activity before the current illness or injury 88 Not attempted due to Medical conditions or safety concerns Transfers (B, C, W/C) (FIM): 4 Sit to/from Stand: 4 Bed to/from Chair: 4 CGA for transfers needed. Verbal cues for hand placement needed to ensure safety. Weight Bearing Right Lower Extremity: Right Weight Bearing/Tolerated Left Lower Extremity: Left Weight Bearing/Tolerated Gait Training Does the Patient Walk?: Yes Gait (FIM): 4 Distance: 150 feet x2 Gait Level of Assist: 4 Gait Persons Needed: 1 Gait Assistive Device: FWW Gait is becoming more coordinated improving functional mobility. Uses left AFO. Still some scissoring. Wheelchair Training Does the Pt Use a Wheelchair?: Yes Exercises Standing: Hip Abduction (15 x1 BLE), Hamstring curls (10 x1 BLE), Heel/toe raises (20 x1 BLE), Marching (15 x1 BLE), Mini squats (20 x1 BLE) Mini lunges with R foot forward: 20 x1 Step-ups to one step: 4 x1 NuStep Minutes: 10 NuStep Workload: 3 Treatments Pt performed functional mobility, gait training, standing exercise, and NuStep. Assessment Current Status: Good Progress Pt improving activity tolerance in terms of gait training. Pt has difficulty with standing exercises, especially marching and hamstring curls to due LLE weakness. Pt presented with less pain today and was motivated to work hard. PT Short Term Goals Short Term Goals Time Frame: May 07, 2017 Transfers (B,C,W/C) (FIM): 3 Gait (FIM): 2 Gait Distance Comment: 50 feet Gait Level of Assist: 3 Gait Assistive Device: FWW Wheelchair (FIM): 2 Wheelchair Distance: 100 feet Wheelchair Level of Assist: 5 PT Recording Clerk Goals Recording Clerk Goals PT Recording Clerk Goals Time Frame: May 21, 2017 Transfers (B,C,W/C) (FIM): 4 Sit to Lying (QC): 3 Lying-Sitting on Side/Bed(QC): 3 Sit to Stand (QC): 4 Rollin Roll Left to Right (QC): 4 Chair/Qzh-fx-Hcbme Xfer(QC): 3 Car Transfer (QC): 3 Does the Patient Walk: Yes Gait (FIM): 4 Distance: 150 feet Walk 10 feet (QC): 4 Walk 10ft-Uneven Surface(QC): 4 Walk 50ft with 2 Turns (QC): 4 Walk 150 ft (QC): 4 Gait Level of Assist: 4 Gait Assistive Device: FWW Does the Pt use WC or Scooter?: Yes Wheelchair (FIM): 6 Distance: 200 feet Wheelchair Level of Assist: 6 Wheel 50 feet with 2 turns (QC: 6 Stairs (FIM): 2 # of Steps: 4 1 Step (curb) (QC): 4 4 Steps (QC): 4 Stairs Level Of Assist: 4 PT Plan Problem List Problem List: Activity Tolerance, Functional Strength, Safety, Balance, Gait, Transfer, Bed Mobility, ROM Treatment/Plan Treatment Plan: Continue Plan of Care Treatment Plan: Bed Mobility, Education, Functional Activity Estiven, Functional Strength, Group Therapy, Gait, Safety, Therapeutic Exercise, Transfers Treatment Duration: May 21, 2017 Frequency: At least 5 of 7 days/Wk (IRF) Estimated Hrs Per Day: 1.5 hours per day Patient and/or Family Agrees t: Yes Safety Risks/Education Patient Education: Gait Training, Transfer Techniques, Correct Positioning, Safety Issues Teaching Recipient: Patient Teaching Methods: Demonstration, Discussion Response to Teaching: Reinforcement Needed Time/GCodes Time In: 800 Time Out: 900 Total Billed Treatment Time: 60 Total Billed Treatment 1 visit 15 min GT 45 min EX SAKINA MEDELLIN PT May 07, 2017 08:44
[2017-05-07] MEDS: lisINopril 10 MG (PRINIVIL) TABLET PO SCH (09:16)
[2017-05-07] MEDS: VITAMIN D3 5,000 UNITS (CHOLECALCIFEROL ) CAPSULE PO SCH (09:16)
[2017-05-07] MEDS: METHOCARBAMOL 750 MG (ROBAXIN) TAB PO SCH ×3 (09:16→20:13)
[2017-05-07] MEDS: LACTOBACILLUS Acidoph/Bulgar (LACTINEX/FLORANEX) TAB PO SCH (09:16)
[2017-05-07] MEDS: ALLOPURINOL 300 MG (ZYLOPRIM) TAB PO SCH (09:16)
[2017-05-07] MEDS: SENNA W/DOCUSATE (SENOKOT S) TABLET PO SCH ×2 (09:16→19:59)
[2017-05-07] MEDS: MUPIROCIN 2% OINT 22 GM (BACTROBAN) TUBE TOP SCH ×2 (09:17→20:13)
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
[2017-05-07] MEDS: ACETAMINOPHEN 325 MG TABLET/CAPLET (TYLENOL) PO PRN (11:38)
--- NOTE | 2017-05-07 11:53 | Occupational Ther Daily Note ---
OT Current Status-Daily Note Subjective Pt alert, sitting in recliner. Pt agreed to therapy. Pt stated that she has not had a pain pill since yesterday, that she is trying not to use them. Pt did c/o pain, rating 4-5/10, nrsg gave pt Tylenol. Mental Status/Objective Patient Orientation: Person, Place, Time, Situation Functional [place] Measure 0=Not Assessed/NA 4=Minimal Assistance 1=Total Assistance 5=Supervision or Setup 2=Maximal Assistance 6=Modified [place] 3=Moderate Assistance 7=Complete [place] ADL-Treatment Pt ambulated to bathroom using FWW. Assist to manipulate clothing for toileting , cleansed self. Pt half squats to void. Pt transferred to shower with CGA using FWW, grabbars and shower chair. Pt completed upper body, upper legs and khanh area, assist with buttocks and feet. Pt was able to complete colostomy bag care in shower. Min A to don/doff shirt. Mod A to don/doff lower body clothing using AE. More assist needed when pt has back brace on, difficulty pulling pants up under brace. Functional [place] Measure 0=Not Assessed/NA 4=Minimal Assistance 1=Total Assistance 5=Supervision or Setup 2=Maximal Assistance 6=Modified [place] 3=Moderate Assistance 7=Complete IndependenceIRFPAI Quality Coding Scale 6 Independent with activity with or without an assistive device 5 Patient requires set up or clean up by helper. Patient completes activity by themselves 4 Supervision or touching assist (CGA). [place] provide cues , steadying assist 3 The helper provides less than half the effort to complete the activity 2 The helper provides more than half the effort to complete the activity 1 Dependent. The helper does all the effort to complete an activity 7 Patient refused to complete or attempt activity 9 The patient did not perform the activity before the current illness or injury 88 Not attempted due to Medical conditions or safety concerns Bathing (FIM): 3 Bathing Location: L Arm, R Arm, L Upper Leg, R Upper Leg, Chest, Abdomen, Perineal Area Shower/Bathe Self (QC): 3 Upper Body (FIM): 4 Upper Body Dressing (QC): 3 Lower Body Dressing (FIM): 3 Lower Body Dressing (QC): 3 On/Off Footwear (QC): 2 Toileting (FIM): 3 Toileting Hygiene (QC): 3 Toilet/Commode Transfer (FIM): 4 Toilet Transfer (QC): 3 Shower Transfer(FIM): 4 Other Treatment Pt transported to therapy gym via w/c. Pt completed 7 min on arm bike without resistance to increase strength and activity tolerance for daily functional tasks. Pt took frequent rest breaks throughout treatment. After therapy, pt sitting in w/c in room with call light/phone in reach. All needs met in room. present in room. OT Short Term Goals Short Term Goals Time Frame: May 14, 2017 Eating(FIM): 5 Grooming(FIM): 5 Bathing(FIM): 4 Upper Body Dressing(FIM): 4 Lower Body Dressing(FIM): 4 Toileting(FIM): 4 Transfers (B,C,W/C) (FIM): 3 Toilet/Commode Transfer(FIM): 4 Shower Transfer(FIM): 3 Additional Short Term Goals: 1-Demonstrate ADL Tasks, 2-Verbalize Understanding , 3-ImproveStrength/Estiven 1=Demonstrate adherence to instructed precautions during ADL tasks. 2=Patient will verbalize/demonstrate understanding of assistive devices/ modifications for ADL. 3=Patient will improve strength/tolerance for activity to enable patient to perform ADL's. OT Half-Way Goals Joint Runner Goals Time Frame: May 28, 2017 Eating (FIM): 6 Eating (QC): 6 Groomin Oral Hygiene (QC): 6 Bathing(FIM): 5 Shower/Bathe Self (QC): 5 Upper Body Dressing(FIM): 5 Upper Body Dressing (QC): 5 Lower Body Dressing(FIM): 5 Lower Body Dressing (QC): 5 On/Off Footwear (QC): 5 Toileting(FIM): 6 Toileting Hygiene (QC): 6 Transfers (B,C,W/C) (FIM): 6 Toilet/Commode Transfer(FIM): 6 Toilet/Commode Transfer (QC): 6 Shower Transfer(FIM): 5 Additional Goals: 1-Demonstrate ADL Tasks, 2-Verbalize Understanding, 3- ImproveStrength/Estiven 1=Demonstrate adherence to instructed precautions during ADL tasks. 2=Patient will verbalize/demonstrate understanding of assistive devices/ modifications for ADL. 3=Patient will improve strength/tolerance for activity to enable patient to perform ADL's. OT Education/Plan Discharge Recommendations Plan/Recommendations: Continue POC Treatment Plan/Plan of Care Patient would benefit from OT for education, treatment and training to promote independence in ADL's, mobility, safety and/or upper extremity function for ADL' s. Plan of Care: ADL Retraining, Caregiver Training, Functional Mobility, Group Exercise/Act as Ind, UE Funct Exercise/Act Treatment Duration: May 28, 2017 Frequency: At least 5 of 7 days/Wk (IRF) Estimated Hrs Per Day: 1.5 hours per day Agreement: Yes Rehab Potential: Fair Time/GCodes Start Time: 10:30 Stop Time: 12:00 Total Time Billed (hr/min): 90 Billed Treatment Time 1 visit-ADL 5 (75 min) EX 1 (15 min) JANNETTE KWAN May 07, 2017 11:53
--- NOTE | 2017-05-07 15:15 | Physical Therapy Daily Note ---
PT Daily Note-Current Subjective Pt is laying in bed pre tx with no complaints of pain and agrees to PT. Pain Numeric Pain Scale: 0-No Pain Location: No Pain Reported Appearance Pt is laying in be dpost tx with nurse call, phone, and tray within reach. Mental Status Patient Orientation: Normal For Age Attachments: Colostomy/Ileostomy Transfers Functional [place] Measure 0=Not Assessed/NA 4=Minimal Assistance 1=Total Assistance 5=Supervision or Setup 2=Maximal Assistance 6=Modified [place] 3=Moderate Assistance 7=Complete IndependenceIRFPAI Quality Coding Scale 6 Independent with activity with or without an assistive device 5 Patient requires set up or clean up by helper. Patient completes activity by themselves 4 Supervision or touching assist (CGA). [place] provide cues , steadying assist 3 The helper provides less than half the effort to complete the activity 2 The helper provides more than half the effort to complete the activity 1 Dependent. The helper does all the effort to complete an activity 7 Patient refused to complete or attempt activity 9 The patient did not perform the activity before the current illness or injury 88 Not attempted due to Medical conditions or safety concerns Transfers (B, C, W/C) (FIM): 3 Rollin Supine to/from Sit: 3 Sit to/from Stand: 4 Bed to/from Chair: 4 Sit to supine requires mod A to lift BLE. Pt requires CGA for sit to stand transfer with use of FWW. Mod I with rolling to don TLSO. Weight Bearing Right Lower Extremity: Right Weight Bearing/Tolerated Left Lower Extremity: Left Weight Bearing/Tolerated Gait Training Does the Patient Walk?: Yes Gait (FIM): 4 Distance: 300 feet x1 Gait Level of Assist: 4 Gait Persons Needed: 1 Gait Assistive Device: FWW Pt ambulates using AFO on the LLE and TLSO on. Pt ambulates with reciprocal gait pattern and is steady and safe walking 300 feet with FWW. Wheelchair Training Does the Pt Use a Wheelchair?: Yes Exercises Supine Ex: Heel Slides (10 x1 BLE) Stretching of the L ankle for 3 sec each: DF, PF, Toe flexion, Toe extension Treatments Pt performing bed mobility, gait training, and LE exercise and stretching. Assessment Current Status: Good Progress Pt ambulated 300 feet steadily and safely. Pt reported no pain throughout session since receiving pain pill from nurse. Pt is achieving full AROM during heel slides with the LLE compared to the RLE. Stretching performed to prevent ankle contracture of the LLE. PT Short Term Goals Short Term Goals Time Frame: May 07, 2017 Transfers (B,C,W/C) (FIM): 3 Gait (FIM): 2 Gait Distance Comment: 50 feet Gait Level of Assist: 3 Gait Assistive Device: FWW Wheelchair (FIM): 2 Wheelchair Distance: 100 feet Wheelchair Level of Assist: [address] Office Assistant Goals Half-Way Goals PT Half-Way Goals Time Frame: May 21, 2017 Transfers (B,C,W/C) (FIM): 4 Sit to Lying (QC): 3 Lying-Sitting on Side/Bed(QC): 3 Sit to Stand (QC): 4 Rollin Roll Left to Right (QC): 4 Chair/Mbi-hx-Hshxc Xfer(QC): 3 Car Transfer (QC): 3 Does the Patient Walk: Yes Gait (FIM): 4 Distance: 150 feet Walk 10 feet (QC): 4 Walk 10ft-Uneven Surface(QC): 4 Walk 50ft with 2 Turns (QC): 4 Walk 150 ft (QC): 4 Gait Level of Assist: 4 Gait Assistive Device: FWW Does the Pt use WC or Scooter?: Yes Wheelchair (FIM): 6 Distance: 200 feet Wheelchair Level of Assist: 6 Wheel 50 feet with 2 turns (QC: 6 Stairs (FIM): 2 # of Steps: 4 1 Step (curb) (QC): 4 4 Steps (QC): 4 Stairs Level Of Assist: 4 PT Plan Problem List Problem List: Activity Tolerance, Functional Strength, Safety, Balance, Gait, Transfer, Bed Mobility, ROM Treatment/Plan Treatment Plan: Continue Plan of Care Treatment Plan: Bed Mobility, Education, Functional Activity Estiven, Functional Strength, Group Therapy, Gait, Safety, Therapeutic Exercise, Transfers Treatment Duration: May 21, 2017 Frequency: At least 5 of 7 days/Wk (IRF) Estimated Hrs Per Day: 1.5 hours per day Patient and/or Family Agrees t: Yes Safety Risks/Education Patient Education: Gait Training, Transfer Techniques, Correct Positioning, Safety Issues Teaching Recipient: Patient Teaching Methods: Demonstration, Discussion Response to Teaching: Reinforcement Needed Time/GCodes Time In: 1430 Time Out: 1500 Total Billed Treatment Time: 30 Total Billed Treatment 1 visit 20 min GT 10 min EX JANNETTE MEDEL PT May 07, 2017 15:15
[2017-05-07 18:00] VITALS: BP 135/72
[2017-05-07] MEDS: POLYETHYLENE GLYCOL 17 GM (MIRALAX) PACK PO SCH (19:59)
[2017-05-08 05:13] VITALS: BP 144/77
[2017-05-08] MEDS: CALCIUM CARB + VIT D 600 MG (CALCARB + D) TAB PO SCH ×2 (05:59→16:28)
[2017-05-08] MEDS: PANTOPRAZOLE 40 MG (PROTONIX) TAB PO SCH (05:59)
[2017-05-08] MEDS: SENNA W/DOCUSATE (SENOKOT S) TABLET PO SCH ×2 (08:15→20:31)
[2017-05-08] MEDS: LACTOBACILLUS Acidoph/Bulgar (LACTINEX/FLORANEX) TAB PO SCH (08:53)
[2017-05-08] MEDS: ALLOPURINOL 300 MG (ZYLOPRIM) TAB PO SCH (08:53)
[2017-05-08] MEDS: VITAMIN D3 5,000 UNITS (CHOLECALCIFEROL ) CAPSULE PO SCH (08:53)
[2017-05-08] MEDS: lisINopril 10 MG (PRINIVIL) TABLET PO SCH (08:53)
[2017-05-08] MEDS: METHOCARBAMOL 750 MG (ROBAXIN) TAB PO SCH ×3 (08:55→20:35)
[2017-05-08] MEDS: MUPIROCIN 2% OINT 22 GM (BACTROBAN) TUBE TOP SCH ×2 (08:55→21:35)
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
--- NOTE | 2017-05-08 10:25 | Occupational Ther Daily Note ---
OT Current Status-Daily Note Subjective Pt alert, sitting on toilet. Pt's colostomy bag had broke open and pt requesting shower. No c/o pain at this time. Mental Status/Objective Patient Orientation: Person, Place, Time, Situation Functional [place] Measure 0=Not Assessed/NA 4=Minimal Assistance 1=Total Assistance 5=Supervision or Setup 2=Maximal Assistance 6=Modified [place] 3=Moderate Assistance 7=Complete [place] ADL-Treatment Pt transferred from toilet using grabbar and FWW with min A. Pt then transferred to shower with min A using FWW, shower chair and grabbars. Pt completed all parts except lower feet for bathing and drying. Sitting in w/c pt was able to don/doff upper body clothing by self after set up. After set up , pt donned/doffed lower body clothing with CGA to hike pants over hips. Used sock aide to don socks. Pt sat in w/c at sink to complete own grooming. Pt then transferred from w/c to bed using FWW. Min A to go from EOB to supine. After therapy, pt lying in bed with call light/phone in reach. All needs met in room. Functional [place] Measure 0=Not Assessed/NA 4=Minimal Assistance 1=Total Assistance 5=Supervision or Setup 2=Maximal Assistance 6=Modified [place] 3=Moderate Assistance 7=Complete IndependenceIRFPAI Quality Coding Scale 6 Independent with activity with or without an assistive device 5 Patient requires set up or clean up by helper. Patient completes activity by themselves 4 Supervision or touching assist (CGA). [place] provide cues , steadying assist 3 The helper provides less than half the effort to complete the activity 2 The helper provides more than half the effort to complete the activity 1 Dependent. The helper does all the effort to complete an activity 7 Patient refused to complete or attempt activity 9 The patient did not perform the activity before the current illness or injury 88 Not attempted due to Medical conditions or safety concerns Grooming (FIM): 6 Oral Hygiene (QC): 6 Bathing (FIM): 4 Bathing Location: L Arm, R Arm, L Upper Leg, R Upper Leg, Chest, Abdomen, Buttocks, Perineal Area Shower/Bathe Self (QC): 3 Upper Body (FIM): 5 Upper Body Dressing (QC): 5 Lower Body Dressing (FIM): 4 Lower Body Dressing (QC): 3 On/Off Footwear (QC): 3 Toileting (FIM): 4 Toileting Hygiene (QC): 3 Toilet/Commode Transfer (FIM): 4 Toilet Transfer (QC): 3 Shower Transfer(FIM): 4 OT Short Term Goals Short Term Goals Time Frame: May 14, 2017 Eating(FIM): 5 Grooming(FIM): 5 Bathing(FIM): 4 Upper Body Dressing(FIM): 4 Lower Body Dressing(FIM): 4 Toileting(FIM): 4 Transfers (B,C,W/C) (FIM): 3 Toilet/Commode Transfer(FIM): 4 Shower Transfer(FIM): 3 Additional Short Term Goals: 1-Demonstrate ADL Tasks, 2-Verbalize Understanding , 3-ImproveStrength/Estiven 1=Demonstrate adherence to instructed precautions during ADL tasks. 2=Patient will verbalize/demonstrate understanding of assistive devices/ modifications for ADL. 3=Patient will improve strength/tolerance for activity to enable patient to perform ADL's. OT Elocution Teacher Goals Nursing Home Goals Time Frame: May 28, 2017 Eating (FIM): 6 Eating (QC): 6 Groomin Oral Hygiene (QC): 6 Bathing(FIM): 5 Shower/Bathe Self (QC): 5 Upper Body Dressing(FIM): 5 Upper Body Dressing (QC): 5 Lower Body Dressing(FIM): 5 Lower Body Dressing (QC): 5 On/Off Footwear (QC): 5 Toileting(FIM): 6 Toileting Hygiene (QC): 6 Transfers (B,C,W/C) (FIM): 6 Toilet/Commode Transfer(FIM): 6 Toilet/Commode Transfer (QC): 6 Shower Transfer(FIM): 5 Additional Goals: 1-Demonstrate ADL Tasks, 2-Verbalize Understanding, 3- ImproveStrength/[place]iven 1=Demonstrate adherence to instructed precautions during ADL tasks. 2=Patient will verbalize/demonstrate understanding of assistive devices/ modifications for ADL. 3=Patient will improve strength/tolerance for activity to enable patient to perform ADL's. OT Education/Plan Discharge Recommendations Plan/Recommendations: Continue POC Treatment Plan/Plan of Care Patient would benefit from OT for education, treatment and training to promote independence in ADL's, mobility, safety and/or upper extremity function for ADL' s. Plan of Care: ADL Retraining, Caregiver Training, Functional Mobility, Group Exercise/Act as Ind, UE Funct Exercise/Act Treatment Duration: May 28, 2017 Frequency: At least 5 of 7 days/Wk (IRF) Estimated Hrs Per Day: 1.5 hours per day Agreement: Yes Rehab Potential: Fair Time/GCodes Start Time: 08:00 Stop Time: 09:00 Total Time Billed (hr/min): 60 Billed Treatment Time 1 visit-ADL 4 (60 min) JANNETTE KWAN May 08, 2017 10:25
--- NOTE | 2017-05-08 11:06 | Physical Therapy Daily Note ---
PT Daily Note-Current Subjective Pt is laying in bed pre tx with no complaints of pain while laying down. Pt reports pain at 2/10 when sitting up with feet on the floor. Pt agrees to PT. Pain Numeric Pain Scale: 2 Location: Right Location Body Site: Back Appearance Pt is laying in bed with nurse call, phone, and tray within reach. Mental Status Patient Orientation: Normal For Age Attachments: Colostomy/Ileostomy TLSO Transfers Functional [place] Measure 0=Not Assessed/NA 4=Minimal Assistance 1=Total Assistance 5=Supervision or Setup 2=Maximal Assistance 6=Modified [place] 3=Moderate Assistance 7=Complete IndependenceIRFPAI Quality Coding Scale 6 Independent with activity with or without an assistive device 5 Patient requires set up or clean up by helper. Patient completes activity by themselves 4 Supervision or touching assist (CGA). [place] provide cues , steadying assist 3 The helper provides less than half the effort to complete the activity 2 The helper provides more than half the effort to complete the activity 1 Dependent. The helper does all the effort to complete an activity 7 Patient refused to complete or attempt activity 9 The patient did not perform the activity before the current illness or injury 88 Not attempted due to Medical conditions or safety concerns Transfers (B, C, W/C) (FIM): 4 Scootin Rollin Supine to/from Sit: 5 Sit to/from Stand: 4 Bed to/from Chair: 4 Pt requires SBA with all bed mobility and CGA necessary for all sit to stand and bed to chair transfer. Weight Bearing Right Lower Extremity: Right Weight Bearing/Tolerated Left Lower Extremity: Left Weight Bearing/Tolerated Gait Training Does the Patient Walk?: Yes Gait (FIM): 4 Distance: 400 feet x1, 100 feet x1 Gait Level of Assist: 4 Gait Persons Needed: 1 Gait Assistive Device: FWW Step-through gait pattern with adduction of the LLE causing narrow TREY. Left AFO. Wheelchair Training Does the Pt Use a Wheelchair?: Yes Stair Training Stair Training: Handrails/: 2 handrails Stairs (FIM): 4 #of Steps: 12 Stairs: Pattern: Step to Level of Assist: 4 Exercises Seated Therapy Exercises: Ankle pumps (2 min), Long arc quads (3 min), Hip flexion (3 min) Standing: Hip Abduction (15 x1 BLE), Hamstring curls (15 x1 BLE), Heel/toe raises (15 x1), Mini squats (15 x1 BLE) Treatments Pt performed bed mobility, gait training, functional activity, and LE exercise. Assessment Current Status: Good Progress Pt is improving activity tolerance as she is walking 400 feet with FWW and AFO on the LLE. Pt requires 2 handrails when using 12 stairs and is becoming more confident with standing exercises. During seated marching, pt is not yet able to achieve full AROM in L hip flexion. Pt L ankle DF is improving as well. PT Short Term Goals Short Term Goals Time Frame: May 07, 2017 Transfers (B,C,W/C) (FIM): 3 Gait (FIM): 2 Gait Distance Comment: 50 feet Gait Level of Assist: 3 Gait Assistive Device: FWW Wheelchair (FIM): 2 Wheelchair Distance: 100 feet Wheelchair Level of Assist: 5 PT Long-Term Goals Brush Painter Goals PT Brush Painter Goals Time Frame: May 21, 2017 Transfers (B,C,W/C) (FIM): 4 Sit to Lying (QC): 3 Lying-Sitting on Side/Bed(QC): 3 Sit to Stand (QC): 4 Rollin Roll Left to Right (QC): 4 Chair/Sww-ba-Pvsnz Xfer(QC): 3 Car Transfer (QC): 3 Does the Patient Walk: Yes Gait (FIM): 4 Distance: 150 feet Walk 10 feet (QC): 4 Walk 10ft-Uneven Surface(QC): 4 Walk 50ft with 2 Turns (QC): 4 Walk 150 ft (QC): 4 Gait Level of Assist: 4 Gait Assistive Device: FWW Does the Pt use WC or Scooter?: Yes Wheelchair (FIM): 6 Distance: 200 feet Wheelchair Level of Assist: 6 Wheel 50 feet with 2 turns (QC: 6 Stairs (FIM): 2 # of Steps: 4 1 Step (curb) (QC): 4 4 Steps (QC): 4 Stairs Level Of Assist: 4 PT Plan Problem List Problem List: Activity Tolerance, Functional Strength, Safety, Balance, Gait, Transfer, Bed Mobility, ROM Treatment/Plan Treatment Plan: Continue Plan of Care Treatment Plan: Bed Mobility, Education, Functional Activity Estiven, Functional Strength, Group Therapy, Gait, Safety, Therapeutic Exercise, Transfers Treatment Duration: May 21, 2017 Frequency: At least 5 of 7 days/Wk (IRF) Estimated Hrs Per Day: 1.5 hours per day Patient and/or Family Agrees t: Yes Safety Risks/Education Patient Education: Gait Training, Transfer Techniques, Steps, Correct Positioning, Reviewed Don/Doff Brace, Safety Issues Teaching Recipient: Patient Teaching Methods: Demonstration, Discussion Response to Teaching: Reinforcement Needed Time/GCodes Time In: 1000 Time Out: 1100 Total Billed Treatment Time: 60 Total Billed Treatment 1 visit 15 min GT 10 min FA 35 min EX SAKINA MEDELLIN PT May 08, 2017 11:06
--- NOTE | 2017-05-08 15:13 | Therapy Group Daily Note ---
Therapy Daily Group Note Patient Education Topic Other List Below (memory education/strategies) Exercises LE Seated Exercise, UE Exercise Other/Notes Pt maneuvered w/c to [facility] for group. OT/PT group consisted of introductions (name, place born, telling jokes), socialization, memory education /strategies, memory tasks/activities, joke telling, punny toys and cognitive exercises. Pt appropriately introduced self and actively listened to peers during introductions. Pt's chose 3 things (25, red, dogs) to remember throughout group. Pt able to recall items outright and within different situational questions. UE/LE seated exercises completed well. Pt was able to verbalize understanding of memory strategies and give examples of personal strategies used. Memory activity completed and pt was able to get 3 out of 3 tries. Pt attempted to problem solve through punny toys (play on words) . After therapy, pt lying in bed with call light/phone in reach. All needs met in room. Start Time: 13:00 Stop Time: 14:30 Total Billed Treatment Time: 90 Total Billed Treatment 1-JANNETTE HILL May 08, 2017 15:13
[2017-05-08] MEDS: ACETAMINOPHEN 325 MG TABLET/CAPLET (TYLENOL) PO PRN (16:30)
[2017-05-08 17:08] VITALS: BP 126/77
[2017-05-08] MEDS: POLYETHYLENE GLYCOL 17 GM (MIRALAX) PACK PO SCH (20:31)
[2017-05-09] MEDS: PANTOPRAZOLE 40 MG (PROTONIX) TAB PO SCH (05:33)
[2017-05-09] MEDS: CALCIUM CARB + VIT D 600 MG (CALCARB + D) TAB PO SCH ×2 (05:33→17:03)
[2017-05-09 06:05] VITALS: BP 138/77
[2017-05-09] MEDS: METHOCARBAMOL 750 MG (ROBAXIN) TAB PO SCH ×3 (09:09→20:58)
[2017-05-09] MEDS: LACTOBACILLUS Acidoph/Bulgar (LACTINEX/FLORANEX) TAB PO SCH (09:09)
[2017-05-09] MEDS: lisINopril 10 MG (PRINIVIL) TABLET PO SCH (09:09)
[2017-05-09] MEDS: VITAMIN D3 5,000 UNITS (CHOLECALCIFEROL ) CAPSULE PO SCH (09:09)
[2017-05-09] MEDS: ALLOPURINOL 300 MG (ZYLOPRIM) TAB PO SCH (09:09)
[2017-05-09] MEDS: SENNA W/DOCUSATE (SENOKOT S) TABLET PO SCH ×2 (09:09→21:00)
--- NOTE | 2017-05-09 11:14 | Physical Therapy Daily Note ---
PT Daily Note-Current Subjective Pt. states she is feeling blah today but agrees to walk and some exercise. Pain Numeric Pain Scale: 3 Location: Right Location Body Site: Back Pain Description: Ache Mental Status Patient Orientation: Normal For Age Attachments: Other-See Comments (TLSO AFO right ) Transfers Functional [place] Measure 0=Not Assessed/NA 4=Minimal Assistance 1=Total Assistance 5=Supervision or Setup 2=Maximal Assistance 6=Modified [place] 3=Moderate Assistance 7=Complete IndependenceIRFPAI Quality Coding Scale 6 Independent with activity with or without an assistive device 5 Patient requires set up or clean up by helper. Patient completes activity by themselves 4 Supervision or touching assist (CGA). [place] provide cues , steadying assist 3 The helper provides less than half the effort to complete the activity 2 The helper provides more than half the effort to complete the activity 1 Dependent. The helper does all the effort to complete an activity 7 Patient refused to complete or attempt activity 9 The patient did not perform the activity before the current illness or injury 88 Not attempted due to Medical conditions or safety concerns Transfers (B, C, W/C) (FIM): 5 Scootin Rollin Supine to/from Sit: 6 Sit to/from Stand: 5 Weight Bearing Right Lower Extremity: Right Weight Bearing/Tolerated Left Lower Extremity: Left Weight Bearing/Tolerated Gait Training Does the Patient Walk?: Yes Gait (FIM): 5 Distance (FIM): 3=150 ft (175x2) Gait Level of Assist: 5 Gait Persons Needed: 1 Gait Assistive Device: FWW instruction for broader TREY, near crossovers, and more normalized step length, pt taking large steps Exercises Supine Ex: Quad Set, Rolling, Glut sets, Heel Slides, Short Arc Quads, Scooting , Hip abd/add (sidelying and supine) Supine Reps: 15 Assessment Current Status: Good Progress PT Short Term Goals Short Term Goals Time Frame: May 07, 2017 Transfers (B,C,W/C) (FIM): 3 Gait (FIM): 2 Gait Distance Comment: 50 feet Gait Level of Assist: 3 Gait Assistive Device: FWW Wheelchair (FIM): 2 Wheelchair Distance: 100 feet Wheelchair Level of Assist: 5 PT Chemist Intern Goals Chemist Intern Goals PT Fpc Goals Time Frame: May 21, 2017 Transfers (B,C,W/C) (FIM): 4 Sit to Lying (QC): 3 Lying-Sitting on Side/Bed(QC): 3 Sit to Stand (QC): 4 Rollin Roll Left to Right (QC): 4 Chair/Wai-ph-Rgcbg Xfer(QC): 3 Car Transfer (QC): 3 Does the Patient Walk: Yes Gait (FIM): 4 Distance: 150 feet Walk 10 feet (QC): 4 Walk 10ft-Uneven Surface(QC): 4 Walk 50ft with 2 Turns (QC): 4 Walk 150 ft (QC): 4 Gait Level of Assist: 4 Gait Assistive Device: FWW Does the Pt use WC or Scooter?: Yes Wheelchair (FIM): 6 Distance: 200 feet Wheelchair Level of Assist: 6 Wheel 50 feet with 2 turns (QC: 6 Stairs (FIM): 2 # of Steps: 4 1 Step (curb) (QC): 4 4 Steps (QC): 4 Stairs Level Of Assist: 4 PT Plan Treatment/Plan Treatment Plan: Continue Plan of Care Treatment Plan: Bed Mobility, Education, Functional Activity Estiven, Functional Strength, Group Therapy, Gait, Safety, Therapeutic Exercise, Transfers Treatment Duration: May 21, 2017 Frequency: At least 5 of 7 days/Wk (IRF) Estimated Hrs Per Day: 1.5 hours per day Patient and/or Family Agrees t: Yes Safety Risks/Education Patient Education: Gait Training, Transfer Techniques, Correct Positioning, Safety Issues Teaching Recipient: Patient Teaching Methods: Demonstration, Discussion Response to Teaching: Verbalize Understanding, Return Demonstration, Reinforcement Needed Time/GCodes Time In: 1035 Time Out: 1100 Total Billed Treatment Time: 25 Total Billed Treatment 1,GT15,EX10 G Codes Necessary: HALI Rodriguez PTA May 09, 2017 11:14
[2017-05-09] MEDS: ACETAMINOPHEN 325 MG TABLET/CAPLET (TYLENOL) PO PRN (13:32)
[2017-05-09] MEDS: MUPIROCIN 2% OINT 22 GM (BACTROBAN) TUBE TOP SCH ×2 (13:40→20:59)
[2017-05-09 18:41] VITALS: BP 128/73
[2017-05-09] MEDS: POLYETHYLENE GLYCOL 17 GM (MIRALAX) PACK PO SCH (21:00)
[2017-05-10 04:07] VITALS: BP 135/72
[2017-05-10] MEDS: PANTOPRAZOLE 40 MG (PROTONIX) TAB PO SCH (08:02)
[2017-05-10] MEDS: ACETAMINOPHEN 325 MG TABLET/CAPLET (TYLENOL) PO PRN (08:02)
[2017-05-10] MEDS: CALCIUM CARB + VIT D 600 MG (CALCARB + D) TAB PO SCH ×2 (08:02→16:33)
[2017-05-10] MEDS: LACTOBACILLUS Acidoph/Bulgar (LACTINEX/FLORANEX) TAB PO SCH (09:14)
[2017-05-10] MEDS: SENNA W/DOCUSATE (SENOKOT S) TABLET PO SCH ×2 (09:15→09:17)
[2017-05-10] MEDS: METHOCARBAMOL 750 MG (ROBAXIN) TAB PO SCH ×3 (09:15→20:40)
[2017-05-10] MEDS: ALLOPURINOL 300 MG (ZYLOPRIM) TAB PO SCH (09:15)
[2017-05-10] MEDS: lisINopril 10 MG (PRINIVIL) TABLET PO SCH (09:15)
[2017-05-10] MEDS: MUPIROCIN 2% OINT 22 GM (BACTROBAN) TUBE TOP SCH ×2 (09:15→20:41)
[2017-05-10] MEDS: VITAMIN D3 5,000 UNITS (CHOLECALCIFEROL ) CAPSULE PO SCH (09:15)
[2017-05-10 18:23] VITALS: BP 135/74
[2017-05-11 05:33] VITALS: BP 126/74
[2017-05-11] MEDS: CALCIUM CARB + VIT D 600 MG (CALCARB + D) TAB PO SCH ×2 (06:03→16:50)
[2017-05-11] MEDS: PANTOPRAZOLE 40 MG (PROTONIX) TAB PO SCH (06:03)
[2017-05-11] MEDS: ACETAMINOPHEN 325 MG TABLET/CAPLET (TYLENOL) PO PRN ×2 (06:19→17:58)
[2017-05-11] MEDS: METHOCARBAMOL 750 MG (ROBAXIN) TAB PO SCH ×3 (08:05→20:10)
[2017-05-11] MEDS: ALLOPURINOL 300 MG (ZYLOPRIM) TAB PO SCH (08:05)
[2017-05-11] MEDS: lisINopril 10 MG (PRINIVIL) TABLET PO SCH (08:05)
[2017-05-11] MEDS: VITAMIN D3 5,000 UNITS (CHOLECALCIFEROL ) CAPSULE PO SCH (08:05)
[2017-05-11] MEDS: LACTOBACILLUS Acidoph/Bulgar (LACTINEX/FLORANEX) TAB PO SCH (08:05)
[2017-05-11] MEDS: MUPIROCIN 2% OINT 22 GM (BACTROBAN) TUBE TOP SCH ×2 (08:07→20:11)
--- NOTE | 2017-05-11 09:30 | Occupational Ther Daily Note ---
OT Current Status-Daily Note Subjective Pt alert, sitting in bathroom. Pt agreed to therapy. C/o stiffness, did not rate pain. Mental Status/Objective Patient Orientation: Person, Place, Time, Situation Functional [place] Measure 0=Not Assessed/NA 4=Minimal Assistance 1=Total Assistance 5=Supervision or Setup 2=Maximal Assistance 6=Modified [place] 3=Moderate Assistance 7=Complete [place] Attachments: Colostomy/Ileostomy ADL-Treatment Functional [place] Measure 0=Not Assessed/NA 4=Minimal Assistance 1=Total Assistance 5=Supervision or Setup 2=Maximal Assistance 6=Modified [place] 3=Moderate Assistance 7=Complete IndependenceIRFPAI Quality Coding Scale 6 Independent with activity with or without an assistive device 5 Patient requires set up or clean up by helper. Patient completes activity by themselves 4 Supervision or touching assist (CGA). [place] provide cues , steadying assist 3 The helper provides less than half the effort to complete the activity 2 The helper provides more than half the effort to complete the activity 1 Dependent. The helper does all the effort to complete an activity 7 Patient refused to complete or attempt activity 9 The patient did not perform the activity before the current illness or injury 88 Not attempted due to Medical conditions or safety concerns Grooming (FIM): 6 (Pt able to complete grooming sitting at sink.) Oral Hygiene (QC): 6 Bathing (FIM): 5 (Supervision to complete bathing using shower bench, grabbar and hand held shower.) Bathing Location: L Arm, R Arm, L Upper Leg, R Upper Leg, L Lower Leg ( including foot), R Lower Leg (including foot), Chest, Abdomen, Buttocks, Perineal Area Shower/Bathe Self (QC): 4 Upper Body (FIM): 5 (After setup, pt able to complete by self.) Upper Body Dressing (QC): 5 Lower Body Dressing (FIM): 4 (After set up, pt is able to complete lower body dressing except donning R sock.) Lower Body Dressing (QC): 3 On/Off Footwear (QC): 3 Toileting (FIM): 5 (SBA for manipulation of clothing. Cleanses self and colostomy.) Toileting Hygiene (QC): 4 Toilet/Commode Transfer (FIM): 5 (Supervision using w/c and grabbars.) Toilet Transfer (QC): 4 Shower Transfer(FIM): 5 (Supervision using grabbars, w/c and shower bench.) Pt requires assistance to don/doff TLSO. After therapy, pt lying in bed with call light/phone in reach. All needs met in room. OT Short Term Goals Short Term Goals Time Frame: May 14, 2017 Eating(FIM): 5 Grooming(FIM): 5 Bathing(FIM): 4 Upper Body Dressing(FIM): 4 Lower Body Dressing(FIM): 4 Toileting(FIM): 4 Transfers (B,C,W/C) (FIM): 3 Toilet/Commode Transfer(FIM): 4 Shower Transfer(FIM): 3 Additional Short Term Goals: 1-Demonstrate ADL Tasks, 2-Verbalize Understanding , 3-ImproveStrength/Estiven 1=Demonstrate adherence to instructed precautions during ADL tasks. 2=Patient will verbalize/demonstrate understanding of assistive devices/ modifications for ADL. 3=Patient will improve strength/tolerance for activity to enable patient to perform ADL's. OT Usp Goals Roller Coaster Engineer Goals Time Frame: May 28, 2017 Eating (FIM): 6 Eating (QC): 6 Groomin Oral Hygiene (QC): 6 Bathing(FIM): 5 Shower/Bathe Self (QC): 5 Upper Body Dressing(FIM): 5 Upper Body Dressing (QC): 5 Lower Body Dressing(FIM): 5 Lower Body Dressing (QC): 5 On/Off Footwear (QC): 5 Toileting(FIM): 6 Toileting Hygiene (QC): 6 Transfers (B,C,W/C) (FIM): 6 Toilet/Commode Transfer(FIM): 6 Toilet/Commode Transfer (QC): 6 Shower Transfer(FIM): 5 Additional Goals: 1-Demonstrate ADL Tasks, 2-Verbalize Understanding, 3- ImproveStrength/Estiven 1=Demonstrate adherence to instructed precautions during ADL tasks. 2=Patient will verbalize/demonstrate understanding of assistive devices/ modifications for ADL. 3=Patient will improve strength/tolerance for activity to enable patient to perform ADL's. OT Education/Plan Discharge Recommendations Plan/Recommendations: Continue POC Treatment Plan/Plan of Care Patient would benefit from OT for education, treatment and training to promote independence in ADL's, mobility, safety and/or upper extremity function for ADL' s. Plan of Care: ADL Retraining, Caregiver Training, Functional Mobility, Group Exercise/Act as Ind, UE Funct Exercise/Act Treatment Duration: May 28, 2017 Frequency: At least 5 of 7 days/Wk (IRF) Estimated Hrs Per Day: 1.5 hours per day Agreement: Yes Rehab Potential: Fair Time/GCodes Start Time: 08:30 Stop Time: 09:30 Total Time Billed (hr/min): 60 Billed Treatment Time 1 visit-ADL 4 (60 min) JANNETTE KWAN May 11, 2017 09:29
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
--- NOTE | 2017-05-11 14:46 | Physical Therapy Daily Note ---
PT Daily Note-Current Subjective Pt. agrees to Rx. States she feels better and that she is making progress. States she is unsure how she will manage her brace off on at home as her is having hand surgery . States she hopes she can delay some of her appts in that are scheduled for next week as she cannot bare to think of getting in a car for awhile "especially [place]." Pain Numeric Pain Scale: 2 Location: Medial Location Body Site: Back Pain Description: Ache Mental Status Patient Orientation: Normal For Age Attachments: Colostomy/Ileostomy, Other-See Comments (TLSO) max assist to charleen and doff TLSO. Pt. in hopes she can have permission soon to sit EOB then charleen it as she feels her wont be able to help her at home b /c of his hand fracture and surgery Transfers Functional [place] Measure 0=Not Assessed/NA 4=Minimal Assistance 1=Total Assistance 5=Supervision or Setup 2=Maximal Assistance 6=Modified [place] 3=Moderate Assistance 7=Complete IndependenceIRFPAI Quality Coding Scale 6 Independent with activity with or without an assistive device 5 Patient requires set up or clean up by helper. Patient completes activity by themselves 4 Supervision or touching assist (CGA). [place] provide cues , steadying assist 3 The helper provides less than half the effort to complete the activity 2 The helper provides more than half the effort to complete the activity 1 Dependent. The helper does all the effort to complete an activity 7 Patient refused to complete or attempt activity 9 The patient did not perform the activity before the current illness or injury 88 Not attempted due to Medical conditions or safety concerns Transfers (B, C, W/C) (FIM): 5 Scootin Rollin Supine to/from Sit: 5 Sit to/from Stand: 5 Bed to/from Chair: 5 Weight Bearing Right Lower Extremity: Right Weight Bearing/Tolerated Left Lower Extremity: Left Weight Bearing/Tolerated Gait Training Does the Patient Walk?: Yes Gait (FIM): 4 Distance (FIM): 3=150 ft (150x2) Gait Level of Assist: 4 Gait Persons Needed: 1 Gait Assistive Device: FWW AFO on left foot, emphasis on broader TREY. Stair Training Stair Training: Handrails/: 2 handrails Stairs (FIM): 2 #of Steps: 4 Stairs: Pattern: Step to Level of Assist: 4 Exercises Supine Ex: Ankle pumps, Quad Set, Rolling, Glut sets, Heel Slides, Short Arc Quads, Scooting, Hip abd/add Supine Reps: 15 Seated Therapy Exercises: Ankle pumps, Sit to stand, Long arc quads, Hip flexion Seated Reps: 15 Treatments instructed in self stretch of left heel cords with gait belt. also emphasized DF left foot with improving strength noted. Assessment Current Status: Good Progress motivated, progressing well PT Short Term Goals Short Term Goals Time Frame: May 07, 2017 Transfers (B,C,W/C) (FIM): 3 Gait (FIM): 2 Gait Distance Comment: 50 feet Gait Level of Assist: 3 Gait Assistive Device: FWW Wheelchair (FIM): 2 Wheelchair Distance: 100 feet Wheelchair Level of Assist: 5 PT Long-Term Goals Assistant Project Manager Goals PT Assistant Project Manager Goals Time Frame: May 21, 2017 Transfers (B,C,W/C) (FIM): 4 Sit to Lying (QC): 3 Lying-Sitting on Side/Bed(QC): 3 Sit to Stand (QC): 4 Rollin Roll Left to Right (QC): 4 Chair/Lyg-mg-Kekhk Xfer(QC): 3 Car Transfer (QC): 3 Does the Patient Walk: Yes Gait (FIM): 4 Distance: 150 feet Walk 10 feet (QC): 4 Walk 10ft-Uneven Surface(QC): 4 Walk 50ft with 2 Turns (QC): 4 Walk 150 ft (QC): 4 Gait Level of Assist: 4 Gait Assistive Device: FWW Does the Pt use WC or Scooter?: Yes Wheelchair (FIM): 6 Distance: 200 feet Wheelchair Level of Assist: 6 Wheel 50 feet with 2 turns (QC: 6 Stairs (FIM): 2 # of Steps: 4 1 Step (curb) (QC): 4 4 Steps (QC): 4 Stairs Level Of Assist: 4 PT Plan Treatment/Plan Treatment Plan: Continue Plan of Care Treatment Plan: Bed Mobility, Education, Functional Activity Estiven, Functional Strength, Group Therapy, Gait, Safety, Therapeutic Exercise, Transfers Treatment Duration: May 21, 2017 Frequency: At least 5 of 7 days/Wk (IRF) Estimated Hrs Per Day: 1.5 hours per day Patient and/or Family Agrees t: Yes Safety Risks/Education Patient Education: Gait Training, Transfer Techniques, Steps, Correct Positioning, Reviewed Don/Doff Brace, Disease Process, Safety Issues Teaching Recipient: Patient Teaching Methods: Demonstration, Discussion Response to Teaching: Verbalize Understanding, Return Demonstration, Reinforcement Needed Time/GCodes Time In: 1130 Time Out: 1230 Total Billed Treatment Time: 60 Total Billed Treatment 1,1,GT20m,EX15m,FA25m G Codes Necessary: HALI Rodirguez SANDING MACHINE BUFFER May 11, 2017 14:46
--- NOTE | 2017-05-11 15:09 | Therapy Group Daily Note ---
Therapy Daily Group Note Patient Education Topic Home Safety Exercises LE Seated Exercise, UE Exercise Other/Notes Pt ambulated with FWW to /from therapy gym for OT/PT group. Group consisted of introductions (name, place living, favorite word), socialization, seated UE/LE exercises, home safety education and home safety jeopardy. Pt was able to appropriately introduce self and actively listened to peers. Pt listened to education and was able to answer questions about home safety. Pt described ways that she would use safety techniques in her home. Pt was able to answer questions on home safety jeopardy quiz. After group, pt ambulated CGA FWW with mod to max assist to doff TLSO and TRF into bed. call light/phone in reach. All needs met in room. Start Time: 13:00 Stop Time: 14:10 Total Billed Treatment Time: 70 Total Billed Treatment 1,GRP HALI PEREZ PHOTORESIST PRINTER May 11, 2017 15:09
[2017-05-11 16:50] VITALS: BP 133/69
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
[2017-05-12 05:41] VITALS: BP 127/61
[2017-05-12] MEDS: CALCIUM CARB + VIT D 600 MG (CALCARB + D) TAB PO SCH ×2 (05:42→16:07)
[2017-05-12] MEDS: PANTOPRAZOLE 40 MG (PROTONIX) TAB PO SCH (05:42)
--- NOTE | 2017-05-12 07:59 | Occupational Ther Daily Note ---
OT Current Status-Daily Note Subjective Pt alert, sitting in w/c. Pt agreed to therapy. No c/o pain. Mental Status/Objective Patient Orientation: Person, Place, Time, Situation Functional [place] Measure 0=Not Assessed/NA 4=Minimal Assistance 1=Total Assistance 5=Supervision or Setup 2=Maximal Assistance 6=Modified [place] 3=Moderate Assistance 7=Complete [place] Attachments: Colostomy/Ileostomy ADL-Treatment Functional [place] Measure 0=Not Assessed/NA 4=Minimal Assistance 1=Total Assistance 5=Supervision or Setup 2=Maximal Assistance 6=Modified [place] 3=Moderate Assistance 7=Complete IndependenceIRFPAI Quality Coding Scale 6 Independent with activity with or without an assistive device 5 Patient requires set up or clean up by helper. Patient completes activity by themselves 4 Supervision or touching assist (CGA). [place] provide cues , steadying assist 3 The helper provides less than half the effort to complete the activity 2 The helper provides more than half the effort to complete the activity 1 Dependent. The helper does all the effort to complete an activity 7 Patient refused to complete or attempt activity 9 The patient did not perform the activity before the current illness or injury 88 Not attempted due to Medical conditions or safety concerns Eating (FIM): 7 (Pt is able to open packages/containers then use regular utensils to feed self and cut food.) Eating (QC): 7 Grooming (FIM): 6 (Pt completed grooming at w/c level.) Oral Hygiene (QC): 6 Bathing (FIM): 5 (Supervision using grabbars, shower bench and hand held shower.) Bathing Location: L Arm, R Arm, L Upper Leg, R Upper Leg, L Lower Leg ( including foot), R Lower Leg (including foot), Chest, Abdomen, Buttocks, Perineal Area Shower/Bathe Self (QC): 4 Upper Body (FIM): 5 (After setup, pt is able to complete upper body dressing.) Upper Body Dressing (QC): 5 Lower Body Dressing (FIM): 5 (Supervision after setup. Pt able to don/doff lower body clothing. AE to don R sock.) Lower Body Dressing (QC): 4 On/Off Footwear (QC): 4 Shower Transfer(FIM): 5 (Supervision using w/c, grabbar and shower bench. ) Max A to don/doff TLSO. After therapy, pt sitting in w/c with call light/phone in reach. All needs met in room. OT Short Term Goals Short Term Goals Time Frame: May 14, 2017 Eating(FIM): 5 Grooming(FIM): 5 Bathing(FIM): 4 Upper Body Dressing(FIM): 4 Lower Body Dressing(FIM): 4 Toileting(FIM): 4 Transfers (B,C,W/C) (FIM): 3 Toilet/Commode Transfer(FIM): 4 Shower Transfer(FIM): 3 Additional Short Term Goals: 1-Demonstrate ADL Tasks, 2-Verbalize Understanding , 3-ImproveStrength/Estiven 1=Demonstrate adherence to instructed precautions during ADL tasks. 2=Patient will verbalize/demonstrate understanding of assistive devices/ modifications for ADL. 3=Patient will improve strength/tolerance for activity to enable patient to perform ADL's. OT Long-Term Goals Long-Term Goals Time Frame: May 28, 2017 Eating (FIM): 6 Eating (QC): 6 Groomin Oral Hygiene (QC): 6 Bathing(FIM): 5 Shower/Bathe Self (QC): 5 Upper Body Dressing(FIM): 5 Upper Body Dressing (QC): 5 Lower Body Dressing(FIM): 5 Lower Body Dressing (QC): 5 On/Off Footwear (QC): 5 Toileting(FIM): 6 Toileting Hygiene (QC): 6 Transfers (B,C,W/C) (FIM): 6 Toilet/Commode Transfer(FIM): 6 Toilet/Commode Transfer (QC): 6 Shower Transfer(FIM): 5 Additional Goals: 1-Demonstrate ADL Tasks, 2-Verbalize Understanding, 3- ImproveStrength/Estiven 1=Demonstrate adherence to instructed precautions during ADL tasks. 2=Patient will verbalize/demonstrate understanding of assistive devices/ modifications for ADL. 3=Patient will improve strength/tolerance for activity to enable patient to perform ADL's. OT Education/Plan Discharge Recommendations Plan/Recommendations: Continue POC Treatment Plan/Plan of Care Patient would benefit from OT for education, treatment and training to promote independence in ADL's, mobility, safety and/or upper extremity function for ADL' s. Plan of Care: ADL Retraining, Caregiver Training, Functional Mobility, Group Exercise/Act as Ind, UE Funct Exercise/Act Treatment Duration: May 28, 2017 Frequency: At least 5 of 7 days/Wk (IRF) Estimated Hrs Per Day: 1.5 hours per day Agreement: Yes Rehab Potential: Fair Time/GCodes Start Time: 07:00 Stop Time: 08:00 Total Time Billed (hr/min): 60 Billed Treatment Time 1 visit-ADL 4 (60 min) JANNETTE KWAN May 12, 2017 07:59
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
[2017-05-12] MEDS: LACTOBACILLUS Acidoph/Bulgar (LACTINEX/FLORANEX) TAB PO SCH (08:57)
[2017-05-12] MEDS: ALLOPURINOL 300 MG (ZYLOPRIM) TAB PO SCH (08:57)
[2017-05-12] MEDS: METHOCARBAMOL 750 MG (ROBAXIN) TAB PO SCH ×3 (08:57→21:44)
[2017-05-12] MEDS: lisINopril 10 MG (PRINIVIL) TABLET PO SCH (08:57)
[2017-05-12] MEDS: MUPIROCIN 2% OINT 22 GM (BACTROBAN) TUBE TOP SCH ×2 (08:58→21:44)
[2017-05-12] MEDS: VITAMIN D3 5,000 UNITS (CHOLECALCIFEROL ) CAPSULE PO SCH (08:58)
--- NOTE | 2017-05-12 12:37 | Physical Therapy Daily Note ---
PT Daily Note-Current Subjective Pt laying Supine in bed upon arrival. Pt agrees to PT. Pt reports that she feels more comfortable when donning TLSO brace in bed then sitting at EOB. Pain Numeric Pain Scale: 0-No Pain Mental Status Patient Orientation: Person, Place, Time, Situation Attachments: Colostomy/Ileostomy, Other-See Comments (L AFO & TLSO ) Transfers Functional [place] Measure 0=Not Assessed/NA 4=Minimal Assistance 1=Total Assistance 5=Supervision or Setup 2=Maximal Assistance 6=Modified [place] 3=Moderate Assistance 7=Complete IndependenceIRFPAI Quality Coding Scale 6 Independent with activity with or without an assistive device 5 Patient requires set up or clean up by helper. Patient completes activity by themselves 4 Supervision or touching assist (CGA). [place] provide cues , steadying assist 3 The helper provides less than half the effort to complete the activity 2 The helper provides more than half the effort to complete the activity 1 Dependent. The helper does all the effort to complete an activity 7 Patient refused to complete or attempt activity 9 The patient did not perform the activity before the current illness or injury 88 Not attempted due to Medical conditions or safety concerns Scootin Rollin Roll Left to Right (QC): 5 Supine to/from Sit: 5 Sit to/from Stand: 4 Sit to Lying (QC): 5 Sit to Stand (QC): 4 Weight Bearing Right Lower Extremity: Right Weight Bearing/Tolerated Left Lower Extremity: Left Weight Bearing/Tolerated Gait Training Does the Patient Walk?: Yes Distance (FIM): 3=150 ft Distance: 150' Walk 10 feet (QC): 4 Walk 50 ft with 2 Turns(QC): 4 Walk 150 ft (QC): 4 Gait Level of Assist: 4 Gait Persons Needed: 1 Gait Assistive Device: FWW Pt walks with slow hussain and slight pigeon toe with narrow TREY. Pt self corrects but has to focus on ambulation to correct. Exercises Supine Ex: Ankle pumps, Quad Set, Heel Slides, Straight leg raise, Hip abd/add Supine Reps: 15 Seated Therapy Exercises: Ankle pumps, Long arc quads, Hip flexion, Kicking activity Seated Reps: 10 Treatments Pt completes Supine EX in bed with a couple short rest breaks. Pt rolls side to side to assist in donning TLSO brace. Pt transfers to EOB at SBA then dons shoes & L AFO. Pt transfers to standing using FWW at [facility]. Pt ambulates in hallway using FWW at [facility]. Pt returns to room to rest at EOB then transfers back to Supine at SBA. Pt resting in bed at end of tx with all needs met. Assessment Current Status: Good Progress Pt continues to work on ambulation at this time. PT Short Term Goals Short Term Goals Time Frame: May 07, 2017 Transfers (B,C,W/C) (FIM): 3 Gait (FIM): 2 Gait Distance Comment: 50 feet Gait Level of Assist: 3 Gait Assistive Device: FWW Wheelchair (FIM): 2 Wheelchair Distance: 100 feet Wheelchair Level of Assist: 5 PT Fdc Goals Fdc Goals PT Fdc Goals Time Frame: May 21, 2017 Transfers (B,C,W/C) (FIM): 4 Sit to Lying (QC): 3 Lying-Sitting on Side/Bed(QC): 3 Sit to Stand (QC): 4 Rollin Roll Left to Right (QC): 4 Chair/Mxi-kx-Jopfn Xfer(QC): 3 Car Transfer (QC): 3 Does the Patient Walk: Yes Gait (FIM): 4 Distance: 150 feet Walk 10 feet (QC): 4 Walk 10ft-Uneven Surface(QC): 4 Walk 50ft with 2 Turns (QC): 4 Walk 150 ft (QC): 4 Gait Level of Assist: 4 Gait Assistive Device: FWW Does the Pt use WC or Scooter?: Yes Wheelchair (FIM): 6 Distance: 200 feet Wheelchair Level of Assist: 6 Wheel 50 feet with 2 turns (QC: 6 Stairs (FIM): 2 # of Steps: 4 1 Step (curb) (QC): 4 4 Steps (QC): 4 Stairs Level Of Assist: 4 PT Plan Problem List Problem List: Activity Tolerance, Functional Strength, Balance, Gait Treatment/Plan Treatment Plan: Continue Plan of Care Treatment Plan: Bed Mobility, Education, Functional Activity Estiven, Functional Strength, Group Therapy, Gait, Safety, Therapeutic Exercise, Transfers Treatment Duration: May 21, 2017 Frequency: At least 5 of 7 days/Wk (IRF) Estimated Hrs Per Day: 1.5 hours per day Patient and/or Family Agrees t: Yes Safety Risks/Education Patient Education: Gait Training, Reviewed Don/Doff Brace, Disease Process, Safety Issues Teaching Recipient: Patient Teaching Methods: Discussion Response to Teaching: Verbalize Understanding Time/GCodes Time In: 1030 Time Out: 1130 Total Billed Treatment Time: 60 Total Billed Treatment 1, GT (15m), EX (15m) & FA x2 (30m) HENRIK WAYNE PULVERIZER May 12, 2017 12:37
--- NOTE | 2017-05-12 13:30 | Occupational Ther Daily Note ---
OT Current Status-Daily Note Subjective Pt alert, lying in bed. Pt agreed to therapy. No c/o pain at this time. Mental Status/Objective Patient Orientation: Person, Place, Time, Situation Functional [place] Measure 0=Not Assessed/NA 4=Minimal Assistance 1=Total Assistance 5=Supervision or Setup 2=Maximal Assistance 6=Modified [place] 3=Moderate Assistance 7=Complete [place] ADL-Treatment Functional [place] Measure 0=Not Assessed/NA 4=Minimal Assistance 1=Total Assistance 5=Supervision or Setup 2=Maximal Assistance 6=Modified [place] 3=Moderate Assistance 7=Complete IndependenceIRFPAI Quality Coding Scale 6 Independent with activity with or without an assistive device 5 Patient requires set up or clean up by helper. Patient completes activity by themselves 4 Supervision or touching assist (CGA). [place] provide cues , steadying assist 3 The helper provides less than half the effort to complete the activity 2 The helper provides more than half the effort to complete the activity 1 Dependent. The helper does all the effort to complete an activity 7 Patient refused to complete or attempt activity 9 The patient did not perform the activity before the current illness or injury 88 Not attempted due to Medical conditions or safety concerns Other Treatment Pt able to from supine to sitting using grabbar keeping precautions. Pt then maneuvered w/c to therapy gym. Resistive clothespins completed 2x's each hand. Wrist strengthening exercises completed with 2# wt. Pt then maneuvered w/c back to room. After therapy, pt sitting in w/c with call light/phone in reach. All needs met in room. OT Short Term Goals Short Term Goals Time Frame: May 14, 2017 Eating(FIM): 5 Grooming(FIM): 5 Bathing(FIM): 4 Upper Body Dressing(FIM): 4 Lower Body Dressing(FIM): 4 Toileting(FIM): 4 Transfers (B,C,W/C) (FIM): 3 Toilet/Commode Transfer(FIM): 4 Shower Transfer(FIM): 3 Additional Short Term Goals: 1-Demonstrate ADL Tasks, 2-Verbalize Understanding , 3-ImproveStrength/Estiven 1=Demonstrate adherence to instructed precautions during ADL tasks. 2=Patient will verbalize/demonstrate understanding of assistive devices/ modifications for ADL. 3=Patient will improve strength/tolerance for activity to enable patient to perform ADL's. OT Superintendent Transmission Goals Superintendent Transmission Goals Time Frame: May 28, 2017 Eating (FIM): 6 Eating (QC): 6 Groomin Oral Hygiene (QC): 6 Bathing(FIM): 5 Shower/Bathe Self (QC): 5 Upper Body Dressing(FIM): 5 Upper Body Dressing (QC): 5 Lower Body Dressing(FIM): 5 Lower Body Dressing (QC): 5 On/Off Footwear (QC): 5 Toileting(FIM): 6 Toileting Hygiene (QC): 6 Transfers (B,C,W/C) (FIM): 6 Toilet/Commode Transfer(FIM): 6 Toilet/Commode Transfer (QC): 6 Shower Transfer(FIM): 5 Additional Goals: 1-Demonstrate ADL Tasks, 2-Verbalize Understanding, 3- ImproveStrength/Estiven 1=Demonstrate adherence to instructed precautions during ADL tasks. 2=Patient will verbalize/demonstrate understanding of assistive devices/ modifications for ADL. 3=Patient will improve strength/tolerance for activity to enable patient to perform ADL's. OT Education/Plan Discharge Recommendations Plan/Recommendations: Continue POC Treatment Plan/Plan of Care Patient would benefit from OT for education, treatment and training to promote independence in ADL's, mobility, safety and/or upper extremity function for ADL' s. Plan of Care: ADL Retraining, Caregiver Training, Functional Mobility, Group Exercise/Act as Ind, UE Funct Exercise/Act Treatment Duration: May 28, 2017 Frequency: At least 5 of 7 days/Wk (IRF) Estimated Hrs Per Day: 1.5 hours per day Agreement: Yes Rehab Potential: Fair Time/GCodes Start Time: 13:00 Stop Time: 13:30 Total Time Billed (hr/min): 30 Billed Treatment Time 1 visit-FA 1 (15 min) EX 1 (15 min) JANNETTE KWAN May 12, 2017 13:30
[2017-05-12] MEDS: ACETAMINOPHEN 325 MG TABLET/CAPLET (TYLENOL) PO PRN (16:07)
--- NOTE | 2017-05-12 16:31 | Physical Therapy Daily Note ---
PT Daily Note-Current Subjective Pt sitting in [facility] upon arrival. Pt agrees to PT. Pain Numeric Pain Scale: 4 Location: Lower Location Body Site: Back Pain Description: Ache Mental Status Patient Orientation: Person, Place, Time, Situation Attachments: Other-See Comments (TLSO & L AFO) Transfers Functional [place] Measure 0=Not Assessed/NA 4=Minimal Assistance 1=Total Assistance 5=Supervision or Setup 2=Maximal Assistance 6=Modified [place] 3=Moderate Assistance 7=Complete IndependenceIRFPAI Quality Coding Scale 6 Independent with activity with or without an assistive device 5 Patient requires set up or clean up by helper. Patient completes activity by themselves 4 Supervision or touching assist ([facility]). [place] provide cues , steadying assist 3 The helper provides less than half the effort to complete the activity 2 The helper provides more than half the effort to complete the activity 1 Dependent. The helper does all the effort to complete an activity 7 Patient refused to complete or attempt activity 9 The patient did not perform the activity before the current illness or injury 88 Not attempted due to Medical conditions or safety concerns Scootin Rollin Roll Left to Right (QC): 5 Supine to/from Sit: 5 Sit to/from Stand: 4 Sit to Lying (QC): 5 Sit to Stand (QC): 4 Weight Bearing Right Lower Extremity: Right Weight Bearing/Tolerated Left Lower Extremity: Left Weight Bearing/Tolerated Gait Training Does the Patient Walk?: Yes Distance (FIM): 3=150 ft Distance: 150' Walk 10 feet (QC): 4 Walk 50 ft with 2 Turns(QC): 4 Walk 150 ft (QC): 4 Gait Level of Assist: 4 Gait Persons Needed: 1 Gait Assistive Device: FWW Pt continues to work on widening TREY and prevention of pigeon toe. Exercises Seated Therapy Exercises: Ankle pumps, Long arc quads, Hip flexion, Kicking activity Seated Reps: 15 Treatments Pt transfers from [facility] to standing using FWW at [facility]. Pt ambulates in hallway using FWW at [facility]. Pt returns to room to rest at EOB. Pt is assisted with doffing TLSO & L AFO with shoes. Pt transfers to Supine in bed at end of tx with all needs met. Assessment Current Status: Good Progress Pt fatigues and reports increased discomfort through hands/shoulders with increased WBing through them. PT Short Term Goals Short Term Goals Time Frame: May 07, 2017 Transfers (B,C,W/C) (FIM): 3 Gait (FIM): 2 Gait Distance Comment: 50 feet Gait Level of Assist: 3 Gait Assistive Device: FWW Wheelchair (FIM): 2 Wheelchair Distance: 100 feet Wheelchair Level of Assist: 5 PT [facility] Goals Toe Sewer Goals PT [facility] Goals Time Frame: May 21, 2017 Transfers (B,C,W/C) (FIM): 4 Sit to Lying (QC): 3 Lying-Sitting on Side/Bed(QC): 3 Sit to Stand (QC): 4 Rollin Roll Left to Right (QC): 4 Chair/Dad-jd-Xbgeb Xfer(QC): 3 Car Transfer (QC): 3 Does the Patient Walk: Yes Gait (FIM): 4 Distance: 150 feet Walk 10 feet (QC): 4 Walk 10ft-Uneven Surface(QC): 4 Walk 50ft with 2 Turns (QC): 4 Walk 150 ft (QC): 4 Gait Level of Assist: 4 Gait Assistive Device: FWW Does the Pt use WC or Scooter?: Yes Wheelchair (FIM): 6 Distance: 200 feet Wheelchair Level of Assist: 6 Wheel 50 feet with 2 turns (QC: 6 Stairs (FIM): 2 # of Steps: 4 1 Step (curb) (QC): 4 4 Steps (QC): 4 Stairs Level Of Assist: 4 PT Plan Problem List Problem List: Activity Tolerance, Functional Strength, Gait Treatment/Plan Treatment Plan: Continue Plan of Care Treatment Plan: Bed Mobility, Education, Functional Activity Estiven, Functional Strength, Group Therapy, Gait, Safety, Therapeutic Exercise, Transfers Treatment Duration: May 21, 2017 Frequency: At least 5 of 7 days/Wk (IRF) Estimated Hrs Per Day: 1.5 hours per day Patient and/or Family Agrees t: Yes Safety Risks/Education Patient Education: Gait Training, Correct Positioning, Reviewed Don/Doff Brace , Safety Issues Teaching Recipient: Patient Teaching Methods: Discussion Response to Teaching: Verbalize Understanding Time/GCodes Time In: 1430 Time Out: 1500 Total Billed Treatment Time: 30 Total Billed Treatment 1, EX (15m) & GT (15m) HENRIK WAYNE IT OPERATIONS ANALYST May 12, 2017 16:31
[2017-05-12 18:09] VITALS: BP 134/79
[2017-05-13] MEDS: ACETAMINOPHEN 325 MG TABLET/CAPLET (TYLENOL) PO PRN ×2 (02:36→12:40)
[2017-05-13 05:52] VITALS: BP 97/68
[2017-05-13] MEDS: CALCIUM CARB + VIT D 600 MG (CALCARB + D) TAB PO SCH ×2 (06:06→17:46)
[2017-05-13] MEDS: PANTOPRAZOLE 40 MG (PROTONIX) TAB PO SCH (06:06)
--- NOTE | 2017-05-13 09:02 | Occupational Ther Daily Note ---
OT Current Status-Daily Note Subjective Pt alert, lying in bed. Pt agreed to therapy. No c/o pain. Mental Status/Objective Patient Orientation: Person, Place, Time, Situation Functional [place] Measure 0=Not Assessed/NA 4=Minimal Assistance 1=Total Assistance 5=Supervision or Setup 2=Maximal Assistance 6=Modified [place] 3=Moderate Assistance 7=Complete [place] Attachments: Colostomy/Ileostomy, Other-See Comments (TSLO) ADL-Treatment Functional [place] Measure 0=Not Assessed/NA 4=Minimal Assistance 1=Total Assistance 5=Supervision or Setup 2=Maximal Assistance 6=Modified [place] 3=Moderate Assistance 7=Complete IndependenceIRFPAI Quality Coding Scale 6 Independent with activity with or without an assistive device 5 Patient requires set up or clean up by helper. Patient completes activity by themselves 4 Supervision or touching assist (CGA). [place] provide cues , steadying assist 3 The helper provides less than half the effort to complete the activity 2 The helper provides more than half the effort to complete the activity 1 Dependent. The helper does all the effort to complete an activity 7 Patient refused to complete or attempt activity 9 The patient did not perform the activity before the current illness or injury 88 Not attempted due to Medical conditions or safety concerns Eating (FIM): 7 (Pt able to open containers/packages by self. Uses regular utensils to cut food and feed self.) Eating (QC): 7 Grooming (FIM): 6 (Sitting at sink, pt is able to complete own grooming.) Oral Hygiene (QC): 6 Bathing (FIM): 5 (Gathering supplies needed. Pt using grabbar, shower bench and hand held shower to complete own shower.) Bathing Location: L Arm, R Arm, L Upper Leg, R Upper Leg, L Lower Leg ( including foot), R Lower Leg (including foot), Chest, Abdomen, Buttocks, Perineal Area Shower/Bathe Self (QC): 5 Upper Body (FIM): 5 (Setup. Pt able to don/doff upper body clothing by self.) Upper Body Dressing (QC): 5 Lower Body Dressing (FIM): 5 (Set up, pt able to complete lower body dressing using FWW for balance when standing to hike pants.) Lower Body Dressing (QC): 5 On/Off Footwear (QC): 3 (Pt is able to don socks then requires assistance to don shoes.) Toileting (FIM): 6 (Pt able to manipulate clothing and cleanse self. Then manages own colostomy.) Toileting Hygiene (QC): 6 Transfers (B, C, W/C) (FIM): 6 (Using w/c or FWW, pt is able to complete transfers.) Toilet/Commode Transfer (FIM): 6 (Using grabbars pt is able to complete transfer.) Toilet Transfer (QC): 6 Shower Transfer(FIM): 5 (Supervision with transfers using grabbar and shower bench.) Other Treatment Pt requires assist to don/doff TLSO. Pt ambulated with SBA using FWW to therapy gym. Pt completed 3 UE exercises with 2# wt, 3 sets 10 reps. Then complete nut/bolt task to increase fine motor strength for daily functional tasks. OT Short Term Goals Short Term Goals Time Frame: May 14, 2017 Eating(FIM): 5 Grooming(FIM): 5 Bathing(FIM): 4 Upper Body Dressing(FIM): 4 Lower Body Dressing(FIM): 4 Toileting(FIM): 4 Transfers (B,C,W/C) (FIM): 3 Toilet/Commode Transfer(FIM): 4 Shower Transfer(FIM): 3 Additional Short Term Goals: 1-Demonstrate ADL Tasks, 2-Verbalize Understanding , 3-ImproveStrength/Estiven 1=Demonstrate adherence to instructed precautions during ADL tasks. 2=Patient will verbalize/demonstrate understanding of assistive devices/ modifications for ADL. 3=Patient will improve strength/tolerance for activity to enable patient to perform ADL's. OT Healthcare Project Manager Goals Healthcare Project Manager Goals Time Frame: May 28, 2017 Eating (FIM): 6 (met-05/13/2017) Eating (QC): 6 (met-05/13/2017) Groomin (met-05/13/2017) Oral Hygiene (QC): 6 (met-05/13/2017) Bathing(FIM): 5 (met-05/13/2017) Shower/Bathe Self (QC): 5 (met-05/13/2017) Upper Body Dressing(FIM): 5 (met-05/13/2017) Upper Body Dressing (QC): 5 (met-05/13/2017) Lower Body Dressing(FIM): 5 (met-05/13/2017) Lower Body Dressing (QC): 5 (met-05/13/2017) On/Off Footwear (QC): 5 Toileting(FIM): 6 (met-05/13/2017) Toileting Hygiene (QC): 6 (met-05/13/2017) Transfers (B,C,W/C) (FIM): 6 (met-05/13/2017) Toilet/Commode Transfer(FIM): 6 (met-05/13/2017) Toilet/Commode Transfer (QC): 6 (met-05/13/2017) Shower Transfer(FIM): 5 (met-05/13/2017) Additional Goals: 1-Demonstrate ADL Tasks, 2-Verbalize Understanding, 3- ImproveStrength/Estiven 1=Demonstrate adherence to instructed precautions during ADL tasks. 2=Patient will verbalize/demonstrate understanding of assistive devices/ modifications for ADL. 3=Patient will improve strength/tolerance for activity to enable patient to perform ADL's. OT Education/Plan Discharge Recommendations Plan/Recommendations: Continue POC Treatment Plan/Plan of Care Patient would benefit from OT for education, treatment and training to promote independence in ADL's, mobility, safety and/or upper extremity function for ADL' s. Plan of Care: ADL Retraining, Caregiver Training, Functional Mobility, Group Exercise/Act as Ind, UE Funct Exercise/Act Treatment Duration: May 28, 2017 Frequency: At least 5 of 7 days/Wk (IRF) Estimated Hrs Per Day: 1.5 hours per day Agreement: Yes Rehab Potential: Fair Time/GCodes Start Time: 08:30 Stop Time: 09:30 Total Time Billed (hr/min): 60 Billed Treatment Time 1 visit-ADL 4 (60 min) JANNETTE KWAN May 13, 2017 09:02
[2017-05-13] MEDS: ALLOPURINOL 300 MG (ZYLOPRIM) TAB PO SCH (09:03)
[2017-05-13] MEDS: LACTOBACILLUS Acidoph/Bulgar (LACTINEX/FLORANEX) TAB PO SCH (09:03)
[2017-05-13 09:04] VITALS: BP 156/81
[2017-05-13] MEDS: MUPIROCIN 2% OINT 22 GM (BACTROBAN) TUBE TOP SCH ×2 (09:04→19:54)
[2017-05-13] MEDS: VITAMIN D3 5,000 UNITS (CHOLECALCIFEROL ) CAPSULE PO SCH (09:04)
[2017-05-13] MEDS: METHOCARBAMOL 750 MG (ROBAXIN) TAB PO SCH ×3 (09:04→20:30)
[2017-05-13] MEDS: lisINopril 10 MG (PRINIVIL) TABLET PO SCH (09:04)
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
--- NOTE | 2017-05-13 10:46 | Physical Therapy Daily Note ---
PT Daily Note-Current Subjective Pt sitting in chair in Therapy Gym after finishing with OT upon arrival. Pt agrees to PT. Pain Numeric Pain Scale: 3 Location: Right, Lower Location Body Site: Back Pain Description: Ache Mental Status Patient Orientation: Person, Place, Time, Situation Attachments: Other-See Comments (L AFO & TLSO) Transfers Functional [place] Measure 0=Not Assessed/NA 4=Minimal Assistance 1=Total Assistance 5=Supervision or Setup 2=Maximal Assistance 6=Modified [place] 3=Moderate Assistance 7=Complete IndependenceIRFPAI Quality Coding Scale 6 Independent with activity with or without an assistive device 5 Patient requires set up or clean up by helper. Patient completes activity by themselves 4 Supervision or touching assist (CGA). [place] provide cues , steadying assist 3 The helper provides less than half the effort to complete the activity 2 The helper provides more than half the effort to complete the activity 1 Dependent. The helper does all the effort to complete an activity 7 Patient refused to complete or attempt activity 9 The patient did not perform the activity before the current illness or injury 88 Not attempted due to Medical conditions or safety concerns Transfers (B, C, W/C) (FIM): 6 Scootin Rollin Roll Left to Right (QC): 6 Supine to/from Sit: 6 Sit to/from Stand: 6 Sit to Lying (QC): 6 Sit to Stand (QC): 6 Chair/Ecu-se-Nlkse Xfer(QC): 6 Bed to/from Chair: 6 Car Transfer (QC): 6 Weight Bearing Right Lower Extremity: Right Weight Bearing/Tolerated Left Lower Extremity: Left Weight Bearing/Tolerated Gait Training Does the Patient Walk?: Yes Gait (FIM): 5 Distance (FIM): 3=150 ft Distance: 300' Walk 10 feet (QC): 5 Walk 50 ft with 2 Turns(QC): 5 Walk 150 ft (QC): 5 Walking 10ft/uneven surface-QC: 5 Gait Level of Assist: 5 Gait Persons Needed: 1 Gait Assistive Device: FWW Pt needs occasional VC for wider TREY during ambulation. Wheelchair Training Does the Pt Use a Wheelchair?: No Stair Training Stair Training: Handrails/: 2 handrails Stairs (FIM): 3 #of Steps: 8 1 Step (curb) (QC): 5 4 Steps (QC): 5 Stairs: Pattern: Step to Level of Assist: 5 Pt fatigues before getting to attempt 3 set of stairs and needs to rest. Balance Picking up an Object (QC): 88 Special Test Comments Pt is not safe to bend over at this time. Exercises Seated Therapy Exercises: Ankle pumps, Long arc quads, Hip flexion, Kicking activity, Hip abd/add Seated Reps: 15 (2 sets) Treatments Pt transferred from chair to standing using FWW at SBA. Pt completed 2 sets of 4 stairs then rested in chair. Pt transferred to standing and transferred to EOM then Supine for bed mobility at SBA. Pt then transfers to EOM and completes Seated Ex. Pt stands and ambulates across varying surface for at least 10' and ambulates in hallway using FWW at SBA with occasional VC for wider TREY. Pt completes car transfer then returns to room at end of tx to rest Supine in bed with all needs met. Assessment Current Status: Good Progress Pt has improved with safety and independence of transfers and ambulation. Pt to discharge 05/14/2017 (tomorrow). PT Short Term Goals Short Term Goals Time Frame: May 07, 2017 Transfers (B,C,W/C) (FIM): 3 Gait (FIM): 2 Gait Distance Comment: 50 feet Gait Level of Assist: 3 Gait Assistive Device: FWW Wheelchair (FIM): 2 Wheelchair Distance: 100 feet Wheelchair Level of Assist: 5 PT Alf Goals Alf Goals PT Alf Goals Time Frame: May 21, 2017 Transfers (B,C,W/C) (FIM): 4 Sit to Lying (QC): 3 Lying-Sitting on Side/Bed(QC): 3 Sit to Stand (QC): 4 Rollin Roll Left to Right (QC): 4 Chair/Trp-sp-Feznh Xfer(QC): 3 Car Transfer (QC): 3 Does the Patient Walk: Yes Gait (FIM): 4 Distance: 150 feet Walk 10 feet (QC): 4 Walk 10ft-Uneven Surface(QC): 4 Walk 50ft with 2 Turns (QC): 4 Walk 150 ft (QC): 4 Gait Level of Assist: 4 Gait Assistive Device: FWW Does the Pt use WC or Scooter?: Yes Wheelchair (FIM): 6 Distance: 200 feet Wheelchair Level of Assist: 6 Wheel 50 feet with 2 turns (QC: 6 Stairs (FIM): 2 # of Steps: 4 1 Step (curb) (QC): 4 4 Steps (QC): 4 Stairs Level Of Assist: 4 PT Plan Problem List Problem List: Activity Tolerance Treatment/Plan Treatment Plan: Continue Plan of Care Treatment Plan: Bed Mobility, Education, Functional Activity Estiven, Functional Strength, Group Therapy, Gait, Safety, Therapeutic Exercise, Transfers Treatment Duration: May 21, 2017 Frequency: At least 5 of 7 days/Wk (IRF) Estimated Hrs Per Day: 1.5 hours per day Patient and/or Family Agrees t: Yes Safety Risks/Education Patient Education: Gait Training, Correct Positioning, Safety Issues Teaching Recipient: Patient Teaching Methods: Discussion Response to Teaching: Verbalize Understanding Time/GCodes Time In: 930 Time Out: 1030 Total Billed Treatment Time: 60 Total Billed Treatment 1, FA x2 (30m), GT (15m) & EX (15m) HENRIK WAYNE CNA PER DIEM May 13, 2017 10:46
--- NOTE | 2017-05-13 15:15 | Therapy Group Daily Note ---
Therapy Daily Group Note Patient Education Topic Other List Below (nutrition) Exercises LE Seated Exercise, UE Exercise Other/Notes Pt maneuvered w/c to OT/PT group. Group consisted of introductions (name, place living, favorite food), socialization, education for healthy eating and UE /LE seated exercises. Pt introduced self appropriately and actively listened to peers introduce themselves. Pt was able to complete UE/LE seated exercises without difficulty. Pt attentively listened to educational topic of healthy eating and was able to answer questions and give examples. Pt contributed to conversation and discussed with peers. After therapy, pt maneuvered w/c to room. All needs met. Start Time: 13:00 Stop Time: 14:15 Total Billed Treatment Time: 75 Total Billed Treatment 1-GRP JANNETTE KWAN May 13, 2017 15:15
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
[2017-05-13] MEDS ORDERED: LISI10TA2 PO (18:16)
[2017-05-13] MEDS ORDERED: METH750T3 PO (18:16)
[2017-05-13] MEDS ORDERED: Oxycodone Hcl PO (18:16)
[2017-05-13 18:39] VITALS: BP 133/70
[2017-05-14] MEDS: ACETAMINOPHEN 325 MG TABLET/CAPLET (TYLENOL) PO PRN (04:44)
[2017-05-14 05:06] VITALS: BP 131/72
[2017-05-14] MEDS: PANTOPRAZOLE 40 MG (PROTONIX) TAB PO SCH (06:10)
[2017-05-14] MEDS: CALCIUM CARB + VIT D 600 MG (CALCARB + D) TAB PO SCH (06:10)
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
[2017-05-14] MEDS: VITAMIN D3 5,000 UNITS (CHOLECALCIFEROL ) CAPSULE PO SCH (09:10)
[2017-05-14] MEDS: LACTOBACILLUS Acidoph/Bulgar (LACTINEX/FLORANEX) TAB PO SCH (09:10)
[2017-05-14] MEDS: METHOCARBAMOL 750 MG (ROBAXIN) TAB PO SCH (09:11)
[2017-05-14] MEDS: ALLOPURINOL 300 MG (ZYLOPRIM) TAB PO SCH (09:11)
[2017-05-14] MEDS: MUPIROCIN 2% OINT 22 GM (BACTROBAN) TUBE TOP SCH (09:11)
[2017-05-14] MEDS: lisINopril 10 MG (PRINIVIL) TABLET PO SCH (09:11)
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
== END 2017-05-14 11:00 | disposition home health service (06) | DRG 560 ==
PROVIDERS: ADMIT Physical Medicine & Rehabilitation; ATTEND Physical Medicine & Rehabilitation
DX: S22.080D Wedge compression fracture of T11-T12 vertebra, subsequent encounter for fracture with routine healing (principal); S32.010D Wedge compression fracture of first lumbar vertebra, subsequent encounter for fracture with routine healing; G95.0 Syringomyelia and syringobulbia; M21.372 Foot drop, left foot; H53.2 Diplopia; I12.9 Hypertensive chronic kidney disease with stage 1 through stage 4 chronic kidney disease, or unspecified chronic kidney disease; N18.9 Chronic kidney disease, unspecified; R06.89 Other abnormalities of breathing; E55.9 Vitamin D deficiency, unspecified; K50.90 Crohn's disease, unspecified, without complications; M81.0 Age-related osteoporosis without current pathological fracture; Z99.81 Dependence on supplemental oxygen; Z93.3 Colostomy status; Z85.048 Personal history of other malignant neoplasm of rectum, rectosigmoid junction, and anus
CPT/HCPCS: 72070; 94760

== ENCOUNTER 2017-05-21 20:41 | Emergency (ER) | payer MEDICARE, OTHER ==
[~2017-05-21] VITALS: Ht 157.5 cm; Wt 40.9 kg
[~2017-05-21 20:41] MED LIST changes: -LEVO250T46
[2017-05-21] MEDS ORDERED: LEVO250T46 (20:59)
[2017-05-21] MEDS ORDERED: NS IV 1000 ML 1,000 ML IV SCH (21:07)
[2017-05-21] MEDS ORDERED: cefTRIAXone INJECTION 1,000 MG in NS (IVPB) 100 ML IV ONE (21:30)
[2017-05-21] MEDS ORDERED: ACETAMINOPHEN 500 MG TAB (TYLENOL) PO ONE (21:30)
[2017-05-21] MEDS ORDERED: ONDANSETRON 4 MG/2 ML (SDV) Z0FRAN IVP ONE (21:45)
[2017-05-21 21:47] LABS: BASOPHILS % (AUTO) 0 % (0-10); EOSINOPHILS % (AUTO) 0 % (0-10); HEMATOCRIT 37 % (35-52); HEMOGLOBIN 12.5 G/DL (11.5-16.0); LYMPHOCYTES # (AUTO) 1.2 X 10^3 (1.0-4.0); LYMPHOCYTES % (AUTO) 9 % (12-44); MEAN CORPUSCULAR HEMOGLOBIN 30 PG (25-34); MEAN CORPUSCULAR HGB CONC 34 G/DL (32-36); MEAN CORPUSCULAR VOLUME 87 FL (80-99); MEAN PLATELET VOLUME 10.3 FL (7.4-10.4); MONOCYTES # (AUTO) 0.7 X 10^3 (0.0-1.0); MONOCYTES % (AUTO) 5 % (0-12); NEUTROPHILS # (AUTO) 11.6 X 10^3 (1.8-7.8); NEUTROPHILS % (AUTO) 86 % (42-75); PLATELET COUNT 97 10^3/uL (130-400); RED BLOOD COUNT 4.24 10^6/uL (4.35-5.85); RED CELL DISTRIBUTION WIDTH 16.4 % (10.0-14.5); WHITE BLOOD COUNT 13.5 10^3/uL (4.3-11.0)
[2017-05-21 21:55] LABS: INR 1.4 (0.8-1.4); PROTHROMBIN TIME PATIENT 16.9 SEC (12.2-14.7)
[2017-05-21 21:58] LABS: ALBUMIN 3.3 GM/DL (3.2-4.5); BILIRUBIN,TOTAL 1.2 MG/DL (0.1-1.0); CALCIUM 8.3 MG/DL (8.5-10.1); CREATININE SERUM 1.42 MG/DL (0.60-1.30); POTASSIUM 3.3 MMOL/L (3.6-5.0); TOTAL PROTEIN 6.1 GM/DL (6.4-8.2)
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
[2017-05-21] MEDS ORDERED: LACTATED RINGERS 1,000 ML IV ONE (22:24)
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
[2017-05-21 23:47] VITALS: BP 118/67
== END 2017-05-21 23:47 | disposition short-term general hospital (02) ==
LOC: EDUNIT# 20:41 → ER 20:42
DX: A41.9 Sepsis, unspecified organism (principal); N17.9 Acute kidney failure, unspecified; N18.9 Chronic kidney disease, unspecified; N13.2 Hydronephrosis with renal and ureteral calculous obstruction; D64.9 Anemia, unspecified; D69.6 Thrombocytopenia, unspecified; E87.6 Hypokalemia; F41.9 Anxiety disorder, unspecified; Z87.19 Personal history of other diseases of the digestive system; Z87.442 Personal history of urinary calculi; Z85.038 Personal history of other malignant neoplasm of large intestine; Z85.048 Personal history of other malignant neoplasm of rectum, rectosigmoid junction, and anus; Z85.528 Personal history of other malignant neoplasm of kidney; Z87.828 Personal history of other (healed) physical injury and trauma; Z90.710 Acquired absence of both cervix and uterus; Z88.0 Allergy status to penicillin; Z88.2 Allergy status to sulfonamides; Z88.1 Allergy status to other antibiotic agents; Z92.21 Personal history of antineoplastic chemotherapy
CPT/HCPCS: 36415; 71045; 74176; 80053; 83605; 85025; 85610; 85730; 87040; 87804; 96361; 96365; 96375

== ENCOUNTER → 2017-05-21 | Outpatient (CLI) | payer MEDICARE, OTHER ==
[~2017-05-21] MED LIST changes: +ACET325T38 PO; +B-12 INJECTION INJ; +CALC-654 PO; +CHOL500049 PO; +HYOS-19 SL; +LACT1CAP74 PO; +LEVO250T46; +LISI10TA2 PO; +METH750T3 PO; +ONDA8TAB6 PO; +Oxycodone Hcl PO; +RT-ALBUINH IH
[2017-05-21 12:58] LABS: BILIRUBIN,URINE NEGATIVE (NEGATIVE); CLARITY,URINE SLIGHTLY CLOUDY; COLOR,URINE YELLOW; GLUCOSE, URINE (UA) NEGATIVE (NEGATIVE); KETONES,URINE NEGATIVE (NEGATIVE); LEUKOCYTE ESTERASE ,URINE 3+ (NEGATIVE); NITRITE,URINE POSITIVE (NEGATIVE); PH,URINE 5 (5-9); PROTEIN,URINE 3+ (NEGATIVE); UROBILINOGEN,URINE NORMAL (NORMAL)
[2017-05-21 13:06] LABS: AMORPHOUS SEDIMENT,UR RARE AMOR URATES /LPF; BACTERIA,URINE LARGE /HPF; SQUAMOUS EPITHELIAL CELL,UR RARE /HPF; WBC,URINE TNTC /HPF
== END ==
LOC: HH 11:12
PROVIDERS: ATTEND Internal Medicine
DX: R10.84 Generalized abdominal pain (principal); R82.99 Other abnormal findings in urine
CPT/HCPCS: 81000; 87088; 87186

== ENCOUNTER 2017-06-04 13:00 | Outpatient (RCR) | payer MEDICARE, OTHER ==
[2017-05-28 09:55] VITALS: BP 137/70
[2017-05-28 09:58] VITALS: BP 137/70
[2017-05-28] MEDS: ERTAPENEM 1 GM/NS 100 ML IVPB IV SCH ×2 (10:16)
[2017-05-29 08:40] VITALS: BP 135/66
[2017-05-29] MEDS: CATHETER FLUSH 10 ML SYR IV PRN (08:49)
[2017-05-29] MEDS: ERTAPENEM 1 GM/NS 100 ML IVPB IV SCH ×2 (08:50)
[2017-05-30] MEDS: CATHETER FLUSH 10 ML SYR IV PRN ×2 (09:51→10:20)
[2017-05-30] MEDS: ERTAPENEM 1 GM/NS 100 ML IVPB IV SCH ×2 (09:51)
[2017-05-30 10:20] VITALS: BP 132/69
[2017-05-31] MEDS: CATHETER FLUSH 10 ML SYR IV PRN ×2 (09:42→10:10)
[2017-05-31] MEDS: ERTAPENEM 1 GM/NS 100 ML IVPB IV SCH ×2 (09:42)
[2017-05-31 10:10] VITALS: BP 133/68
[2017-06-01] MEDS: ERTAPENEM 1 GM/NS 100 ML IVPB IV SCH ×2 (09:28)
[2017-06-01] MEDS: CATHETER FLUSH 10 ML SYR IV PRN (09:28)
[2017-06-01 09:32] LABS: BASOPHILS % (AUTO) 0 % (0-10); EOSINOPHILS # (AUTO) 0.2 10^3/uL (0.0-0.3); EOSINOPHILS % (AUTO) 2 % (0-10); HEMATOCRIT 33 % (35-52); HEMOGLOBIN 10.7 G/DL (11.5-16.0); LYMPHOCYTES # (AUTO) 2.7 X 10^3 (1.0-4.0); LYMPHOCYTES % (AUTO) 23 % (12-44); MEAN CORPUSCULAR HEMOGLOBIN 29 PG (25-34); MEAN CORPUSCULAR HGB CONC 32 G/DL (32-36); MEAN CORPUSCULAR VOLUME 91 FL (80-99); MEAN PLATELET VOLUME 9.6 FL (7.4-10.4); MONOCYTES # (AUTO) 0.5 X 10^3 (0.0-1.0); MONOCYTES % (AUTO) 4 % (0-12); NEUTROPHILS # (AUTO) 8.2 X 10^3 (1.8-7.8); NEUTROPHILS % (AUTO) 71 % (42-75); PLATELET COUNT 285 10^3/uL (130-400); RED BLOOD COUNT 3.66 10^6/uL (4.35-5.85); RED CELL DISTRIBUTION WIDTH 16.2 % (10.0-14.5); WHITE BLOOD COUNT 11.6 10^3/uL (4.3-11.0)
[2017-06-01 09:50] VITALS: BP 134/63
[2017-06-01 10:05] LABS: ALBUMIN 3.4 GM/DL (3.2-4.5); BILIRUBIN,TOTAL 0.3 MG/DL (0.1-1.0); CALCIUM 8.9 MG/DL (8.5-10.1); CREATININE SERUM 1.44 MG/DL (0.60-1.30); POTASSIUM 3.2 MMOL/L (3.6-5.0); TOTAL PROTEIN 6.8 GM/DL (6.4-8.2)
[2017-06-02 08:45] VITALS: BP 130/69
[2017-06-02] MEDS: ERTAPENEM 1 GM/NS 100 ML IVPB IV SCH ×2 (09:12)
[2017-06-02 09:19] LABS: BASOPHILS # (AUTO) 0.1 10^3/uL (0.0-0.1); BASOPHILS % (AUTO) 1 % (0-10); EOSINOPHILS # (AUTO) 0.2 10^3/uL (0.0-0.3); EOSINOPHILS % (AUTO) 2 % (0-10); HEMATOCRIT 31 % (35-52); HEMOGLOBIN 9.9 G/DL (11.5-16.0); LYMPHOCYTES # (AUTO) 2.7 X 10^3 (1.0-4.0); LYMPHOCYTES % (AUTO) 26 % (12-44); MEAN CORPUSCULAR HEMOGLOBIN 30 PG (25-34); MEAN CORPUSCULAR HGB CONC 32 G/DL (32-36); MEAN CORPUSCULAR VOLUME 91 FL (80-99); MONOCYTES # (AUTO) 0.5 X 10^3 (0.0-1.0); MONOCYTES % (AUTO) 5 % (0-12); NEUTROPHILS # (AUTO) 6.8 X 10^3 (1.8-7.8); NEUTROPHILS % (AUTO) 66 % (42-75); PLATELET COUNT 290 10^3/uL (130-400); RED BLOOD COUNT 3.36 10^6/uL (4.35-5.85); RED CELL DISTRIBUTION WIDTH 16.1 % (10.0-14.5); WHITE BLOOD COUNT 10.2 10^3/uL (4.3-11.0)
[2017-06-02 10:12] LABS: BILIRUBIN,URINE NEGATIVE (NEGATIVE); CLARITY,URINE CLEAR; COLOR,URINE YELLOW; GLUCOSE, URINE (UA) NEGATIVE (NEGATIVE); KETONES,URINE NEGATIVE (NEGATIVE); LEUKOCYTE ESTERASE ,URINE 3+ (NEGATIVE); NITRITE,URINE NEGATIVE (NEGATIVE); PH,URINE 6 (5-9); PROTEIN,URINE 3+ (NEGATIVE); UROBILINOGEN,URINE NORMAL (NORMAL)
[2017-06-02 10:29] LABS: BACTERIA,URINE FEW /HPF; CALCIUM OXALATE CRYSTALS,UR FEW /LPF; RBC,URINE 50-100 /HPF; WBC,URINE >100 /HPF
[2017-06-02 13:18] VITALS: BP 130/69
[2017-06-03] MEDS: ERTAPENEM 1 GM/NS 100 ML IVPB IV SCH ×2 (08:45)
[2017-06-03] MEDS: CATHETER FLUSH 10 ML SYR IV PRN ×2 (08:45→09:16)
[2017-06-03 09:21] VITALS: BP 122/59
[~2017-06-04] VITALS: Ht 157.5 cm; Wt 40.9 kg
[~2017-06-04 13:00] MED LIST changes: +ACETAMINOPHEN 500 MG TAB (TYLENOL) PO PRN; +D5 LR IV SOLUTION 1,000 ML IV ONE; +D5 NS W/KCL 20 MEQ/L 1,000 ML IV ONE; +ERTAPENEM 1000 MG (INVanz) VIAL ONE; +LEVO250T46; +MAGNESIUM 1 GM/D5W 100 ML IVPB IV NR; +NS (IVPB) 100 ML ONE
[2017-06-04 17:54] VITALS: BP 140/63
== END 2017-08-26 | disposition home or self-care (01) ==
LOC: SDC 13:00
PROVIDERS: ATTEND Internal Medicine
DX: R78.81 Bacteremia (principal); N39.0 Urinary tract infection, site not specified
CPT/HCPCS: 36415; 36591; 80053; 81000; 83735; 85025; 87040; 87088; 96361; 96365; 96368; 96523; 99211

== ENCOUNTER → 2017-07-16 | Outpatient (CLI) | payer MEDICARE, OTHER ==
[~2017-07-16] MED LIST changes: -ACETAMINOPHEN 500 MG TAB (TYLENOL) PO PRN; -D5 LR IV SOLUTION 1,000 ML IV ONE; -D5 NS W/KCL 20 MEQ/L 1,000 ML IV ONE; -ERTAPENEM 1000 MG (INVanz) VIAL ONE; -MAGNESIUM 1 GM/D5W 100 ML IVPB IV NR; -NS (IVPB) 100 ML ONE
--- NOTE | 2017-07-16 18:01 | Diagnostic Imaging Report ---
INDICATION: Digital mammogram bilateral screening with 3-D tomosynthesis. This study was compared to the prior exams of 05/01/16, 04/30/15 and 04/19/14. At this time, there are no current complaints. The current study was also evaluated with a Computer Aided Detection (CAD) system. FINDINGS: The fibroglandular tissue in both breasts is dense. This does limit the sensitivity of this exam. Overall, there does not appear to have been any significant change when compared to the prior study. No primary or secondary sign of malignancy is noted. 3D tomographic images fail to show any sign of malignancy. The PowerPort injector overlying the left pectoralis muscle seen on the previous exam is again evident and no different. IMPRESSION: There is no radiographic evidence for malignancy. ACR BI-RADS Category 1: Negative. Result letter will be mailed to the patient. Note: At least 10% of breast cancer is not imaged by mammography. Dictated by: Dictated on workstation # [id number]
== END ==
LOC: RAD 10:39
PROVIDERS: ATTEND Internal Medicine Hematology & Oncology
DX: Z12.31 Encounter for screening mammogram for malignant neoplasm of breast (principal)
CPT/HCPCS: 77067

== ENCOUNTER 2017-09-29 15:32 | Outpatient (RCR) | payer MEDICARE, OTHER ==
[2017-07-23 11:16] LABS: BASOPHILS # (AUTO) 0.1 10^3/uL (0.0-0.1); BASOPHILS % (AUTO) 1 % (0-10); EOSINOPHILS # (AUTO) 0.3 10^3/uL (0.0-0.3); EOSINOPHILS % (AUTO) 4 % (0-10); HEMATOCRIT 34 % (35-52); HEMOGLOBIN 11.3 G/DL (11.5-16.0); LYMPHOCYTES # (AUTO) 2.3 X 10^3 (1.0-4.0); LYMPHOCYTES % (AUTO) 28 % (12-44); MEAN CORPUSCULAR HEMOGLOBIN 30 PG (25-34); MEAN CORPUSCULAR HGB CONC 33 G/DL (32-36); MEAN CORPUSCULAR VOLUME 90 FL (80-99); MEAN PLATELET VOLUME 9.5 FL (7.4-10.4); MONOCYTES # (AUTO) 0.4 X 10^3 (0.0-1.0); MONOCYTES % (AUTO) 5 % (0-12); NEUTROPHILS # (AUTO) 5.2 X 10^3 (1.8-7.8); NEUTROPHILS % (AUTO) 63 % (42-75); PLATELET COUNT 203 10^3/uL (130-400); RED BLOOD COUNT 3.79 10^6/uL (4.35-5.85); RED CELL DISTRIBUTION WIDTH 15.1 % (10.0-14.5); WHITE BLOOD COUNT 8.2 10^3/uL (4.3-11.0)
[2017-07-23 11:33] LABS: ALBUMIN 3.2 GM/DL (3.2-4.5); BILIRUBIN,TOTAL 0.3 MG/DL (0.1-1.0); CALCIUM 8.4 MG/DL (8.5-10.1); CREATININE SERUM 1.52 MG/DL (0.60-1.30); MAGNESIUM 1.2 MG/DL (1.8-2.4); TOTAL PROTEIN 6.2 GM/DL (6.4-8.2)
[2017-07-30 11:07] LABS: BILIRUBIN,URINE NEGATIVE (NEGATIVE); CLARITY,URINE SLIGHTLY CLOUDY; COLOR,URINE YELLOW; GLUCOSE, URINE (UA) NEGATIVE (NEGATIVE); KETONES,URINE NEGATIVE (NEGATIVE); LEUKOCYTE ESTERASE ,URINE 3+ (NEGATIVE); NITRITE,URINE NEGATIVE (NEGATIVE); PH,URINE 5 (5-9); PROTEIN,URINE 2+ (NEGATIVE); UROBILINOGEN,URINE NORMAL (NORMAL)
[2017-07-30 11:18] LABS: BACTERIA,URINE MODERATE /HPF; RBC,URINE 50-100 /HPF; WBC,URINE TNTC /HPF
[~2017-09-29 15:32] MED LIST changes: +MAGNESIUM SULFATE 3 GM in NS (IVPB) CANCER CENTER 100 ML INJ SCH; -ZOLEDRONATE 5 MG/100 ML (RECLAST) BTL IV ONE
== END 2017-10-21 | disposition home or self-care (01) ==
LOC: ONC 15:32
PROVIDERS: ATTEND Internal Medicine Hematology & Oncology
DX: C21.8 Malignant neoplasm of overlapping sites of rectum, anus and anal canal (principal); M81.0 Age-related osteoporosis without current pathological fracture; G95.89 Other specified diseases of spinal cord; Z93.3 Colostomy status; Z79.899 Other long term (current) drug therapy
CPT/HCPCS: 36591; 80053; 81000; 82378; 83735; 85025; 87077; 87088; 87186; 96365

== ENCOUNTER → 2017-09-29 | Outpatient (CLI) | payer MEDICARE, OTHER ==
[2017-09-29 13:22] LABS: CALCIUM 9.1 MG/DL (8.5-10.1); CREATININE SERUM 1.17 MG/DL (0.60-1.30); MAGNESIUM 1.6 MG/DL (1.8-2.4); POTASSIUM 3.7 MMOL/L (3.6-5.0)
== END ==
LOC: LAB 12:48
PROVIDERS: ATTEND Internal Medicine
DX: E83.42 Hypomagnesemia (principal)
CPT/HCPCS: 36415; 80048; 83735

== ENCOUNTER → 2017-09-29 | Outpatient (CLI) | payer MEDICARE, OTHER ==
[~2017-09-29] VITALS: Ht 157.5 cm; Wt 40.9 kg
[~2017-09-29] MED LIST changes: +ZOLEDRONATE 5 MG/100 ML (RECLAST) BTL IV ONE
[2017-09-29 13:15] VITALS: BP 143/82
== END ==
LOC: SDC 13:09
PROVIDERS: ATTEND Internal Medicine
DX: M81.0 Age-related osteoporosis without current pathological fracture (principal)
CPT/HCPCS: 96365

== ENCOUNTER → 2017-10-01 | Outpatient (CLI) | payer MEDICARE, OTHER ==
[~2017-10-01] MED LIST changes: -MAGNESIUM SULFATE 3 GM in NS (IVPB) CANCER CENTER 100 ML INJ SCH
--- NOTE | 2017-10-01 11:00 | Diagnostic Imaging Report ---
EXAMINATION: DEXA scan. INDICATION: Screening for osteoporosis. FINDINGS: The study was compared to the prior exam from 09/07/2014. The bone mineral density of the hips and spine was measured. The T score for the spine is -4.7. On the prior exam the T score was -4.1. The T score for the left hip is -4.0 and for the right hip -3.3. On the prior exam, the respective scores were -4.5 and -4.2. IMPRESSION: The bone mineral density of the spine has decreased since the prior exam while there has been a slight increase in the bone mineral density of both hip joints. However, all of the T score values still indicate severe osteoporosis. Dictated by: Dictated on workstation # [id number]
== END ==
LOC: RAD 08:23
PROVIDERS: ATTEND Internal Medicine
DX: Z13.820 Encounter for screening for osteoporosis (principal); M81.0 Age-related osteoporosis without current pathological fracture
CPT/HCPCS: 77080

== ENCOUNTER 2017-11-30 08:00 | Outpatient (RCR) | payer MEDICARE, OTHER | END 2017-12-07 07:36 | disposition home or self-care (01) | PROVIDERS: ATTEND Internal Medicine | DX: M21.372 Foot drop, left foot (principal) ==

== ENCOUNTER → 2018-01-20 | Outpatient (CLI) | payer MEDICARE, OTHER ==
--- NOTE | 2018-01-20 15:17 | Diagnostic Imaging Report ---
INDICATION: Dyspnea and fever. TIME OF EXAM: 3:23 p.m. COMPARISON: Correlation is made with prior study from 05/21/2017 FINDINGS: Left chest wall port has tip overlying the SVC. The lungs are clear. Lungs are hyperinflated, consistent with COPD. No infiltrate, effusion or pneumothorax is identified. IMPRESSION: COPD. No acute feature is detected. Report was called to ROSSANA Sandoval at 3:14 p.m., by dunia. Dictated by: Dictated on workstation # [id number]
== END ==
LOC: RAD 14:48
PROVIDERS: ATTEND Nurse Practitioner Family
DX: J44.9 Chronic obstructive pulmonary disease, unspecified (principal)
CPT/HCPCS: 71046

== ENCOUNTER → 2018-02-10 | Outpatient (CLI) | payer MEDICARE, OTHER ==
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
== END ==
LOC: RAD 08:49
PROVIDERS: ATTEND Orthopaedic Surgery
DX: S22.080A Wedge compression fracture of T11-T12 vertebra, initial encounter for closed fracture (principal); S32.010A Wedge compression fracture of first lumbar vertebra, initial encounter for closed fracture; M48.061 Spinal stenosis, lumbar region without neurogenic claudication; G95.89 Other specified diseases of spinal cord; G57.32 Lesion of lateral popliteal nerve, left lower limb; M51.27 Other intervertebral disc displacement, lumbosacral region; M51.25 Other intervertebral disc displacement, thoracolumbar region; M46.85 Other specified inflammatory spondylopathies, thoracolumbar region; M51.35 Other intervertebral disc degeneration, thoracolumbar region
CPT/HCPCS: 72148

== ENCOUNTER 2018-02-23 10:43 | Outpatient (RCR) | payer MEDICARE, OTHER ==
[2018-01-19 10:37] LABS: BASOPHILS % (AUTO) 0 % (0-10); EOSINOPHILS # (AUTO) 0.4 10^3/uL (0.0-0.3); EOSINOPHILS % (AUTO) 4 % (0-10); HEMATOCRIT 38 % (35-52); HEMOGLOBIN 12.2 G/DL (11.5-16.0); LYMPHOCYTES # (AUTO) 2.9 X 10^3 (1.0-4.0); LYMPHOCYTES % (AUTO) 29 % (12-44); MEAN CORPUSCULAR HEMOGLOBIN 28 PG (25-34); MEAN CORPUSCULAR HGB CONC 32 G/DL (32-36); MEAN CORPUSCULAR VOLUME 86 FL (80-99); MONOCYTES # (AUTO) 0.6 X 10^3 (0.0-1.0); MONOCYTES % (AUTO) 6 % (0-12); NEUTROPHILS # (AUTO) 5.9 X 10^3 (1.8-7.8); NEUTROPHILS % (AUTO) 60 % (42-75); PLATELET COUNT 193 10^3/uL (130-400); RED CELL DISTRIBUTION WIDTH 15.6 % (10.0-14.5); WHITE BLOOD COUNT 9.8 10^3/uL (4.3-11.0)
[2018-01-19 10:56] LABS: ALBUMIN 3.6 GM/DL (3.2-4.5); BILIRUBIN,TOTAL 0.3 MG/DL (0.1-1.0); CALCIUM 9.2 MG/DL (8.5-10.1); CREATININE SERUM 1.11 MG/DL (0.60-1.30); POTASSIUM 3.6 MMOL/L (3.6-5.0); TOTAL PROTEIN 7.1 GM/DL (6.4-8.2)
== END 2018-04-19 | disposition home or self-care (01) ==
LOC: ONC 10:43
PROVIDERS: ATTEND Internal Medicine Hematology & Oncology
DX: C21.8 Malignant neoplasm of overlapping sites of rectum, anus and anal canal (principal); M81.0 Age-related osteoporosis without current pathological fracture; G95.89 Other specified diseases of spinal cord; Z93.3 Colostomy status; Z79.899 Other long term (current) drug therapy
CPT/HCPCS: 36415; 36591; 80053; 82378; 85025; 96523; 99213

== ENCOUNTER 2018-02-26 12:59 | Outpatient (RCR) | payer MEDICARE, OTHER | END 2018-03-05 16:32 | disposition home or self-care (01) | PROVIDERS: ATTEND Internal Medicine | DX: M21.372 Foot drop, left foot (principal) ==

== ENCOUNTER 2018-03-25 08:07 | Outpatient (RCR) | payer MEDICARE, OTHER ==
[2018-03-19] MEDS: LINEZOLID 600MG/300ML IVPB (PRE-MIX) IV SCH ×2 (10:00→20:38)
[2018-03-19 11:25] VITALS: BP 137/65
[2018-03-19 22:51] VITALS: BP 130/62
[2018-03-20] MEDS: LINEZOLID 600MG/300ML IVPB (PRE-MIX) IV SCH ×2 (09:28→19:04)
[2018-03-20 09:30] VITALS: BP 119/77
[2018-03-20 19:10] VITALS: BP 135/60
[2018-03-20 20:11] VITALS: BP 135/60
[2018-03-21] MEDS: LINEZOLID 600MG/300ML IVPB (PRE-MIX) IV SCH ×2 (08:16→20:02)
[2018-03-21 09:23] VITALS: BP 118/77
[2018-03-21 20:00] VITALS: BP 127/74
[2018-03-22] MEDS: LINEZOLID 600MG/300ML IVPB (PRE-MIX) IV SCH ×2 (07:53→18:57)
[2018-03-22 08:55] VITALS: BP 138/67
[2018-03-22 18:57] VITALS: BP 120/78
[2018-03-22 20:01] VITALS: BP 120/78
[2018-03-23 07:42] VITALS: BP 141/73
[2018-03-23] MEDS: LINEZOLID 600MG/300ML IVPB (PRE-MIX) IV SCH ×2 (07:54→19:00)
[2018-03-23 19:00] VITALS: BP 140/69
[2018-03-23 20:04] VITALS: BP 140/69
[2018-03-24 07:46] VITALS: BP 141/73
[2018-03-24] MEDS: LINEZOLID 600MG/300ML IVPB (PRE-MIX) IV SCH ×2 (07:52→18:47)
[2018-03-24 18:45] VITALS: BP 140/70
[2018-03-24 19:52] VITALS: BP 140/70
[~2018-03-25] VITALS: Ht 157.5 cm; Wt 42.3 kg
[2018-03-25 08:07] VITALS: BP 151/83
[~2018-03-25 08:07] MED LIST changes: +LINEZOLID IVPB 300 ML IV ONE
[2018-03-25] MEDS: LINEZOLID 600MG/300ML IVPB (PRE-MIX) IV SCH ×2 (08:25→18:45)
[2018-03-25 18:50] VITALS: BP 163/73
[2018-03-25 20:03] VITALS: BP 163/73
== END 2018-03-25 20:30 | disposition home or self-care (01) ==
LOC: SDC 08:07
PROVIDERS: ATTEND Internal Medicine
DX: N39.0 Urinary tract infection, site not specified (principal); B95.62 Methicillin resistant Staphylococcus aureus infection as the cause of diseases classified elsewhere
CPT/HCPCS: 96365; 96523

== ENCOUNTER 2018-04-28 10:43 | Emergency (ER) | payer MEDICARE, OTHER ==
[~2018-04-28] VITALS: Ht 157.5 cm; Wt 41.7 kg
[~2018-04-28 10:43] MED LIST changes: -LINEZOLID IVPB 300 ML IV ONE
[2018-04-28 11:13] LABS: CLARITY,URINE CLEAR; COLOR,URINE YELLOW; GLUCOSE, URINE (UA) NEGATIVE (NEGATIVE); KETONES,URINE NEGATIVE (NEGATIVE); LEUKOCYTE ESTERASE ,URINE 3+ (NEGATIVE); NITRITE,URINE NEGATIVE (NEGATIVE); PH,URINE 5 (5-9); PROTEIN,URINE 2+ (NEGATIVE); UROBILINOGEN,URINE NORMAL (NORMAL)
[2018-04-28 11:25] LABS: BACTERIA,URINE FEW /HPF; BILIRUBIN,URINE 1+ (NEGATIVE); WBC,URINE 50-100 /HPF
[2018-04-28] MEDS ORDERED: KETOROLAC 30 MG/ML VIAL IVP STA (11:32)
[2018-04-28] MEDS ORDERED: NS IV 1000 ML 1,000 ML IV SCH (11:32)
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
[2018-04-28] MEDS ORDERED: ONDANSETRON 4 MG/2 ML (SDV) Z0FRAN IVP ONE (11:45)
[2018-04-28 12:02] LABS: BASOPHILS % (AUTO) 0 % (0-10); EOSINOPHILS # (AUTO) 0.3 10^3/uL (0.0-0.3); EOSINOPHILS % (AUTO) 2 % (0-10); HEMATOCRIT 38 % (35-52); HEMOGLOBIN 12.3 G/DL (11.5-16.0); LYMPHOCYTES # (AUTO) 2.8 X 10^3 (1.0-4.0); LYMPHOCYTES % (AUTO) 26 % (12-44); MEAN CORPUSCULAR HEMOGLOBIN 28 PG (25-34); MEAN CORPUSCULAR HGB CONC 32 G/DL (32-36); MEAN CORPUSCULAR VOLUME 87 FL (80-99); MEAN PLATELET VOLUME 9.1 FL (7.4-10.4); MONOCYTES # (AUTO) 0.7 X 10^3 (0.0-1.0); MONOCYTES % (AUTO) 7 % (0-12); NEUTROPHILS # (AUTO) 6.9 X 10^3 (1.8-7.8); NEUTROPHILS % (AUTO) 64 % (42-75); PLATELET COUNT 183 10^3/uL (130-400); RED CELL DISTRIBUTION WIDTH 15.1 % (10.0-14.5); WHITE BLOOD COUNT 10.8 10^3/uL (4.3-11.0)
[2018-04-28 12:22] LABS: ALBUMIN 3.6 GM/DL (3.2-4.5); BILIRUBIN,TOTAL 0.4 MG/DL (0.1-1.0); CALCIUM 9.3 MG/DL (8.5-10.1); CREATININE SERUM 1.44 MG/DL (0.60-1.30); POTASSIUM 3.9 MMOL/L (3.6-5.0)
--- NOTE | 2018-04-28 12:53 | Diagnostic Imaging Report ---
PROCEDURE: CT urinary tract, rule out kidney stone. TECHNIQUE: Multiple contiguous axial images were obtained through the abdomen and pelvis without the use of intravenous contrast. INDICATION: Status post recent removal of a left ureteral stent on 04/22/2018. Continued pain. History of Crohn's disease and colorectal carcinoma. CORRELATION STUDY: 05/21/2017. FINDINGS: LOWER THORAX: Unchanged tiny 2 mm nodule in the posterolateral right lower lobe. Minimal thickening along the fissure plane. No basilar infiltrate. LIVER: Unremarkable on unenhanced imaging. GALLBLADDER: Present and unremarkable. No bile duct dilatation. SPLEEN: Unremarkable. PANCREAS: Mild fatty changes. Otherwise unremarkable. ADRENAL GLANDS: Unremarkable. KIDNEYS: Marked severity left-sided hydroureteronephrosis is again demonstrated. The severity of dilatation of the renal pelvis does appear to be increased from prior study. Rather diffuse thinning and compression about the renal parenchyma also has progressed. This appears to be attributed to two if not three adjacent distal left ureteral stones. The size of the stones is actually fairly small, only approximately 4 mm in maximum size. Distally, there are calcifications in the left hemipelvis but appear to be just adjacent to the course of the distal left ureter. Additional larger calcification centrally within the left kidney is 12 x 11 mm. Right kidney contains at least three small nonobstructing right renal stones. The collecting system is nondilated. No definitive ureteric calcification. ABDOMINAL AORTA: Mild wall calcification, nonaneurysmal. No pathologically enlarged central retroperitoneal lymph nodes. GASTROINTESTINAL TRACT: Extensive surgical changes of the abdominal wall and gastrointestinal tract. Resection of the distal colon with a left lower quadrant ostomy. Stomal hernia is present containing multiple herniated loops of small bowel. This is a change from prior study. High-degree bowel obstruction does not appear to be present. There is, however, rather significant amount of retained stool throughout the remainder of the colon. No significant abdominal ascites. Diffuse wall thickening of the abdominal wall is generally stable. Presacral soft tissue thickening and distortion is unchanged. URINARY BLADDER: There is abnormal contour deformity with abnormal areas of suggested retraction both anteriorly and posteriorly of the urinary bladder. This appears generally stable. Diffuse bladder wall thickening present. REPRODUCTIVE: Uterus is absent. OSSEOUS STRUCTURES: Iulvivrk-hj-imrdda compression deformities at T12 and L1 perhaps slightly more progressed from prior study but appear to be nonacute. Diffuse bony demineralization. Marked disc space narrowing at L5-S1 level. Likely prior fracture deformities of the left hemipelvis. OTHER: None. IMPRESSION: 1. Rather marked severity left-sided obstructive uropathy owing to likely three stones in the mid to distal left ureter. The severity of obstruction is more severe from previous study. There is rather significant amount of compression and diffuse thinning of the left renal parenchyma. 2. Additional nonobstructing bilateral renal stones present. 3. Postop changes with left lower quadrant ostomy. There is a peristomal hernia with multiple loops of herniated bowel. No definitive evidence for obstruction is suggested at this time. However, there is moderate severity fecal retention present. Likely some of adhesed loops of bowel to the anterior abdominal wall. Dictated by: Dictated on workstation # [id number]
[2018-04-28 13:48] VITALS: BP 134/72
== END 2018-04-28 13:48 | disposition home or self-care (01) ==
LOC: EDUNIT# 10:43 → ER 10:45
DX: N13.6 Pyonephrosis (principal); J45.909 Unspecified asthma, uncomplicated; M81.0 Age-related osteoporosis without current pathological fracture; F41.9 Anxiety disorder, unspecified; Z85.048 Personal history of other malignant neoplasm of rectum, rectosigmoid junction, and anus; Z85.528 Personal history of other malignant neoplasm of kidney; Z92.21 Personal history of antineoplastic chemotherapy; Z80.42 Family history of malignant neoplasm of prostate; Z87.19 Personal history of other diseases of the digestive system; Z87.442 Personal history of urinary calculi; Z87.440 Personal history of urinary (tract) infections; Z88.0 Allergy status to penicillin; Z88.2 Allergy status to sulfonamides; Z88.8 Allergy status to other drugs, medicaments and biological substances; Z90.710 Acquired absence of both cervix and uterus; Z98.890 Other specified postprocedural states
CPT/HCPCS: 36415; 74176; 80053; 81000; 82150; 83690; 85025; 87088

== ENCOUNTER → 2018-05-03 | Outpatient (CLI) | payer MEDICARE, OTHER | LOC: LAB 14:36 | PROVIDERS: ATTEND Internal Medicine | DX: R19.7 Diarrhea, unspecified (principal) | CPT/HCPCS: 87493 ==

== ENCOUNTER 2018-05-19 16:57 | Outpatient (RCR) | payer MEDICARE, OTHER ==
[2018-05-19 17:17] LABS: BASOPHILS # (AUTO) 0.1 10^3/uL (0.0-0.1); BASOPHILS % (AUTO) 1 % (0-10); EOSINOPHILS # (AUTO) 0.3 10^3/uL (0.0-0.3); EOSINOPHILS % (AUTO) 4 % (0-10); HEMATOCRIT 36 % (35-52); LYMPHOCYTES # (AUTO) 3.3 X 10^3 (1.0-4.0); LYMPHOCYTES % (AUTO) 34 % (12-44); MEAN CORPUSCULAR HEMOGLOBIN 28 PG (25-34); MEAN CORPUSCULAR HGB CONC 33 G/DL (32-36); MEAN CORPUSCULAR VOLUME 85 FL (80-99); MEAN PLATELET VOLUME 8.9 FL (7.4-10.4); MONOCYTES # (AUTO) 0.7 X 10^3 (0.0-1.0); MONOCYTES % (AUTO) 8 % (0-12); NEUTROPHILS # (AUTO) 5.2 X 10^3 (1.8-7.8); NEUTROPHILS % (AUTO) 55 % (42-75); PLATELET COUNT 260 10^3/uL (130-400); RED CELL DISTRIBUTION WIDTH 15.6 % (10.0-14.5); WHITE BLOOD COUNT 9.6 10^3/uL (4.3-11.0)
[2018-05-19 17:36] LABS: ALBUMIN 3.4 GM/DL (3.2-4.5); BILIRUBIN,TOTAL 0.2 MG/DL (0.1-1.0); CALCIUM 8.5 MG/DL (8.5-10.1); CREATININE SERUM 1.14 MG/DL (0.60-1.30); MAGNESIUM 1.4 MG/DL (1.8-2.4); POTASSIUM 3.5 MMOL/L (3.6-5.0)
[2018-05-19 17:46] LABS: BACTERIA,URINE FEW /HPF; BILIRUBIN,URINE NEGATIVE (NEGATIVE); CLARITY,URINE SLIGHTLY CLOUDY; COLOR,URINE YELLOW; GLUCOSE, URINE (UA) NEGATIVE (NEGATIVE); KETONES,URINE NEGATIVE (NEGATIVE); LEUKOCYTE ESTERASE ,URINE 3+ (NEGATIVE); NITRITE,URINE POSITIVE (NEGATIVE); PH,URINE 6 (5-9); PROTEIN,URINE 3+ (NEGATIVE); SQUAMOUS EPITHELIAL CELL,UR 0-2 /HPF; UROBILINOGEN,URINE NORMAL (NORMAL); WBC,URINE >100 /HPF
[2018-05-19 18:00] LABS: OCCULT BLOOD STOOL IMMUNOASSAY NEGATIVE (NEGATIVE)
== END 2018-08-17 | disposition home or self-care (01) ==
LOC: LAB 16:57
PROVIDERS: ATTEND Nurse Practitioner Family
DX: R50.9 Fever, unspecified (principal); R05 Cough; R19.7 Diarrhea, unspecified
CPT/HCPCS: 36415; 80053; 81000; 82274; 83735; 85025; 86738; 87015; 87045; 87046; 87088; 87106; 87205; 87324; 87328; 87329; 87449; 87899

== ENCOUNTER 2018-05-21 12:07 | Outpatient (CLI) | payer MEDICARE, OTHER ==
[~2018-05-21] VITALS: Ht 157.5 cm; Wt 41.3 kg
[2018-05-21] MEDS ORDERED: D5 LR IV SOLUTION 1,000 ML IV ONE (12:30)
[2018-05-21] MEDS: MAGNESIUM 1 GM/D5W 100 ML IVPB IV SCH ×2 (12:35→13:31)
[2018-05-21] MEDS ORDERED: CATHETER FLUSH 10 ML SYR IV PRN (12:45)
[2018-05-21 15:07] VITALS: BP 145/67
== END 2018-05-21 15:07 | disposition home or self-care (01) ==
LOC: SDC 12:07
PROVIDERS: ATTEND Nurse Practitioner Family
DX: E86.0 Dehydration (principal); E83.42 Hypomagnesemia; E87.6 Hypokalemia
CPT/HCPCS: 96361; 96365

== ENCOUNTER 2018-05-27 08:31 | Emergency (ER) | payer MEDICARE, OTHER ==
[~2018-05-27] VITALS: Ht 157.5 cm; Wt 40.8 kg
[2018-05-27 09:04] LABS: BILIRUBIN,URINE NEGATIVE (NEGATIVE); CLARITY,URINE SLIGHTLY CLOUDY; COLOR,URINE YELLOW; GLUCOSE, URINE (UA) NEGATIVE (NEGATIVE); KETONES,URINE NEGATIVE (NEGATIVE); LEUKOCYTE ESTERASE ,URINE 3+ (NEGATIVE); NITRITE,URINE POSITIVE (NEGATIVE); PH,URINE 6 (5-9); PROTEIN,URINE 3+ (NEGATIVE); UROBILINOGEN,URINE NORMAL (NORMAL)
[2018-05-27 09:17] LABS: BACTERIA,URINE MODERATE /HPF; WBC,URINE TNTC /HPF
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
[2018-05-27 10:04] LABS: BASOPHILS % (AUTO) 0 % (0-10); EOSINOPHILS # (AUTO) 0.1 10^3/uL (0.0-0.3); EOSINOPHILS % (AUTO) 1 % (0-10); HEMATOCRIT 35 % (35-52); HEMOGLOBIN 11.4 G/DL (11.5-16.0); LYMPHOCYTES # (AUTO) 2.3 X 10^3 (1.0-4.0); LYMPHOCYTES % (AUTO) 19 % (12-44); MEAN CORPUSCULAR HEMOGLOBIN 28 PG (25-34); MEAN CORPUSCULAR HGB CONC 33 G/DL (32-36); MEAN CORPUSCULAR VOLUME 87 FL (80-99); MONOCYTES # (AUTO) 0.7 X 10^3 (0.0-1.0); MONOCYTES % (AUTO) 6 % (0-12); NEUTROPHILS # (AUTO) 8.7 X 10^3 (1.8-7.8); NEUTROPHILS % (AUTO) 73 % (42-75); PLATELET COUNT 181 10^3/uL (130-400); RED CELL DISTRIBUTION WIDTH 15.6 % (10.0-14.5); WHITE BLOOD COUNT 11.9 10^3/uL (4.3-11.0)
[2018-05-27 10:28] LABS: ALBUMIN 3.1 GM/DL (3.2-4.5); BILIRUBIN,TOTAL 0.3 MG/DL (0.1-1.0); CALCIUM 8.3 MG/DL (8.5-10.1); CREATININE SERUM 1.09 MG/DL (0.60-1.30); POTASSIUM 3.5 MMOL/L (3.6-5.0); TOTAL PROTEIN 6.3 GM/DL (6.4-8.2)
--- NOTE | 2018-05-27 10:57 | Diagnostic Imaging Report ---
PROCEDURE: CT urinary tract, rule out kidney stone. TECHNIQUE: Multiple contiguous axial images were obtained through the abdomen and pelvis without the use of intravenous contrast. Auto Exposure Controls were utilized during the CT exam to meet ALARA standards for radiation dose reduction. INDICATION: Right flank pain. Nausea. History of indwelling left renal stent. COMPARISON: 04/28/2018 FINDINGS: Included portions of the lung bases show a punctate 3 mm micronodule within the posterior lateral margins of the right lower lobe. This is stable compared to 05/21/2017. CT ABDOMEN: Since the previous exam, there has been interval placement of a left-sided double-J ureteral stent. Patency of the stent could not be well-assessed on this exam, but there has been significant interval improvement in left-sided hydroureteronephrosis. Ureteral stent appears to be in appropriate position. Mild residual prominence of the left renal pelvis and calyces persists. Bulky nonobstructive left renal calcification is again identified. Since the previous exam, there has been interval migration of 3 mm calculus into the distal right ureter (image 103, series 3). As a result, there has been interval development of severe right-sided hydroureteronephrosis. Additional punctate nonobstructive right renal calculi are also noted. No focal renal mass type lesions are identified on this noncontrast exam. The adrenal glands, spleen, pancreas, and liver have an unremarkable noncontrast CT appearance. There is no loculated fluid collection, free fluid, nor free air within the abdomen. No abnormal mesenteric or retroperitoneal adenopathy is seen. The patient is status post previous partial colectomy. Ostomy site is present within the left lower abdominal quadrant. 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 Small bowel loops are decompressed. Therefore, small bowel wall cannot be assess for potential stimulation. There is however no evidence of obstruction. A moderate amount of air and stool is noted scattered throughout the colon urine There is mild scattered calcified aortic and arterial atherosclerosis. Bony structures show no acute abnormality. CT PELVIS: The urinary bladder is unopacified. No calculi are seen within the urinary bladder. There is no loculated fluid collection, free fluid, or free air within the pelvis. No abnormal lymph nodes are identified. Bony structures show no acute abnormalities. The patient appears to be status post previous ventral hernia repair. IMPRESSION: 1. Interval migration of 3 mm calculus into the distal right ureter resulting in severe proximal hydroureteronephrosis. 2. Multiple additional bilateral nonobstructive renal calculi. 3. Interval placement of left-sided double-J ureteral stent with significant interval decompression of left-sided renal collecting system. Again, there is mild residual hydronephrosis. 4. Status post previous partial left hemicolectomy. Again, there is an ostomy site within the left lower abdominal quadrant with parastomal herniation of multiple small bowel loops. There is no evidence of obstruction. 5. Large amount of colonic air and stool. Please correlate for constipation. 6. Stable small subpleural 3 mm micronodule within the right lower lobe. Dictated by: Dictated on workstation # [id number]
[2018-05-27 12:15] VITALS: BP 151/76
[2018-05-27] MEDS ORDERED: HEParin (CENTRAL IV FLUSH) 500 UNIT/5 ML SYR ONE (12:17)
== END 2018-05-27 12:15 | disposition home or self-care (01) ==
LOC: EDUNIT# 08:31 → ER 08:34
DX: N13.6 Pyonephrosis (principal); J45.909 Unspecified asthma, uncomplicated; M81.0 Age-related osteoporosis without current pathological fracture; F41.9 Anxiety disorder, unspecified; D64.9 Anemia, unspecified; Z85.038 Personal history of other malignant neoplasm of large intestine; Z85.048 Personal history of other malignant neoplasm of rectum, rectosigmoid junction, and anus; Z82.49 Family history of ischemic heart disease and other diseases of the circulatory system; Z85.528 Personal history of other malignant neoplasm of kidney; Z92.21 Personal history of antineoplastic chemotherapy; Z93.3 Colostomy status; Z87.19 Personal history of other diseases of the digestive system; Z88.0 Allergy status to penicillin; Z88.2 Allergy status to sulfonamides; Z88.8 Allergy status to other drugs, medicaments and biological substances; Z90.710 Acquired absence of both cervix and uterus; Z98.890 Other specified postprocedural states
CPT/HCPCS: 36415; 74176; 80053; 81000; 85025; 87077; 87088; 87186

== ENCOUNTER → 2018-07-19 | Outpatient (CLI) | payer MEDICARE, OTHER ==
--- NOTE | 2018-07-19 11:25 | Diagnostic Imaging Report ---
INDICATION: Routine screening. COMPARISON: 07/16/2017 and 05/01/2016. TECHNIQUE: 2D and 3D bilateral screening mammography was performed with CAD. FINDINGS: Both breasts demonstrate marked parenchymal density, limiting the sensitivity of mammography. The chest wall port had has a hub overlying the left axilla. The breast parenchyma appears stable. No mass or malignant appearing microcalcifications are seen. There are vascular calcifications bilaterally. IMPRESSION: No mammographic features suspicious for malignancy are identified. ACR BI-RADS Category 2: Benign findings. Result letter will be mailed to the patient. Note: At least 10% of breast cancer is not imaged by mammography. Dictated by: Dictated on workstation # [id number]
== END ==
LOC: RAD 10:00
PROVIDERS: ATTEND Nurse Practitioner Adult Health
DX: Z12.31 Encounter for screening mammogram for malignant neoplasm of breast (principal)
CPT/HCPCS: 77067

== ENCOUNTER 2018-08-23 12:25 | Emergency (ER) | payer MEDICARE, OTHER ==
[~2018-08-23] VITALS: Ht 154.9 cm; Wt 40.4 kg
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
[2018-08-23] MEDS ORDERED: KETOROLAC 30 MG/ML VIAL IVP ONE (12:45)
[2018-08-23] MEDS ORDERED: NS IV 500 ML 500 ML IV SCH (12:45)
[2018-08-23] MEDS ORDERED: ONDANSETRON 4 MG/2 ML (SDV) Z0FRAN IVP ONE (12:45)
[2018-08-23 12:54] LABS: BASOPHILS # (AUTO) 0.1 10^3/uL (0.0-0.1); BASOPHILS % (AUTO) 1 % (0-10); EOSINOPHILS # (AUTO) 0.2 10^3/uL (0.0-0.3); EOSINOPHILS % (AUTO) 2 % (0-10); HEMATOCRIT 35 % (35-52); HEMOGLOBIN 11.7 G/DL (11.5-16.0); LYMPHOCYTES # (AUTO) 1.9 X 10^3 (1.0-4.0); LYMPHOCYTES % (AUTO) 21 % (12-44); MEAN CORPUSCULAR HEMOGLOBIN 29 PG (25-34); MEAN CORPUSCULAR HGB CONC 33 G/DL (32-36); MEAN CORPUSCULAR VOLUME 86 FL (80-99); MEAN PLATELET VOLUME 9.5 FL (7.4-10.4); MONOCYTES # (AUTO) 0.5 X 10^3 (0.0-1.0); MONOCYTES % (AUTO) 6 % (0-12); NEUTROPHILS # (AUTO) 6.1 X 10^3 (1.8-7.8); NEUTROPHILS % (AUTO) 70 % (42-75); PLATELET COUNT 184 10^3/uL (130-400); RED CELL DISTRIBUTION WIDTH 15.1 % (10.0-14.5); WHITE BLOOD COUNT 8.8 10^3/uL (4.3-11.0)
[2018-08-23 12:55] LABS: BILIRUBIN,URINE NEGATIVE (NEGATIVE); CLARITY,URINE VERY CLOUDY; COLOR,URINE AMBER; GLUCOSE, URINE (UA) NEGATIVE (NEGATIVE); KETONES,URINE NEGATIVE (NEGATIVE); LEUKOCYTE ESTERASE ,URINE 3+ (NEGATIVE); NITRITE,URINE NEGATIVE (NEGATIVE); PH,URINE 6 (5-9); PROTEIN,URINE 3+ (NEGATIVE); UROBILINOGEN,URINE NORMAL (NORMAL)
[2018-08-23 13:18] LABS: ALBUMIN 2.9 GM/DL (3.2-4.5); BILIRUBIN,TOTAL 0.3 MG/DL (0.1-1.0); CALCIUM 8.3 MG/DL (8.5-10.1); CREATININE SERUM 1.26 MG/DL (0.60-1.30); POTASSIUM 3.2 MMOL/L (3.6-5.0); TOTAL PROTEIN 5.9 GM/DL (6.4-8.2)
[2018-08-23 13:28] LABS: BACTERIA,URINE FEW /HPF; RBC,URINE TNTC /HPF; WBC,URINE TNTC /HPF
[2018-08-23 13:29] LABS: SQUAMOUS EPITHELIAL CELL,UR RARE /HPF
[2018-08-23] MEDS ORDERED: KCL 20 MEQ TAB (K-DUR) PO ONE (13:30)
--- NOTE | 2018-08-23 13:43 | Diagnostic Imaging Report ---
PROCEDURE: CT urinary tract, rule out kidney stone. TECHNIQUE: Multiple contiguous axial images were obtained through the abdomen and pelvis without the use of intravenous contrast. Auto Exposure Controls were utilized during the CT exam to meet ALARA standards for radiation dose reduction. INDICATION: Right flank pain. COMPARISON: 05/27/2018. FINDINGS: Evaluation of the abdominal viscera is mildly limited without contrast. Lower chest: The lung bases are clear. No pericardial or pleural effusion. Peritoneum: No free intraperitoneal air or fluid. Liver and biliary system: The unenhanced liver is normal. The gallbladder is normal. No biliary duct dilation. Spleen and Pancreas: The spleen is normal. Unenhanced pancreas is grossly normal. Adrenals: Normal. tract: Moderate dilation of the right renal pelvis and proximal ureter is unchanged since the prior examination. There is now layering hyperdense material measuring 1.4 x 1.4 cm in the proximal ureter at the level of the renal pelvis. No obstructing distal ureteral stone. Multiple punctate nonobstructing right renal stones are unchanged. The left-sided nephroureteral stent is in place within a dilated collecting system is unchanged when compared to prior examination. The previously 10 mm noted stone in the left kidney has migrated into the mid left ureter adjacent to the stent. GI tract: Left lower quadrant colostomy is again noted. There is a parastomal hernia containing multiple small bowel loops which is unchanged since the prior examination. No bowel obstruction. No pericolonic inflammatory changes. The appendix is not seen with certainty. Stable changes of lower anterior wall herniorrhaphy. Vasculature and Lymph nodes: Normal caliber aorta. No abdominal or pelvic lymphadenopathy. Musculoskeletal: No concerning osseous lesion. Chronic superior endplate compression fractures of T12 and L1. Old fracture deformity of the left pubic body. IMPRESSION: 1. The moderate right hydronephrosis and hydroureter are unchanged since 05/27/2018; however, there is now layering nonobstructing hyperdense material in the proximal right ureter which may represent a combination of hemorrhage and nonobstructing stones. 2. Numerous additional punctate nonobstructing right renal stones are unchanged. 3. Left nephroureteral stent is in stable position. There is now a 10 mm stone along the mid aspect of the left ureter adjacent to the stone. 4. Unchanged nonobstructed parastomal hernia in the left lower quadrant. Dictated by: Dictated on workstation # [id number]
[2018-08-23] MEDS ORDERED: MAGNESIUM OXIDE (MAG-OX)400 MG TAB PO ONE (14:00)
[2018-08-23 14:05] VITALS: BP 147/77
== END 2018-08-23 14:05 | disposition home or self-care (01) ==
LOC: EDUNIT# 12:25 → ER 12:27
DX: N13.6 Pyonephrosis (principal); J45.909 Unspecified asthma, uncomplicated; M81.0 Age-related osteoporosis without current pathological fracture; F41.9 Anxiety disorder, unspecified; D64.9 Anemia, unspecified; Z85.048 Personal history of other malignant neoplasm of rectum, rectosigmoid junction, and anus; Z85.528 Personal history of other malignant neoplasm of kidney; Z92.21 Personal history of antineoplastic chemotherapy; Z85.038 Personal history of other malignant neoplasm of large intestine; Z87.442 Personal history of urinary calculi; Z87.440 Personal history of urinary (tract) infections; Z93.3 Colostomy status; Z87.19 Personal history of other diseases of the digestive system; Z88.0 Allergy status to penicillin; Z88.2 Allergy status to sulfonamides; Z88.8 Allergy status to other drugs, medicaments and biological substances; Z96.0 Presence of urogenital implants; Z90.710 Acquired absence of both cervix and uterus; Z98.890 Other specified postprocedural states
CPT/HCPCS: 36415; 74176; 80053; 81000; 82378; 83735; 85025; 87077; 87088; 87186

== ENCOUNTER → 2018-09-08 | Outpatient (CLI) | payer MEDICARE, OTHER ==
[2018-09-08 14:39] LABS: ALBUMIN 3.2 GM/DL (3.2-4.5); BILIRUBIN,TOTAL 0.2 MG/DL (0.1-1.0); CALCIUM 8.2 MG/DL (8.5-10.1); CREATININE SERUM 1.12 MG/DL (0.60-1.30); POTASSIUM 3.5 MMOL/L (3.6-5.0); TOTAL PROTEIN 5.9 GM/DL (6.4-8.2)
== END ==
LOC: LAB 13:50
PROVIDERS: ATTEND Internal Medicine
DX: N39.0 Urinary tract infection, site not specified (principal); N20.0 Calculus of kidney; R60.1 Generalized edema
CPT/HCPCS: 36415; 80053

== ENCOUNTER 2018-09-28 09:25 | Outpatient (RCR) | payer MEDICARE, OTHER ==
[2018-07-12 09:16] LABS: BASOPHILS # (AUTO) 0.1 10^3/uL (0.0-0.1); BASOPHILS % (AUTO) 1 % (0-10); EOSINOPHILS # (AUTO) 0.3 10^3/uL (0.0-0.3); EOSINOPHILS % (AUTO) 3 % (0-10); HEMATOCRIT 38 % (35-52); LYMPHOCYTES # (AUTO) 2.4 X 10^3 (1.0-4.0); LYMPHOCYTES % (AUTO) 27 % (12-44); MEAN CORPUSCULAR HEMOGLOBIN 28 PG (25-34); MEAN CORPUSCULAR HGB CONC 32 G/DL (32-36); MEAN CORPUSCULAR VOLUME 89 FL (80-99); MEAN PLATELET VOLUME 9.3 FL (7.4-10.4); MONOCYTES # (AUTO) 0.7 X 10^3 (0.0-1.0); MONOCYTES % (AUTO) 8 % (0-12); NEUTROPHILS # (AUTO) 5.4 X 10^3 (1.8-7.8); NEUTROPHILS % (AUTO) 61 % (42-75); PLATELET COUNT 248 10^3/uL (130-400); RED CELL DISTRIBUTION WIDTH 14.9 % (10.0-14.5); WHITE BLOOD COUNT 8.9 10^3/uL (4.3-11.0)
[2018-07-12 09:32] LABS: ALBUMIN 2.9 GM/DL (3.2-4.5); BILIRUBIN,TOTAL 0.3 MG/DL (0.1-1.0); CALCIUM 8.7 MG/DL (8.5-10.1); CREATININE SERUM 1.27 MG/DL (0.60-1.30); MAGNESIUM 1.3 MG/DL (1.8-2.4); TOTAL PROTEIN 5.9 GM/DL (6.4-8.2)
[~2018-09-28 09:25] MED LIST changes: +MAGNESIUM SULFATE IV ONE; +NS IV ONE
== END 2018-10-10 | disposition home or self-care (01) ==
LOC: ONC 09:25
PROVIDERS: ATTEND Internal Medicine Hematology & Oncology
DX: C21.8 Malignant neoplasm of overlapping sites of rectum, anus and anal canal (principal); M81.0 Age-related osteoporosis without current pathological fracture; G95.89 Other specified diseases of spinal cord; Z93.3 Colostomy status; Z79.899 Other long term (current) drug therapy
CPT/HCPCS: 36415; 36591; 80053; 82378; 83735; 85025; 96365; 96523

== ENCOUNTER → 2018-10-04 | Outpatient (CLI) | payer MEDICARE, OTHER ==
[~2018-10-04] VITALS: Ht 154.9 cm; Wt 40.4 kg
[~2018-10-04] MED LIST changes: -MAGNESIUM SULFATE IV ONE; -NS IV ONE
[2018-10-04 10:49] VITALS: BP 172/83
[2018-10-04 11:49] VITALS: BP 172/83
== END ==
LOC: SDC 10:45
PROVIDERS: ATTEND Internal Medicine
DX: M81.0 Age-related osteoporosis without current pathological fracture (principal)
CPT/HCPCS: 96365

== ENCOUNTER 2018-11-11 11:08 | Outpatient (RCR) | payer MEDICARE, OTHER | END 2018-11-11 16:22 | disposition home or self-care (01) | PROVIDERS: ATTEND Internal Medicine | DX: M21.372 Foot drop, left foot (principal); M62.81 Muscle weakness (generalized) ==

== ENCOUNTER 2018-12-13 08:11 | Outpatient (RCR) | payer MEDICARE, OTHER ==
[2018-12-07 09:45] VITALS: BP 163/74
[2018-12-07] MEDS: LINEZOLID 600MG/300ML IVPB (PRE-MIX) IV SCH ×2 (10:18→20:07)
[2018-12-07 21:22] VITALS: BP 141/65
[2018-12-08] MEDS: LINEZOLID 600MG/300ML IVPB (PRE-MIX) IV SCH ×2 (09:05→20:17)
[2018-12-08 09:11] VITALS: BP 151/73
--- NOTE | 2018-12-08 20:20 | NUR ---
"PATIENT ARRIVED FOR OUTPATIENT IV ANTIBIOTICS ZYVOX 600MG/300ML @ 300ML/HR. VITAL SIGNS BP 149/78 | HR 101 | SPO2 99% RA | T 36.9C | PAIN 0/10 | RR 16. PATIENTS PORT FLUSHED WITH 10CC NS, ATB RUN OVER ONE HOUR, PORT FLUSHED WITH 20CC NS AND BOTH CLAMPS LOCKED. PATIENT AND SPOUSE LEFT WITH ALL BELONGINGS. WILL RETURN TO DAY SURGERY FOR 0800 INFUSION."
[2018-12-09 09:05] VITALS: BP 140/72
[2018-12-09] MEDS: LINEZOLID 600MG/300ML IVPB (PRE-MIX) IV SCH ×2 (09:07→19:48)
[2018-12-09 20:05] VITALS: BP 125/69
[2018-12-10] MEDS: LINEZOLID 600MG/300ML IVPB (PRE-MIX) IV SCH ×2 (08:37→19:21)
[2018-12-10 09:37] VITALS: BP 151/66
[2018-12-10 19:23] VITALS: BP 146/66
[2018-12-11] MEDS: LINEZOLID 600MG/300ML IVPB (PRE-MIX) IV SCH ×2 (08:25→19:11)
[2018-12-11 09:30] VITALS: BP 146/70
[2018-12-11 20:20] VITALS: BP 171/75
[2018-12-12] MEDS: LINEZOLID 600MG/300ML IVPB (PRE-MIX) IV SCH ×2 (08:22→19:02)
[2018-12-12 09:52] VITALS: BP 166/80
[2018-12-12 20:10] VITALS: BP 180/84
[~2018-12-13] VITALS: Ht 152.4 cm; Wt 40.5 kg
[2018-12-13] MEDS: LINEZOLID 600MG/300ML IVPB (PRE-MIX) IV SCH ×2 (08:30→19:00)
[2018-12-13 08:39] VITALS: BP 178/78
[2018-12-13 18:44] VITALS: BP 173/83
[2018-12-13 21:44] VITALS: BP 0/0
== END 2019-03-07 | disposition home or self-care (01) ==
LOC: SDC 08:11
PROVIDERS: ATTEND Internal Medicine
DX: N39.0 Urinary tract infection, site not specified (principal); B95.62 Methicillin resistant Staphylococcus aureus infection as the cause of diseases classified elsewhere
CPT/HCPCS: 96365

== ENCOUNTER → 2019-01-18 | Outpatient (CLI) | payer MEDICARE, OTHER ==
--- NOTE | 2019-01-18 13:44 | Diagnostic Imaging Report ---
INDICATION: Rectal carcinoma with elevated CEA levels. This study is performed for restaging. TECHNIQUE: The serum blood glucose level at the time of injection is 43 mg/dL. The patient was administered 13.4 mCi of F18 FDG intravenously in the right wrist and PET imaging was performed from the top of the skull to the mid thighs. Noncontrast CT was also performed for attenuation correction and anatomic correlation. COMPARISON: Correlation is made with the prior noncontrast CT abdomen and pelvis from 08/23/2018. Comparison is also made with the prior PET study from 05/23/2014. FINDINGS: There is symmetric activity throughout the brain. The soft tissues of the neck are unremarkable. No mediastinal or hilar hypermetabolism is identified. No pulmonary parenchymal hypermetabolism is identified. There are post surgical changes in the abdomen with multiple surgical clips in the midline anterior abdomen. Post surgical changes in the pelvis are also seen. There is some physiologic excretion of FDG into the GI and tracts. No suspicious hypermetabolic foci are seen. Uptake at the left lower quadrant ostomy is noted which is likely physiologic. IMPRESSION: Essentially unremarkable PET/CT study. No suspicious hypermetabolism is identified. Dictated by: Dictated on workstation # [id number]
== END ==
LOC: RAD 09:50
PROVIDERS: ATTEND Internal Medicine Hematology & Oncology
DX: C20 Malignant neoplasm of rectum (principal); R97.8 Other abnormal tumor markers

== ENCOUNTER 2019-03-14 11:02 | Outpatient (RCR) | payer MEDICARE, OTHER ==
[2018-12-29 09:11] LABS: BASOPHILS # (AUTO) 0.1 10^3/uL (0.0-0.1); BASOPHILS % (AUTO) 1 % (0-10); EOSINOPHILS # (AUTO) 0.3 10^3/uL (0.0-0.3); EOSINOPHILS % (AUTO) 4 % (0-10); HEMATOCRIT 34 % (35-52); HEMOGLOBIN 10.7 G/DL (11.5-16.0); LYMPHOCYTES % (AUTO) 25 % (12-44); MEAN CORPUSCULAR HEMOGLOBIN 28 PG (25-34); MEAN CORPUSCULAR HGB CONC 32 G/DL (32-36); MEAN CORPUSCULAR VOLUME 87 FL (80-99); MONOCYTES # (AUTO) 0.5 X 10^3 (0.0-1.0); MONOCYTES % (AUTO) 6 % (0-12); NEUTROPHILS # (AUTO) 5.2 X 10^3 (1.8-7.8); NEUTROPHILS % (AUTO) 64 % (42-75); PLATELET COUNT 241 10^3/uL (130-400); RED CELL DISTRIBUTION WIDTH 16.3 % (10.0-14.5); WHITE BLOOD COUNT 8.1 10^3/uL (4.3-11.0)
[2018-12-29 09:40] LABS: ALBUMIN 3.7 GM/DL (3.2-4.5); BILIRUBIN,TOTAL 0.2 MG/DL (0.1-1.0); CALCIUM 8.8 MG/DL (8.5-10.1); CREATININE SERUM 1.72 MG/DL (0.60-1.30); POTASSIUM 3.8 MMOL/L (3.6-5.0); TOTAL PROTEIN 7.8 GM/DL (6.4-8.2)
[2019-03-26] MEDS ORDERED: OXYC-471 PO (21:25)
== END 2019-03-29 | disposition home or self-care (01) ==
LOC: ONC 11:02
PROVIDERS: ATTEND Internal Medicine Hematology & Oncology
DX: C20 Malignant neoplasm of rectum (principal); E86.0 Dehydration; R19.7 Diarrhea, unspecified; Z45.2 Encounter for adjustment and management of vascular access device
CPT/HCPCS: 36591; 80053; 82378; 83735; 85025; 96523; 99213

== ENCOUNTER 2019-03-26 20:22 | Emergency (ER) | payer MEDICARE, OTHER ==
[~2019-03-26] VITALS: Ht 152 cm; Wt 39.4 kg
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
--- NOTE | 2019-03-26 21:11 | Diagnostic Imaging Report ---
PROCEDURE: CT head and CT cervical spine without contrast. TECHNIQUE: Multiple contiguous axial images were obtained through the brain and cervical spine without the use of intravenous contrast. Sagittal and coronal reformations through the cervical spine were then performed. Auto Exposure Controls were utilized during the CT exam to meet ALARA standards for radiation dose reduction. INDICATION: Head injury. COMPARISON: None. FINDINGS: CT HEAD: Moderate generalized cerebral and cerebellar parenchymal volume loss. Advanced leukoaraiosis. No CT evidence of a territorial infarction. Osseous structures are intact. The visualized paranasal sinuses and mastoids are clear. CT cervical spine: Normal alignment. Vertebral body heights preserved. No fractures. Moderate spondylotic changes. The lung apices are clear. The visualized paravertebral soft tissues are unremarkable. IMPRESSION: No acute intracranial or cervical spine CT findings. Dictated by: Dictated on workstation # [id number]
--- NOTE | 2019-03-26 21:20 | Diagnostic Imaging Report ---
EXAM: KNEE, RIGHT, 3 VIEWS INDICATION: Fall. Right knee pain. COMPARISON: None. FINDINGS: No fracture or malalignment. No suspicious osteoblastic or lytic lesions. Small left knee joint effusion. Vascular calcifications. IMPRESSION: Small left knee joint effusion. No acute osseous findings. Dictated by: Dictated on workstation # [id number]
[2019-03-26] MEDS ORDERED: OXYC-471 PO (21:25)
[2019-03-26] MEDS ORDERED: RX-OXYCODONE/APAP 5-325 MG #4 TAB PK PO PRN (21:30)
[2019-03-26 21:50] VITALS: BP 167/79
== END 2019-03-26 21:39 | disposition home or self-care (01) ==
LOC: EDUNIT# 20:22 → ER 20:24
DX: M23.91 Unspecified internal derangement of right knee (principal); M25.461 Effusion, right knee; J45.909 Unspecified asthma, uncomplicated; F41.9 Anxiety disorder, unspecified; D64.9 Anemia, unspecified; Z85.038 Personal history of other malignant neoplasm of large intestine; Z85.528 Personal history of other malignant neoplasm of kidney; Z85.048 Personal history of other malignant neoplasm of rectum, rectosigmoid junction, and anus; Z87.442 Personal history of urinary calculi; Z87.440 Personal history of urinary (tract) infections; Z88.0 Allergy status to penicillin; Z88.2 Allergy status to sulfonamides; Z88.8 Allergy status to other drugs, medicaments and biological substances; Z90.710 Acquired absence of both cervix and uterus; Z82.49 Family history of ischemic heart disease and other diseases of the circulatory system; Z80.42 Family history of malignant neoplasm of prostate; W01.0XXA Fall on same level from slipping, tripping and stumbling without subsequent striking against object, initial encounter
CPT/HCPCS: 70450; 72125; 73562

== ENCOUNTER 2019-07-19 08:10 | Outpatient (RCR) | payer MEDICARE, OTHER ==
[2019-07-19 08:35] LABS: BASOPHILS # (AUTO) 0.1 10^3/uL (0.0-0.1); BASOPHILS % (AUTO) 1 % (0-10); EOSINOPHILS # (AUTO) 0.3 10^3/uL (0.0-0.3); EOSINOPHILS % (AUTO) 3 % (0-10); HEMATOCRIT 37 % (35-52); HEMOGLOBIN 12.2 G/DL (11.5-16.0); LYMPHOCYTES # (AUTO) 2.3 X 10^3 (1.0-4.0); LYMPHOCYTES % (AUTO) 26 % (12-44); MEAN CORPUSCULAR HEMOGLOBIN 29 PG (25-34); MEAN CORPUSCULAR HGB CONC 33 G/DL (32-36); MEAN CORPUSCULAR VOLUME 86 FL (80-99); MEAN PLATELET VOLUME 9.4 FL (7.4-10.4); MONOCYTES # (AUTO) 0.5 X 10^3 (0.0-1.0); MONOCYTES % (AUTO) 6 % (0-12); NEUTROPHILS # (AUTO) 5.6 X 10^3 (1.8-7.8); NEUTROPHILS % (AUTO) 64 % (42-75); PLATELET COUNT 207 10^3/uL (130-400); RED CELL DISTRIBUTION WIDTH 16.1 % (10.0-14.5); WHITE BLOOD COUNT 8.7 10^3/uL (4.3-11.0)
[2019-07-19 09:05] LABS: ALBUMIN 3.1 GM/DL (3.2-4.5); BILIRUBIN,TOTAL 0.2 MG/DL (0.1-1.0); CREATININE SERUM 1.52 MG/DL (0.60-1.30); POTASSIUM 2.9 MMOL/L (3.6-5.0); TOTAL PROTEIN 6.3 GM/DL (6.4-8.2)
[2019-07-19 14:10] LABS: MAGNESIUM 1.4 MG/DL (1.6-2.4)
== END 2019-07-20 | disposition home or self-care (01) ==
LOC: ONC 08:10
PROVIDERS: ATTEND Internal Medicine Hematology & Oncology
DX: Z45.2 Encounter for adjustment and management of vascular access device (principal); C20 Malignant neoplasm of rectum; E86.0 Dehydration; R19.7 Diarrhea, unspecified
CPT/HCPCS: 36591; 80053; 82378; 83735; 85025; 96523

== ENCOUNTER 2019-08-25 13:44 | Outpatient (RCR) | payer MEDICARE, OTHER | END 2019-10-04 08:20 | disposition home or self-care (01) | PROVIDERS: ATTEND Internal Medicine | DX: M25.561 Pain in right knee (principal); M25.562 Pain in left knee; G83.10 Monoplegia of lower limb affecting unspecified side; R63.6 Underweight ==

== ENCOUNTER → 2019-10-07 | Outpatient (CLI) | payer MEDICARE, OTHER ==
[2019-10-07 10:59] LABS: CALCIUM 7.8 MG/DL (8.5-10.1); CREATININE SERUM 1.5 MG/DL (0.60-1.30); POTASSIUM 3.8 MMOL/L (3.6-5.0)
== END ==
LOC: LAB 09:57
PROVIDERS: ATTEND Internal Medicine
DX: N30.01 Acute cystitis with hematuria (principal)
CPT/HCPCS: 36415; 80048

== ENCOUNTER → 2019-10-11 | Outpatient (CLI) | payer MEDICARE, OTHER ==
--- NOTE | 2019-10-11 12:59 | Diagnostic Imaging Report ---
INDICATION: Routine screening. Comparison is made with prior mammogram 07/19/2018 and 07/16/2017. 2-D and 3-D bilateral screening mammography was performed with CAD. Both breasts show marked parenchymal heterogeneity and increased density, limiting the sensitivity of mammography. The parenchymal pattern is stable. No mass or malignant appearing microcalcifications are seen. Axillae are unremarkable. There are vascular calcifications bilaterally. IMPRESSION: BI-RADS Category 1 No mammographic features suspicious for malignancy are identified. ACR BI-RADS Category 1: Negative. Result letter will be mailed to the patient. Note: At least 10% of breast cancer is not imaged by mammography. Dictated by: Dictated on workstation # [id number]
== END ==
LOC: RAD 09:42
PROVIDERS: ATTEND Internal Medicine
DX: Z12.31 Encounter for screening mammogram for malignant neoplasm of breast (principal)
CPT/HCPCS: 77063; 77067

== ENCOUNTER → 2019-10-14 | Outpatient (CLI) | payer MEDICARE, OTHER ==
[~2019-10-14] VITALS: Ht 152.4 cm; Wt 39.4 kg
[~2019-10-14] MED LIST changes: +ZOLEDRONATE (NON-FORMULARY) 100 ML IV ONE
[2019-10-14 10:45] VITALS: BP 150/77
== END ==
LOC: SDC 09:59
PROVIDERS: ATTEND Internal Medicine
DX: M81.0 Age-related osteoporosis without current pathological fracture (principal)
CPT/HCPCS: 96365

== ENCOUNTER → 2019-11-01 | Outpatient (CLI) | payer MEDICARE, OTHER ==
[~2019-11-01] MED LIST changes: -ZOLEDRONATE (NON-FORMULARY) 100 ML IV ONE
--- NOTE | 2019-11-01 10:13 | Diagnostic Imaging Report ---
INDICATION: Left leg pain. TECHNIQUE: The left leg venous Doppler study was performed in the routine fashion with color flow Doppler and waveform analysis. FINDINGS: The left common femoral vein, greater saphenous vein, and profunda femoris vein are patent and compressible. The left SFV and popliteal vein are patent. The posterior tibial veins are patent. There is thrombus in the left peroneal vein in the calf. IMPRESSION: Thrombus is seen in the left peroneal vein in the calf. The remaining venous structures are patent. Dictated by: Dictated on workstation # [id number]
== END ==
LOC: RAD 08:17
PROVIDERS: ATTEND Internal Medicine
DX: I82.452 Acute embolism and thrombosis of left peroneal vein (principal)

== ENCOUNTER 2019-11-07 08:58 | Emergency (ER) | payer MEDICARE, OTHER ==
[~2019-11-07] VITALS: Ht 152.4 cm; Wt 40.9 kg
[2019-11-07] MEDS ORDERED: NS IV 500 ML 500 ML IV ONE (09:29)
[2019-11-07 09:52] LABS: BASOPHILS # (AUTO) 0.1 10^3/uL (0.0-0.1); BASOPHILS % (AUTO) 1 % (0-10); EOSINOPHILS # (AUTO) 0.3 10^3/uL (0.0-0.3); EOSINOPHILS % (AUTO) 3 % (0-10); HEMATOCRIT 32 % (35-52); HEMOGLOBIN 10.3 G/DL (11.5-16.0); LYMPHOCYTES # (AUTO) 2.6 X 10^3 (1.0-4.0); LYMPHOCYTES % (AUTO) 30 % (12-44); MEAN CORPUSCULAR HEMOGLOBIN 29 PG (25-34); MEAN CORPUSCULAR HGB CONC 32 G/DL (32-36); MEAN CORPUSCULAR VOLUME 90 FL (80-99); MEAN PLATELET VOLUME 9.3 FL (7.4-10.4); MONOCYTES # (AUTO) 0.5 X 10^3 (0.0-1.0); MONOCYTES % (AUTO) 6 % (0-12); NEUTROPHILS # (AUTO) 5.1 X 10^3 (1.8-7.8); NEUTROPHILS % (AUTO) 60 % (42-75); PLATELET COUNT 194 10^3/uL (130-400); RED CELL DISTRIBUTION WIDTH 16.1 % (10.0-14.5); WHITE BLOOD COUNT 8.5 10^3/uL (4.3-11.0)
[2019-11-07 10:04] LABS: ALBUMIN 2.9 GM/DL (3.2-4.5); POTASSIUM 4.2 MMOL/L (3.6-5.0)
[2019-11-07 10:06] LABS: TOTAL PROTEIN 5.9 GM/DL (6.4-8.2)
--- NOTE | 2019-11-07 10:07 | Diagnostic Imaging Report ---
INDICATION: Shortness of breath. FINDINGS: Heart size is normal. Mediastinum is unremarkable. Rsmysv-R-Eyoa catheter overlies left chest. IMPRESSION: No acute cardiopulmonary abnormality. Dictated by: Dictated on workstation # [id number]
[2019-11-07 10:08] LABS: BILIRUBIN,TOTAL 0.2 MG/DL (0.1-1.0)
[2019-11-07 10:10] LABS: CREATININE SERUM 1.46 MG/DL (0.60-1.30)
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
[2019-11-07 12:16] VITALS: BP 169/84
== END 2019-11-07 12:16 | disposition home or self-care (01) ==
LOC: EDUNIT# 08:58 → ER 08:59
DX: R06.00 Dyspnea, unspecified (principal); I82.402 Acute embolism and thrombosis of unspecified deep veins of left lower extremity; Z88.0 Allergy status to penicillin; Z88.8 Allergy status to other drugs, medicaments and biological substances; Z88.2 Allergy status to sulfonamides; Z82.49 Family history of ischemic heart disease and other diseases of the circulatory system; Z80.42 Family history of malignant neoplasm of prostate; Z85.038 Personal history of other malignant neoplasm of large intestine; Z85.528 Personal history of other malignant neoplasm of kidney; Z85.048 Personal history of other malignant neoplasm of rectum, rectosigmoid junction, and anus
CPT/HCPCS: 36415; 71045; 80053; 85025; 86141

== ENCOUNTER 2019-12-20 11:23 | Outpatient (RCR) | payer MEDICARE, OTHER ==
[2020-01-02] MEDS ORDERED: POTA10TA36 PO (16:22)
[2020-01-02] MEDS ORDERED: LOPE-134 PO (16:22)
[2020-01-02] MEDS ORDERED: CRAN500T2 PO (16:22)
[2020-01-02] MEDS ORDERED: CALC-1102 PO (16:22)
[2020-01-02] MEDS ORDERED: CHOL500044 PO (16:22)
[2020-01-02] MEDS ORDERED: VIT1CAPS5 PO (16:22)
[2020-01-02] MEDS ORDERED: CHOL500049 PO (16:22)
== END 2020-03-19 | disposition home or self-care (01) ==
LOC: LAB 11:23
PROVIDERS: ATTEND Internal Medicine
DX: K52.1 Toxic gastroenteritis and colitis (principal)
CPT/HCPCS: 87324; 87449

== ENCOUNTER 2020-01-03 05:36 | Outpatient (RCR) | payer MEDICARE, OTHER ==
[~2020-01-03 05:36] MED LIST changes: +CALC-889 PO; +CHOL500044 PO; +CRAN500T2 PO; +LOPE-134 PO; +POTA10TA36 PO; +VIT1CAPS5 PO
== END 2020-01-03 10:16 | disposition home or self-care (01) ==
LOC: PREOP 05:36
PROVIDERS: ATTEND Surgery
DX: Z01.812 Encounter for preprocedural laboratory examination (principal); Z20.828 Contact with and (suspected) exposure to other viral communicable diseases
CPT/HCPCS: 87635

== ENCOUNTER 2020-01-05 09:05 | Day surgery (SDC) | payer MEDICARE, OTHER ==
[2020-01-04 09:40] VITALS: BP 149/78
[2020-01-05] VITALS (7 sets, daily range): BP systolic 112–132; BP diastolic 53–77
[~2020-01-05] VITALS: Ht 152.4 cm; Wt 40.9 kg
[2020-01-05] MEDS ORDERED: LACTATED RINGERS 1,000 ML IV PRN (09:13)
[2020-01-05] MEDS ORDERED: CLINDAMYCIN 600 MG/50 ML IVPB 50 ML IV ONE (09:15)
[2020-01-05] MEDS ORDERED: CATHETER FLUSH 10 ML SYR IV PRN (09:30)
[2020-01-05] MEDS ORDERED: MIDAZOLAM 2 MG/2 ML (VERSED) VIAL ONE (10:42)
[2020-01-05] MEDS ORDERED: PROPOFOL INJECTION 50 ML IV ONE (10:42)
[2020-01-05] MEDS ORDERED: fentaNYL INJECTION 100 MCG/2 ML AMP ONE (10:42)
[2020-01-05] MEDS ORDERED: LIDOCAINE/EPI 1%-1:100,000 (XYLOCAINE) 20ML ONE (10:52)
[2020-01-05] MEDS ORDERED: 0.9% SODIUM CHLORIDE PF INJ 20 ML VIAL ONE (11:03)
[2020-01-05] MEDS ORDERED: HEParin (CENTRAL IV FLUSH) 500 UNIT/5 ML SYR ONE (11:03)
--- NOTE | 2020-01-05 12:08 | Progress Note-Pre Operative ---
Pre-Operative Progress Note H&P Reviewed The H&P was reviewed, patient examined and no changes noted. Date Seen by Provider: Jan 05, 2020 Time Seen by Provider: 12:08 Date H&P Reviewed: Jan 05, 2020 Time H&P Reviewed: 12:08 Pre-Operative Diagnosis: poor venous access, hx rectal ca ARAMIS CEJA DO Jan 05, 2020 12:08
--- NOTE | 2020-01-05 13:01 | Progress Note-Post Operative ---
Post-Operative Progess Note Surgeon (s)/Mri Supervisor (s) Surgeon ARAMIS CEJA DO Mri Supervisor: na Pre-Operative Diagnosis poor venous access, hx rectal ca Post-Operative Diagnosis same Procedure & Operative Findings Date of Procedure 01/05/20 Procedure Performed/Findings PROCEDURE: Right internal jugular port placement using ultrasound guidance. COMPLICATIONS: None. INDICATIONS: The patient is a 69 year old female with poor venous access, history of rectal cancer. Patient understands the risks and benefits of port placement and wished to proceed with the procedure. Consent was signed on the chart. PROCEDURE: The patient was taken to the operating suite, was prepped and draped in the sterile fashion. A surgical pause was performed. Ultrasound was used to locate the internal jugular vein. Once located anesthetic was infiltrated above it. Using micro-access kit, the right internal vein was accessed. Dark nonpulsatile blood was withdrawn. The wire was inserted. Fluoroscopy assured proper placement. The needle was removed. The micro-access dilator was advanced over the wire and the wire was removed. The regular wire was inserted and fluoroscopy assured proper placement. The wire was then secured. Local anesthetic was used to anesthetize from the neck for tunneling down to the right chest and for pocket creation. A 15 blade scalpel was used to make an incision over the right chest. Cautery was used to dissect down to the pectoral fascia. A pocket was created with blunt dissection. The dilator sheath was then advanced over the wire under fluoroscopy and the dilator and wire were removed. The Groshong catheter was inserted through the sheath and the sheath was then removed. The Groshong wire was removed. The catheter was then tunneled to the right chest pocket. Fluoroscopy was used to cut to length and this was then attached to the port which was then placed within the pocket. The port was then accessed without difficulty. It was then flushed with saline and then heparin. The subcutaneous tissues were then reapproximated using 3-0 Vicryl. The areas were then washed and dried. Skin Affix was placed over incision. The insertion point of the neck Skin Affix was placed over the incision. The patient tolerated the procedure well without complication and was taken to recovery room in stable condition. Chest x-ray is pending. Anesthesia Type mac c local Estimated Blood Loss Estimated blood loss (mL): minimal Specimens/Packing Specimens Removed ARAMIS Weinberg DO Jan 05, 2020 13:01
--- NOTE | 2020-01-05 13:04 | Anesthesia-General Post-Op ---
MAC Patient Condition Mental Status/LOC: Same as Preop Cardiovascular: Satisfactory Nausea/Vomiting: Absent Respiratory: Satisfactory Pain: Controlled Complications: Absent Post Op Complications Complications None Follow Up Care/Instructions Patient Instructions None needed. Anesthesiology Discharge Order Discharge Order Patient is doing well, no complaints, stable vital signs, no apparent adverse anesthesia problems. No complications reported per nursing. HODA ESCOBAR CRNA Jan 05, 2020 13:04
--- NOTE | 2020-01-05 13:05 | Discharge Inst-Simple/Standard ---
Discharge Inst-Standard Patient Instructions/Follow Up Plan of Care/Instructions/FU: 2 weeks Ana Activity as Tolerated: No Discharge Diet: Regular Diet Other Inst to Patient Follow up Appt: Make appointment for 2 week. Instructions: No lifting greater than 10 pounds. No strenuous activity. May shower in 24 hours, no tub bath or soaking. Use incentive spirometer at home as directed. No Smoking Skin/Wound Care: You have special glue over your incision that will fall off on it's own. Ice pack on 15 min and off 30 min and repeat. This is to reduce swelling and discomfort. Do this for first 48 hrs while awake. Symptoms to Report: Appetite Changes, Extremity Discoloration, Numbness/Tingling, Swelling Increased, Bleeding Excessive, Eyesight Changes, Pain Increased, Urine Color Change, Constipation(Persistent), Fever over 101 degree F, Pain/Pressure in chest, Urinating Difficulty, Cough Up/Vomit Blood, Heart Beat Irreg/Pounding, Pain/Pressure in jaw, Vaginal Bleeding Increase, Cramps in feet or legs, Lightheadedness, Pain/Pressure in shoulder, Diarrhea(Persistent), Memory Changes Suddenly, Questions/Concerns, Weight gain consecutive days, Dizziness/Fainting, Nausea/Vomiting, Shortness of Breath, Weight gain over 2 pounds If questions or concerns contact your physician Or seek help at emergency department. ARAMIS CEJA DO Jan 05, 2020 13:05
[2020-01-05] MEDS ORDERED: ONDANSETRON 4 MG/2 ML (SDV) Z0FRAN IVP PRN (13:15)
[2020-01-05] MEDS ORDERED: morphine INJ 10 MG/ML 1ML (SYR OR VIAL) IVP ONE (13:15)
--- NOTE | 2020-01-05 13:15 | Diagnostic Imaging Report ---
EXAM: Fluoroscopy up to 1 hour. INDICATION: Port placement Fluoroscopic assistance was provided for Dr. Perez during this port placement procedure. 16 seconds of fluoroscopy time was utilized. A single spot film of the right thorax was obtained. There is now a Port-A-Cath in place with the tip of the catheter overlying the midportion of the superior vena cava. The left-sided Port-A-Cath seen on the prior exam of 03/23/2014 has been removed. IMPRESSION: Fluoroscopic assistance was provided for Dr. Perez. Dictated by: Dictated on workstation # [id number]
--- NOTE | 2020-01-05 14:14 | Diagnostic Imaging Report ---
INDICATION: Status post port placement COMPARISON: 11/07/2019 FINDINGS: Single frontal view of the chest demonstrates normal heart size and pulmonary vascularity. The lungs are well aerated and clear. No large pleural effusion or pneumothorax is seen. The visualized osseous structures show no acute abnormalities. New right internal jugular Port-A-Cath is seen with tip projecting over the SVC. IMPRESSION: 1. No acute cardiopulmonary process. 2. New right internal jugular Port-A-Cath, as above. Dictated by: Dictated on workstation # [id number]
== END 2020-01-05 14:25 | disposition home or self-care (01) ==
LOC: SDC 09:05
PROVIDERS: ATTEND Surgery
DX: I87.2 Venous insufficiency (chronic) (peripheral) (principal); I10 Essential (primary) hypertension; M81.0 Age-related osteoporosis without current pathological fracture; K50.90 Crohn's disease, unspecified, without complications; D64.9 Anemia, unspecified; J45.909 Unspecified asthma, uncomplicated; F41.9 Anxiety disorder, unspecified; Z85.048 Personal history of other malignant neoplasm of rectum, rectosigmoid junction, and anus; Z79.899 Other long term (current) drug therapy; Z87.442 Personal history of urinary calculi; Z11.2 Encounter for screening for other bacterial diseases; Z88.1 Allergy status to other antibiotic agents; Z88.2 Allergy status to sulfonamides
CPT/HCPCS: 36561; 71045; 76000; 87081; C1788

== ENCOUNTER 2020-01-10 14:51 | Outpatient (RCR) | payer MEDICARE, OTHER ==
[~2020-01-10 14:51] MED LIST changes: +CALC-1102 PO; -CALC-889 PO
[2020-01-10 15:13] LABS: BASOPHILS # (AUTO) 0.1 10^3/uL (0.0-0.1); BASOPHILS % (AUTO) 1 % (0-10); EOSINOPHILS # (AUTO) 0.1 10^3/uL (0.0-0.3); EOSINOPHILS % (AUTO) 1 % (0-10); HEMATOCRIT 30 % (35-52); HEMOGLOBIN 9.6 g/dL (11.5-16.0); LYMPHOCYTES # (AUTO) 3.3 10^3/uL (1.0-4.0); LYMPHOCYTES % (AUTO) 34 % (12-44); MEAN CORPUSCULAR HEMOGLOBIN 29 pg (25-34); MEAN CORPUSCULAR HGB CONC 32 g/dL (32-36); MEAN CORPUSCULAR VOLUME 92 fL (80-99); MEAN PLATELET VOLUME 9.4 fL (9.0-12.2); MONOCYTES # (AUTO) 0.6 10^3/uL (0.0-1.0); MONOCYTES % (AUTO) 6 % (0-12); NEUTROPHILS # (AUTO) 5.6 10^3/uL (1.8-7.8); NEUTROPHILS % (AUTO) 58 % (42-75); PLATELET COUNT 155 10^3/uL (130-400); WHITE BLOOD COUNT 9.7 10^3/uL (4.3-11.0)
[2020-01-10 15:41] LABS: ALBUMIN 2.2 GM/DL (3.2-4.5); BILIRUBIN,TOTAL 0.3 MG/DL (0.1-1.0); CALCIUM 7.2 MG/DL (8.5-10.1); CREATININE SERUM 1.83 MG/DL (0.60-1.30); MAGNESIUM 1.2 MG/DL (1.6-2.4); POTASSIUM 3.5 MMOL/L (3.6-5.0); TOTAL PROTEIN 5.3 GM/DL (6.4-8.2)
== END 2020-04-09 | disposition home or self-care (01) ==
LOC: ONC 14:51
PROVIDERS: ATTEND Internal Medicine Hematology & Oncology
DX: C20 Malignant neoplasm of rectum (principal); M81.0 Age-related osteoporosis without current pathological fracture; N18.4 Chronic kidney disease, stage 4 (severe); G96.198 Other disorders of meninges, not elsewhere classified
CPT/HCPCS: 80053; 82306; 82378; 83735; 85025; G0463; 36591

== ENCOUNTER → 2020-01-16 | Outpatient (CLI) | payer MEDICARE, OTHER ==
[~2020-01-16] MED LIST changes: -CALC-1102 PO; +CALC-889 PO
== END ==
LOC: LABNPT 05:25
PROVIDERS: ATTEND Urology
DX: Z01.812 Encounter for preprocedural laboratory examination (principal); Z20.828 Contact with and (suspected) exposure to other viral communicable diseases
CPT/HCPCS: 87635

== ENCOUNTER 2020-03-03 15:07 | Emergency (ER) | payer MEDICARE, OTHER ==
[~2020-03-03] VITALS: Ht 152.4 cm; Wt 37.2 kg
[~2020-03-03 15:07] MED LIST changes: +CALC-1102 PO; -CALC-889 PO
[2020-03-03 15:36] LABS: BASOPHILS # (AUTO) 0.1 10^3/uL (0.0-0.1); BASOPHILS % (AUTO) 0 % (0-10); EOSINOPHILS % (AUTO) 0 % (0-10); HEMATOCRIT 33 % (35-52); LYMPHOCYTES # (AUTO) 4.1 10^3/uL (1.0-4.0); LYMPHOCYTES % (AUTO) 22 % (12-44); MEAN CORPUSCULAR HEMOGLOBIN 30 pg (25-34); MEAN CORPUSCULAR HGB CONC 34 g/dL (32-36); MEAN CORPUSCULAR VOLUME 88 fL (80-99); MEAN PLATELET VOLUME 10.4 fL (9.0-12.2); MONOCYTES # (AUTO) 0.8 10^3/uL (0.0-1.0); MONOCYTES % (AUTO) 4 % (0-12); NEUTROPHILS # (AUTO) 13.3 10^3/uL (1.8-7.8); NEUTROPHILS % (AUTO) 72 % (42-75); PLATELET COUNT 243 10^3/uL (130-400); WHITE BLOOD COUNT 18.4 10^3/uL (4.3-11.0)
[2020-03-03] MEDS ORDERED: fentaNYL INJECTION 100 MCG/2 ML AMP IVP PRN ×2 (15:45→18:15)
[2020-03-03] MEDS ORDERED: NS IV 500 ML 500 ML IV SCH (15:45)
[2020-03-03] MEDS ORDERED: ONDANSETRON 4 MG/2 ML (SDV) Z0FRAN IVP ONE ×3 (15:45→20:00)
[2020-03-03 15:48] LABS: ALBUMIN 2.3 GM/DL (3.2-4.5)
[2020-03-03 15:49] LABS: CALCIUM 6.5 MG/DL (8.5-10.1)
[2020-03-03 15:50] LABS: TOTAL PROTEIN 5.3 GM/DL (6.4-8.2)
[2020-03-03 15:52] LABS: BILIRUBIN,TOTAL 0.6 MG/DL (0.1-1.0)
[2020-03-03 15:54] LABS: CREATININE SERUM 2.29 MG/DL (0.60-1.30)
[2020-03-03 15:56] LABS: ANISOCYTOSIS SLIGHT; BAND NEUTROPHILS 3 %; LYMPHOCYTES % (MANUAL) 20 %; MONOCYTES % (MANUAL) 1 %; NEUTROPHILS % (MANUAL) 76 %; POLYCHROMASIA SLIGHT
[2020-03-03 15:57] LABS: BURR CELLS SLIGHT
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
[2020-03-03] MEDS ORDERED: NS IV 1000 ML 1,000 ML IV SCH ×2 (16:15→18:45)
[2020-03-03] MEDS ORDERED: HEParin DRIP 25000 UNIT/500ML 500 ML IV ONE (16:15)
[2020-03-03] MEDS ORDERED: HEParin 1000 UNIT/ML (10ML VIAL) FOR BOLUS IV ONE (16:15)
[2020-03-03 16:17] LABS: BILIRUBIN,URINE NEGATIVE (NEGATIVE); CLARITY,URINE CLOUDY; COLOR,URINE YELLOW; GLUCOSE, URINE (UA) NEGATIVE (NEGATIVE); KETONES,URINE NEGATIVE (NEGATIVE); LEUKOCYTE ESTERASE ,URINE 2+ (NEGATIVE); NITRITE,URINE NEGATIVE (NEGATIVE); PH,URINE 5.5 (5-9); PROTEIN,URINE 2+ (NEGATIVE)
[2020-03-03] MEDS ORDERED: POTASSIUM CL 10MEQ/50ML IVPB 100 ML IV ONE (16:18)
--- NOTE | 2020-03-03 16:23 | Diagnostic Imaging Report ---
EXAMINATION: Chest radiograph, portable AP view. DATE: 03/03/2020 4:12 PM INDICATION: 69-year-old female, shortness breath, tachycardia. COMPARISON: January 05, 2020. FINDINGS: There is a right-sided Prom-E-Srweryxz with tip overlying the mid SVC. Heart size and mediastinal contours are unchanged. There is no identified pneumothorax. There is no large pleural effusion. There are streaky opacities overlying the right lower lung zone. There is a catheter overlying the right upper quadrant. This is a left abdominal catheter also present. IMPRESSION: Streaky opacities in the right lower lung zone which may relate to atelectasis and/or infiltrate. Dictated by: Dictated on workstation # [id number]
[2020-03-03 16:24] LABS: BACTERIA,URINE MODERATE /HPF; WBC,URINE >100 /HPF
[2020-03-03] MEDS: POTASSIUM CL 10MEQ/50ML IVPB 50 ML IV SCH ×2 (16:36→16:37)
[2020-03-03] MEDS ORDERED: CEFEPIME INJECTION 1,000 MG in WATER (STERILE) FOR INJECTION 10 ML IV ONE (16:45)
--- NOTE | 2020-03-03 16:55 | Diagnostic Imaging Report ---
PROCEDURE: CT abdomen and pelvis without contrast. TECHNIQUE: Multiple contiguous axial images were obtained through the abdomen and pelvis without the use of intravenous contrast. Auto Exposure Controls were utilized during the CT exam to meet ALARA standards for radiation dose reduction. DATE: March 03, 2020. COMPARISON: CT abdomen and pelvis August 23, 2018. INDICATION: 69-year-old female, severe lower abdominal pain. Shortness of breath. FINDINGS: There are limitations for evaluation of the abdominal organs, neoplastic processes, abscess, and limited evaluation of the vasculature relating to the lack of intravenous contrast. There is a left lower lobe pulmonary nodule on image 4 measuring 6 mm in size which is new since August 23, 2018. There is a 2 mm right lower lobe pulmonary nodule which is unchanged on axial image 8. There is a minimal area of peripheral somewhat linear opacification in the right lower lobe on axial image 3 to may relate to focal atelectasis although it is difficult to characterize. The heart is not enlarged. There is no pericardial effusion. There is diffuse fatty infiltration of the liver. The outer liver contours are not nodular. The gallbladder is mildly distended. There is no CT apparent gallstone. There is no intrahepatic or extrahepatic bile duct dilation. The main pancreatic duct is not grossly dilated. Limited noncontrast evaluation of the pancreatic parenchyma is unremarkable. The spleen is not enlarged. The adrenal glands are unremarkable. There is a right-sided ureteral stent in the left-sided ureteral stent. There is also a right-sided nephrostomy tube. There is air within right renal calyces which are slightly dilated. There is prominence of the left renal pelvis. The urinary bladder is collapsed and not well evaluated. There is severe atrophy of the left kidney. There is a left lower quadrant ostomy. There are procedural related changes at the level of the distal sigmoid colon. There is a large volume colonic stool. There is no free intraperitoneal air. There is no identified drainable fluid collection. There is a very small amount of free pelvic fluid. There are atherosclerotic calcifications. There is no identified abnormally enlarged lymph node in the abdomen or pelvis meeting CT size criteria for adenopathy. There is a deformity in the region of the pubic symphysis. There is scoliosis. There are compression deformities of L1 and T12 which are stable since August 23, 2018. IMPRESSION: CT abdomen and pelvis: 1. 6 mm left lower lobe pulmonary nodule, new since August 23, 2018. 2. There is a right-sided nephrostomy tube in place with mild right hydronephrosis. There are bilateral ureteral stents. Severe atrophy of the left kidney. 3. Left lower quadrant ostomy. Large volume colonic stool. Dictated by: Dictated on workstation # [id number]
[2020-03-03] MEDS ORDERED: NOREPINEPHRINE 4 MG/250 ML 250 ML IV ONE (17:13)
[2020-03-03] MEDS ORDERED: NOREPINEPHRINE 4 MG/250 ML 250 ML IV SCH (17:30)
[2020-03-03] MEDS ORDERED: ONDANSETRON 4 MG/2 ML (SDV) Z0FRAN ONE (18:14)
[2020-03-03] MEDS ORDERED: LINEZOLID IVPB 300 ML IV ONE (19:30)
[2020-03-03] MEDS ORDERED: fentaNYL INJECTION 100 MCG/2 ML AMP IVP ONE (20:00)
--- NOTE | 2020-03-03 20:05 | NUR ---
PT C/O EXTREME ITCHING. ZYVOX STOPPED AT THIS TIME AND DR. ALEJANDRA NOTIFIED.
[2020-03-03] MEDS ORDERED: diphenhydrAMINE 50 MG/ML INJ (BENADRYL) ONE (20:06)
--- NOTE | 2020-03-03 20:10 | NUR ---
PT STATES SHE IS NO LONGER ITCHING. DR. ALEJANDRA NOTIFIED.
[2020-03-03] MEDS ORDERED: diphenhydrAMINE 50 MG/ML INJ (BENADRYL) IVP ONE (20:15)
[2020-03-03 20:40] VITALS: BP 103/59
--- NOTE | 2020-03-03 20:45 | NUR ---
PT , JOVANY NOTIFIED OF PT ROOM NUMBER [id number] AND LEAVING NOW [facility]IA [facility].
== END 2020-03-03 20:40 | disposition short-term general hospital (02) ==
LOC: EDUNIT# 15:07 → ER 15:12
DX: A41.9 Sepsis, unspecified organism (principal); E87.6 Hypokalemia; R77.8 Other specified abnormalities of plasma proteins; R79.1 Abnormal coagulation profile; N17.9 Acute kidney failure, unspecified; N39.0 Urinary tract infection, site not specified; K21.9 Gastro-esophageal reflux disease without esophagitis; F41.9 Anxiety disorder, unspecified; Z80.42 Family history of malignant neoplasm of prostate; Z82.49 Family history of ischemic heart disease and other diseases of the circulatory system; Z85.038 Personal history of other malignant neoplasm of large intestine; Z85.048 Personal history of other malignant neoplasm of rectum, rectosigmoid junction, and anus; Z85.528 Personal history of other malignant neoplasm of kidney; Z88.0 Allergy status to penicillin; Z88.2 Allergy status to sulfonamides; Z88.8 Allergy status to other drugs, medicaments and biological substances; Z20.828 Contact with and (suspected) exposure to other viral communicable diseases
CPT/HCPCS: 71045; 74176; 80053; 81000; 82550; 83605; 84484; 85007; 85027; 85379; 87040; 87088; 99285; U0002; 36415; 87077; 87186; 87635; 93005